=== PATIENT | female | born 1995 | race American Indian/Alaskan Native ===

== ENCOUNTER 2016-11-18 20:06 | Inpatient (IN) | payer MEDICAID ==
[2016-11-18] MEDS ORDERED: Insulin Regular, Human 100 Units/ML 10 ML Vial IVPUSH ONE (20:28)
[2016-11-18] MEDS ORDERED: Sodium Chloride 0.9% 1,000 ML IV ONE ×3 (20:28→21:51)
[2016-11-18] MEDS ORDERED: Ondansetron 4 MG/2 ML SDV IV ONE (20:28)
--- NOTE | 2016-11-18 20:48 | EDM.PDOC ---
ED HPI DIABETIC EMERGENCY - General Chief Complaint: Diabetic Complaint Stated Complaint: vomiting diabetic Time Seen by Provider: 11/18/16 20:45 Source of Information: Reports: Patient History Limitations: Reports: No limitations - History of Present Illness INITIAL COMMENTS - FREE TEXT/NARRATIVE: states been vomiting since this AM thought will go away but not so came here. mother called sarah' drug screen. denies diarrhoea, minimal c/o abd' pain. Most Recent Blood Sugar: 405 - Related Data Allergies/ADRs: Allergies Allergy/AdvReac Type Severity Reaction Status Date / Time hydromorphone HCl Allergy Itching Verified 10/20/16 22:05 [From Dilaudid] Home Meds: Home Meds Insulin Detemir [Levemir] 40 unit SUBCUT BEDTIME 03/11/16 [History] Insulin Aspart [NovoLOG] 17 units SUBCUT TIDAC 04/05/16 [History] Past Medical History HEENT History: Reports: Other (see below) Other HEENT History: ear problems with draining Cardiovascular History: Reports: None Respiratory History: Reports: None Gastrointestinal History: Reports: Hepatitis Other Gastrointestinal History: rectal bleeding per self report for past couple of months Genitourinary History: Reports: None 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 Musculoskeletal History: Reports: Fracture Neurological History: Reports: None Psychiatric History: Reports: ADHD, Addiction, Depression, Emotional problems Endocrine/Metabolic History: Reports: Diabetes, type I Hematologic History: Reports: None Immunologic History: Reports: None Oncologic (Cancer) History: Reports: None Dermatologic History: Reports: Other (see below) Other Dermatologic History: cut العراقي noted to forearms, acne vulgaris - Infectious Disease History Infectious Disease History: Reports: Hepatitis C, MRSA - Past Surgical History Head Surgeries/Procedures: Reports: None HEENT Surgical History: Reports: Adenoidectomy, Tonsillectomy, Other (see below) Other HEENT Surgeries/Procedures: repair of broken jaw(maxillary zygomatic reduction), wisdom teeth removed Social & Family History - Family History Family Medical History: Noncontributory Psychiatric: Reports: Depression Endocrine/Metabolic: Reports: Diabetes, type II - Tobacco Use Smoking Status *Q: Unknown Ever Smoked Years of Tobacco use: 4 Packs/Tins Daily: 0.2 Used Tobacco, but Quit: No Second Hand Smoke Exposure: Yes - Caffeine Use Caffeine Use: Reports: Coffee, Energy drinks - Alcohol Use Days Per Week of Alcohol Use: 1 Number of Drinks Per Day: 3 Total Drinks Per Week: 3 - Recreational Drug Use Recreational Drug Use: No Drug Use in Last 12 Months: Yes Recreational Drug Type: Reports: Marijuana/Hashish Recreational Drug Use Frequency: Rarely - Sexual History Sexual History: Reports: Sexually active - Living Situation & Occupation Living situation: Reports: with significant other Occupation: unemployed ED ROS GENERAL - Review of Systems Review Of Systems: ROS reveals no pertinent complaints other than HPI. ED EXAM GENERAL NO PERIP PULSE - Physical Exam Exam: See Below Exam Limited By: No limitations General Appearance: alert, WD/WN, mild distress, other (crying) Eye Exam: bilateral eye: PERRL (pupils ess ER @ 4mm) Ears: hearing grossly normal Throat/Mouth: Normal voice, No airway compromise Head: atraumatic Neck: non-tender, full range of motion Respiratory/Chest: no respiratory distress, lungs clear, normal breath sounds, no accessory muscle use Cardiovascular: regular rate, rhythm GI/Abdominal: soft, non tender Neurological: alert, oriented, normal cognition, normal gait, no motor/sensory deficits Psychiatric: tearful Skin Exam: Warm, Dry Lymphatic: no adenopathy Course - Vital Signs Last Recorded V/S: Last Vital Signs Temp 36.3 C 11/18/16 21:20 Pulse 118 H 11/18/16 21:20 Resp 23 H 11/18/16 21:20 BP 126/69 11/18/16 21:20 Pulse Ox 100 11/18/16 21:20 - Orders/Labs/Meds Orders: Active Orders 24 hr Category Date Time Status Blood Glucose Check, Bedside [RC] ONETIME Care 11/18/16 20:11 Active Sodium Chloride 0.9% [Normal Saline] 1,000 ml Med 11/18/16 21:17 Active IV .BOLUS Sodium Chloride 0.9% [Normal Saline] 1,000 ml Med 11/18/16 21:51 Active IV .BOLUS Medication Orders Sodium Chloride (Normal Saline) 1,000 mls @ 999 mls/hr IV .BOLUS ONE Stop: 11/18/16 22:17 Last Admin: 11/18/16 21:18 Dose: 999 mls/hr Sodium Chloride (Normal Saline) 1,000 mls @ 500 mls/hr IV .BOLUS ONE Stop: 11/18/16 23:50 Last Admin: 11/18/16 21:53 Dose: 500 mls/hr Labs: Laboratory Tests 11/18/16 11/18/16 11/18/16 Range/Units 20:11 20:15 20:15 WBC (5.0-10.0) 10^3/uL RBC (4.2-5.4) 10^6/uL Hgb (12.0-16.0) g/dL Hct (37.0-47.0) % MCV (80-100) fL MCH (27.0-34.0) pg MCHC (33.0-35.0) g/dL Plt Count (150-450) 10^3/uL Neut % (Auto) (42.2-75.2) % Lymph % (Auto) (20.5-50.1) % Mckenzie % (Auto) (2-8) % Eos % (Auto) (1.0-3.0) % Baso % (Auto) (0.0-1.0) % ABG pH (7.35-7.45) ABG pCO2 (35-45) mmHg ABG pO2 (70-100) mmHg ABG HCO3 (22-26) mmol/L ABG O2 Saturation (95-100) % ABG Base Excess ((-2)-(+3)) mmol/L Sean Test O2 Delivery Device Oxygen Flow Rate Sodium 131 L (135-145) mmol/L Potassium 5.5 H (3.6-5.0) mmol/L Chloride 97 L (101-111) mmol/L Carbon Dioxide 9.0 L (21.0-31.0) mmol/L Anion Gap 30.5 BUN 17 (7-18) mg/dL Creatinine 1.0 (0.6-1.3) mg/dL Est Cr Clr Drug Dosing TNP Estimated GFR (MDRD) > 60 BUN/Creatinine Ratio 17.00 Glucose 449 H* (74-105) mg/dL POC Glucose 405 H* (70-105) mg/dl Calcium 9.5 (8.4-10.2) mg/dl Total Bilirubin 1.5 H (0.2-1.0) mg/dL AST 53 H (10-42) IU/L ALT 80 H (10-60) IU/L Alkaline Phosphatase 98 (42-121) IU/L Total Protein 10.4 H (6.7-8.2) g/dl Albumin 5.3 (3.2-5.5) g/dl Globulin 5.1 Albumin/Globulin Ratio 1.04 Amylase 26 L (28-100) U/L Lipase 27 (22-51) U/L HCG, Qual Negative Urine Opiates Screen (NEGATIVE) Ur Oxycodone Screen (NEGATIVE) Urine Methadone Screen (NEGATIVE) Ur Barbiturates Screen (NEGATIVE) U Tricyclic Antidepress (NEGATIVE) Ur Phencyclidine Scrn (NEGATIVE) Ur Amphetamine Screen (NEGATIVE) U Methamphetamines Scrn (NEGATIVE) Urine MDMA Screen (NEGATIVE) U Benzodiazepines Scrn (NEGATIVE) Urine Cocaine Screen (NEGATIVE) U Marijuana (THC) Screen (NEGATIVE) Ethyl Alcohol < 5 mg/dL 11/18/16 11/18/16 11/18/16 Range/Units 20:15 21:05 21:27 WBC 17.6 H (5.0-10.0) 10^3/uL RBC 5.97 H (4.2-5.4) 10^6/uL Hgb 16.1 H (12.0-16.0) g/dL Hct 50.8 H (37.0-47.0) % MCV 85.1 (80-100) fL MCH 27.0 (27.0-34.0) pg MCHC 31.7 L (33.0-35.0) g/dL Plt Count 405 (150-450) 10^3/uL Neut % (Auto) 66.3 (42.2-75.2) % Lymph % (Auto) 28.7 (20.5-50.1) % Mckenzie % (Auto) 4.7 (2-8) % Eos % (Auto) 0.1 L (1.0-3.0) % Baso % (Auto) 0.2 (0.0-1.0) % ABG pH (7.35-7.45) ABG pCO2 (35-45) mmHg ABG pO2 (70-100) mmHg ABG HCO3 (22-26) mmol/L ABG O2 Saturation (95-100) % ABG Base Excess ((-2)-(+3)) mmol/L Sean Test O2 Delivery Device Oxygen Flow Rate Sodium (135-145) mmol/L Potassium (3.6-5.0) mmol/L Chloride (101-111) mmol/L Carbon Dioxide (21.0-31.0) mmol/L Anion Gap BUN (7-18) mg/dL Creatinine (0.6-1.3) mg/dL Est Cr Clr Drug Dosing Estimated GFR (MDRD) BUN/Creatinine Ratio Glucose (74-105) mg/dL POC Glucose 382 H (70-105) mg/dl Calcium (8.4-10.2) mg/dl Total Bilirubin (0.2-1.0) mg/dL AST (10-42) IU/L ALT (10-60) IU/L Alkaline Phosphatase (42-121) IU/L Total Protein (6.7-8.2) g/dl Albumin (3.2-5.5) g/dl Globulin Albumin/Globulin Ratio Amylase (28-100) U/L Lipase (22-51) U/L HCG, Qual Urine Opiates Screen Negative (NEGATIVE) Ur Oxycodone Screen Negative (NEGATIVE) Urine Methadone Screen Negative (NEGATIVE) Ur Barbiturates Screen Negative (NEGATIVE) U Tricyclic Antidepress Negative (NEGATIVE) Ur Phencyclidine Scrn Negative (NEGATIVE) Ur Amphetamine Screen Negative (NEGATIVE) U Methamphetamines Scrn Negative (NEGATIVE) Urine MDMA Screen Negative (NEGATIVE) U Benzodiazepines Scrn Negative (NEGATIVE) Urine Cocaine Screen Negative (NEGATIVE) U Marijuana (THC) Screen Positive H (NEGATIVE) Ethyl Alcohol mg/dL 11/18/ Range/Units 21:34 WBC (5.0-10.0) 10^3/uL RBC (4.2-5.4) 10^6/uL Hgb (12.0-16.0) g/dL Hct (37.0-47.0) % MCV (80-100) fL MCH (27.0-34.0) pg MCHC (33.0-35.0) g/dL Plt Count (150-450) 10^3/uL Neut % (Auto) (42.2-75.2) % Lymph % (Auto) (20.5-50.1) % Mckenzie % (Auto) (2-8) % Eos % (Auto) (1.0-3.0) % Baso % (Auto) (0.0-1.0) % ABG pH 7.03 L* (7.35-7.45) ABG pCO2 10 L* (35-45) mmHg ABG pO2 109 H (70-100) mmHg ABG HCO3 2.6 L (22-26) mmol/L ABG O2 Saturation 97 (95-100) % ABG Base Excess -29 L ((-2)-(+3)) mmol/L Sean Test Positive O2 Delivery Device Room air Oxygen Flow Rate 0 Sodium (135-145) mmol/L Potassium (3.6-5.0) mmol/L Chloride (101-111) mmol/L Carbon Dioxide (21.0-31.0) mmol/L Anion Gap BUN (7-18) mg/dL Creatinine (0.6-1.3) mg/dL Est Cr Clr Drug Dosing Estimated GFR (MDRD) BUN/Creatinine Ratio Glucose (74-105) mg/dL POC Glucose (70-105) mg/dl Calcium (8.4-10.2) mg/dl Total Bilirubin (0.2-1.0) mg/dL AST (10-42) IU/L ALT (10-60) IU/L Alkaline Phosphatase (42-121) IU/L Total Protein (6.7-8.2) g/dl Albumin (3.2-5.5) g/dl Globulin Albumin/Globulin Ratio Amylase (28-100) U/L Lipase (22-51) U/L HCG, Qual Urine Opiates Screen (NEGATIVE) Ur Oxycodone Screen (NEGATIVE) Urine Methadone Screen (NEGATIVE) Ur Barbiturates Screen (NEGATIVE) U Tricyclic Antidepress (NEGATIVE) Ur Phencyclidine Scrn (NEGATIVE) Ur Amphetamine Screen (NEGATIVE) U Methamphetamines Scrn (NEGATIVE) Urine MDMA Screen (NEGATIVE) U Benzodiazepines Scrn (NEGATIVE) Urine Cocaine Screen (NEGATIVE) U Marijuana (THC) Screen (NEGATIVE) Ethyl Alcohol mg/dL Meds: Medications Generic Name Dose Route Start Last Admin Trade Name Freq PRN Reason Stop Dose Admin Sodium Chloride 1,000 mls @ 999 mls/hr 11/18/16 21:17 11/18/16 21:18 Normal Saline IV 11/18/16 22:17 999 mls/hr .BOLUS ONE Administration Sodium Chloride 1,000 mls @ 500 mls/hr 11/18/16 21:51 11/18/16 21:53 Normal Saline IV 11/18/16 23:50 500 mls/hr .BOLUS ONE Administration Discontinued Medications Generic Name Dose Route Start Last Admin Trade Name Anail PRN Reason Stop Dose Admin Sodium Chloride 1,000 mls @ 999 mls/hr 11/18/16 20:28 11/18/16 20:37 Normal Saline IV 11/18/16 21:28 999 mls/hr .BOLUS ONE Administration Insulin Human Regular 5 unit 11/18/16 20:28 11/18/16 20:38 Novolin R IVPUSH 11/18/16 20:29 5 units ONETIME ONE Administration Protocol Ketorolac Tromethamine 15 mg 11/18/16 21:08 11/18/16 21:13 Toradol IVPUSH 11/18/16 21:09 15 mg ONETIME ONE Administration Ondansetron HCl 4 mg 11/18/16 20:28 11/18/16 20:37 Zofran IV 11/18/16 20:29 4 mg ONETIME ONE Administration - Re-Assessments/Exams Free Text/Narrative Re-Assessment/Exam: 11/18/16 22:[address] Berry who kindly admitted pt. Departure - Departure Time of Disposition: 22:07 Disposition: Admitted As Inpatient 67 Condition: good Clinical Impression: DKA (diabetic ketoacidoses) Qualifiers: Diabetes mellitus type: type 1 Diabetes mellitus complication detail: without coma Qualified Code(s): E10.10 - Type 1 diabetes mellitus with ketoacidosis without coma Forms: ED Department Discharge - My Orders Last 24 Hours: My Active Orders 11/18/16 20:11 Blood Glucose Check, Bedside [RC] ONETIME 11/18/16 21:17 Sodium Chloride 0.9% [Normal Saline] 1,000 ml IV .BOLUS 11/18/16 21:51 Sodium Chloride 0.9% [Normal Saline] 1,000 ml IV .BOLUS - Assessment/Plan Last 24 Hours: My Active Orders 11/18/16 20:11 Blood Glucose Check, Bedside [RC] ONETIME 11/18/16 21:17 Sodium Chloride 0.9% [Normal Saline] 1,000 ml IV .BOLUS 11/18/16 21:51 Sodium Chloride 0.9% [Normal Saline] 1,000 ml IV .BOLUS
[2016-11-18 20:58] LABS: CHLORIDE,CL 97 mmol/L (101-111); SODIUM,NA 131 mmol/L (135-145)
[2016-11-18] MEDS ORDERED: Ketorolac 30 MG/ML SDV IVPUSH ONE (21:08)
[2016-11-18 21:40] LABS: BASE EXCESS ARTERIAL -29 mmol/L ((-2)-(+3)); BICARBONATE,ARTERIAL 2.6 mmol/L (22-26); O2 DELIVERY DEVICE ROOM AIR; O2 FLOW RATE 0; O2 SATURATION ARTERIAL 97 % (95-100); PO2 ARTERIAL 109 mmHg (70-100)
[2016-11-18 21:45] LABS: ALLEN TEST POSITIVE; PCO2 ARTERIAL 10 mmHg (35-45)
[2016-11-18] MEDS ORDERED: Ondansetron 4 MG/2 ML SDV IVPUSH PRN (22:49)
[2016-11-18] MEDS: Acetaminophen 325 MG Tab PO PRN (23:13)
[2016-11-19] MEDS: Sodium Chloride 0.9% 1,000 ML IV SCH ×2 (00:02→05:03)
[2016-11-19] MEDS: Acetaminophen 325 MG Tab PO PRN ×2 (05:11→11:31)
[2016-11-19] MEDS: Heparin Sodium 5,000 Units/ML Vial SUBCUT SCH ×3 (06:03→22:02)
[2016-11-19 06:46] LABS: CHLORIDE,CL 107 mmol/L (101-111); SODIUM,NA 129 mmol/L (135-145)
[2016-11-19] MEDS ORDERED: Magnesium Sulfate/Water 2 GM in Premix Bag 1 BAG IV ONE (08:43)
[2016-11-19] MEDS ORDERED: D5 1/2 NS w/ 20 mEq/L KCl 1,000 ML IV SCH ×3 (08:45→10:30)
--- NOTE | 2016-11-19 10:27 | PN ---
DATE: 11/19/2016 SUBJECTIVE: Diabetic ketoacidosis. Today the patient offers no new complaints. Still has headache. Nausea and vomiting have improved. She indicates that she is hungry and is asking for food. REVIEW OF SYSTEMS: Constitutional, cardiac, respiratory, gastrointestinal, and genitourinary system were reviewed. No other pertinent findings except as noted above. OBJECTIVE: General: The patient is alert, oriented to place, time, and person. Head: Atraumatic and normocephalic. Ear, Nose, and Throat: Unremarkable. Neck: Supple. Chest: Diminished breath sounds bilaterally. CVS: Regular rate and rhythm. Abdomen: Soft, nontender. Extremities: No pedal edema. No finger clubbing. Vital Signs: Blood pressure is 127/79, pulse is 94 per minute, respiratory rate 20 per minute. LABORATORY DATA: White count is 15.9, hemoglobin is normal. Bicarbonate still low at 7.0. Anion gap is elevated at 18.5. ASSESSMENT: 1. Diabetic ketoacidosis. 2. Probable acute bronchitis. She has been coughing. PLAN: 1. Discontinue normal saline. 2. Start the patient on half-normal saline. 3. Continue continuous intravenous insulin. 4. Obtain repeat basic metabolic panel. 5. Start the patient on consistent carbohydrate diet. [facility] /[id number]
[2016-11-19] MEDS ORDERED: Sodium Chloride 0.9% 1,000 ML IV SCH (12:00)
[2016-11-19 15:04] LABS: CHLORIDE,CL 103 mmol/L (101-111); SODIUM,NA 126 mmol/L (135-145)
[2016-11-19] MEDS ORDERED: Insulin Detemir 100 Units/ML 3 ML Pen SUBCUT ONE (15:30)
[2016-11-19] MEDS ORDERED: Sodium Chloride 0.45% with KCl 1,000 ML IV SCH (15:30)
[2016-11-19] MEDS ORDERED: Potassium Chloride 10 MEQ Tab.ER PO ONE (15:30)
[2016-11-19] MEDS ORDERED: Insulin Aspart 100 Units/ML 3 ML Pen SUBCUT ONE (17:10)
[2016-11-19] MEDS ORDERED: Insulin Aspart 100 Units/ML 3 ML Pen SUBCUT SCH (18:00)
[2016-11-19 19:42] VITALS: BP 112/69
--- NOTE | 2016-11-20 09:56 | HP ---
CHIEF COMPLAINT: Nausea and vomiting. HISTORY OF PRESENTING ILLNESS: Ms. Merlene Roa is a 21-year-old female with history of type 1 diabetes mellitus, on insulin. Patient did not use insulin 2 days ago. She has done drugs, marijuana, and was drinking alcohol yesterday. She did not use insulin and by today started having nausea and vomiting. She has vomited more than 8 times. Also complains of a headache, which is frontal in location. Dull in nature. Denies fever, chills, rigors. Has been coughing that is mostly unproductive. The cough has been going on for about 3 days. No abdominal pain. No dysuria. No frequency on micturition. No diarrhea. She came to the emergency room and was found to be in diabetic ketoacidosis. REVIEW OF SYSTEMS: A 10-point review of system performed, no other pertinent findings except as noted above. PAST MEDICAL HISTORY: 1. Diabetes mellitus type 1. 2. Tobacco use disorder. 3. Recent drug use. SOCIAL HISTORY: Tobacco use disorder, intermittent. Occasional alcohol use. FAMILY HISTORY: Reviewed and considered unremarkable. MEDICATIONS: Insulin, poor compliance. OBJECTIVE: General: The patient is alert, oriented to place, time, and person. Head: Atraumatic and normocephalic. Ear, Nose, and Throat: Unremarkable. Neck: Supple. Chest: Clear to auscultation. CVS: Regular rate and rhythm. No S3 or S4. Abdomen: Soft, nontender. Extremities: No pedal edema. No finger clubbing. Skin: No rash. Neuro: Grossly nonfocal. Endocrine: No thyromegaly. Psychiatric: Judgment and insight are good. She is anxious. LABORATORY DATA: Blood sugar is 449, creatinine is 1.0. Potassium 5.5. Sodium of 131. Bilirubin is 1.5. AST 53, ALT is 80. Serum lipase is normal. ASSESSMENT AND PLAN: 1. Diabetic ketoacidosis. The patient's arterial blood gas showed pH of 7.03. Serum bicarbonate is only 9. This is due to poor compliance with medication. 2. Diabetes mellitus type 1, poorly compliant with insulin. Currently in diabetic ketoacidosis. 3. Elevated liver enzymes. Reason for this is not obvious. The patient used significant amount of alcohol yesterday. Denies abdominal pain. I do not think we are dealing with hepatobiliary disease. 4. Hyponatremia due to the hyperglycemia. 5. Hyperkalemia, serum potassium is elevated at 5.5. 6. Illicit drug use. Urine toxicology screen is positive for marijuana. 7. Headache, likely due to systemic illness. PLAN: 1. Admit patient to medical floor. 2. Aggressive intravenous fluid with normal saline. 3. The patient will continue on intravenous insulin. 4. Obtain repeat basic metabolic panel. 5. Close hemodynamic monitoring. 6. Antiemetic protocol. 7. Chart reviewed. Discussed with emergency room provider. 8. Correct electrolyte abnormalities. [facility] /[id number]
--- NOTE | 2016-11-21 04:50 | DISCH ---
The patient left against medical advice. FINAL DIAGNOSES: 1. Diabetic ketoacidosis. 2. Hypokalemia. 3. Hyponatremia. 4. Poorly controlled diabetes mellitus type 1. SUMMARY OF HOSPITAL COURSE: The patient was admitted with diabetic ketoacidosis. Anion gap was corrected and acidosis resolved, but she was still hyponatremic. Because of that, the patient was kept on intravenous fluids. She was started on diet and switched that to subcutaneous insulin. She decided to leave against medical advice. [facility] /[id number]
== END 2016-11-19 23:15 | disposition left against medical advice (07) | DRG 638 ==
LOC: DL.ED 20:06 → DL.MS 22:16
PROVIDERS: ADMIT Hospitalist; ATTEND Hospitalist
DX: E10.10 Type 1 diabetes mellitus with ketoacidosis without coma (principal); E87.1 Hypo-osmolality and hyponatremia; Z79.4 Long term (current) use of insulin; R51 Headache; R74.8 Abnormal levels of other serum enzymes; F12.90 Cannabis use, unspecified, uncomplicated; F17.200 Nicotine dependence, unspecified, uncomplicated; Z88.5 Allergy status to narcotic agent; E87.5 Hyperkalemia; F90.9 Attention-deficit hyperactivity disorder, unspecified type; F32.9 Major depressive disorder, single episode, unspecified
CPT/HCPCS: 36415; 36600; 71010; 80048; 80053; 80305; 82150; 82803; 82962; 83690; 84703; 85025; 96361; 96374; 96375; 99285; A9270-GY; G0480; J1644; J1815-GY; J1885; J2405; J3475; J3480; J7030; J7050

== ENCOUNTER 2017-01-28 17:58 | Emergency (ER) | payer MEDICAID ==
[2017-01-28 19:41] VITALS: BP 113/74
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
[2017-01-28] MEDS ORDERED: Sulfamethoxazole/Trimethoprim 800-160 MG Tab PO ONE (20:25)
== END 2017-01-28 20:34 | disposition home or self-care (01) ==
LOC: DL.ED 17:58
DX: S61.254A Open bite of right ring finger without damage to nail, initial encounter (principal); L03.011 Cellulitis of right finger; E10.9 Type 1 diabetes mellitus without complications; F41.9 Anxiety disorder, unspecified; F32.9 Major depressive disorder, single episode, unspecified; F17.210 Nicotine dependence, cigarettes, uncomplicated; W50.3XXA Accidental bite by another person, initial encounter; Y04.1XXA Assault by human bite, initial encounter; Z88.6 Allergy status to analgesic agent; Z79.4 Long term (current) use of insulin
CPT/HCPCS: 73140; 81025; 87070; 99283; A9270; 87077; 87186

== ENCOUNTER 2017-02-02 17:00 | Emergency (ER) | payer MEDICAID ==
[2017-02-02] MEDS ORDERED: Morphine 4 MG/ML Syringe IVPUSH ONE (17:33)
[2017-02-02] MEDS ORDERED: Ondansetron 4 MG/2 ML SDV IV ONE (17:33)
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
[2017-02-02] MEDS ORDERED: traMADol 50 MG Tab ONE (19:46)
[2017-02-02] MEDS ORDERED: traMADol 50 MG Tab PO ONE (19:46)
[2017-02-02 20:01] VITALS: BP 123/89
== END 2017-02-02 19:56 | disposition home or self-care (01) ==
LOC: DL.ED 17:00
DX: S39.011A Strain of muscle, fascia and tendon of abdomen, initial encounter (principal); S30.1XXA Contusion of abdominal wall, initial encounter; E10.9 Type 1 diabetes mellitus without complications; F32.9 Major depressive disorder, single episode, unspecified; F17.210 Nicotine dependence, cigarettes, uncomplicated; Z79.4 Long term (current) use of insulin; Z79.899 Other long term (current) drug therapy; Z88.5 Allergy status to narcotic agent; Z98.890 Other specified postprocedural states; W22.8XXA Striking against or struck by other objects, initial encounter
CPT/HCPCS: 36415; 74176; 80305; 81001; 81025; 82962; 85025; 96374; 96375; 99284; A9270; J2270; J2405

== ENCOUNTER 2017-04-09 10:07 | Emergency (ER) | payer MEDICAID ==
[2017-04-09] MEDS ORDERED: LORazepam 2 MG/ML Syringe IM ONE (10:45)
[2017-04-09] MEDS ORDERED: Ondansetron 4 MG Tab.DIS PO ONE (10:48)
[2017-04-09 11:03] LABS: CHLORIDE,CL 100 mmol/L (101-111); SODIUM,NA 132 mmol/L (135-145)
[2017-04-09 11:04] LABS: ACETAMINOPHEN < 10
--- NOTE | 2017-04-09 11:18 | EDM.PDOC ---
ED HPI GENERAL MEDICAL PROBLEM - General Chief Complaint: General Stated Complaint: BY AMBULANCE Time Seen by Provider: 04/09/17 10:10 Source of Information: Reports: EMS History Limitations: Reports: Uncooperative - History of Present Illness INITIAL COMMENTS - FREE TEXT/NARRATIVE: This 22 yo female patient was brought to the ED by [facility] due to shortness of breath and nausea/vomiting. EMS reports the patient admits to doing Meth yesterday and now has shortness of breath, abdominal pain with nausea and vomiting. Two separate attempt to speak with the patient resulted in the patient not cooperating in the examination and would not answer questions. Onset: Today Duration: Constant, Getting Worse Bilateral Shoulder Pain Score (Numeric/FACES): 9 - Related Data Allergies Allergy/AdvReac Type Severity Reaction Status Date / Time hydromorphone HCl Allergy Itching Verified 04/09/17 10:25 [From Dilaudid] Home Meds: Home Meds Insulin Detemir [Levemir] 45 unit SUBCUT BEDTIME 03/11/16 [History] Insulin Aspart [NovoLOG] 15 units SUBCUT TIDAC 04/05/16 [History] buPROPion [Wellbutrin XL] 150 mg PO DAILY 02/02/17 [History] traZODone 50 mg PO DAILY 02/02/17 [History] Past Medical History HEENT History: Reports: Other (See Below) Other HEENT History: ear problems with draining, cheek broken in three different place Cardiovascular History: Reports: None Respiratory History: Reports: None Gastrointestinal History: Reports: Hepatitis Other Gastrointestinal History: rectal bleeding per self report for past couple of months Genitourinary History: Reports: None ASSOCIATE CONSULTING ENGINEER History: Reports: Spontaneous Musculoskeletal History: Reports: Fracture Neurological History: Reports: None Psychiatric History: Reports: ADHD, Addiction, Depression, Emotional Problems Endocrine/Metabolic History: Reports: Diabetes, Type I Hematologic History: Reports: Other (See Below) Other Hematologic History: Hep + Immunologic History: Reports: None Oncologic (Cancer) History: Reports: None Dermatologic History: Reports: Other (See Below) Other Dermatologic History: cut العراقي noted to forearms, acne vulgaris - Infectious Disease History Infectious Disease History: Reports: Hepatitis C - Past Surgical History Head Surgeries/Procedures: Reports: None HEENT Surgical History: Reports: Adenoidectomy, Tonsillectomy Social & Family History - Family History Family Medical History: Noncontributory Psychiatric: Reports: Depression Endocrine/Metabolic: Reports: Diabetes, type II - Tobacco Use Smoking Status *Q: Current Some Day Smoker Years of Tobacco use: 5 Packs/Tins Daily: 0.5 Used Tobacco, but Quit: No Second Hand Smoke Exposure: Yes - Caffeine Use Caffeine Use: Reports: None - Alcohol Use Days Per Week of Alcohol Use: 1 Number of Drinks Per Day: 3 Total Drinks Per Week: 3 - Recreational Drug Use Recreational Drug Use: Yes Drug Use in Last 12 Months: Yes Recreational Drug Type: Reports: Marijuana/Hashish, Methamphetamine Recreational Drug Use Frequency: Not Used In Over 3 Months Recreational Drug Last Use: t-1 - Sexual History Sexual History: Reports: Sexually Active - Living Situation & Occupation Living situation: Reports: with Significant Other Occupation: Unemployed ED ROS GENERAL - Review of Systems Review Of Systems: ROS reveals no pertinent complaints other than HPI. ED EXAM, GENERAL - Physical Exam Exam: See Below Exam Limited By: Altered Mental Status General Appearance: Alert, Severe Distress Eye Exam: Bilateral Eye: Normal Inspection, PERRL Ears: Normal External Exam, Normal Canal, Hearing Grossly Normal, Normal TMs Nose: Normal Inspection, Normal Mucosa, No Blood Throat/Mouth: Normal Inspection, Normal Lips, Normal Teeth, Normal Gums, Normal Oropharynx, Normal Voice, No Airway Compromise Head: Atraumatic, Normocephalic Neck: Normal Inspection, Supple, Non-Tender, Full Range of Motion Respiratory/Chest: No Respiratory Distress, Lungs Clear, No Accessory Muscle Use , Chest Non-Tender, Respiratory Distress, Other (tachy) Cardiovascular: Normal Peripheral Pulses, Regular Rate, Rhythm, No Edema, No Gallop, No JVD, No Murmur, No Rub GI/Abdominal: Normal Bowel Sounds, Soft, Non-Tender, No Organomegaly, No Distention, No Abnormal Bruit, No Mass (Female) Exam: Deferred Rectal (Female) Exam: Deferred Back Exam: Normal Inspection, Full Range of Motion, NT Extremities: Normal Inspection, Normal Range of Motion, Non-Tender, Normal Capillary Refill, No Pedal Edema Neurological: Alert, CN II-XII Intact, Normal Cognition, Normal Gait, Normal Reflexes, No Motor/Sensory Deficits, Confused, Disoriented Skin Exam: Warm, Dry, Intact, Normal Color, No Rash Lymphatic: No Adenopathy Course - Vital Signs Last Recorded V/S: Last Vital Signs Temp 36.8 C 04/09/17 10:05 Pulse 119 H 04/09/17 13:39 Resp 28 H 04/09/17 13:39 BP 96/74 04/09/17 13:39 Pulse Ox 100 04/09/17 13:39 - Orders/Labs/Meds Orders: Active Orders 24 hr Category Date Time Status EKG Documentation Completion [RC] URGENT Care 04/09/17 10:05 Active Insulin Regular, Human [HumuLIN R] 100 unit Med 04/09/17 14:00 Ordered Sodium Chloride 0.9% [Normal Saline] 99 ml SUBCUT TITRATE Lactated Ringers [Ringers, Lactated] 1,000 ml Med 04/09/17 13:30 Active IV ASDIRECTED Sodium Chloride 0.9% [Normal Saline] 1,000 ml Med 04/09/17 13:55 Active IV .BOLUS Medication Orders Lactated Ringer's (Ringers, Lactated) 1,000 mls @ 150 mls/hr IV ASDIRECTED RUPINDER Last Admin: 04/09/17 13:25 Dose: 150 mls/hr Sodium Chloride (Normal Saline) 1,000 mls @ 999 mls/hr IV .BOLUS ONE Stop: 04/09/17 14:55 Insulin Human Regular 100 unit (/ Sodium Chloride) 100 mls @ 1 mls/hr SUBCUT TITRATE RUPINDER; 1 UNITS/HR PRN Reason: Protocol Labs: Laboratory Tests 04/09/17 04/09/17 04/09/17 Range/Units 10:31 10:31 10:31 WBC 14.1 H (5.0-10.0) 10^3/uL RBC 6.25 H (4.2-5.4) 10^6/uL Hgb 17.5 H (12.0-16.0) g/dL Hct 55.4 H (37.0-47.0) % MCV 88.6 (80-100) fL MCH 28.0 (27.0-34.0) pg MCHC 31.6 L (33.0-35.0) g/dL Plt Count 348 (150-450) 10^3/uL Neut % (Auto) 73.6 (42.2-75.2) % Lymph % (Auto) 22.3 (20.5-50.1) % [place] % (Auto) 3.9 (2-8) % Eos % (Auto) 0.1 L (1.0-3.0) % Baso % (Auto) 0.1 (0.0-1.0) % Add Manual Diff Yes Neutrophils % (Manual) 61 % Band Neutrophils % 8 % Lymphocytes % (Manual) 28 % Monocytes % (Manual) 2 % Eosinophils % (Manual) 1 % ABG pH (7.35-7.45) ABG pCO2 (35-45) mmHg ABG pO2 (70-100) mmHg ABG HCO3 (22-26) mmol/L ABG O2 Saturation (95-100) % ABG Base Excess ((-2)-(+3)) mmol/L Sean Test O2 Delivery Device Sodium 132 L (135-145) mmol/L Potassium 5.5 H (3.6-5.0) mmol/L Chloride 100 L (101-111) mmol/L Carbon Dioxide 6.0 L* (21.0-31.0) mmol/L Anion Gap 31.5 BUN 17 (7-18) mg/dL Creatinine 1.1 (0.6-1.3) mg/dL Est Cr Clr Drug Dosing TNP Estimated GFR (MDRD) > 60 BUN/Creatinine Ratio 15.45 Glucose 386 H (74-105) mg/dL POC Glucose (70-105) mg/dl Calcium 9.4 (8.4-10.2) mg/dl Magnesium 2.1 (1.8-2.5) mg/dL Total Bilirubin 1.7 H (0.2-1.0) mg/dL AST 18 (10-42) IU/L ALT 18 (10-60) IU/L Alkaline Phosphatase 99 (42-121) IU/L Troponin I < 0.02 (0.00-0.02) ng/ml Total Protein 10.2 H (6.7-8.2) g/dl Albumin 5.4 (3.2-5.5) g/dl Globulin 4.8 Albumin/Globulin Ratio 1.13 Amylase 15 L (28-100) U/L Lipase 22 (22-51) U/L Urine Color (YELLOW) Urine Appearance (CLEAR) Urine pH (5.0-9.0) Ur Specific [place] (1.005-1.030) Urine Protein (NEGATIVE) Urine Glucose (UA) (NEGATIVE) Urine Ketones (NEGATIVE) Urine Occult Blood (NEGATIVE) Urine Nitrite (NEGATIVE) Urine Bilirubin (NEGATIVE) Urine Urobilinogen (0.2-1.0) mg/dL Ur Leukocyte Esterase (NEGATIVE) Urine RBC /HPF Urine WBC (0-5/HPF) /HPF Ur Epithelial Cells /HPF Amorphous Sediment (0/HPF) /HPF Urine Bacteria (0-FEW/HPF) /HPF Granular Casts /LPF Urine Yeast (0/HPF) /HPF Urine HCG, Qual Urine Opiates Screen (NEGATIVE) Ur Oxycodone Screen (NEGATIVE) Urine Methadone Screen (NEGATIVE) Acetaminophen < 10 Ur Barbiturates Screen (NEGATIVE) U Tricyclic Antidepress (NEGATIVE) Ur Phencyclidine Scrn (NEGATIVE) Ur Amphetamine Screen (NEGATIVE) U Methamphetamines Scrn (NEGATIVE) Urine MDMA Screen (NEGATIVE) U Benzodiazepines Scrn (NEGATIVE) Urine Cocaine Screen (NEGATIVE) U Marijuana (THC) Screen (NEGATIVE) Ethyl Alcohol < 5 mg/dL Ketones 04/09/17 04/09/17 04/09/17 Range/Units 10:31 10:55 10:55 WBC (5.0-10.0) 10^3/uL RBC (4.2-5.4) 10^6/uL Hgb (12.0-16.0) g/dL Hct (37.0-47.0) % MCV (80-100) fL MCH (27.0-34.0) pg MCHC (33.0-35.0) g/dL Plt Count (150-450) 10^3/uL Neut % (Auto) (42.2-75.2) % Lymph % (Auto) (20.5-50.1) % [place] % (Auto) (2-8) % Eos % (Auto) (1.0-3.0) % Baso % (Auto) (0.0-1.0) % Add Manual Diff Neutrophils % (Manual) % Band Neutrophils % % Lymphocytes % (Manual) % Monocytes % (Manual) % Eosinophils % (Manual) % ABG pH (7.35-7.45) ABG pCO2 (35-45) mmHg ABG pO2 (70-100) mmHg ABG HCO3 (22-26) mmol/L ABG O2 Saturation (95-100) % ABG Base Excess ((-2)-(+3)) mmol/L Sean Test O2 Delivery Device Sodium (135-145) mmol/L Potassium (3.6-5.0) mmol/L Chloride (101-111) mmol/L Carbon Dioxide (21.0-31.0) mmol/L Anion Gap BUN (7-18) mg/dL Creatinine (0.6-1.3) mg/dL Est Cr Clr Drug Dosing Estimated GFR (MDRD) BUN/Creatinine Ratio Glucose (74-105) mg/dL POC Glucose (70-105) mg/dl Calcium (8.4-10.2) mg/dl Magnesium (1.8-2.5) mg/dL Total Bilirubin (0.2-1.0) mg/dL AST (10-42) IU/L ALT (10-60) IU/L Alkaline Phosphatase (42-121) IU/L Troponin I (0.00-0.02) ng/ml Total Protein (6.7-8.2) g/dl Albumin (3.2-5.5) g/dl Globulin Albumin/Globulin Ratio Amylase (28-100) U/L Lipase (22-51) U/L Urine Color (YELLOW) Urine Appearance (CLEAR) Urine pH (5.0-9.0) Ur Specific [place] (1.005-1.030) Urine Protein (NEGATIVE) Urine Glucose (UA) (NEGATIVE) Urine Ketones (NEGATIVE) Urine Occult Blood (NEGATIVE) Urine Nitrite (NEGATIVE) Urine Bilirubin (NEGATIVE) Urine Urobilinogen (0.2-1.0) mg/dL Ur Leukocyte Esterase (NEGATIVE) Urine RBC /HPF Urine WBC (0-5/HPF) /HPF Ur Epithelial Cells /HPF Amorphous Sediment (0/HPF) /HPF Urine Bacteria (0-FEW/HPF) /HPF Granular Casts /LPF Urine Yeast (0/HPF) /HPF Urine HCG, Qual Negative Urine Opiates Screen Negative (NEGATIVE) Ur Oxycodone Screen Negative (NEGATIVE) Urine Methadone Screen Negative (NEGATIVE) Acetaminophen Ur Barbiturates Screen Negative (NEGATIVE) U Tricyclic Antidepress Negative (NEGATIVE) Ur Phencyclidine Scrn Negative (NEGATIVE) Ur Amphetamine Screen Negative (NEGATIVE) U Methamphetamines Scrn Positive H (NEGATIVE) Urine MDMA Screen Negative (NEGATIVE) U Benzodiazepines Scrn Negative (NEGATIVE) Urine Cocaine Screen Negative (NEGATIVE) U Marijuana (THC) Screen Positive H (NEGATIVE) Ethyl Alcohol mg/dL Ketones Positive 04/09/17 04/09/17 04/09/17 Range/Units 10:55 13:20 13:35 WBC (5.0-10.0) 10^3/uL RBC (4.2-5.4) 10^6/uL Hgb (12.0-16.0) g/dL Hct (37.0-47.0) % MCV (80-100) fL MCH (27.0-34.0) pg MCHC (33.0-35.0) g/dL Plt Count (150-450) 10^3/uL Neut % (Auto) (42.2-75.2) % Lymph % (Auto) (20.5-50.1) % [place] % (Auto) (2-8) % Eos % (Auto) (1.0-3.0) % Baso % (Auto) (0.0-1.0) % Add Manual Diff Neutrophils % (Manual) % Band Neutrophils % % Lymphocytes % (Manual) % Monocytes % (Manual) % Eosinophils % (Manual) % ABG pH 6.92 L* (7.35-7.45) ABG pCO2 5 L* (35-45) mmHg ABG pO2 129 H (70-100) mmHg ABG HCO3 1.0 L (22-26) mmol/L ABG O2 Saturation 98 (95-100) % ABG Base Excess -35 L ((-2)-(+3)) mmol/L Sean Test Positive O2 Delivery Device Room air Sodium (135-145) mmol/L Potassium (3.6-5.0) mmol/L Chloride (101-111) mmol/L Carbon Dioxide (21.0-31.0) mmol/L Anion Gap BUN (7-18) mg/dL Creatinine (0.6-1.3) mg/dL Est Cr Clr Drug Dosing Estimated GFR (MDRD) BUN/Creatinine Ratio Glucose (74-105) mg/dL POC Glucose 367 H (70-105) mg/dl Calcium (8.4-10.2) mg/dl Magnesium (1.8-2.5) mg/dL Total Bilirubin (0.2-1.0) mg/dL AST (10-42) IU/L ALT (10-60) IU/L Alkaline Phosphatase (42-121) IU/L Troponin I (0.00-0.02) ng/ml Total Protein (6.7-8.2) g/dl Albumin (3.2-5.5) g/dl Globulin Albumin/Globulin Ratio Amylase (28-100) U/L Lipase (22-51) U/L Urine Color Yellow (YELLOW) Urine Appearance Clear (CLEAR) Urine pH 5.5 (5.0-9.0) Ur Specific [place] >= 1.030 (1.005-1.030) Urine Protein >=300 H (NEGATIVE) Urine Glucose (UA) 500 H (NEGATIVE) Urine Ketones 80 H (NEGATIVE) Urine Occult Blood Moderate H (NEGATIVE) Urine Nitrite Negative (NEGATIVE) Urine Bilirubin Small H (NEGATIVE) Urine Urobilinogen 0.2 (0.2-1.0) mg/dL Ur Leukocyte Esterase Negative (NEGATIVE) Urine RBC 10-20 H /HPF Urine WBC 5-10 H (0-5/HPF) /HPF Ur Epithelial Cells Moderate H /HPF Amorphous Sediment Moderate H (0/HPF) /HPF Urine Bacteria Moderate H (0-FEW/HPF) /HPF Granular Casts Few /LPF Urine Yeast Moderate H (0/HPF) /HPF Urine HCG, Qual Urine Opiates Screen (NEGATIVE) Ur Oxycodone Screen (NEGATIVE) Urine Methadone Screen (NEGATIVE) Acetaminophen Ur Barbiturates Screen (NEGATIVE) U Tricyclic Antidepress (NEGATIVE) Ur Phencyclidine Scrn (NEGATIVE) Ur Amphetamine Screen (NEGATIVE) U Methamphetamines Scrn (NEGATIVE) Urine MDMA Screen (NEGATIVE) U Benzodiazepines Scrn (NEGATIVE) Urine Cocaine Screen (NEGATIVE) U Marijuana (THC) Screen (NEGATIVE) Ethyl Alcohol mg/dL Ketones Meds: Medications Generic Name Dose Route Start Last Admin Trade Name Freq PRN Reason Stop Dose Admin Lactated Ringer's 1,000 mls @ 150 mls/hr 04/09/17 13:30 04/09/17 13:25 Ringers, Lactated IV 150 mls/hr ASDIRECTED RUPINDER Administration Sodium Chloride 1,000 mls @ 999 mls/hr 04/09/17 13:55 Normal Saline IV 04/09/17 14:55 .BOLUS ONE Insulin Human Regular 100 unit 100 mls @ 1 mls/hr 04/09/17 14:00 / Sodium Chloride SUBCUT TITRATE RUPINDER Protocol 1 UNITS/HR Discontinued Medications Generic Name Dose Route Start Last Admin Trade Name Anali PRN Reason Stop Dose Admin Sodium Chloride 1,000 mls @ 999 mls/hr 04/09/17 11:26 04/09/17 11:31 Normal Saline IV 04/09/17 12:26 999 mls/hr .BOLUS ONE Administration Insulin Human Regular 5 unit 04/09/17 13:27 04/09/17 13:38 Humulin R IV 04/09/17 13:28 5 units ONETIME ONE Administration Protocol Insulin Human Regular 10 unit 04/09/17 13:34 04/09/17 13:44 Humulin R SUBCUT 04/09/17 13:35 10 units ONETIME ONE Administration Protocol Lorazepam 1 mg 04/09/17 10:45 04/09/17 10:57 Ativan IM 04/09/17 10:46 1 mg ONETIME ONE Administration Lorazepam 1 mg 04/09/17 11:26 04/09/17 11:35 Ativan IVPUSH 04/09/17 11:27 1 mg ONETIME ONE Administration Lorazepam 1 mg 04/09/17 12:38 04/09/17 12:57 Ativan IVPUSH 04/09/17 12:39 1 mg ONETIME ONE Administration Ondansetron HCl 4 mg 04/09/17 10:48 04/09/17 10:57 Zofran Odt PO 04/09/17 10:49 4 mg ONETIME ONE Administration Ondansetron HCl 4 mg 04/09/17 11:26 04/09/17 11:35 Zofran IV 04/09/17 11:27 4 mg ONETIME ONE Administration Sodium Bicarbonate 50 meq 04/09/17 13:54 04/09/17 14:01 Sodium Bicarbonate 8.4% IVPUSH 04/09/17 13:55 50 meq ONETIME ONE Administration Departure - Departure Time of Disposition: 14:02 Disposition: DC/Tfer to Acute Hospital 02 Condition: Serious Clinical Impression: Methamphetamine abuse DKA (diabetic ketoacidoses) Qualifiers: Diabetes mellitus type: type 1 Diabetes mellitus complication detail: without coma Qualified Code(s): E10.10 - Type 1 diabetes mellitus with ketoacidosis without coma - Discharge Information Forms: Interfacility Transfer EMTALA Care Plan Goals: Discussed the examination, lab, CT, x-ray and history results with Dr. Mendez ( hospitalist with [facility] in [place]). Dr. Mendez accepted the patient for continued evaluation and management. The patient will be transported by [facility]. - My Orders Last 24 Hours: My Active Orders 04/09/17 10:05 EKG Documentation Completion [RC] URGENT 04/09/17 13:55 Sodium Chloride 0.9% [Normal Saline] 1,000 ml IV .BOLUS 04/09/17 14:00 Insulin Regular, Human [HumuLIN R] 100 unit Sodium Chloride 0.9% [Normal Saline] 99 ml SUBCUT TITRATE - Assessment/Plan Last 24 Hours: My Active Orders 04/09/17 10:05 EKG Documentation Completion [RC] URGENT 04/09/17 13:55 Sodium Chloride 0.9% [Normal Saline] 1,000 ml IV .BOLUS 04/09/17 14:00 Insulin Regular, Human [HumuLIN R] 100 unit Sodium Chloride 0.9% [Normal Saline] 99 ml SUBCUT TITRATE
[2017-04-09] MEDS ORDERED: Sodium Chloride 0.9% 1,000 ML IV ONE ×2 (11:26→13:55)
[2017-04-09] MEDS ORDERED: Ondansetron 4 MG/2 ML SDV IV ONE (11:26)
[2017-04-09] MEDS ORDERED: LORazepam 2 MG/ML Syringe IVPUSH ONE ×2 (11:26→12:38)
--- NOTE | 2017-04-09 12:57 | CR ---
CLINICAL HISTORY: 22-year-old female with shortness of breath and headache. INTERPRETATION: Negative exam. Normal cardiac silhouette and bony thorax. No cephalization of vascular flow, signs of alveolar edema or dependent pleural effusion. No lung mass or hilar lymphadenopathy. No focal lobar pneumonia, atelectasis or collapse. No pneumothorax.
--- NOTE | 2017-04-09 12:59 | CT ---
CLINICAL HISTORY: 22-year-old female with shortness of breath and headache. SCAN TECHNIQUE: Volume acquisition of data from an emergency unenhanced CT scan of the head and brai n obtained with the patient lying supine on the Siemens multislice scanner [place], [place]. All data archived in the PACS system for storage, reformatting and study fri ends bone/brain windows). INTERPRETATION: Negative. Uniformly thick bony calvarium without sign of skull fracture, underlying brain contusion or epidura l/subdural hematoma. Symmetric clear pneumatization of the mastoid and paranasal sinuses (motion artifact). Symmetric dias-white matter pattern and underlying mirror-image normal ventricular system. No suprat entorial or posterior fossa mass lesion. Physiologic midline pineal and symmetric choroid plexus calcifications. Midline falx calcifications. Motion artifact but brainstem and cerebellum grossly unremarkable. No focal area of ischemic infarct or signs of acute intracerebral/intraventricular/subarachnoid blee d. No pathologic intracranial calcifications.
[2017-04-09 13:27] LABS: BASE EXCESS ARTERIAL -35 mmol/L ((-2)-(+3)); O2 DELIVERY DEVICE ROOM AIR; O2 SATURATION ARTERIAL 98 % (95-100); PO2 ARTERIAL 129 mmHg (70-100)
[2017-04-09] MEDS ORDERED: Insulin Regular, Human 100 Units/ML 3 ML Vial IV ONE (13:27)
[2017-04-09 13:29] LABS: PCO2 ARTERIAL 5 mmHg (35-45)
[2017-04-09 13:30] LABS: ALLEN TEST POSITIVE
[2017-04-09] MEDS ORDERED: Lactated Ringers 1,000 ML IV SCH (13:30)
[2017-04-09] MEDS ORDERED: Insulin Regular, Human 100 Units/ML 3 ML Vial SUBCUT ONE (13:34)
[2017-04-09] MEDS ORDERED: Sodium Bicarbonate 8.4% 50 MEQ/50 ML Syringe IVPUSH ONE (13:54)
--- NOTE | 2017-04-09 14:37 | EKG ---
04/09/2017 - OLVIN BRIGGS - This 12-lead EKG, shows sinus tachycardia with a ventricular rate of approximately 107. Normal axis. No acute ST-segment or T-wave changes. [facility] /[id number]
[2017-04-09 14:55] VITALS: BP 148/89
== END 2017-04-09 14:45 ==
LOC: DL.ED 10:07
DX: E10.10 Type 1 diabetes mellitus with ketoacidosis without coma (principal); F15.10 Other stimulant abuse, uncomplicated; Z88.8 Allergy status to other drugs, medicaments and biological substances; F90.9 Attention-deficit hyperactivity disorder, unspecified type; F32.9 Major depressive disorder, single episode, unspecified; Z98.890 Other specified postprocedural states; F17.210 Nicotine dependence, cigarettes, uncomplicated; Z79.899 Other long term (current) drug therapy
CPT/HCPCS: 36415; 36600; 70450; 71020; 80053; 80305; 81001; 81025; 82009; 82150; 82803; 82962; 83690; 83735; 84484; 85025; 93005; 96361; 96365; 96372; 96375; 96376; 99285; A9270; G0480; J1815; J2060; J2405; J7030; J7050; J7120

== ENCOUNTER 2017-04-27 02:20 | Emergency (ER) | payer MEDICAID ==
[2017-04-27 02:28] VITALS: BP 149/98
[2017-04-27] MEDS ORDERED: Sodium Chloride 0.9% 1,000 ML IV ONE ×2 (02:43→04:29)
--- NOTE | 2017-04-27 02:51 | EDM.PDOC ---
ED HPI GENERAL MEDICAL PROBLEM - General Chief Complaint: General Stated Complaint: PUKING BURNING UP Time Seen by Provider: 04/27/17 02:47 Source of Information: Reports: Patient, Family History Limitations: Reports: No Limitations - History of Present Illness INITIAL COMMENTS - FREE TEXT/NARRATIVE: friend states they been riding in a car all day thought she had motion sickness with vomiting but tonight got worse with retching & c/o shaking shivering feeling cold can't get warm. ER records show h/o DKA. pt anxious & hyperventilation c/o thirst. Chest Pain Score (Numeric/FACES): 8 - Related Data Allergies Allergy/AdvReac Type Severity Reaction Status Date / Time hydromorphone HCl Allergy Itching Verified 04/27/17 02:28 [From Dilaudid] Home Meds: Home Meds Insulin Detemir [Levemir] 45 unit SUBCUT BEDTIME 03/11/16 [History] Insulin Aspart [NovoLOG] 15 units SUBCUT TIDAC 04/05/16 [History] buPROPion [Wellbutrin XL] 150 mg PO DAILY 02/02/17 [History] traZODone 50 mg PO DAILY 02/02/17 [History] Past Medical History HEENT History: Reports: Other (See Below) Other HEENT History: ear problems with draining, cheek broken in three different place Cardiovascular History: Reports: None Respiratory History: Reports: None Gastrointestinal History: Reports: Hepatitis Other Gastrointestinal History: rectal bleeding per self report for past couple of months Genitourinary History: Reports: None [employer]CRE[employer] History: Reports: Spontaneous Musculoskeletal History: Reports: Fracture Neurological History: Reports: None Psychiatric History: Reports: ADHD, Addiction, Depression, Emotional Problems Endocrine/Metabolic History: Reports: Diabetes, Type I Hematologic History: Reports: Other (See Below) Other Hematologic History: Hep + Immunologic History: Reports: None Oncologic (Cancer) History: Reports: None Dermatologic History: Reports: Other (See Below) Other Dermatologic History: cut [place] noted to forearms, acne vulgaris - Infectious Disease History Infectious Disease History: Reports: Hepatitis C - Past Surgical History Head Surgeries/Procedures: Reports: None HEENT Surgical History: Reports: Adenoidectomy, Tonsillectomy Social & Family History - Family History Family Medical History: Noncontributory Psychiatric: Reports: Depression Endocrine/Metabolic: Reports: Diabetes, type II - Tobacco Use Smoking Status *Q: Current Every Day Smoker Years of Tobacco use: 6 Packs/Tins Daily: 1 Used Tobacco, but Quit: No Second Hand Smoke Exposure: Yes - Caffeine Use Caffeine Use: Reports: None - Alcohol Use Days Per Week of Alcohol Use: 1 Number of Drinks Per Day: 3 Total Drinks Per Week: 3 - Recreational Drug Use Recreational Drug Use: Yes Drug Use in Last 12 Months: Yes Recreational Drug Type: Reports: Other (see below) Other Recreational Drug Type: "up" Recreational Drug Use Frequency: Socially Recreational Drug Last Use: t-1 - Sexual History Sexual History: Reports: Sexually Active - Living Situation & Occupation Living situation: Reports: with Significant Other Occupation: Unemployed ED ROS GENERAL - Review of Systems Review Of Systems: ROS reveals no pertinent complaints other than HPI. ED EXAM, GENERAL - Physical Exam Exam: See Below Exam Limited By: No Limitations General Appearance: Alert, WD/WN, Anxious, Mild Distress, Other (tearful, hypervent) Eye Exam: Bilateral Eye: PERRL (pupils ER @ 4mm) Ears: Hearing Grossly Normal Throat/Mouth: Normal Voice, No Airway Compromise Head: Atraumatic Neck: Non-Tender, Full Range of Motion Respiratory/Chest: No Respiratory Distress Cardiovascular: Regular Rate, Rhythm GI/Abdominal: Soft, Non-Tender Neurological: Alert, Oriented, Normal Cognition, Normal Gait, No Motor/Sensory Deficits Psychiatric: Anxious, Tearful Skin Exam: Warm, Dry, Normal Color Lymphatic: No Adenopathy Course - Vital Signs Last Recorded V/S: Last Vital Signs Temp 35.9 C 04/27/17 02:24 Pulse 106 H 04/27/17 02:24 Resp 24 H 04/27/17 02:24 BP 149/98 H 04/27/17 02:24 Pulse Ox 100 04/27/17 02:24 - Orders/Labs/Meds Orders: Active Orders 24 hr Category Date Time Status Blood Glucose Check, Bedside [RC] ONETIME Care 04/27/17 05:04 Active Labs: Laboratory Tests 04/27/17 04/27/17 04/27/17 Range/Units 02:50 02:50 02:50 WBC 13.9 H (5.0-10.0) 10^3/uL RBC 6.21 H (4.2-5.4) 10^6/uL Hgb 17.5 H (12.0-16.0) g/dL Hct 54.5 H (37.0-47.0) % MCV 87.8 (80-100) fL MCH 28.2 (27.0-34.0) pg MCHC 32.1 L (33.0-35.0) g/dL Plt Count 442 (150-450) 10^3/uL Neut % (Auto) 79.5 H (42.2-75.2) % Lymph % (Auto) 16.2 L (20.5-50.1) % [place] % (Auto) 4.0 (2-8) % Eos % (Auto) 0.1 L (1.0-3.0) % Baso % (Auto) 0.2 (0.0-1.0) % Add Manual Diff Yes Neutrophils % (Manual) 79 % Lymphocytes % (Manual) 18 % Monocytes % (Manual) 3 % ABG pH (7.35-7.45) ABG pCO2 (35-45) mmHg ABG pO2 (70-100) mmHg ABG HCO3 (22-26) mmol/L ABG O2 Saturation (95-100) % ABG Base Excess ((-2)-(+3)) mmol/L O2 Delivery Device Sodium 134 L (135-145) mmol/L Potassium 4.8 (3.6-5.0) mmol/L Chloride 100 L (101-111) mmol/L Carbon Dioxide 5.0 L* (21.0-31.0) mmol/L Anion Gap 33.8 BUN 17 (7-18) mg/dL Creatinine 1.0 (0.6-1.3) mg/dL Est Cr Clr Drug Dosing 83.31 mL/min Estimated GFR (MDRD) > 60 BUN/Creatinine Ratio 17.00 Glucose 435 H* (74-105) mg/dL POC Glucose (70-105) mg/dl Calcium 9.3 (8.4-10.2) mg/dl Total Bilirubin 1.6 H (0.2-1.0) mg/dL AST 41 (10-42) IU/L ALT 90 H (10-60) IU/L Alkaline Phosphatase 112 (42-121) IU/L Total Protein 10.5 H (6.7-8.2) g/dl Albumin 5.5 (3.2-5.5) g/dl Globulin 5.0 Albumin/Globulin Ratio 1.10 HCG, Qual Negative Urine Color (YELLOW) Urine Appearance (CLEAR) Urine pH (5.0-9.0) Ur Specific [place] (1.005-1.030) Urine Protein (NEGATIVE) Urine Glucose (UA) (NEGATIVE) Urine Ketones (NEGATIVE) Urine Occult Blood (NEGATIVE) Urine Nitrite (NEGATIVE) Urine Bilirubin (NEGATIVE) Urine Urobilinogen (0.2-1.0) mg/dL Ur Leukocyte Esterase (NEGATIVE) Urine RBC /HPF Urine WBC (0-5/HPF) /HPF Ur Epithelial Cells /HPF Urine Bacteria (0-FEW/HPF) /HPF Urine Mucus /LPF Urine Yeast (0/HPF) /HPF Urine Opiates Screen (NEGATIVE) Ur Oxycodone Screen (NEGATIVE) Urine Methadone Screen (NEGATIVE) Ur Barbiturates Screen (NEGATIVE) U Tricyclic Antidepress (NEGATIVE) Ur Phencyclidine Scrn (NEGATIVE) Ur Amphetamine Screen (NEGATIVE) U Methamphetamines Scrn (NEGATIVE) Urine MDMA Screen (NEGATIVE) U Benzodiazepines Scrn (NEGATIVE) Urine Cocaine Screen (NEGATIVE) U Marijuana (THC) Screen (NEGATIVE) Ketones Positive 04/27/17 04/27/17 04/27/17 Range/Units 03:00 03:00 03:37 WBC (5.0-10.0) 10^3/uL RBC (4.2-5.4) 10^6/uL Hgb (12.0-16.0) g/dL Hct (37.0-47.0) % MCV (80-100) fL MCH (27.0-34.0) pg MCHC (33.0-35.0) g/dL Plt Count (150-450) 10^3/uL Neut % (Auto) (42.2-75.2) % Lymph % (Auto) (20.5-50.1) % [place] % (Auto) (2-8) % Eos % (Auto) (1.0-3.0) % Baso % (Auto) (0.0-1.0) % Add Manual Diff Neutrophils % (Manual) % Lymphocytes % (Manual) % Monocytes % (Manual) % ABG pH 6.91 L* (7.35-7.45) ABG pCO2 5 L* (35-45) mmHg ABG pO2 118 H (70-100) mmHg ABG HCO3 1.0 L (22-26) mmol/L ABG O2 Saturation 97 (95-100) % ABG Base Excess -36 L ((-2)-(+3)) mmol/L O2 Delivery Device Room air Sodium (135-145) mmol/L Potassium (3.6-5.0) mmol/L Chloride (101-111) mmol/L Carbon Dioxide (21.0-31.0) mmol/L Anion Gap BUN (7-18) mg/dL Creatinine (0.6-1.3) mg/dL Est Cr Clr Drug Dosing mL/min Estimated GFR (MDRD) BUN/Creatinine Ratio Glucose (74-105) mg/dL POC Glucose (70-105) mg/dl Calcium (8.4-10.2) mg/dl Total Bilirubin (0.2-1.0) mg/dL AST (10-42) IU/L ALT (10-60) IU/L Alkaline Phosphatase (42-121) IU/L Total Protein (6.7-8.2) g/dl Albumin (3.2-5.5) g/dl Globulin Albumin/Globulin Ratio HCG, Qual Urine Color Yellow (YELLOW) Urine Appearance Slightly cloudy (CLEAR) Urine pH 5.0 (5.0-9.0) Ur Specific [place] >= 1.030 (1.005-1.030) Urine Protein >=300 H (NEGATIVE) Urine Glucose (UA) 500 H (NEGATIVE) Urine Ketones >=160 H (NEGATIVE) Urine Occult Blood Small H (NEGATIVE) Urine Nitrite Negative (NEGATIVE) Urine Bilirubin Small H (NEGATIVE) Urine Urobilinogen 0.2 (0.2-1.0) mg/dL Ur Leukocyte Esterase Negative (NEGATIVE) Urine RBC 0-5 /HPF Urine WBC 0-5 (0-5/HPF) /HPF Ur Epithelial Cells Moderate H /HPF Urine Bacteria Moderate H (0-FEW/HPF) /HPF Urine Mucus Few H /LPF Urine Yeast Few H (0/HPF) /HPF Urine Opiates Screen Negative (NEGATIVE) Ur Oxycodone Screen Negative (NEGATIVE) Urine Methadone Screen Negative (NEGATIVE) Ur Barbiturates Screen Negative (NEGATIVE) U Tricyclic Antidepress Negative (NEGATIVE) Ur Phencyclidine Scrn Negative (NEGATIVE) Ur Amphetamine Screen Negative (NEGATIVE) U Methamphetamines Scrn Positive H (NEGATIVE) Urine MDMA Screen Negative (NEGATIVE) U Benzodiazepines Scrn Negative (NEGATIVE) Urine Cocaine Screen Negative (NEGATIVE) U Marijuana (THC) Screen Positive H (NEGATIVE) Ketones 04/27/17 Range/Units 05:04 WBC (5.0-10.0) 10^3/uL RBC (4.2-5.4) 10^6/uL Hgb (12.0-16.0) g/dL Hct (37.0-47.0) % MCV (80-100) fL MCH (27.0-34.0) pg MCHC (33.0-35.0) g/dL Plt Count (150-450) 10^3/uL Neut % (Auto) (42.2-75.2) % Lymph % (Auto) (20.5-50.1) % [place] % (Auto) (2-8) % Eos % (Auto) (1.0-3.0) % Baso % (Auto) (0.0-1.0) % Add Manual Diff Neutrophils % (Manual) % Lymphocytes % (Manual) % Monocytes % (Manual) % ABG pH (7.35-7.45) ABG pCO2 (35-45) mmHg ABG pO2 (70-100) mmHg ABG HCO3 (22-26) mmol/L ABG O2 Saturation (95-100) % ABG Base Excess ((-2)-(+3)) mmol/L O2 Delivery Device Sodium (135-145) mmol/L Potassium (3.6-5.0) mmol/L Chloride (101-111) mmol/L Carbon Dioxide (21.0-31.0) mmol/L Anion Gap BUN (7-18) mg/dL Creatinine (0.6-1.3) mg/dL Est Cr Clr Drug Dosing mL/min Estimated GFR (MDRD) BUN/Creatinine Ratio Glucose (74-105) mg/dL POC Glucose 348 H (70-105) mg/dl Calcium (8.4-10.2) mg/dl Total Bilirubin (0.2-1.0) mg/dL AST (10-42) IU/L ALT (10-60) IU/L Alkaline Phosphatase (42-121) IU/L Total Protein (6.7-8.2) g/dl Albumin (3.2-5.5) g/dl Globulin Albumin/Globulin Ratio HCG, Qual Urine Color (YELLOW) Urine Appearance (CLEAR) Urine pH (5.0-9.0) Ur Specific [place] (1.005-1.030) Urine Protein (NEGATIVE) Urine Glucose (UA) (NEGATIVE) Urine Ketones (NEGATIVE) Urine Occult Blood (NEGATIVE) Urine Nitrite (NEGATIVE) Urine Bilirubin (NEGATIVE) Urine Urobilinogen (0.2-1.0) mg/dL Ur Leukocyte Esterase (NEGATIVE) Urine RBC /HPF Urine WBC (0-5/HPF) /HPF Ur Epithelial Cells /HPF Urine Bacteria (0-FEW/HPF) /HPF Urine Mucus /LPF Urine Yeast (0/HPF) /HPF Urine Opiates Screen (NEGATIVE) Ur Oxycodone Screen (NEGATIVE) Urine Methadone Screen (NEGATIVE) Ur Barbiturates Screen (NEGATIVE) U Tricyclic Antidepress (NEGATIVE) Ur Phencyclidine Scrn (NEGATIVE) Ur Amphetamine Screen (NEGATIVE) U Methamphetamines Scrn (NEGATIVE) Urine MDMA Screen (NEGATIVE) U Benzodiazepines Scrn (NEGATIVE) Urine Cocaine Screen (NEGATIVE) U Marijuana (THC) Screen (NEGATIVE) Ketones Meds: Medications Discontinued Medications Generic Name Dose Route Start Last Admin Trade Name Freq PRN Reason Stop Dose Admin Sodium Chloride 1,000 mls @ 500 mls/hr 04/27/17 02:43 04/27/17 02:51 Normal Saline IV 04/27/17 04:42 500 mls/hr .BOLUS ONE Administration Sodium Chloride 1,000 mls @ 999 mls/hr 04/27/17 04:29 04/27/17 04:31 Normal Saline IV 04/27/17 05:29 999 mls/hr .BOLUS ONE Administration Insulin Human Regular 5 unit 04/27/17 03:36 04/27/17 03:48 Humulin R IV 04/27/17 03:37 5 unit ONETIME ONE Administration Protocol Ondansetron HCl 4 mg 04/27/17 02:57 04/27/17 03:00 Zofran IV 04/27/17 02:58 4 mg ONETIME ONE Administration Sodium Bicarbonate 50 meq 04/27/17 04:38 04/27/17 04:52 Sodium Bicarbonate 8.4% IVPUSH 04/27/17 04:39 50 meq ONETIME ONE Administration - Re-Assessments/Exams Free Text/Narrative Re-Assessment/Exam: 04/27/17 04:48 case discussed with GF but is on C.C diversion. case discussed with Miriam Adamson kindly accepted pt. Departure - Departure Time of Disposition: 05:35 Disposition: DC/Tfer to Acute Hospital 02 Condition: Serious Clinical Impression: Hyperglycemia due to type 1 diabetes mellitus, Noncompliance with diabetes treatment, Methamphetamine abuse Diabetic ketoacidosis associated with type 1 diabetes mellitus Qualifiers: Diabetes mellitus complication detail: without coma Qualified Code(s): E10.10 - Type 1 diabetes mellitus with ketoacidosis without coma Vomiting Qualifiers: Vomiting type: unspecified Vomiting Intractability: unspecified Nausea presence : with nausea Qualified Code(s): R11.2 - Nausea with vomiting, unspecified - Discharge Information Referrals: PCP,Unobtain [Primary Care Provider] - Forms: Interfacility Transfer SYD - My Orders Last 24 Hours: My Active Orders 04/27/17 05:04 Blood Glucose Check, Bedside [RC] ONETIME - Assessment/Plan Last 24 Hours: My Active Orders 04/27/17 05:04 Blood Glucose Check, Bedside [RC] ONETIME
[2017-04-27] MEDS ORDERED: Ondansetron 4 MG/2 ML SDV IV ONE (02:57)
[2017-04-27 03:31] LABS: CHLORIDE,CL 100 mmol/L (101-111); SODIUM,NA 134 mmol/L (135-145)
[2017-04-27] MEDS ORDERED: Insulin Regular, Human 100 Units/ML 3 ML Vial IV ONE (03:36)
[2017-04-27 04:20] LABS: BASE EXCESS ARTERIAL -36 mmol/L ((-2)-(+3)); O2 DELIVERY DEVICE ROOM AIR; O2 SATURATION ARTERIAL 97 % (95-100); PO2 ARTERIAL 118 mmHg (70-100)
[2017-04-27 04:24] LABS: PCO2 ARTERIAL 5 mmHg (35-45)
[2017-04-27] MEDS ORDERED: Sodium Bicarbonate 8.4% 50 MEQ/50 ML Syringe IVPUSH ONE (04:38)
--- NOTE | 2017-04-29 10:37 | EKG ---
04/27/2017 - OLVIN BRIGGS - This 12-lead EKG shows a sinus tachycardia with poor baseline throughout the EKG. Ventricular rate is approximately 109. There is a prolonged QT interval. No acute ST-T wave changes. [facility] /[id number]
== END 2017-04-27 05:37 ==
LOC: DL.ED 02:20
DX: E10.10 Type 1 diabetes mellitus with ketoacidosis without coma (principal); R11.2 Nausea with vomiting, unspecified; F15.10 Other stimulant abuse, uncomplicated; F17.210 Nicotine dependence, cigarettes, uncomplicated; F90.9 Attention-deficit hyperactivity disorder, unspecified type; F32.9 Major depressive disorder, single episode, unspecified; Z88.8 Allergy status to other drugs, medicaments and biological substances; Z98.890 Other specified postprocedural states
CPT/HCPCS: 36415; 36600; 80053; 80305; 81001; 82009; 82803; 82962; 84703; 85025; 96365; 96366; 96375; 99285; J1815; J2405; J7030

== ENCOUNTER 2017-08-04 23:24 | Inpatient (IN) | payer MEDICAID ==
[2017-08-04] MEDS ORDERED: Sodium Chloride 0.9% 1,000 ML IV ONE (23:50)
[2017-08-04] MEDS ORDERED: Ondansetron 4 MG/2 ML SDV IV ONE (23:51)
[2017-08-05 00:32] LABS: CHLORIDE,CL 103 mmol/L (101-111); SODIUM,NA 137 mmol/L (135-145)
[2017-08-05] MEDS ORDERED: Sodium Chloride 0.9% 1,000 ML IV SCH (01:45)
[2017-08-05] MEDS ORDERED: cefTRIAXone 1 GM Vial IVPUSH ONE (01:53)
[2017-08-05 02:36] LABS: BASE EXCESS ARTERIAL -21 mmol/L ((-2)-(+3)); BICARBONATE,ARTERIAL 5.9 mmol/L (22-26); O2 DELIVERY DEVICE ROOM AIR; O2 SATURATION ARTERIAL 99 % (95-100); PO2 ARTERIAL 112 mmHg (70-100)
[2017-08-05 02:59] LABS: PCO2 ARTERIAL 14 mmHg (35-45)
--- NOTE | 2017-08-05 03:12 | EDM.PDOC ---
ED HPI GENERAL MEDICAL PROBLEM - General Chief Complaint: General Stated Complaint: DIABETIC, VOMITING, NOT VOIDING [id number] Time Seen by Provider: 08/04/17 23:41 Source of Information: Reports: Patient History Limitations: Reports: No Limitations - History of Present Illness INITIAL COMMENTS - FREE TEXT/NARRATIVE: ED with complaint of vomiting and not keeping anything down today, notes vomited 3 times, nauseated, frontal headache, Dibetic, not taking medications regularly, does not check blood sugars. Admits IVDU, meth 2 days ago. Headache Pain Score (Numeric/FACES): 6 - Related Data Allergies Allergy/AdvReac Type Severity Reaction Status Date / Time hydromorphone HCl Allergy Itching Verified 08/05/17 04:14 [From Dilaudid] Home Meds: Home Meds Insulin Detemir [Levemir] 35 unit SUBCUT BEDTIME 03/11/16 [History] Insulin Aspart [NovoLOG] 15 units SUBCUT TIDAC 04/05/16 [History] Past Medical History HEENT History: Reports: Other (See Below) Other HEENT History: ear problems with draining, cheek broken in three different place Cardiovascular History: Reports: None Respiratory History: Reports: None Gastrointestinal History: Reports: Hepatitis Other Gastrointestinal History: rectal bleeding per self report for past couple of months Genitourinary History: Reports: None [place] History: Reports: Spontaneous Musculoskeletal History: Reports: Fracture Neurological History: Reports: None Psychiatric History: Reports: ADHD, Addiction, Depression, Emotional Problems Endocrine/Metabolic History: Reports: Diabetes, Type I Hematologic History: Reports: Other (See Below) Other Hematologic History: Hep + Immunologic History: Reports: None Oncologic (Cancer) History: Reports: None Dermatologic History: Reports: Other (See Below) Other Dermatologic History: cut [place]عر[place] noted to forearms, acne vulgaris - Infectious Disease History Infectious Disease History: Reports: Hepatitis C - Past Surgical History Head Surgeries/Procedures: Reports: None HEENT Surgical History: Reports: Adenoidectomy, Tonsillectomy Social & Family History - Family History Family Medical History: Noncontributory Psychiatric: Reports: Depression Endocrine/Metabolic: Reports: Diabetes, type II - Tobacco Use Smoking Status *Q: Current Every Day Smoker Years of Tobacco use: 7 Packs/Tins Daily: 0.3 Used Tobacco, but Quit: No Second Hand Smoke Exposure: Yes - Caffeine Use Caffeine Use: Reports: None - Alcohol Use Days Per Week of Alcohol Use: 1 Number of Drinks Per Day: 3 Total Drinks Per Week: 3 - Recreational Drug Use Recreational Drug Use: Yes Drug Use in Last 12 Months: Yes Recreational Drug Type: Reports: Methamphetamine Other Recreational Drug Type: "up" Recreational Drug Use Frequency: Weekly Recreational Drug Last Use: t-2 - Sexual History Sexual History: Reports: Sexually Active - Living Situation & Occupation Living situation: Reports: with Significant Other Occupation: Unemployed ED ROS GENERAL - Review of Systems Review Of Systems: See Below Constitutional: Reports: Decreased Appetite HEENT: Reports: No Symptoms Respiratory: Reports: No Symptoms Cardiovascular: Reports: No Symptoms GI/Abdominal: Reports: Abdominal Pain, Vomiting : Reports: No Symptoms Musculoskeletal: Reports: No Symptoms Skin: Reports: No Symptoms Neurological: Reports: Headache ED EXAM, GENERAL - Physical Exam Exam: See Below Exam Limited By: No Limitations General Appearance: Alert, Moderate Distress Eye Exam: Bilateral Eye: EOMI (hoizontal nystagmus), PERRL Ears: Normal External Exam, Normal TMs Nose: Normal Inspection Throat/Mouth: Normal Inspection, Other (membrane parched) Head: Atraumatic, Normocephalic Neck: Normal Inspection, Full Range of Motion Respiratory/Chest: No Respiratory Distress, Lungs Clear, Normal Breath Sounds Cardiovascular: Normal Peripheral Pulses, Regular Rate, Rhythm, No Edema GI/Abdominal: Normal Bowel Sounds, Tender (mild greatest epigastric) Back Exam: Normal Inspection Extremities: Normal Inspection, Normal Range of Motion Psychiatric: Flat Affect Skin Exam: Warm, Dry, Intact, Normal Color Course - Vital Signs Last Recorded V/S: Last Vital Signs Temp 98.2 F 08/04/17 23:50 Pulse 120 H 08/04/17 23:50 Resp 16 08/04/17 23:50 BP 117/77 08/04/17 23:50 Pulse Ox 100 08/04/17 23:50 - Orders/Labs/Meds Orders: Active Orders 24 hr Category Date Time Status Glucose [Blood Glucose Check, Bedside] [RC] ONETIME Care 08/04/17 23:51 Active Glucose [Blood Glucose Check, Bedside] [RC] ONETIME Care 08/05/17 01:28 Active CXR [Chest 1V Frontal] [CR] Urgent Exams 08/05/17 02:52 Ordered BLOOD GAS ARTERIAL [BG] Stat Lab 08/05/17 02:20 Received CULTURE BLOOD [BC] Stat Lab 08/05/17 00:00 Received CULTURE URINE [RM] Stat Lab 08/05/17 01:13 Received Sodium Chloride 0.9% [Normal Saline] 1,000 ml Med 08/05/17 01:45 Active IV ASDIRECTED Medication Orders Sodium Chloride (Normal Saline) 1,000 mls @ 500 mls/hr IV ASDIRECTED RUPINDER Last Admin: 08/05/17 01:39 Dose: 500 mls/hr Labs: Laboratory Tests 08/04/17 08/04/17 08/04/17 Range/Units 23:47 23:55 23:55 WBC 20.9 H (5.0-10.0) 10^3/uL RBC 6.45 H (4.2-5.4) 10^6/uL Hgb 16.7 H (12.0-16.0) g/dL Hct 50.8 H (37.0-47.0) % MCV 78.8 L D (80-100) fL MCH 25.9 L (27.0-34.0) pg MCHC 32.9 L (33.0-35.0) g/dL Plt Count 391 (150-450) 10^3/uL Neut % (Auto) 80.0 H (42.2-75.2) % Lymph % (Auto) 14.3 L (20.5-50.1) % [place] % (Auto) 5.6 (2-8) % Eos % (Auto) 0.0 L (1.0-3.0) % Baso % (Auto) 0.1 (0.0-1.0) % ABG pH (7.35-7.45) ABG pCO2 (35-45) mmHg ABG pO2 (70-100) mmHg ABG HCO3 (22-26) mmol/L ABG O2 Saturation (95-100) % ABG Base Excess ((-2)-(+3)) mmol/L O2 Delivery Device Sodium 137 (135-145) mmol/L Potassium 3.6 (3.6-5.0) mmol/L Chloride 103 (101-111) mmol/L Carbon Dioxide 11.0 L (21.0-31.0) mmol/L Anion Gap 26.6 BUN 13 (7-18) mg/dL Creatinine 0.8 (0.6-1.3) mg/dL Est Cr Clr Drug Dosing 104.14 mL/min Estimated GFR (MDRD) > 60 BUN/Creatinine Ratio 16.25 Glucose 90 (74-105) mg/dL POC Glucose 75 (70-105) mg/dl Lactic Acid (0.5-2.2) mmol/L Calcium 10.5 H (8.4-10.2) mg/dl Total Bilirubin 0.7 (0.2-1.0) mg/dL AST 24 (10-42) IU/L ALT 45 (10-60) IU/L Alkaline Phosphatase 105 (42-121) IU/L Total Protein 9.8 H (6.7-8.2) g/dl Albumin 5.1 (3.2-5.5) g/dl Globulin 4.7 Albumin/Globulin Ratio 1.09 Amylase 18 L (28-100) U/L Lipase 19 L (22-51) U/L HCG, Qual Urine Color (YELLOW) Urine Appearance (CLEAR) Urine pH (5.0-9.0) Ur Specific [place] (1.005-1.030) Urine Protein (NEGATIVE) Urine Glucose (UA) (NEGATIVE) Urine Ketones (NEGATIVE) Urine Occult Blood (NEGATIVE) Urine Nitrite (NEGATIVE) Urine Bilirubin (NEGATIVE) Urine Urobilinogen (0.2-1.0) mg/dL Ur Leukocyte Esterase (NEGATIVE) Urine RBC /HPF Urine WBC (0-5/HPF) /HPF Ur Epithelial Cells /HPF Urine Bacteria (0-FEW/HPF) /HPF Granular Casts /LPF Urine Opiates Screen (NEGATIVE) Ur Oxycodone Screen (NEGATIVE) Urine Methadone Screen (NEGATIVE) Ur Barbiturates Screen (NEGATIVE) U Tricyclic Antidepress (NEGATIVE) Ur Phencyclidine Scrn (NEGATIVE) Ur Amphetamine Screen (NEGATIVE) U Methamphetamines Scrn (NEGATIVE) Urine MDMA Screen (NEGATIVE) U Benzodiazepines Scrn (NEGATIVE) Urine Cocaine Screen (NEGATIVE) U Marijuana (THC) Screen (NEGATIVE) Ketones Positive (small) 08/04/17 08/05/17 08/05/17 Range/Units 23:55 00:00 01:13 WBC (5.0-10.0) 10^3/uL RBC (4.2-5.4) 10^6/uL Hgb (12.0-16.0) g/dL Hct (37.0-47.0) % MCV (80-100) fL MCH (27.0-34.0) pg MCHC (33.0-35.0) g/dL Plt Count (150-450) 10^3/uL Neut % (Auto) (42.2-75.2) % Lymph % (Auto) (20.5-50.1) % [place] % (Auto) (2-8) % Eos % (Auto) (1.0-3.0) % Baso % (Auto) (0.0-1.0) % ABG pH (7.35-7.45) ABG pCO2 (35-45) mmHg ABG pO2 (70-100) mmHg ABG HCO3 (22-26) mmol/L ABG O2 Saturation (95-100) % ABG Base Excess ((-2)-(+3)) mmol/L O2 Delivery Device Sodium (135-145) mmol/L Potassium (3.6-5.0) mmol/L Chloride (101-111) mmol/L Carbon Dioxide (21.0-31.0) mmol/L Anion Gap BUN (7-18) mg/dL Creatinine (0.6-1.3) mg/dL Est Cr Clr Drug Dosing mL/min Estimated GFR (MDRD) BUN/Creatinine Ratio Glucose (74-105) mg/dL POC Glucose (70-105) mg/dl Lactic Acid 1.2 (0.5-2.2) mmol/L Calcium (8.4-10.2) mg/dl Total Bilirubin (0.2-1.0) mg/dL AST (10-42) IU/L ALT (10-60) IU/L Alkaline Phosphatase (42-121) IU/L Total Protein (6.7-8.2) g/dl Albumin (3.2-5.5) g/dl Globulin Albumin/Globulin Ratio Amylase (28-100) U/L Lipase (22-51) U/L HCG, Qual Negative Urine Color (YELLOW) Urine Appearance (CLEAR) Urine pH (5.0-9.0) Ur Specific [place] (1.005-1.030) Urine Protein (NEGATIVE) Urine Glucose (UA) (NEGATIVE) Urine Ketones (NEGATIVE) Urine Occult Blood (NEGATIVE) Urine Nitrite (NEGATIVE) Urine Bilirubin (NEGATIVE) Urine Urobilinogen (0.2-1.0) mg/dL Ur Leukocyte Esterase (NEGATIVE) Urine RBC /HPF Urine WBC (0-5/HPF) /HPF Ur Epithelial Cells /HPF Urine Bacteria (0-FEW/HPF) /HPF Granular Casts /LPF Urine Opiates Screen Negative (NEGATIVE) Ur Oxycodone Screen Negative (NEGATIVE) Urine Methadone Screen Negative (NEGATIVE) Ur Barbiturates Screen Negative (NEGATIVE) U Tricyclic Antidepress Negative (NEGATIVE) Ur Phencyclidine Scrn Negative (NEGATIVE) Ur Amphetamine Screen Positive H (NEGATIVE) U Methamphetamines Scrn Positive H (NEGATIVE) Urine MDMA Screen Negative (NEGATIVE) U Benzodiazepines Scrn Negative (NEGATIVE) Urine Cocaine Screen Negative (NEGATIVE) U Marijuana (THC) Screen Positive H (NEGATIVE) Ketones 08/05/17 08/05/17 08/05/17 Range/Units 01:13 01:37 02:20 WBC (5.0-10.0) 10^3/uL RBC (4.2-5.4) 10^6/uL Hgb (12.0-16.0) g/dL Hct (37.0-47.0) % MCV (80-100) fL MCH (27.0-34.0) pg MCHC (33.0-35.0) g/dL Plt Count (150-450) 10^3/uL Neut % (Auto) (42.2-75.2) % Lymph % (Auto) (20.5-50.1) % [place] % (Auto) (2-8) % Eos % (Auto) (1.0-3.0) % Baso % (Auto) (0.0-1.0) % ABG pH 7.23 L (7.35-7.45) ABG pCO2 14 L* (35-45) mmHg ABG pO2 112 H (70-100) mmHg ABG HCO3 5.9 L (22-26) mmol/L ABG O2 Saturation 99 (95-100) % ABG Base Excess -21 L ((-2)-(+3)) mmol/L O2 Delivery Device Room air Sodium (135-145) mmol/L Potassium (3.6-5.0) mmol/L Chloride (101-111) mmol/L Carbon Dioxide (21.0-31.0) mmol/L Anion Gap BUN (7-18) mg/dL Creatinine (0.6-1.3) mg/dL Est Cr Clr Drug Dosing mL/min Estimated GFR (MDRD) BUN/Creatinine Ratio Glucose (74-105) mg/dL POC Glucose 80 (70-105) mg/dl Lactic Acid (0.5-2.2) mmol/L Calcium (8.4-10.2) mg/dl Total Bilirubin (0.2-1.0) mg/dL AST (10-42) IU/L ALT (10-60) IU/L Alkaline Phosphatase (42-121) IU/L Total Protein (6.7-8.2) g/dl Albumin (3.2-5.5) g/dl Globulin Albumin/Globulin Ratio Amylase (28-100) U/L Lipase (22-51) U/L HCG, Qual Urine Color Yellow (YELLOW) Urine Appearance Cloudy (CLEAR) Urine pH 6.0 (5.0-9.0) Ur Specific [place] >= 1.030 (1.005-1.030) Urine Protein >=300 H (NEGATIVE) Urine Glucose (UA) Negative (NEGATIVE) Urine Ketones >=160 H (NEGATIVE) Urine Occult Blood Moderate H (NEGATIVE) Urine Nitrite Negative (NEGATIVE) Urine Bilirubin Small H (NEGATIVE) Urine Urobilinogen 0.2 (0.2-1.0) mg/dL Ur Leukocyte Esterase Trace H (NEGATIVE) Urine RBC 10-20 H /HPF Urine WBC 30-40 H (0-5/HPF) /HPF Ur Epithelial Cells Moderate H /HPF Urine Bacteria Many H (0-FEW/HPF) /HPF Granular Casts Moderate /LPF Urine Opiates Screen (NEGATIVE) Ur Oxycodone Screen (NEGATIVE) Urine Methadone Screen (NEGATIVE) Ur Barbiturates Screen (NEGATIVE) U Tricyclic Antidepress (NEGATIVE) Ur Phencyclidine Scrn (NEGATIVE) Ur Amphetamine Screen (NEGATIVE) U Methamphetamines Scrn (NEGATIVE) Urine MDMA Screen (NEGATIVE) U Benzodiazepines Scrn (NEGATIVE) Urine Cocaine Screen (NEGATIVE) U Marijuana (THC) Screen (NEGATIVE) Ketones Meds: Medications Generic Name Dose Route Start Last Admin Trade Name Freq PRN Reason Stop Dose Admin Sodium Chloride 1,000 mls @ 500 mls/hr 08/05/17 01:45 08/05/17 01:39 Normal Saline IV 500 mls/hr ASDIRECTED RUPINDER Administration Discontinued Medications Generic Name Dose Route Start Last Admin Trade Name Anali PRN Reason Stop Dose Admin Ceftriaxone Sodium 1 gm 08/05/17 01:53 08/05/17 02:11 Rocephin IVPUSH 08/05/17 01:54 1 gm ONETIME ONE Administration Sodium Chloride 1,000 mls @ 999 mls/min 08/04/17 23:50 08/05/17 00:07 Normal Saline IV 08/04/17 23:51 999 mls/min .BOLUS ONE Administration Ondansetron HCl 4 mg 08/04/17 23:51 08/05/17 00:05 Zofran IV 08/04/17 23:52 4 mg ONETIME ONE Administration - Re-Assessments/Exams Free Text/Narrative Re-Assessment/Exam: 08/05/17 06:29 Dr Linares agree to admit, DKA, vomiting, dehydration Departure - Departure Time of Disposition: 03:40 Disposition: Admitted As Inpatient 67 Condition: Fair Clinical Impression: UTI, Urinary tract infectious disease, Methamphetamine abuse, Skin infection Diabetic ketoacidosis associated with type 1 diabetes mellitus Qualifiers: Diabetes mellitus complication detail: without coma Qualified Code(s): E10.10 - Type 1 diabetes mellitus with ketoacidosis without coma Vomiting Qualifiers: Vomiting type: unspecified Vomiting Intractability: unspecified Nausea presence : with nausea Qualified Code(s): R11.2 - Nausea with vomiting, unspecified - Discharge Information - My Orders Last 24 Hours: My Active Orders 08/04/17 23:51 Glucose [Blood Glucose Check, Bedside] [RC] ONETIME 08/05/17 00:00 CULTURE BLOOD [BC] Stat 08/05/17 01:13 CULTURE URINE [RM] Stat 08/05/17 01:28 Glucose [Blood Glucose Check, Bedside] [RC] ONETIME 08/05/17 01:45 Sodium Chloride 0.9% [Normal Saline] 1,000 ml IV ASDIRECTED 08/05/17 02:20 BLOOD GAS ARTERIAL [BG] Stat 08/05/17 02:52 CXR [Chest 1V Frontal] [CR] Urgent - Assessment/Plan Last 24 Hours: My Active Orders 08/04/17 23:51 Glucose [Blood Glucose Check, Bedside] [RC] ONETIME 08/05/17 00:00 CULTURE BLOOD [BC] Stat 08/05/17 01:13 CULTURE URINE [RM] Stat 08/05/17 01:28 Glucose [Blood Glucose Check, Bedside] [RC] ONETIME 08/05/17 01:45 Sodium Chloride 0.9% [Normal Saline] 1,000 ml IV ASDIRECTED 08/05/17 02:20 BLOOD GAS ARTERIAL [BG] Stat 08/05/17 02:52 CXR [Chest 1V Frontal] [CR] Urgent
[2017-08-05] MEDS ORDERED: Ondansetron 4 MG Tab.DIS PO PRN (05:40)
[2017-08-05] MEDS ORDERED: Sodium Chloride 0.9% 1,000 ML IV STA (05:45)
[2017-08-05] MEDS: cefTRIAXone 1,000 MG in Sodium Chloride 0.9% 50 ML IV SCH (06:24)
[2017-08-05 06:33] LABS: ACETAMINOPHEN < 10.0; CHLORIDE,CL 109 mmol/L (101-111); SODIUM,NA 136 mmol/L (135-145)
--- NOTE | 2017-08-05 06:55 | HP ---
CHIEF COMPLAINT: Nausea and vomiting. HISTORY OF PRESENTING ILLNESS: Ms. Merlene Roa is a 22-year-old female with medical history significant for type 1 diabetes mellitus, history of attention deficit hyperactivity disorder, chronic history of hepatitis C without any hepatic coma, history of depression, illicit drug use including methamphetamine and marijuana, presented to the ER today with complaints of increasing weakness, tiredness, and also nausea and vomiting and was noted to be in severe diabetic ketoacidosis with underlying possible urinary tract infection and is being admitted to the hospital for further evaluation and treatment. At this time, the patient claims that she has been throwing up since last night. The patient is very drowsy and not a reliable historian at this time. The patient claims that she has been throwing up in the last 1 day and had thrown up at least 3 times a day. She usually takes Levemir and NovoLog at home, and she has been compliant with her medications as per the patient. She has been abusing drugs including methamphetamine in the last 2 days. She denies any alcohol use. She denies any drug overdose including salicylate or Tylenol. She denied any drinking alcohol at this time. She denies any diarrhea. No chest pain. No shortness of breath. No abdominal pain. The patient denied any history of chest pains on exertion. No history of dyspnea on exertion. No history of orthopnea or paroxysmal nocturnal dyspnea. The patient denied any history of hematemesis, hematochezia, or melanotic stools. Normal bowel and bladder habits otherwise. REVIEW OF SYSTEMS: Limited as the patient is not cooperating with the history taking. She is mostly drowsy. PHYSICAL EXAMINATION: Vital Signs: Temperature of 98.9, pulse of 97, blood pressure of 124/75, respiratory rate of 18, saturating 100%. General Appearance: The patient is drowsy at this time, but easily arousable. Able to follow commands and is oriented to time, place, and person. Cardiovascular System: S1, S2 heard with normal intensity. No gallops. Respiratory System: Clear to auscultation bilaterally. No wheeze. No crepitations. Abdomen: Soft. Bowel sounds positive. Nontender. No rigidity. No guarding. No rebound tenderness. Extremities: No edema to bilateral lower extremities. HOME MEDICATIONS: Include: 1. NovoLog 10 to 20 units 3 times a day before meals. 2. Levemir 35 units 2 times daily. 3. Trazodone 100 mg nightly. PAST MEDICAL HISTORY: Significant for type 1 diabetes mellitus, attention deficit hyperactivity disorder, chronic hepatitis C, depression, history of acute renal failure, history of diabetic ketoacidosis in the past. PAST SURGICAL HISTORY: Significant for: 1. Tooth extractions. 2. Tonsillectomy and adenoidectomy. 3. Zygomatic arch reduction in the past secondary to facial fracture. FAMILY HISTORY: Significant for depression in her mother, depression in her maternal grandmother. Kidney cancer and colon cancer with hypertension and diabetes in her maternal grandfather. Downs syndrome in one of her cousins. SOCIAL HISTORY: The patient has chronic history of smoking tobacco. History of occasional alcohol intake. History of IV drug abuse with methamphetamine and opiates. Marijuana abuse. ALLERGIES: The patient noted to have allergies to Dilaudid as per the chart. LABORATORY DATA: WBC 20.9, hemoglobin 16.7, hematocrit 50.8, platelet count 391. ABG analysis shows pH of 7.23, pCO2 of 14, pO2 of 112, bicarb of 5.9. Sodium 137, potassium 3.6, chloride 103, bicarb 11, BUN 13, creatinine 0.8, glucose 90. Lactic acid 1.2. AST 24, ALT 45, alkaline phosphatase 108. Albumin 5.1, globulin 4.7, lipase 19, amylase 18. Beta HCG negative. Urinalysis shows negative for nitrites, trace leukocyte esterase, moderate epithelial cells, many bacteria, 10 to 20 rbc's, and 30 to 40 wbc's. Urine toxicology screen positive for amphetamine, methamphetamine, marijuana, and small ketones. Negative for barbiturates and tricyclics and benzodiazepines. ASSESSMENT: 1. Severe metabolic acidosis and respiratory acidosis. 2. Possible diabetic ketoacidosis. 3. Possible urinary tract infection. 4. Systemic inflammatory response syndrome with possible sepsis from underlying urinary tract infection. 5. Type 1 diabetes mellitus. 6. Chronic history of illicit drug abuse. 7. Chronic hepatitis C. PLAN: 1. Respiratory acidosis. The patient is noted to have combined metabolic acidosis and respiratory acidosis with higher anion gap, unsure about the exact etiology for this respiratory acidosis. We will order for salicylate level and Tylenol level. We will also order for alcohol level. The patient denied using any alcohol at this time. We will keep her hydrated with IV fluids, and we will closely follow. 2. Possible diabetic ketoacidosis. The patient's blood sugars are in the range of 75 and 80 making it less likely a true picture of diabetic ketoacidosis, and she only has mild ketones in the urine. In any case, she will be started on insulin and IV fluids, and we will closely follow the patient. Try to avoid any hypoglycemic episodes. She will be kept on D5 normal saline and also insulin to avoid any hypoglycemic episodes and keep her hydrated. 3. Possible sepsis. The patient is noted have leukocytosis along with possible urinary tract infection. The patient has moderate epithelial cells on the urinalysis making it a possible contaminant along with 10 to 20 rbc's, but given her history of pyelonephritis in the past, we will start her on ceftriaxone. The patient did get a dose of ceftriaxone. We will follow the blood cultures and urine cultures and titrate the antibiotics. Keep her hydrated with IV fluids. 4. Type 1 diabetes mellitus. We will get a hemoglobin A1c at this time. The patient claims that she has been compliant with her insulin regimen. Restart her insulin at this time. 5. Nausea and vomiting. The patient will be kept on antiemetic protocol. 6. DVT prophylaxis. We will have her on Lovenox for DVT prophylaxis. 7. Code status. The patient will be admitted under full code. 8. Discussed with Andreina, ER physician, regarding the plan of care. Discussed with the patient regarding the plan of care. Reviewed the labs and medications. Reviewed the old charts. [facility] /[id number]
[2017-08-05] MEDS: D5 1/2 NS w/ 40 mEq/L KCl 1,000 ML IV SCH ×3 (07:57→20:48)
[2017-08-05] MEDS: Insulin Aspart 100 Units/ML 3 ML Pen SUBCUT SCH ×3 (08:13→17:28)
[2017-08-05] MEDS: Insulin Detemir 100 Units/ML 3 ML Pen SUBCUT SCH ×2 (09:34→20:45)
[2017-08-05] MEDS: Enoxaparin 40 MG/0.4 ML Syringe SUBCUT SCH (09:35)
[2017-08-05 14:20] LABS: CHLORIDE,CL 108 mmol/L (101-111); SODIUM,NA 135 mmol/L (135-145)
[2017-08-05 14:21] LABS: ACETAMINOPHEN < 10
[2017-08-05 22:28] LABS: CHLORIDE,CL 109 mmol/L (101-111); SODIUM,NA 138 mmol/L (135-145)
[2017-08-05] MEDS ORDERED: Insulin Aspart 100 Units/ML 3 ML Pen SUBCUT ONE (22:34)
[2017-08-05] MEDS: Phosphorus #1 250 MG Tab PO SCH (22:44)
[2017-08-05] MEDS: Sodium Chloride 0.45% with KCl 1,000 ML IV SCH (23:22)
[2017-08-06] MEDS: cefTRIAXone 1,000 MG in Sodium Chloride 0.9% 50 ML IV SCH (05:35)
[2017-08-06] MEDS: Insulin Aspart 100 Units/ML 3 ML Pen SUBCUT SCH (08:32)
[2017-08-06] MEDS: Enoxaparin 40 MG/0.4 ML Syringe SUBCUT SCH (09:17)
[2017-08-06] MEDS: Phosphorus #1 250 MG Tab PO SCH ×2 (09:17→12:25)
[2017-08-06] MEDS: Insulin Detemir 100 Units/ML 3 ML Pen SUBCUT SCH (09:18)
[2017-08-06] MEDS: Sodium Chloride 0.45% with KCl 1,000 ML IV SCH (10:05)
[2017-08-06] MEDS ORDERED: Insulin Aspart 100 Units/ML 3 ML Pen SUBCUT SCH (10:09)
[2017-08-06 10:13] VITALS: BP 111/63
[2017-08-06 10:32] LABS: CHLORIDE,CL 107 mmol/L (101-111); SODIUM,NA 139 mmol/L (135-145)
[2017-08-06] MEDS: Potassium Chloride 10 MEQ Tab.ER PO SCH ×2 (12:25→13:51)
[2017-08-06] MEDS ORDERED: Insulin Detemir 100 Units/ML 3 ML Pen SUBCUT SCH (20:00)
--- NOTE | 2017-08-07 01:14 | DISCH ---
Of note, the patient is leaving against medical advice. ADMITTING DIAGNOSES: 1. Diabetic ketoacidosis. 2. Metabolic acidosis along with respiratory acidosis. 3. Questionable urinary tract infection. 4. Systemic inflammatory response syndrome with possible sepsis with underlying diabetic ketoacidosis versus infection. 5. Type 1 diabetes mellitus. 6. Chronic history of illicit drug abuse. HISTORY OF PRESENT ILLNESS: Ms. Merlene Roa is a 22-year-old female with medical history significant for type 1 diabetes mellitus, attention deficit hyperactivity disorder, chronic abuse of illicit drugs including marijuana and methamphetamine, admitted to the hospital with severe nausea and vomiting and was noted to be in severe diabetic ketoacidosis. There was some leukocytosis noted at the time of admission, could be resulting from her DKA, but she was empirically started on IV antibiotic ceftriaxone, but she remained afebrile on this admission and she did not have any signs of infection identified. She was started on IV insulin drip and IV fluids and she responded well to that treatment. She was noted to have high anion gap at the time of admission but at the time of discharge, her anion gap is close to 7.2, but she continued to have hypokalemia, hypomagnesemia, and hypophosphatemia. So, patient was advised to stay 1 more day in the hospital for replacing these electrolytes, but the patient wants to be discharged and she signed out against medical advice. DISCHARGE MEDICATIONS: 1. NovoLog 15 units three times a day. 2. Levemir 35 units twice a day. 3. Magnesium oxide 250 mg twice a day for the next one week. 4. Neutra-Phos 1 tablet three times daily for the next one week. 5. Ciprofloxacin 400 mg oral twice a day for the next one week. The patient left against medical advice. She was advised to follow with her primary care physician in next one week of time, and she is advised to continue taking the insulin and take supplemental electrolytes as prescribed. [facility] /[id number]
[2017-08-07] MEDS ORDERED: cefTRIAXone 1 GM Vial IV SCH (06:00)
[2017-08-07 09:51] LABS: ALLEN TEST POSITIVE
== END 2017-08-06 13:45 | disposition left against medical advice (07) | DRG 637 ==
LOC: DL.ED 23:24 → UNDOADMIN 08-05 03:15 → DL.MS 08-05 03:15 → EEVIPCON 08-05 05:40 → DL.MS 08-05 05:40
PROVIDERS: ADMIT Internal Medicine; ATTEND Internal Medicine
DX: E10.10 Type 1 diabetes mellitus with ketoacidosis without coma (principal); A41.9 Sepsis, unspecified organism; N39.0 Urinary tract infection, site not specified; E87.4 Mixed disorder of acid-base balance; Z79.4 Long term (current) use of insulin; R11.2 Nausea with vomiting, unspecified; E86.0 Dehydration; F15.10 Other stimulant abuse, uncomplicated; F32.9 Major depressive disorder, single episode, unspecified; Z88.8 Allergy status to other drugs, medicaments and biological substances; K73.8 Other chronic hepatitis, not elsewhere classified; Z53.21 Procedure and treatment not carried out due to patient leaving prior to being seen by health care provider; F90.9 Attention-deficit hyperactivity disorder, unspecified type; F12.90 Cannabis use, unspecified, uncomplicated; E83.42 Hypomagnesemia; E87.6 Hypokalemia; E83.39 Other disorders of phosphorus metabolism
CPT/HCPCS: 36415; 36600; 71010; 80048; 80053; 80305; 81001; 82009; 82150; 82803; 82962; 83036; 83605; 83690; 83735; 84100; 84703; 85025; 85027; 87040; 87086; 87088; 87186; 96361; 96374; 96375; 99284; A9270-GY; G0480; J0696; J1650; J1815; J1815-GY; J2405; J3480; J7030; J7050

== ENCOUNTER 2017-09-08 08:38 | Inpatient (IN) | payer MEDICAID ==
--- NOTE | 2017-09-08 08:43 | EDM.PDOC ---
ED HPI GENERAL MEDICAL PROBLEM - General Chief Complaint: Diabetic Complaint Stated Complaint: KETOACIDOSIS, [id number] Time Seen by Provider: 09/08/17 08:43 Source of Information: Reports: Patient, Family, Old Records, RN, RN Notes Reviewed History Limitations: Reports: No Limitations - History of Present Illness INITIAL COMMENTS - FREE TEXT/NARRATIVE: Arrives from home by POV with c/o waking this morning with nausea and vomiting. Pt states her aunt told her that she "smells fruity" and might had DKA again. Pt has not checked her blood sugar this morning. Pt known to me, has Hx DM Type 1 w/poor compliance, multiple episodes of DKA, and chronic methamphetamine abuse. Pt denies fevers, cough, chest pain, or urinary symptoms. Admits to generalized abdominal cramping, and constipation. Admits to smoking meth in the past 1 to 3 days. Denies alcohol consumption recently. Denies any use of injectable illicit drugs. Onset: Today Duration: Constant Location: Reports: Abdomen, Generalized Quality: Reports: Ache, Other (cramping) Severity: Moderate Improves with: Reports: None Worsens with: Reports: None - Related Data Allergies Allergy/AdvReac Type Severity Reaction Status Date / Time hydromorphone HCl Allergy Itching Verified 08/05/17 04:14 [From Dilaudid] Home Meds: Home Meds Insulin Detemir [Levemir] 35 unit SUBCUT BID 03/11/16 [History] Insulin Aspart [NovoLOG] 15 units SUBCUT TIDAC 04/05/16 [History] Ciprofloxacin [Ciprofloxacin HCl] 500 mg PO BID #14 tablet 08/06/17 [Rx] Magnesium Oxide 250 mg PO BIDM #14 tablet 08/06/17 [Rx] NaPh,Mb-Db/K Ph,MB-DB [Phos-NaK Powder] 1 each PO TID #30 packet 08/06/17 [Rx] Potassium Chloride 20 meq PO BID #20 tab.er.prt 08/06/17 [Rx] Past Medical History HEENT History: Reports: Other (See Below) Other HEENT History: ear problems with draining, cheek broken in three different place Cardiovascular History: Reports: None Respiratory History: Reports: None Gastrointestinal History: Reports: Hepatitis Other Gastrointestinal History: rectal bleeding per self report for past couple of months Genitourinary History: Reports: None FLARE BREAKER History: Reports: Spontaneous Musculoskeletal History: Reports: Fracture Neurological History: Reports: None Psychiatric History: Reports: ADHD, Addiction, Depression, Emotional Problems, Suicide Attempt, Suicidal Ideation Endocrine/Metabolic History: Reports: Diabetes, Type I, Other (See Below) (DKA) Hematologic History: Reports: Other (See Below) Other Hematologic History: Hep + Immunologic History: Reports: None Oncologic (Cancer) History: Reports: None Dermatologic History: Reports: Other (See Below) Other Dermatologic History: cut العراقي noted to forearms, acne vulgaris - Infectious Disease History Infectious Disease History: Reports: Hepatitis C - Past Surgical History Head Surgeries/Procedures: Reports: None HEENT Surgical History: Reports: Adenoidectomy, Tonsillectomy Social & Family History - Family History Family Medical History: Noncontributory Psychiatric: Reports: Depression Endocrine/Metabolic: Reports: Diabetes, type II - Tobacco Use Smoking Status *Q: Current Every Day Smoker Years of Tobacco use: 7 Packs/Tins Daily: 0.3 Used Tobacco, but Quit: No Second Hand Smoke Exposure: Yes - Caffeine Use Caffeine Use: Reports: None - Alcohol Use Days Per Week of Alcohol Use: 1 Number of Drinks Per Day: 3 Total Drinks Per Week: 3 - Recreational Drug Use Recreational Drug Use: Yes Drug Use in Last 12 Months: Yes Recreational Drug Type: Reports: Methamphetamine Other Recreational Drug Type: "up" Recreational Drug Use Frequency: Weekly Recreational Drug Last Use: t-2 - Sexual History Sexual History: Reports: Sexually Active - Living Situation & Occupation Living situation: Reports: with Significant Other Occupation: Unemployed ED ROS GENERAL - Review of Systems Review Of Systems: ROS reveals no pertinent complaints other than HPI. ED EXAM GENERAL NO PERIP PULSE - Physical Exam Exam: See Below Exam Limited By: No Limitations General Appearance: Alert, No Apparent Distress, Anxious, Other (acutely ill appearing) Eye Exam: Bilateral Eye: Normal Inspection Ears: Normal External Exam, Hearing Grossly Normal Nose: Normal Inspection, Normal Mucosa, No Blood Throat/Mouth: Normal Lips, Normal Gums, Normal Oropharynx, Normal Voice, No Airway Compromise, Other (dry oral membranes) Head: Atraumatic, Normocephalic Neck: Normal Inspection, Supple, Non-Tender, Full Range of Motion. No: Lymphadenopathy (L), Lymphadenopathy (R) Respiratory/Chest: No Respiratory Distress, Lungs Clear, Normal Breath Sounds, No Accessory Muscle Use, Chest Non-Tender Cardiovascular: Normal Peripheral Pulses, Regular Rate, Rhythm, No Edema, Tachycardia GI/Abdominal: Normal Bowel Sounds, Soft, No Distention, Tender (mild, generalized). No: Guarding, Rigid, Rebound (Female) Exam: Deferred Rectal (Female) Exam: Deferred Back Exam: Normal Inspection, Full Range of Motion. No: CVA Tenderness (L), CVA Tenderness (R) Extremities: Normal Inspection, Normal Range of Motion, Non-Tender, Normal Capillary Refill, No Pedal Edema Neurological: Alert, Oriented, CN II-XII Intact, Normal Cognition, No Motor/ Sensory Deficits Psychiatric: Normal Affect, Normal Mood Skin Exam: Warm, Dry, Intact, Normal Color, No Rash EKG INTERPRETATION EKG Date: 09/08/17 Time: 09:35 Rhythm: Other (Sinus Tach) Rate (Beats/Min): 109 [place]: Normal P-Wave: Present QRS: Normal ST-T: Normal QT: Normal Comparison: No Change EKG Interpretation Comments: No acute ischemic changes. Course - Vital Signs Last Recorded V/S: Last Vital Signs Temp 36.3 C 09/08/17 08:47 Pulse 121 H 09/08/17 08:47 Resp 27 H 09/08/17 08:47 BP 126/80 09/08/17 08:47 Pulse Ox 100 09/08/17 08:47 - Orders/Labs/Meds Orders: Active Orders 24 hr Category Date Time Status Blood Glucose Check, Bedside [RC] ONETIME Care 09/08/17 08:47 Active EKG 12 Lead [EKG Documentation Completion] [RC] STAT Care 09/08/17 08:47 Active Peripheral IV Care [RC] . DIRECTED Care 09/08/17 08:47 Active Peripheral IV Care [RC] . DIRECTED Care 09/08/17 08:49 Active Chest 1V Frontal [CR] Stat Exams 09/08/17 08:43 Ordered AMYLASE [CHEM] Stat Lab 09/08/17 08:44 Ordered AMYLASE [CHEM] Stat Lab 09/08/17 09:04 Results CBC WITH AUTO DIFF [HEME] Stat Lab 09/08/17 08:43 Ordered COMPREHENSIVE METABOLIC PN,CMP [CHEM] Stat Lab 09/08/17 08:43 Ordered COMPREHENSIVE METABOLIC PN,CMP [CHEM] Stat Lab 09/08/17 09:04 Results CULTURE BLOOD [BC] Stat Lab 09/08/17 08:45 Ordered CULTURE BLOOD [BC] Stat Lab 09/08/17 08:45 Ordered CULTURE BLOOD [BC] Stat Lab 09/08/17 09:04 Received CULTURE BLOOD [BC] Stat Lab 09/08/17 09:24 Received DRUG SCREEN URINE BIORAD [URCHEM] Stat Lab 09/08/17 08:44 Uncollected ETHANOL BLOOD MEDICAL [CHEM] Stat Lab 09/08/17 09:04 Results HCG QUALITATIVE,URINE [URCHEM] Stat Lab 09/08/17 08:55 Ordered INFLUENZA A+B AG SCREEN [RM] Stat Lab 09/08/17 08:50 Ordered KETONES,BLOOD [CHEM] Stat Lab 09/08/17 09:04 Results LIPASE [CHEM] Stat Lab 09/08/17 09:04 Results MAGNESIUM [CHEM] Stat Lab 09/08/17 09:04 Results PHOSPHORUS [CHEM] Stat Lab 09/08/17 09:04 Results STREP SCRN A RAPID W CULT CONF [RM] Stat Lab 09/08/17 08:50 Ordered TROPONIN I [CHEM] Stat Lab 09/08/17 09:04 Results UA W/MICROSCOPIC [URIN] Stat Lab 09/08/17 08:55 Ordered Insulin Regular, Human [HumuLIN R] 100 unit Med 09/08/17 09:45 Active Sodium Chloride 0.9% [Normal Saline] 99 ml IV TITRATE Sodium Chloride 0.9% [Normal Saline] 1,000 ml Med 09/08/17 08:49 Active IV .BOLUS Sodium Chloride 0.9% [Saline Flush] Med 09/08/17 08:46 Active 10 ml FLUSH ASDIRECTED PRN Sodium Chloride 0.9% [Saline Flush] Med 09/08/17 08:48 Active 10 ml FLUSH ASDIRECTED PRN Blood Culture x2 Reflex Set [OM.PC] Stat Oth 09/08/17 08:44 Ordered Peripheral IV Insertion Adult [OM.PC] Stat Oth 09/08/17 08:47 Ordered Peripheral IV Insertion Adult [OM.PC] Stat Oth 09/08/17 08:48 Ordered Medication Orders Sodium Chloride (Normal Saline) 1,000 mls @ 999 mls/hr IV .BOLUS ONE Stop: 09/08/17 09:49 Last Admin: 09/08/17 09:06 Dose: 999 mls/hr Insulin Human Regular 100 unit (/ Sodium Chloride) 100 mls @ 6.57 mls/hr IV TITRATE RUPINDER; 0.1 UNITS/KG/HR PRN Reason: Protocol Sodium Chloride (Saline Flush) 10 ml FLUSH ASDIRECTED PRN PRN Reason: Keep Vein Open Sodium Chloride (Saline Flush) 10 ml FLUSH ASDIRECTED PRN PRN Reason: Keep Vein Open Labs: Laboratory Tests 09/08/17 09/08/17 09/08/17 Range/Units 08:50 08:59 09:04 WBC (5.0-10.0) 10^3/uL RBC (4.2-5.4) 10^6/uL Hgb (12.0-16.0) g/dL Hct (37.0-47.0) % MCV (80-100) fL MCH (27.0-34.0) pg MCHC (33.0-35.0) g/dL Plt Count (150-450) 10^3/uL Neut % (Auto) (42.2-75.2) % Lymph % (Auto) (20.5-50.1) % [place] % (Auto) (2-8) % Eos % (Auto) (1.0-3.0) % Baso % (Auto) (0.0-1.0) % ABG pH 7.17 L* (7.35-7.45) ABG pCO2 11 L* (35-45) mmHg ABG pO2 127 H (70-100) mmHg ABG HCO3 3.4 L (22-26) mmol/L ABG O2 Saturation 96 (95-100) % ABG Base Excess 26 H ((-2)-(+3)) mmol/L O2 Delivery Device Room air Sodium 133 L (135-145) mmol/L Potassium 4.8 D (3.6-5.0) mmol/L Chloride 103 (101-111) mmol/L Carbon Dioxide 7.0 L* D (21.0-31.0) mmol/L Anion Gap 27.8 BUN 18 (7-18) mg/dL Creatinine 0.8 (0.6-1.3) mg/dL Est Cr Clr Drug Dosing 104.14 mL/min Estimated GFR (MDRD) > 60 BUN/Creatinine Ratio 22.50 Glucose 361 H (74-105) mg/dL POC Glucose 357 H (70-105) mg/dl Lactic Acid (0.5-2.2) mmol/L Calcium 9.0 (8.4-10.2) mg/dl Phosphorus 4.1 (2.5-4.6) mg/dL Magnesium 2.1 (1.8-2.5) mg/dL Total Bilirubin 1.5 H (0.2-1.0) mg/dL AST 76 H (10-42) IU/L ALT 99 H (10-60) IU/L Alkaline Phosphatase 99 (42-121) IU/L Troponin I < 0.02 (0.00-0.02) ng/ml Total Protein 8.9 H (6.7-8.2) g/dl Albumin 4.5 (3.2-5.5) g/dl Globulin 4.4 Albumin/Globulin Ratio 1.02 Lipase 30 (22-51) U/L Ethyl Alcohol < 5 mg/dL 09/08/17 09/08/17 Range/Units 09:04 09:04 WBC 12.3 H (5.0-10.0) 10^3/uL RBC 5.19 (4.2-5.4) 10^6/uL Hgb 13.8 (12.0-16.0) g/dL Hct 43.6 (37.0-47.0) % MCV 84.0 D (80-100) fL MCH 26.6 L (27.0-34.0) pg MCHC 31.7 L (33.0-35.0) g/dL Plt Count 385 D (150-450) 10^3/uL Neut % (Auto) 77.3 H (42.2-75.2) % Lymph % (Auto) 18.8 L (20.5-50.1) % [place] % (Auto) 3.6 (2-8) % Eos % (Auto) 0.1 L (1.0-3.0) % Baso % (Auto) 0.2 (0.0-1.0) % ABG pH (7.35-7.45) ABG pCO2 (35-45) mmHg ABG pO2 (70-100) mmHg ABG HCO3 (22-26) mmol/L ABG O2 Saturation (95-100) % ABG Base Excess ((-2)-(+3)) mmol/L O2 Delivery Device Sodium (135-145) mmol/L Potassium (3.6-5.0) mmol/L Chloride (101-111) mmol/L Carbon Dioxide (21.0-31.0) mmol/L Anion Gap BUN (7-18) mg/dL Creatinine (0.6-1.3) mg/dL Est Cr Clr Drug Dosing mL/min Estimated GFR (MDRD) BUN/Creatinine Ratio Glucose (74-105) mg/dL POC Glucose (70-105) mg/dl Lactic Acid 1.3 (0.5-2.2) mmol/L Calcium (8.4-10.2) mg/dl Phosphorus (2.5-4.6) mg/dL Magnesium (1.8-2.5) mg/dL Total Bilirubin (0.2-1.0) mg/dL AST (10-42) IU/L ALT (10-60) IU/L Alkaline Phosphatase (42-121) IU/L Troponin I (0.00-0.02) ng/ml Total Protein (6.7-8.2) g/dl Albumin (3.2-5.5) g/dl Globulin Albumin/Globulin Ratio Lipase (22-51) U/L Ethyl Alcohol mg/dL Meds: Medications Generic Name Dose Route Start Last Admin Trade Name Freq PRN Reason Stop Dose Admin Sodium Chloride 1,000 mls @ 999 mls/hr 09/08/17 08:49 09/08/17 09:06 Normal Saline IV 09/08/17 09:49 999 mls/hr .BOLUS ONE Administration Insulin Human Regular 100 unit 100 mls @ 6.57 mls/hr 09/08/17 09:45 / Sodium Chloride IV TITRATE RUPINDER Protocol 0.1 UNITS/KG/HR Sodium Chloride 10 ml 09/08/17 08:46 Saline Flush FLUSH ASDIRECTED PRN Keep Vein Open Sodium Chloride 10 ml 09/08/17 08:48 Saline Flush FLUSH ASDIRECTED PRN Keep Vein Open Discontinued Medications Generic Name Dose Route Start Last Admin Trade Name Freq PRN Reason Stop Dose Admin Ondansetron HCl 4 mg 09/08/17 08:49 09/08/17 09:06 Zofran IV 09/08/17 08:50 4 mg ONETIME ONE Administration - Radiology Interpretation Free Text/Narrative:: CXR: pending Departure - Departure Time of Disposition: 09:47 (admitted to Dr. Knutson) Disposition: Admitted As Inpatient 67 Condition: Critical Clinical Impression: Drug abuse, Methamphetamine abuse Diabetic ketoacidosis associated with type 1 diabetes mellitus Qualifiers: Diabetes mellitus complication detail: without coma Qualified Code(s): E10.10 - Type 1 diabetes mellitus with ketoacidosis without coma Constipation Qualifiers: Constipation type: unspecified constipation type Qualified Code(s): K59.00 - Constipation, unspecified - Discharge Information Forms: ED Department Discharge - My Orders Last 24 Hours: My Active Orders 09/08/17 08:43 Chest 1V Frontal [CR] Stat CBC WITH AUTO DIFF [HEME] Stat COMPREHENSIVE METABOLIC PN,CMP [CHEM] Stat 09/08/17 08:44 AMYLASE [CHEM] Stat DRUG SCREEN URINE BIORAD [URCHEM] Stat Blood Culture x2 Reflex Set [OM.PC] Stat 09/08/17 08:45 CULTURE BLOOD [BC] Stat CULTURE BLOOD [BC] Stat 09/08/17 08:46 Sodium Chloride 0.9% [Saline Flush] 10 ml FLUSH ASDIRECTED PRN 09/08/17 08:47 Blood Glucose Check, Bedside [RC] ONETIME EKG 12 Lead [EKG Documentation Completion] [RC] STAT Peripheral IV Care [RC] . DIRECTED Peripheral IV Insertion Adult [OM.PC] Stat 09/08/17 08:48 Sodium Chloride 0.9% [Saline Flush] 10 ml FLUSH ASDIRECTED PRN Peripheral IV Insertion Adult [OM.PC] Stat 09/08/17 08:49 Peripheral IV Care [RC] . DIRECTED Sodium Chloride 0.9% [Normal Saline] 1,000 ml IV .BOLUS 09/08/17 08:50 INFLUENZA A+B AG SCREEN [RM] Stat STREP SCRN A RAPID W CULT CONF [RM] Stat 09/08/17 08:55 HCG QUALITATIVE,URINE [URCHEM] Stat UA W/MICROSCOPIC [URIN] Stat 09/08/17 09:04 AMYLASE [CHEM] Stat COMPREHENSIVE METABOLIC PN,CMP [CHEM] Stat CULTURE BLOOD [BC] Stat ETHANOL BLOOD MEDICAL [CHEM] Stat KETONES,BLOOD [CHEM] Stat LIPASE [CHEM] Stat MAGNESIUM [CHEM] Stat PHOSPHORUS [CHEM] Stat TROPONIN I [CHEM] Stat 09/08/17 09:24 CULTURE BLOOD [BC] Stat 09/08/17 09:45 Insulin Regular, Human [HumuLIN R] 100 unit Sodium Chloride 0.9% [Normal Saline] 99 ml IV TITRATE - Assessment/Plan Last 24 Hours: My Active Orders 09/08/17 08:43 Chest 1V Frontal [CR] Stat CBC WITH AUTO DIFF [HEME] Stat COMPREHENSIVE METABOLIC PN,CMP [CHEM] Stat 09/08/17 08:44 AMYLASE [CHEM] Stat DRUG SCREEN URINE BIORAD [URCHEM] Stat Blood Culture x2 Reflex Set [OM.PC] Stat 09/08/17 08:45 CULTURE BLOOD [BC] Stat CULTURE BLOOD [BC] Stat 09/08/17 08:46 Sodium Chloride 0.9% [Saline Flush] 10 ml FLUSH ASDIRECTED PRN 09/08/17 08:47 Blood Glucose Check, Bedside [RC] ONETIME EKG 12 Lead [EKG Documentation Completion] [RC] STAT Peripheral IV Care [RC] . DIRECTED Peripheral IV Insertion Adult [OM.PC] Stat 09/08/17 08:48 Sodium Chloride 0.9% [Saline Flush] 10 ml FLUSH ASDIRECTED PRN Peripheral IV Insertion Adult [OM.PC] Stat 09/08/17 08:49 Peripheral IV Care [RC] . DIRECTED Sodium Chloride 0.9% [Normal Saline] 1,000 ml IV .BOLUS 09/08/17 08:50 INFLUENZA A+B AG SCREEN [RM] Stat STREP SCRN A RAPID W CULT CONF [RM] Stat 09/08/17 08:55 HCG QUALITATIVE,URINE [URCHEM] Stat UA W/MICROSCOPIC [URIN] Stat 09/08/17 09:04 AMYLASE [CHEM] Stat COMPREHENSIVE METABOLIC PN,CMP [CHEM] Stat CULTURE BLOOD [BC] Stat ETHANOL BLOOD MEDICAL [CHEM] Stat KETONES,BLOOD [CHEM] Stat LIPASE [CHEM] Stat MAGNESIUM [CHEM] Stat PHOSPHORUS [CHEM] Stat TROPONIN I [CHEM] Stat 09/08/17 09:24 CULTURE BLOOD [BC] Stat 09/08/17 09:45 Insulin Regular, Human [HumuLIN R] 100 unit Sodium Chloride 0.9% [Normal Saline] 99 ml IV TITRATE
[2017-09-08] MEDS ORDERED: Sodium Chloride 0.9% 10 ML Syringe FLUSH PRN ×2 (08:46→08:48)
[2017-09-08] MEDS ORDERED: Sodium Chloride 0.9% 1,000 ML IV ONE (08:49)
[2017-09-08] MEDS ORDERED: Ondansetron 4 MG/2 ML SDV IV ONE (08:49)
[2017-09-08 09:27] LABS: O2 DELIVERY DEVICE ROOM AIR
[2017-09-08 09:28] LABS: BICARBONATE,ARTERIAL 3.4 mmol/L (22-26); O2 SATURATION ARTERIAL 96 % (95-100); PCO2 ARTERIAL 11 mmHg (35-45); PO2 ARTERIAL 127 mmHg (70-100)
[2017-09-08 09:29] LABS: BASE EXCESS ARTERIAL 26 mmol/L ((-2)-(+3))
[2017-09-08 09:34] LABS: ANION GAP 27.8; CHLORIDE,CL 103 mmol/L (101-111); SODIUM,NA 133 mmol/L (135-145)
[2017-09-08] MEDS ORDERED: Dextrose 5%-0.45% NaCl 1,000 ML IV SCH (11:00)
[2017-09-08] MEDS ORDERED: Sodium Chloride 0.9% with KCl 1,000 ML IV SCH (11:00)
[2017-09-08] MEDS ORDERED: Ondansetron 4 MG/2 ML SDV IV PRN (11:59)
[2017-09-08] MEDS ORDERED: Morphine 2 MG/ML Syringe IVPUSH PRN (11:59)
[2017-09-08] MEDS: Dextrose 5%-0.9% NaCl with KCl 1,000 ML IV SCH ×3 (12:17→20:27)
[2017-09-08] MEDS ORDERED: Zolpidem 5 MG Tab PO PRN (12:36)
[2017-09-08] MEDS ORDERED: Acetaminophen 325 MG Tab PO PRN (12:36)
--- NOTE | 2017-09-08 13:08 | PCM.HP ---
H&P History of Present Illness - General Date of Service: 09/08/17 Admit Problem/Dx: Admission Diagnosis/Problem Admission Diagnosis/Problem Diabetic ketoacidosis Source of Information: Patient - History of Present Illness Initial Comments - Free Text/Narative: The patient is a 22-year-old type I diabetic who has been using long-acting and short-acting insulins at home. She ran out of insulin she says or at least did not use it for 2 days prior to admission. On the day of admission she was complaining of nausea, vomiting. According to family her breath smelled fruity. She came to the emergency room pressure was noted to have a severe metabolic acidosis. She was given IV fluids insulin drip started. - Related Data Allergies/Adverse Reactions: Allergies Allergy/AdvReac Type Severity Reaction Status Date / Time hydromorphone HCl Allergy Itching Verified 09/08/17 12:23 [From Dilaudid] Home Medications: Home Meds Insulin Detemir [Levemir] 35 unit SUBCUT BID 03/11/16 [History] Insulin Aspart [NovoLOG] 15 units SUBCUT TIDAC 04/05/16 [History] Past Medical History HEENT History: Reports: Other (See Below) Other HEENT History: ear problems with draining, cheek broken in three different place Cardiovascular History: Reports: None Respiratory History: Reports: None Gastrointestinal History: Reports: Hepatitis Other Gastrointestinal History: rectal bleeding per self report for past couple of months Genitourinary History: Reports: None 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 CLERK History: Reports: Spontaneous Musculoskeletal History: Reports: Fracture Neurological History: Reports: None Psychiatric History: Reports: ADHD, Addiction, Depression, Emotional Problems, Suicide Attempt, Suicidal Ideation Endocrine/Metabolic History: Reports: Diabetes, Type I, Other (See Below) (DKA) Hematologic History: Reports: Other (See Below) Other Hematologic History: Hep + Immunologic History: Reports: None Oncologic (Cancer) History: Reports: None Dermatologic History: Reports: Other (See Below) Other Dermatologic History: cut العراقي noted to forearms, acne vulgaris - Infectious Disease History Infectious Disease History: Reports: Hepatitis C - Past Surgical History Head Surgeries/Procedures: Reports: None HEENT Surgical History: Reports: Adenoidectomy, Tonsillectomy Social & Family History - Family History Family Medical History: Noncontributory Psychiatric: Reports: Depression Endocrine/Metabolic: Reports: Diabetes, type II - Tobacco Use Smoking Status *Q: Current Every Day Smoker Years of Tobacco use: 7 Packs/Tins Daily: 0.3 Used Tobacco, but Quit: No Second Hand Smoke Exposure: Yes - Caffeine Use Caffeine Use: Reports: None - Alcohol Use Days Per Week of Alcohol Use: 1 Number of Drinks Per Day: 3 Total Drinks Per Week: 3 - Recreational Drug Use Recreational Drug Use: Yes Drug Use in Last 12 Months: Yes Recreational Drug Type: Reports: Methamphetamine Other Recreational Drug Type: "up" Recreational Drug Use Frequency: Weekly Recreational Drug Last Use: t-2 - Sexual History Sexual History: Reports: Sexually Active - Living Situation & Occupation Living situation: Reports: with Significant Other Occupation: Unemployed H&P Review of Systems - Review of Systems: Review Of Systems: See Below General: Reports: Malaise, Weakness. Denies: Fever Pulmonary: Denies: Shortness of Breath Cardiovascular: Denies: Chest Pain, Edema Gastrointestinal: Reports: Nausea, Vomiting Psychiatric: Denies: Confusion Neurological: Reports: Headache Exam - Exam Exam: See Below - Vital Signs Vital Signs: Last Vital Signs Temp 36.3 C 09/08/17 08:47 Pulse 121 H 09/08/17 08:47 Resp 27 H 09/08/17 08:47 BP 126/80 09/08/17 08:47 Pulse Ox 100 09/08/17 08:47 Weight: 65.771 kg - Exam General: Alert, Oriented HEENT: EOMI, Hearing Intact Neck: Supple Lungs: Clear to Auscultation, Normal Respiratory Effort Cardiovascular: Regular Rate, Regular Rhythm GI/Abdominal Exam: Normal Bowel Sounds, Soft, Non-Tender Extremities: No Pedal Edema - Patient Data Lab Results Last 24 hrs: Laboratory Results - last 24 hr 09/08/17 09/08/17 09/08/17 Range/Units 10:46 11:23 12:46 POC Glucose 175 H 139 H 211 H (70-105) mg/dl Result Diagrams: 09/08/17 09:04 09/08/17 09:04 Sarkis Results Last 24 hrs: Microbiology 09/08/17 10:02 Group A Streptococcus Rapid Screen - Final Throat NEGATIVE STREP A SCREEN *Q Meaningful Use (ADM) - VTE *Q VTE Criteria *Q: - Stroke *Q Stroke Criteria *Q: - AMI *Q AMI Criteria *Q: - Problem List (1) Diabetic ketoacidosis associated with type 1 diabetes mellitus SNOMED Code(s): 527260351 ICD Code: E10.10 - TYPE 1 DIABETES MELLITUS WITH KETOACIDOSIS WITHOUT COMA Status: Acute Priority: High Current Visit: Yes Qualifiers: Diabetes mellitus complication detail: without coma Qualified Code(s): E10.10 - Type 1 diabetes mellitus with ketoacidosis without coma Problem List Initiated/Reviewed/Updated: Yes Orders Last 24hrs: Active Orders 24 hr Category Date Time Status Patient Status [ADT] Routine ADT 09/08/17 12:36 Ordered Antiembolic Devices [RC] PER UNIT ROUTINE Care 09/08/17 12:38 Ordered Blood Glucose Check, Bedside [RC] Q1HR Care 09/08/17 12:36 Ordered Oxygen Therapy [RC] PRN Care 09/08/17 12:36 Ordered Up With Assistance [RC] ASDIRECTED Care 09/08/17 12:36 Ordered VTE/DVT Education [RC] PER UNIT ROUTINE Care 09/08/17 12:36 Ordered Vital Signs [RC] Q4H Care 09/08/17 12:36 Ordered Clear Liquid Diet [DIET] Diet 09/08/17 Dinner Ordered Chest 1V Frontal [CR] Routine Exams 09/08/17 Taken BASIC METABOLIC PANEL,BMP [CHEM] Timed Lab 09/08/17 13:00 Ordered MAGNESIUM [CHEM] Timed Lab 09/08/17 13:00 Ordered PHOSPHORUS [CHEM] Timed Lab 09/08/17 13:00 Ordered Acetaminophen [Tylenol] Med 09/08/17 12:36 Ordered 650 mg PO Q4H PRN Dextrose 5%-0.9% NaCl with KCl [D5 NS with 20 mEq KCl] Med 09/08/17 12:15 Active 1,000 ml IV ASDIRECTED Heparin Sodium Med 09/08/17 14:00 Ordered 5,000 units SUBCUT Q8HR Morphine Med 09/08/17 11:59 Active 1 mg IVPUSH Q4H PRN Ondansetron [Zofran] Med 09/08/17 11:59 Active 4 mg IV Q6H PRN Zolpidem [Ambien] Med 09/08/17 12:36 Ordered 5 mg PO BEDTIME PRN Antiembolic Hose [OM.PC] Per Unit Routine Oth 09/08/17 12:37 Ordered Resuscitation Status Routine Resus Stat 09/08/17 12:36 Ordered Medication Orders Acetaminophen (Tylenol) 650 mg PO Q4H PRN PRN Reason: Pain (Mild 1-3)/fever Heparin Sodium (Porcine) (Heparin Sodium) 5,000 units SUBCUT Q8HR RUPINDER Insulin Human Regular 100 unit (/ Sodium Chloride) 100 mls @ 6.57 mls/hr IV TITRATE RUPINDER; 0.1 UNITS/KG/HR PRN Reason: Protocol Last Infusion: 09/08/17 12:50 Dose: 0.03 units/kg/hr, 2 mls/hr Admin: 09/08/17 09:43 Dose: 0.1 units/kg/hr, 6.57 mls/hr Potassium Chloride/Dextrose/Sod Cl (D5 Ns With 20 Meq Kcl) 1,000 mls @ 250 mls/ hr IV ASDIRECTED RUPINDER Last Admin: 09/08/17 12:17 Dose: 250 mls/hr Morphine Sulfate (Morphine) 1 mg IVPUSH Q4H PRN PRN Reason: severe pain Last Admin: 09/08/17 12:16 Dose: 1 mg Ondansetron HCl (Zofran) 4 mg IV Q6H PRN PRN Reason: Nausea/Vomiting Sodium Chloride (Saline Flush) 10 ml FLUSH ASDIRECTED PRN PRN Reason: Keep Vein Open Sodium Chloride (Saline Flush) 10 ml FLUSH ASDIRECTED PRN PRN Reason: Keep Vein Open Zolpidem Tartrate (Ambien) 5 mg PO BEDTIME PRN PRN Reason: Sleep Assessment/Plan Comment:: Diabetic ketoacidosis We'll hydrate the patient well Start insulin drip Change IV fluid to D5 K blood sugar up Follow electrolytes and replace them every 4 hours Control nausea and vomiting Morphine IV for pain When stabilized try to minimize narcotics Obtain test
[2017-09-08 13:24] LABS: ANION GAP 22.3; CHLORIDE,CL 107 mmol/L (101-111); SODIUM,NA 134 mmol/L (135-145)
[2017-09-08] MEDS: Heparin Sodium 5,000 Units/ML Vial SUBCUT SCH ×2 (14:17→21:45)
[2017-09-08 17:23] LABS: ANION GAP 12.7; CHLORIDE,CL 108 mmol/L (101-111); SODIUM,NA 132 mmol/L (135-145)
[2017-09-08 20:51] LABS: ANION GAP 11.4; CHLORIDE,CL 109 mmol/L (101-111); SODIUM,NA 135 mmol/L (135-145)
[2017-09-08] MEDS ORDERED: Magnesium Sulfate/Water 2 GM in Premix Bag 1 BAG IV ONE (20:58)
[2017-09-08] MEDS ORDERED: Potassium Chloride 10 MEQ Tab.ER PO ONE (21:00)
[2017-09-08] MEDS: Sodium Chloride 0.45% with KCl 1,000 ML IV SCH (21:43)
[2017-09-08] MEDS: Insulin Detemir 100 Units/ML 3 ML Pen SUBCUT SCH (21:44)
[2017-09-08] MEDS: Phosphorus #1 250 MG Tab PO SCH (21:44)
[2017-09-09] MEDS: Sodium Chloride 0.45% with KCl 1,000 ML IV SCH (04:35)
[2017-09-09] MEDS: Heparin Sodium 5,000 Units/ML Vial SUBCUT SCH (05:39)
[2017-09-09 07:47] VITALS: BP 99/59
[2017-09-09] MEDS ORDERED: Insulin Aspart 100 Units/ML 3 ML Pen SUBCUT SCH (08:00)
[2017-09-09] MEDS: Phosphorus #1 250 MG Tab PO SCH (08:32)
[2017-09-09] MEDS: Insulin Detemir 100 Units/ML 3 ML Pen SUBCUT SCH (08:33)
--- NOTE | 2017-09-09 10:58 | PCM.DCSUM1 ---
Discharge Summary - Hospital Course Free Text/Narrative:: The patient is a 22-year-old lady with a history of type 1 diabetes. She did not use insulin for 2 days and then presented with nausea vomiting. She was noted to have DKA, moderate to severe. The patient was admitted and treated with IV fluids and insulin drip Anion gap closed metabolic acidosis resolved The patient's nausea and vomiting resolved she was able to eat and drink well She will be discharged in a stable condition - Discharge Data Discharge Date: 09/09/17 Discharge Disposition: Home, Self-Care 01 Condition: Good - Discharge Diagnosis/Problem(s) (1) Diabetic ketoacidosis associated with type 1 diabetes mellitus SNOMED Code(s): 075552005 ICD Code: E10.10 - TYPE 1 DIABETES MELLITUS WITH KETOACIDOSIS WITHOUT COMA Status: Acute Priority: High Current Visit: Yes Qualifiers: Diabetes mellitus complication detail: without coma Qualified Code(s): E10.10 - Type 1 diabetes mellitus with ketoacidosis without coma - Patient Instructions Diet: Diabetic Diet Activity: As Tolerated - Discharge Plan Home Medications: Home Meds Insulin Detemir [Levemir] 35 unit SUBCUT BID 03/11/16 [History] Insulin Aspart [NovoLOG] 15 units SUBCUT TIDAC 04/05/16 [History] Referrals: PCP,None [Primary Care Provider] - (dr. Orta in [place] in 1 week) - Discharge Summary/Plan Comment DC Time >30 min.: No - General Info Date of Service: 09/09/17 Subjective Update: Feeling well, nausea, vomiting resolved. - Review of Systems General: Denies: Fever, Weakness Pulmonary: Denies: Shortness of Breath Cardiovascular: Denies: Chest Pain Gastrointestinal: Denies: Abdominal Pain - Patient Data Vitals - Most Recent: Last Vital Signs Temp 36.6 C 09/09/17 07:00 Pulse 82 09/09/17 07:00 Resp 18 09/09/17 07:00 BP 99/59 L 09/09/17 07:00 Pulse Ox 100 09/09/17 07:00 Weight - Most Recent: 57.153 kg I&O - Last 24 hours: Intake & Output 09/08/17 09/09/17 09/09/17 22:59 06:59 14:59 Intake Total 5246 2300 Output Total 2700 1000 900 Balance 2546 1300 -900 Lab Results - Last 24 hrs: Laboratory Results - last 24 hr 09/08/17 09/08/17 09/08/17 Range/Units 12:46 13:00 13:20 Sodium 134 L (135-145) mmol/L Potassium 4.3 (3.6-5.0) mmol/L Chloride 107 (101-111) mmol/L Carbon Dioxide 9.0 L (21.0-31.0) mmol/L Anion Gap 22.3 BUN 13 (7-18) mg/dL Creatinine 0.5 L (0.6-1.3) mg/dL Est Cr Clr Drug Dosing 166.62 mL/min Estimated GFR (MDRD) > 60 Glucose 239 H (74-105) mg/dL POC Glucose 211 H (70-105) mg/dl Calcium 8.2 L (8.4-10.2) mg/dl Phosphorus 3.1 (2.5-4.6) mg/dL Magnesium 1.9 (1.8-2.5) mg/dL Urine Color (YELLOW) Urine Appearance (CLEAR) Urine pH (5.0-9.0) Ur Specific Mission (1.005-1.030) Urine Protein (NEGATIVE) Urine Glucose (UA) (NEGATIVE) Urine Ketones (NEGATIVE) Urine Occult Blood (NEGATIVE) Urine Nitrite (NEGATIVE) Urine Bilirubin (NEGATIVE) Urine Urobilinogen (0.2-1.0) mg/dL Ur Leukocyte Esterase (NEGATIVE) Urine RBC /HPF Urine WBC (0-5/HPF) /HPF Ur Epithelial Cells /HPF Amorphous Sediment (0/HPF) /HPF Urine Bacteria (0-FEW/HPF) /HPF Urine Mucus /LPF Urine Trichomonas (0/HPF) /HPF Urine HCG, Qual Negative Urine Opiates Screen (NEGATIVE) Ur Oxycodone Screen (NEGATIVE) Urine Methadone Screen (NEGATIVE) Ur Barbiturates Screen (NEGATIVE) U Tricyclic Antidepress (NEGATIVE) Ur Phencyclidine Scrn (NEGATIVE) Ur Amphetamine Screen (NEGATIVE) U Methamphetamines Scrn (NEGATIVE) Urine MDMA Screen (NEGATIVE) U Benzodiazepines Scrn (NEGATIVE) Urine Cocaine Screen (NEGATIVE) U Marijuana (THC) Screen (NEGATIVE) 09/08/17 09/08/17 09/08/17 Range/Units 13:20 13:20 14:11 Sodium (135-145) mmol/L Potassium (3.6-5.0) mmol/L Chloride (101-111) mmol/L Carbon Dioxide (21.0-31.0) mmol/L Anion Gap BUN (7-18) mg/dL Creatinine (0.6-1.3) mg/dL Est Cr Clr Drug Dosing mL/min Estimated GFR (MDRD) Glucose (74-105) mg/dL POC Glucose 201 H (70-105) mg/dl Calcium (8.4-10.2) mg/dl Phosphorus (2.5-4.6) mg/dL Magnesium (1.8-2.5) mg/dL Urine Color Yellow (YELLOW) Urine Appearance Slightly cloudy (CLEAR) Urine pH 5.0 (5.0-9.0) Ur Specific [place] >= 1.030 (1.005-1.030) Urine Protein 100 H (NEGATIVE) Urine Glucose (UA) 500 H (NEGATIVE) Urine Ketones >=160 H (NEGATIVE) Urine Occult Blood Large H (NEGATIVE) Urine Nitrite Negative (NEGATIVE) Urine Bilirubin Small H (NEGATIVE) Urine Urobilinogen 0.2 (0.2-1.0) mg/dL Ur Leukocyte Esterase Trace H (NEGATIVE) Urine RBC 50-75 H /HPF Urine WBC 5-10 H (0-5/HPF) /HPF Ur Epithelial Cells Few /HPF Amorphous Sediment Rare (0/HPF) /HPF Urine Bacteria Few (0-FEW/HPF) /HPF Urine Mucus Rare /LPF Urine Trichomonas Present H (0/HPF) /HPF Urine HCG, Qual Urine Opiates Screen Positive H (NEGATIVE) Ur Oxycodone Screen Negative (NEGATIVE) Urine Methadone Screen Negative (NEGATIVE) Ur Barbiturates Screen Negative (NEGATIVE) U Tricyclic Antidepress Negative (NEGATIVE) Ur Phencyclidine Scrn Negative (NEGATIVE) Ur Amphetamine Screen Negative (NEGATIVE) U Methamphetamines Scrn Positive H (NEGATIVE) Urine MDMA Screen Negative (NEGATIVE) U Benzodiazepines Scrn Negative (NEGATIVE) Urine Cocaine Screen Negative (NEGATIVE) U Marijuana (THC) Screen Negative (NEGATIVE) 09/08/17 09/08/17 09/08/17 Range/Units 15:21 16:01 16:56 Sodium 132 L (135-145) mmol/L Potassium 3.7 (3.6-5.0) mmol/L Chloride 108 (101-111) mmol/L Carbon Dioxide 15.0 L (21.0-31.0) mmol/L Anion Gap 12.7 BUN 9 (7-18) mg/dL Creatinine 0.4 L (0.6-1.3) mg/dL Est Cr Clr Drug Dosing 200.73 mL/min Estimated GFR (MDRD) > 60 Glucose 219 H (74-105) mg/dL POC Glucose 185 H 179 H (70-105) mg/dl Calcium 7.7 L (8.4-10.2) mg/dl Phosphorus (2.5-4.6) mg/dL Magnesium (1.8-2.5) mg/dL Urine Color (YELLOW) Urine Appearance (CLEAR) Urine pH (5.0-9.0) Ur Specific [place] (1.005-1.030) Urine Protein (NEGATIVE) Urine Glucose (UA) (NEGATIVE) Urine Ketones (NEGATIVE) Urine Occult Blood (NEGATIVE) Urine Nitrite (NEGATIVE) Urine Bilirubin (NEGATIVE) Urine Urobilinogen (0.2-1.0) mg/dL Ur Leukocyte Esterase (NEGATIVE) Urine RBC /HPF Urine WBC (0-5/HPF) /HPF Ur Epithelial Cells /HPF Amorphous Sediment (0/HPF) /HPF Urine Bacteria (0-FEW/HPF) /HPF Urine Mucus /LPF Urine Trichomonas (0/HPF) /HPF Urine HCG, Qual Urine Opiates Screen (NEGATIVE) Ur Oxycodone Screen (NEGATIVE) Urine Methadone Screen (NEGATIVE) Ur Barbiturates Screen (NEGATIVE) U Tricyclic Antidepress (NEGATIVE) Ur Phencyclidine Scrn (NEGATIVE) Ur Amphetamine Screen (NEGATIVE) U Methamphetamines Scrn (NEGATIVE) Urine MDMA Screen (NEGATIVE) U Benzodiazepines Scrn (NEGATIVE) Urine Cocaine Screen (NEGATIVE) U Marijuana (THC) Screen (NEGATIVE) 09/08/17 09/08/17 09/08/17 Range/Units 17:14 18:05 18:56 Sodium (135-145) mmol/L Potassium (3.6-5.0) mmol/L Chloride (101-111) mmol/L Carbon Dioxide (21.0-31.0) mmol/L Anion Gap BUN (7-18) mg/dL Creatinine (0.6-1.3) mg/dL Est Cr Clr Drug Dosing mL/min Estimated GFR (MDRD) Glucose (74-105) mg/dL POC Glucose 166 H 179 H 232 H (70-105) mg/dl Calcium (8.4-10.2) mg/dl Phosphorus (2.5-4.6) mg/dL Magnesium (1.8-2.5) mg/dL Urine Color (YELLOW) Urine Appearance (CLEAR) Urine pH (5.0-9.0) Ur Specific [place] (1.005-1.030) Urine Protein (NEGATIVE) Urine Glucose (UA) (NEGATIVE) Urine Ketones (NEGATIVE) Urine Occult Blood (NEGATIVE) Urine Nitrite (NEGATIVE) Urine Bilirubin (NEGATIVE) Urine Urobilinogen (0.2-1.0) mg/dL Ur Leukocyte Esterase (NEGATIVE) Urine RBC /HPF Urine WBC (0-5/HPF) /HPF Ur Epithelial Cells /HPF Amorphous Sediment (0/HPF) /HPF Urine Bacteria (0-FEW/HPF) /HPF Urine Mucus /LPF Urine Trichomonas (0/HPF) /HPF Urine HCG, Qual Urine Opiates Screen (NEGATIVE) Ur Oxycodone Screen (NEGATIVE) Urine Methadone Screen (NEGATIVE) Ur Barbiturates Screen (NEGATIVE) U Tricyclic Antidepress (NEGATIVE) Ur Phencyclidine Scrn (NEGATIVE) Ur Amphetamine Screen (NEGATIVE) U Methamphetamines Scrn (NEGATIVE) Urine MDMA Screen (NEGATIVE) U Benzodiazepines Scrn (NEGATIVE) Urine Cocaine Screen (NEGATIVE) U Marijuana (THC) Screen (NEGATIVE) 09/08/17 09/08/17 09/08/17 Range/Units 20:10 20:20 21:07 Sodium 135 (135-145) mmol/L Potassium 3.4 L (3.6-5.0) mmol/L Chloride 109 (101-111) mmol/L Carbon Dioxide 18.0 L (21.0-31.0) mmol/L Anion Gap 11.4 BUN 8 (7-18) mg/dL Creatinine 0.5 L (0.6-1.3) mg/dL Est Cr Clr Drug Dosing 160.58 mL/min Estimated GFR (MDRD) > 60 Glucose 100 (74-105) mg/dL POC Glucose 134 H 99 (70-105) mg/dl Calcium 8.0 L (8.4-10.2) mg/dl Phosphorus 2.0 L (2.5-4.6) mg/dL Magnesium 1.4 L (1.8-2.5) mg/dL Urine Color (YELLOW) Urine Appearance (CLEAR) Urine pH (5.0-9.0) Ur Specific [place] (1.005-1.030) Urine Protein (NEGATIVE) Urine Glucose (UA) (NEGATIVE) Urine Ketones (NEGATIVE) Urine Occult Blood (NEGATIVE) Urine Nitrite (NEGATIVE) Urine Bilirubin (NEGATIVE) Urine Urobilinogen (0.2-1.0) mg/dL Ur Leukocyte Esterase (NEGATIVE) Urine RBC /HPF Urine WBC (0-5/HPF) /HPF Ur Epithelial Cells /HPF Amorphous Sediment (0/HPF) /HPF Urine Bacteria (0-FEW/HPF) /HPF Urine Mucus /LPF Urine Trichomonas (0/HPF) /HPF Urine HCG, Qual Urine Opiates Screen (NEGATIVE) Ur Oxycodone Screen (NEGATIVE) Urine Methadone Screen (NEGATIVE) Ur Barbiturates Screen (NEGATIVE) U Tricyclic Antidepress (NEGATIVE) Ur Phencyclidine Scrn (NEGATIVE) Ur Amphetamine Screen (NEGATIVE) U Methamphetamines Scrn (NEGATIVE) Urine MDMA Screen (NEGATIVE) U Benzodiazepines Scrn (NEGATIVE) Urine Cocaine Screen (NEGATIVE) U Marijuana (THC) Screen (NEGATIVE) 09/09/17 09/09/17 Range/Units 07:42 10:49 Sodium (135-145) mmol/L Potassium (3.6-5.0) mmol/L Chloride (101-111) mmol/L Carbon Dioxide (21.0-31.0) mmol/L Anion Gap BUN (7-18) mg/dL Creatinine (0.6-1.3) mg/dL Est Cr Clr Drug Dosing mL/min Estimated GFR (MDRD) Glucose (74-105) mg/dL POC Glucose 238 H 264 H (70-105) mg/dl Calcium (8.4-10.2) mg/dl Phosphorus (2.5-4.6) mg/dL Magnesium (1.8-2.5) mg/dL Urine Color (YELLOW) Urine Appearance (CLEAR) Urine pH (5.0-9.0) Ur Specific [place] (1.005-1.030) Urine Protein (NEGATIVE) Urine Glucose (UA) (NEGATIVE) Urine Ketones (NEGATIVE) Urine Occult Blood (NEGATIVE) Urine Nitrite (NEGATIVE) Urine Bilirubin (NEGATIVE) Urine Urobilinogen (0.2-1.0) mg/dL Ur Leukocyte Esterase (NEGATIVE) Urine RBC /HPF Urine WBC (0-5/HPF) /HPF Ur Epithelial Cells /HPF Amorphous Sediment (0/HPF) /HPF Urine Bacteria (0-FEW/HPF) /HPF Urine Mucus /LPF Urine Trichomonas (0/HPF) /HPF Urine HCG, Qual Urine Opiates Screen (NEGATIVE) Ur Oxycodone Screen (NEGATIVE) Urine Methadone Screen (NEGATIVE) Ur Barbiturates Screen (NEGATIVE) U Tricyclic Antidepress (NEGATIVE) Ur Phencyclidine Scrn (NEGATIVE) Ur Amphetamine Screen (NEGATIVE) U Methamphetamines Scrn (NEGATIVE) Urine MDMA Screen (NEGATIVE) U Benzodiazepines Scrn (NEGATIVE) Urine Cocaine Screen (NEGATIVE) U Marijuana (THC) Screen (NEGATIVE) Med Orders - Current: Current Medications Acetaminophen (Tylenol) 650 mg PO Q4H PRN PRN Reason: Pain (Mild 1-3)/fever Heparin Sodium (Porcine) (Heparin Sodium) 5,000 units SUBCUT Q8HR [facility] Last Admin: 09/09/17 05:39 Dose: Not Given Potassium Chloride/Sodium Chloride (1/2 Ns With 20 Meq Kcl) 1,000 mls @ 150 mls /hr IV ASDIRECTED [facility] Last Admin: 09/09/17 04:35 Dose: 150 mls/hr Insulin Aspart (Novolog) 0 unit SUBCUT TIDAC [facility] PRN Reason: Protocol Last Admin: 09/09/17 08:34 Dose: 4 units Insulin Detemir (Levemir) 35 unit SUBCUT BID [facility] Last Admin: 09/09/17 08:33 Dose: 35 units Morphine Sulfate (Morphine) 1 mg IVPUSH Q4H PRN PRN Reason: severe pain Last Admin: 09/08/17 12:16 Dose: 1 mg Ondansetron HCl (Zofran) 4 mg IV Q6H PRN PRN Reason: Nausea/Vomiting Sodium Chloride (Saline Flush) 10 ml FLUSH ASDIRECTED PRN PRN Reason: Keep Vein Open Sodium Chloride (Saline Flush) 10 ml FLUSH ASDIRECTED PRN PRN Reason: Keep Vein Open Zolpidem Tartrate (Ambien) 5 mg PO BEDTIME PRN PRN Reason: Sleep Discontinued Medications Sodium Chloride (Normal Saline) 1,000 mls @ 999 mls/hr IV .BOLUS ONE Stop: 09/08/17 09:49 Last Admin: 09/08/17 09:06 Dose: 999 mls/hr Insulin Human Regular 100 unit (/ Sodium Chloride) 100 mls @ 6.57 mls/hr IV TITRATE RUPINDER; 0.1 UNITS/KG/HR PRN Reason: Protocol Last Infusion: 09/08/17 21:09 Dose: Infused Potassium Chloride/Sodium Chloride (Normal Saline With 40 Meq Kcl) 1,000 mls @ 250 mls/hr IV ASDIRECTED RUPINDER Dextrose/Sodium Chloride (Dextrose 5%-1/2 Ns) 1,000 mls @ 200 mls/hr IV ASDIRECTED RUPINDER Potassium Chloride/Dextrose/Sod Cl (D5 Ns With 20 Meq Kcl) 1,000 mls @ 250 mls/ hr IV ASDIRECTED RUPINDER Last Admin: 09/08/17 20:27 Dose: 250 mls/hr Magnesium Sulfate 2 gm/ Premix 50 mls @ 25 mls/hr IV ONETIME ONE Stop: 09/08/17 22:57 Last Admin: 09/08/17 21:43 Dose: 25 mls/hr Ondansetron HCl (Zofran) 4 mg IV ONETIME ONE Stop: 09/08/17 08:50 Last Admin: 09/08/17 09:06 Dose: 4 mg Potassium Chloride (Klor-Con 10) 40 meq PO ONETIME ONE Stop: 09/08/17 21:01 Last Admin: 09/08/17 21:44 Dose: 40 meq Sodium Phosphate (Neutra-Phos) 250 mg PO BID RUPINDER Stop: 09/09/17 09:01 Last Admin: 09/09/17 08:32 Dose: 250 mg - Exam General: Reports: Alert, Oriented Neck: Reports: Supple Lungs: Reports: Clear to Auscultation, Normal Respiratory Effort GI/Abdominal Exam: Normal Bowel Sounds, Soft, Non-Tender Extremities: No Pedal Edema *Q Meaningful Use (DIS) - VTE *Q VTE Criteria *Q: - Stroke *Q Stroke Criteria *Q: - AMI *Q AMI Criteria *Q:
--- NOTE | 2017-09-12 10:56 | EKG ---
09/08/2016- OLVIN BRIGGS - EKG per my reading shows sinus rhythm with sinus tachycardia at 110. MODL /[id number]
== END 2017-09-09 11:20 | disposition home or self-care (01) | DRG 639 ==
LOC: DL.ED 08:38 → DL.MS 10:01 → UNDOADMIN 10:01 → DL.MS 10:07
PROVIDERS: ADMIT Internal Medicine; ATTEND Internal Medicine
DX: E10.10 Type 1 diabetes mellitus with ketoacidosis without coma (principal); Z79.4 Long term (current) use of insulin; K59.00 Constipation, unspecified; F15.10 Other stimulant abuse, uncomplicated; F17.210 Nicotine dependence, cigarettes, uncomplicated; B19.20 Unspecified viral hepatitis C without hepatic coma; Z88.8 Allergy status to other drugs, medicaments and biological substances
CPT/HCPCS: 36415; 36600; 71045; 80048; 80053; 80305; 81001; 81025; 82009; 82150; 82803; 82962; 83605; 83690; 83735; 84100; 84484; 85025; 87040; 87081; 87430; 87804; 93005; 93010; 96361; 96374; 99285; A9270-GY; G0480; J1815-GY; J2270; J2405; J3475; J3480; J7030

== ENCOUNTER 2017-09-24 11:50 | Emergency (ER) | payer MEDICAID ==
[2017-09-24 12:47] VITALS: BP 111/60
[2017-09-24] MEDS ORDERED: Sodium Chloride 0.9% 10 ML Syringe FLUSH PRN (13:20)
[2017-09-24] MEDS ORDERED: Sodium Chloride 0.9% 1,000 ML IV ONE (13:21)
[2017-09-24 13:38] LABS: ANION GAP 31.7; CHLORIDE,CL 97 mmol/L (101-111); SODIUM,NA 132 mmol/L (135-145)
[2017-09-24] MEDS ORDERED: Insulin Regular, Human 100 Units/ML 3 ML Vial IV ONE (13:50)
[2017-09-24] MEDS ORDERED: Ondansetron 4 MG/2 ML SDV IV ONE (13:50)
--- NOTE | 2017-09-24 15:47 | EDM.PDOC ---
ED HPI GENERAL MEDICAL PROBLEM - General Chief Complaint: Diabetic Complaint Stated Complaint: THROWING UP TYPE 1 DIABETIC [id number] Time Seen by Provider: 09/24/17 13:15 Source of Information: Reports: Patient, RN, RN Notes Reviewed History Limitations: Reports: No Limitations - History of Present Illness INITIAL COMMENTS - FREE TEXT/NARRATIVE: Patient presented to the ER with complaint of nausea, vomiting, fever and chills. This began about 0900 to 1000. No diarrhea. Onset: Today Duration: Getting Worse Location: Reports: Abdomen Quality: Reports: Ache Severity: Mild Improves with: Reports: None Worsens with: Reports: None Associated Symptoms: Reports: No Other Symptoms - Related Data Allergies Allergy/AdvReac Type Severity Reaction Status Date / Time hydromorphone HCl Allergy Itching Verified 09/08/17 12:23 [From Dilaudid] Home Meds: Home Meds Insulin Detemir [Levemir] 35 unit SUBCUT BID 03/11/16 [History] Insulin Aspart [NovoLOG] 20 units SUBCUT TIDAC 04/05/16 [History] Past Medical History HEENT History: Reports: Other (See Below) Other HEENT History: ear problems with draining, cheek broken in three different place Cardiovascular History: Reports: None Respiratory History: Reports: None Gastrointestinal History: Reports: Hepatitis Other Gastrointestinal History: rectal bleeding per self report for past couple of months Genitourinary History: Reports: None 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 History: Reports: Spontaneous Musculoskeletal History: Reports: Fracture Neurological History: Reports: None Psychiatric History: Reports: ADHD, Addiction, Depression, Emotional Problems, Suicide Attempt, Suicidal Ideation Endocrine/Metabolic History: Reports: Diabetes, Type I Hematologic History: Reports: Other (See Below) Other Hematologic History: Hep + Immunologic History: Reports: None Oncologic (Cancer) History: Reports: None Dermatologic History: Reports: Other (See Below) Other Dermatologic History: cut [place] noted to forearms, acne vulgaris - Infectious Disease History Infectious Disease History: Reports: Hepatitis C - Past Surgical History Head Surgeries/Procedures: Reports: None HEENT Surgical History: Reports: Adenoidectomy, Tonsillectomy Social & Family History - Family History Family Medical History: Noncontributory Psychiatric: Reports: Depression Endocrine/Metabolic: Reports: Diabetes, type II - Tobacco Use Smoking Status *Q: Current Some Day Smoker Years of Tobacco use: 6 Packs/Tins Daily: 0.1 Used Tobacco, but Quit: No Second Hand Smoke Exposure: Yes - Caffeine Use Caffeine Use: Reports: None - Alcohol Use Days Per Week of Alcohol Use: 1 Number of Drinks Per Day: 3 Total Drinks Per Week: 3 - Recreational Drug Use Recreational Drug Use: No Drug Use in Last 12 Months: Yes Recreational Drug Type: Reports: Methamphetamine Other Recreational Drug Type: "up" Recreational Drug Use Frequency: Weekly Recreational Drug Last Use: t-2 - Sexual History Sexual History: Reports: Sexually Active - Living Situation & Occupation Living situation: Reports: with Significant Other Occupation: Unemployed ED ROS GENERAL - Review of Systems Review Of Systems: ROS reveals no pertinent complaints other than HPI. ED EXAM GENERAL NO PERIP PULSE - Physical Exam Exam: See Below Exam Limited By: No Limitations General Appearance: Alert, WD/WN, No Apparent Distress Eye Exam: Bilateral Eye: Normal Inspection Ears: Normal External Exam, Normal Canal, Hearing Grossly Normal, Normal TMs Nose: Normal Inspection, Normal Mucosa, No Blood Throat/Mouth: Normal Inspection, Normal Lips, Normal Teeth, Normal Gums, Normal Oropharynx, Normal Voice, No Airway Compromise Head: Atraumatic, Normocephalic Neck: Normal Inspection, Supple, Non-Tender, Full Range of Motion Respiratory/Chest: No Respiratory Distress, Lungs Clear, Normal Breath Sounds, No Accessory Muscle Use, Chest Non-Tender Cardiovascular: Normal Peripheral Pulses, Regular Rate, Rhythm, No Edema, No Gallop, No JVD, No Murmur, No Rub GI/Abdominal: Normal Bowel Sounds, Soft, Non-Tender, No Organomegaly, No Distention, No Abnormal Bruit, No Mass (Female) Exam: Deferred Rectal (Female) Exam: Deferred Back Exam: Normal Inspection, Full Range of Motion, NT Extremities: Normal Inspection, Normal Range of Motion, Non-Tender, Normal Capillary Refill, No Pedal Edema Neurological: Alert, Oriented, CN II-XII Intact, Normal Cognition, Normal Gait, Normal Reflexes, No Motor/Sensory Deficits Psychiatric: Normal Affect, Normal Mood Skin Exam: Warm, Dry, Intact, Normal Color, No Rash Lymphatic: No Adenopathy EKG INTERPRETATION EKG Date: 09/24/17 Time: 13:39 Rate (Beats/Min): 132 EKG Interpretation Comments: Sinus tachycardia. Borderline prolonged QT interval. Course - Vital Signs Last Recorded V/S: Last Vital Signs Temp 99.3 F 09/24/17 12:13 Pulse 128 H 09/24/17 12:13 Resp 24 H 09/24/17 12:13 BP 111/60 09/24/17 12:13 Pulse Ox 100 09/24/17 12:13 - Orders/Labs/Meds Labs: Laboratory Tests 09/24/17 09/24/17 09/24/17 Range/Units 12:34 12:34 12:34 WBC 15.5 H (5.0-10.0) 10^3/uL RBC 5.16 (4.2-5.4) 10^6/uL Hgb 13.8 (12.0-16.0) g/dL Hct 43.4 (37.0-47.0) % MCV 84.1 (80-100) fL MCH 26.7 L (27.0-34.0) pg MCHC 31.8 L (33.0-35.0) g/dL Plt Count 410 (150-450) 10^3/uL Neut % (Auto) 87.5 H (42.2-75.2) % Lymph % (Auto) 8.6 L (20.5-50.1) % Mccone % (Auto) 3.7 (2-8) % Eos % (Auto) 0.1 L (1.0-3.0) % Baso % (Auto) 0.1 (0.0-1.0) % Add Manual Diff Yes Neutrophils % (Manual) 87 H (42-75) % Lymphocytes % (Manual) 12 L (20-50) % Monocytes % (Manual) 1 L (2-8) % Sodium 132 L (135-145) mmol/L Potassium 4.7 (3.6-5.0) mmol/L Chloride 97 L D (101-111) mmol/L Carbon Dioxide 8.0 L* D (21.0-31.0) mmol/L Anion Gap 31.7 BUN 24 H (7-18) mg/dL Creatinine 1.3 (0.6-1.3) mg/dL Est Cr Clr Drug Dosing 64.08 mL/min Estimated GFR (MDRD) 52 BUN/Creatinine Ratio 18.46 Glucose 355 H (74-105) mg/dL POC Glucose (70-105) mg/dl Lactic Acid 5.7 H (0.5-2.2) mmol/L Calcium 9.4 (8.4-10.2) mg/dl Total Bilirubin 1.5 H (0.2-1.0) mg/dL AST 90 H (10-42) IU/L ALT 94 H (10-60) IU/L Alkaline Phosphatase 124 H (42-121) IU/L Total Protein 9.1 H (6.7-8.2) g/dl Albumin 4.6 (3.2-5.5) g/dl Globulin 4.5 Albumin/Globulin Ratio 1.02 Urine Color (YELLOW) Urine Appearance (CLEAR) Urine pH (5.0-9.0) Ur Specific [place] (1.005-1.030) Urine Protein (NEGATIVE) Urine Glucose (UA) (NEGATIVE) Urine Ketones (NEGATIVE) Urine Occult Blood (NEGATIVE) Urine Nitrite (NEGATIVE) Urine Bilirubin (NEGATIVE) Urine Urobilinogen (0.2-1.0) mg/dL Ur Leukocyte Esterase (NEGATIVE) Urine RBC /HPF Urine WBC (0-5/HPF) /HPF Ur Epithelial Cells /HPF Urine Bacteria (0-FEW/HPF) /HPF Urine Mucus /LPF Urine HCG, Qual Urine Opiates Screen (NEGATIVE) Ur Oxycodone Screen (NEGATIVE) Urine Methadone Screen (NEGATIVE) Ur Barbiturates Screen (NEGATIVE) U Tricyclic Antidepress (NEGATIVE) Ur Phencyclidine Scrn (NEGATIVE) Ur Amphetamine Screen (NEGATIVE) U Methamphetamines Scrn (NEGATIVE) Urine MDMA Screen (NEGATIVE) U Benzodiazepines Scrn (NEGATIVE) Urine Cocaine Screen (NEGATIVE) U Marijuana (THC) Screen (NEGATIVE) Ethyl Alcohol 6 mg/dL Ketones Positive 09/24/17 09/24/17 09/24/17 Range/Units 12:38 14:08 14:08 WBC (5.0-10.0) 10^3/uL RBC (4.2-5.4) 10^6/uL Hgb (12.0-16.0) g/dL Hct (37.0-47.0) % MCV (80-100) fL MCH (27.0-34.0) pg MCHC (33.0-35.0) g/dL Plt Count (150-450) 10^3/uL Neut % (Auto) (42.2-75.2) % Lymph % (Auto) (20.5-50.1) % Mccone % (Auto) (2-8) % Eos % (Auto) (1.0-3.0) % Baso % (Auto) (0.0-1.0) % Add Manual Diff Neutrophils % (Manual) (42-75) % Lymphocytes % (Manual) (20-50) % Monocytes % (Manual) (2-8) % Sodium (135-145) mmol/L Potassium (3.6-5.0) mmol/L Chloride (101-111) mmol/L Carbon Dioxide (21.0-31.0) mmol/L Anion Gap BUN (7-18) mg/dL Creatinine (0.6-1.3) mg/dL Est Cr Clr Drug Dosing mL/min Estimated GFR (MDRD) BUN/Creatinine Ratio Glucose (74-105) mg/dL POC Glucose 305 H (70-105) mg/dl Lactic Acid (0.5-2.2) mmol/L Calcium (8.4-10.2) mg/dl Total Bilirubin (0.2-1.0) mg/dL AST (10-42) IU/L ALT (10-60) IU/L Alkaline Phosphatase (42-121) IU/L Total Protein (6.7-8.2) g/dl Albumin (3.2-5.5) g/dl Globulin Albumin/Globulin Ratio Urine Color (YELLOW) Urine Appearance (CLEAR) Urine pH (5.0-9.0) Ur Specific [place] (1.005-1.030) Urine Protein (NEGATIVE) Urine Glucose (UA) (NEGATIVE) Urine Ketones (NEGATIVE) Urine Occult Blood (NEGATIVE) Urine Nitrite (NEGATIVE) Urine Bilirubin (NEGATIVE) Urine Urobilinogen (0.2-1.0) mg/dL Ur Leukocyte Esterase (NEGATIVE) Urine RBC /HPF Urine WBC (0-5/HPF) /HPF Ur Epithelial Cells /HPF Urine Bacteria (0-FEW/HPF) /HPF Urine Mucus /LPF Urine HCG, Qual Negative Urine Opiates Screen Negative (NEGATIVE) Ur Oxycodone Screen Negative (NEGATIVE) Urine Methadone Screen Negative (NEGATIVE) Ur Barbiturates Screen Negative (NEGATIVE) U Tricyclic Antidepress Negative (NEGATIVE) Ur Phencyclidine Scrn Negative (NEGATIVE) Ur Amphetamine Screen Negative (NEGATIVE) U Methamphetamines Scrn Negative (NEGATIVE) Urine MDMA Screen Negative (NEGATIVE) U Benzodiazepines Scrn Negative (NEGATIVE) Urine Cocaine Screen Negative (NEGATIVE) U Marijuana (THC) Screen Negative (NEGATIVE) Ethyl Alcohol mg/dL Ketones 09/24/17 Range/Units 14:08 WBC (5.0-10.0) 10^3/uL RBC (4.2-5.4) 10^6/uL Hgb (12.0-16.0) g/dL Hct (37.0-47.0) % MCV (80-100) fL MCH (27.0-34.0) pg MCHC (33.0-35.0) g/dL Plt Count (150-450) 10^3/uL Neut % (Auto) (42.2-75.2) % Lymph % (Auto) (20.5-50.1) % Mccone % (Auto) (2-8) % Eos % (Auto) (1.0-3.0) % Baso % (Auto) (0.0-1.0) % Add Manual Diff Neutrophils % (Manual) (42-75) % Lymphocytes % (Manual) (20-50) % Monocytes % (Manual) (2-8) % Sodium (135-145) mmol/L Potassium (3.6-5.0) mmol/L Chloride (101-111) mmol/L Carbon Dioxide (21.0-31.0) mmol/L Anion Gap BUN (7-18) mg/dL Creatinine (0.6-1.3) mg/dL Est Cr Clr Drug Dosing mL/min Estimated GFR (MDRD) BUN/Creatinine Ratio Glucose (74-105) mg/dL POC Glucose (70-105) mg/dl Lactic Acid (0.5-2.2) mmol/L Calcium (8.4-10.2) mg/dl Total Bilirubin (0.2-1.0) mg/dL AST (10-42) IU/L ALT (10-60) IU/L Alkaline Phosphatase (42-121) IU/L Total Protein (6.7-8.2) g/dl Albumin (3.2-5.5) g/dl Globulin Albumin/Globulin Ratio Urine Color Yellow (YELLOW) Urine Appearance Clear (CLEAR) Urine pH 5.0 (5.0-9.0) Ur Specific [place] 1.020 (1.005-1.030) Urine Protein 100 H (NEGATIVE) Urine Glucose (UA) 500 H (NEGATIVE) Urine Ketones >=160 H (NEGATIVE) Urine Occult Blood Trace-lysed H (NEGATIVE) Urine Nitrite Negative (NEGATIVE) Urine Bilirubin Moderate H (NEGATIVE) Urine Urobilinogen 0.2 (0.2-1.0) mg/dL Ur Leukocyte Esterase Negative (NEGATIVE) Urine RBC 0-5 /HPF Urine WBC 0-5 (0-5/HPF) /HPF Ur Epithelial Cells Moderate H /HPF Urine Bacteria Rare (0-FEW/HPF) /HPF Urine Mucus Not seen /LPF Urine HCG, Qual Urine Opiates Screen (NEGATIVE) Ur Oxycodone Screen (NEGATIVE) Urine Methadone Screen (NEGATIVE) Ur Barbiturates Screen (NEGATIVE) U Tricyclic Antidepress (NEGATIVE) Ur Phencyclidine Scrn (NEGATIVE) Ur Amphetamine Screen (NEGATIVE) U Methamphetamines Scrn (NEGATIVE) Urine MDMA Screen (NEGATIVE) U Benzodiazepines Scrn (NEGATIVE) Urine Cocaine Screen (NEGATIVE) U Marijuana (THC) Screen (NEGATIVE) Ethyl Alcohol mg/dL Ketones Meds: Medications Discontinued Medications Generic Name Dose Route Start Last Admin Trade Name Freq PRN Reason Stop Dose Admin Sodium Chloride 1,000 mls @ 999 mls/hr 09/24/17 13:21 09/24/17 13:40 Normal Saline IV 09/24/17 14:21 999 mls/hr .BOLUS ONE Administration Insulin Human Regular 10 unit 09/24/17 13:50 09/24/17 14:01 Humulin R IV 09/24/17 13:51 10 unit ONETIME ONE Administration Protocol Ondansetron HCl 4 mg 09/24/17 13:50 09/24/17 13:58 Zofran IV 09/24/17 13:51 4 mg ONETIME ONE Administration Sodium Chloride 10 ml 09/24/17 13:20 09/24/17 13:40 Saline Flush FLUSH 10 ml ASDIRECTED PRN Administration Keep Vein Open Departure - Departure Time of Disposition: 15:07 Disposition: Against Medical Advice 07 Condition: Fair Clinical Impression: Noncompliance with medication regimen, Noncompliance with diabetes treatment, Medically noncompliant, Left against medical advice Leukocytosis Qualifiers: Leukocytosis type: unspecified Qualified Code(s): D72.829 - Elevated white blood cell count, unspecified Type 1 diabetes mellitus Qualifiers: Diabetes mellitus complication status: without complication Qualified Code(s): E10.9 - Type 1 diabetes mellitus without complications - Discharge Information Referrals: PCP,None [Primary Care Provider] - Forms: ED Department Discharge
--- NOTE | 2017-09-26 12:53 | EKG ---
09/24/2017- OLVIN BRIGGS - FINDINGS: EKG done on a 22-year-old female showing sinus tachycardia with normal axis, heart rate of 102 beats per minute, prolonged QT intervals. No acute ST-T wave changes. [facility] /[id number] MTDD
== END 2017-09-24 15:09 | disposition left against medical advice (07) ==
LOC: DL.ED 11:50
DX: D72.829 Elevated white blood cell count, unspecified (principal); E10.9 Type 1 diabetes mellitus without complications; Z91.14 Patient's other noncompliance with medication regimen; F17.210 Nicotine dependence, cigarettes, uncomplicated; Z79.4 Long term (current) use of insulin; Z88.5 Allergy status to narcotic agent
CPT/HCPCS: 36415; 80053; 80305; 81001; 81025; 82009; 82962; 83605; 85025; 87040; 93005; 93010; 96361; 96374; 96375; 99284; G0480; J1815; J2405; J7030; J7050

== ENCOUNTER 2017-10-12 00:45 | Emergency (ER) | payer MEDICAID ==
[2017-10-12] MEDS ORDERED: LORazepam 2 MG/ML Syringe IVPUSH ONE ×2 (00:48→01:28)
[2017-10-12] MEDS ORDERED: Ondansetron 4 MG/2 ML SDV IV ONE (00:48)
[2017-10-12] MEDS ORDERED: Sodium Chloride 0.9% 1,000 ML IV ONE (00:54)
[2017-10-12] MEDS: Sodium Chloride 0.9% 1,000 ML IV SCH ×2 (01:39→03:02)
[2017-10-12 01:46] LABS: CHLORIDE,CL 101 mmol/L (101-111); SODIUM,NA 134 mmol/L (135-145)
[2017-10-12] MEDS ORDERED: Insulin Regular, Human 100 Units/ML 3 ML Vial IV ONE (01:49)
[2017-10-12 01:50] LABS: ACETAMINOPHEN < 10.0
[2017-10-12 02:46] LABS: BASE EXCESS ARTERIAL -30 mmol/L ((-2)-(+3)); BICARBONATE,ARTERIAL 1.8 mmol/L (22-26); O2 DELIVERY DEVICE ROOM AIR; O2 SATURATION ARTERIAL 98 % (95-100); PO2 ARTERIAL 130 mmHg (70-100)
[2017-10-12 02:50] LABS: PCO2 ARTERIAL 8 mmHg (35-45)
[2017-10-12 02:51] LABS: ALLEN TEST pos
[2017-10-12] MEDS ORDERED: Sodium Bicarbonate 8.4% 50 MEQ/50 ML Syringe IVPUSH ONE (02:54)
[2017-10-12] MEDS ORDERED: Sodium Chloride 0.9% 1,000 ML IV SCH (03:00)
--- NOTE | 2017-10-17 04:46 | EDM.PDOC ---
ED HPI GENERAL MEDICAL PROBLEM - General Chief Complaint: Drug or Alcohol Abuse Stated Complaint: TYPE 1 DIABETES [id number] Time Seen by Provider: 10/12/17 01:00 Source of Information: Reports: Family (Grandmother) History Limitations: Reports: Altered Mental Status - History of Present Illness INITIAL COMMENTS - FREE TEXT/NARRATIVE: ED via wheelchair with family. Grandmother reports patient was dropped off at her house. Patient anxious and not acting right. Patient has hx Type 1 DM and meth use, unsure what else she may be using. Unable to obtain hx from patient. Anxious yelling retching throwing herself about in bed. Treatments MANAGER DIALYSIS: Reports: IV/IO - Related Data Allergies Allergy/AdvReac Type Severity Reaction Status Date / Time hydromorphone HCl Allergy Itching Verified 10/12/17 01:11 [From Dilaudid] Home Meds: Home Meds Insulin Detemir [Levemir] 35 unit SUBCUT BID 03/11/16 [History] Insulin Aspart [NovoLOG] 20 units SUBCUT TIDAC 04/05/16 [History] Past Medical History HEENT History: Reports: Other (See Below) Other HEENT History: ear problems with draining, cheek broken in three different place Cardiovascular History: Reports: None Respiratory History: Reports: None Gastrointestinal History: Reports: Hepatitis Other Gastrointestinal History: rectal bleeding per self report for past couple of months Genitourinary History: Reports: None [employer]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 Musculoskeletal History: Reports: Fracture Neurological History: Reports: None Psychiatric History: Reports: ADHD, Addiction, Depression, Emotional Problems, Suicide Attempt, Suicidal Ideation Endocrine/Metabolic History: Reports: Diabetes, Type I Hematologic History: Reports: Other (See Below) Other Hematologic History: Hep + Immunologic History: Reports: None Oncologic (Cancer) History: Reports: None Dermatologic History: Reports: Other (See Below) Other Dermatologic History: cut [place] noted to forearms, acne vulgaris - Infectious Disease History Infectious Disease History: Reports: Hepatitis C - Past Surgical History Head Surgeries/Procedures: Reports: None HEENT Surgical History: Reports: Adenoidectomy, Tonsillectomy Social & Family History - Family History Family Medical History: Noncontributory Psychiatric: Reports: Depression Endocrine/Metabolic: Reports: Diabetes, type II - Tobacco Use Smoking Status *Q: Current Some Day Smoker Years of Tobacco use: 5 Packs/Tins Daily: 0.5 Used Tobacco, but Quit: No Second Hand Smoke Exposure: Yes - Caffeine Use Caffeine Use: Reports: Soda - Alcohol Use Days Per Week of Alcohol Use: 1 Number of Drinks Per Day: 3 Total Drinks Per Week: 3 - Recreational Drug Use Recreational Drug Use: Yes Drug Use in Last 12 Months: Yes Recreational Drug Type: Reports: Methamphetamine Other Recreational Drug Type: "up" Recreational Drug Use Frequency: Weekly Recreational Drug Last Use: t-2 - Sexual History Sexual History: Reports: Sexually Active - Living Situation & Occupation Living situation: Reports: with Significant Other Occupation: Unemployed ED ROS GENERAL - Review of Systems Review Of Systems: Unable To Obtain - Physical Exam Exam: See Below Exam Limited By: Altered Mental Status General Appearance: Alert, Anxious, Moderate Distress, Thin Eye Exam: Bilateral Eye: PERRL (6) Ears: Normal External Exam Nose: Normal Inspection, Nasal Drainage (clear) Throat/Mouth: Normal Inspection, Normal Lips Head Exam: Atraumatic, Normocephalic Neck: Normal Inspection Respiratory/Chest: No Respiratory Distress, Lungs Clear Cardiovascular: Normal Peripheral Pulses, Regular Rate, Rhythm, Tachycardia GI/Abdominal: Normal Bowel Sounds, Soft Neuro Exam (Abbreviated): Alert, Inattentive, Disoriented. No: Normal Gait Back Exam: Normal Inspection Psychiatric: Anxious Skin Exam: Warm, Dry, Wound/Incision (fresh superficial cuts to forearms.) Course - Vital Signs Last Recorded V/S: Last Vital Signs Temp 97.2 F 10/12/17 01:06 Pulse Resp BP Pulse Ox - Orders/Labs/Meds Labs: Laboratory Tests 10/12/17 10/12/17 10/12/17 Range/Units 00:52 01:10 01:10 WBC 17.0 H (5.0-10.0) 10^3/uL RBC 5.39 (4.2-5.4) 10^6/uL Hgb 14.8 (12.0-16.0) g/dL Hct 46.4 (37.0-47.0) % MCV 86.1 (80-100) fL MCH 27.5 (27.0-34.0) pg MCHC 31.9 L (33.0-35.0) g/dL Plt Count 417 (150-450) 10^3/uL Neut % (Auto) 77.4 H (42.2-75.2) % Lymph % (Auto) 16.8 L (20.5-50.1) % Rusk % (Auto) 5.5 (2-8) % Eos % (Auto) 0.1 L (1.0-3.0) % Baso % (Auto) 0.2 (0.0-1.0) % ABG pH (7.35-7.45) ABG pCO2 (35-45) mmHg ABG pO2 (70-100) mmHg ABG HCO3 (22-26) mmol/L ABG O2 Saturation (95-100) % ABG Base Excess ((-2)-(+3)) mmol/L Sean Test O2 Delivery Device Sodium 134 L (135-145) mmol/L Potassium 4.4 (3.6-5.0) mmol/L Chloride 101 (101-111) mmol/L Carbon Dioxide 7.0 L* (21.0-31.0) mmol/L Anion Gap 30.4 BUN 13 (7-18) mg/dL Creatinine 1.0 (0.6-1.3) mg/dL Est Cr Clr Drug Dosing 70.10 mL/min Estimated GFR (MDRD) > 60 BUN/Creatinine Ratio 13.00 Glucose 440 H* (74-105) mg/dL POC Glucose 388 H (70-105) mg/dl Calcium 9.2 (8.4-10.2) mg/dl Total Bilirubin 1.9 H (0.2-1.0) mg/dL AST 61 H (10-42) IU/L ALT 88 H (10-60) IU/L Alkaline Phosphatase 144 H (42-121) IU/L Total Protein 9.7 H (6.7-8.2) g/dl Albumin 4.6 (3.2-5.5) g/dl Globulin 5.1 Albumin/Globulin Ratio 0.90 HCG, Qual Negative Urine Color (YELLOW) Urine Appearance (CLEAR) Urine pH (5.0-9.0) Ur Specific Plummer (1.005-1.030) Urine Protein (NEGATIVE) Urine Glucose (UA) (NEGATIVE) Urine Ketones (NEGATIVE) Urine Occult Blood (NEGATIVE) Urine Nitrite (NEGATIVE) Urine Bilirubin (NEGATIVE) Urine Urobilinogen (0.2-1.0) mg/dL Ur Leukocyte Esterase (NEGATIVE) Urine RBC /HPF Urine WBC (0-5/HPF) /HPF Ur Epithelial Cells /HPF Amorphous Sediment (0/HPF) /HPF Urine Bacteria (0-FEW/HPF) /HPF Urine Opiates Screen (NEGATIVE) Ur Oxycodone Screen (NEGATIVE) Urine Methadone Screen (NEGATIVE) Acetaminophen < 10.0 Ur Barbiturates Screen (NEGATIVE) U Tricyclic Antidepress (NEGATIVE) Ur Phencyclidine Scrn (NEGATIVE) Ur Amphetamine Screen (NEGATIVE) U Methamphetamines Scrn (NEGATIVE) Urine MDMA Screen (NEGATIVE) U Benzodiazepines Scrn (NEGATIVE) Urine Cocaine Screen (NEGATIVE) U Marijuana (THC) Screen (NEGATIVE) Ethyl Alcohol < 5 mg/dL Ketones Positive (moderate) 10/12/17 10/12/17 10/12/17 Range/Units 02:32 02:40 03:26 WBC (5.0-10.0) 10^3/uL RBC (4.2-5.4) 10^6/uL Hgb (12.0-16.0) g/dL Hct (37.0-47.0) % MCV (80-100) fL MCH (27.0-34.0) pg MCHC (33.0-35.0) g/dL Plt Count (150-450) 10^3/uL Neut % (Auto) (42.2-75.2) % Lymph % (Auto) (20.5-50.1) % Rusk % (Auto) (2-8) % Eos % (Auto) (1.0-3.0) % Baso % (Auto) (0.0-1.0) % ABG pH 7.00 L* (7.35-7.45) ABG pCO2 8 L* (35-45) mmHg ABG pO2 130 H (70-100) mmHg ABG HCO3 1.8 L (22-26) mmol/L ABG O2 Saturation 98 (95-100) % ABG Base Excess -30 L ((-2)-(+3)) mmol/L Sean Test pos O2 Delivery Device Room air Sodium (135-145) mmol/L Potassium (3.6-5.0) mmol/L Chloride (101-111) mmol/L Carbon Dioxide (21.0-31.0) mmol/L Anion Gap BUN (7-18) mg/dL Creatinine (0.6-1.3) mg/dL Est Cr Clr Drug Dosing mL/min Estimated GFR (MDRD) BUN/Creatinine Ratio Glucose (74-105) mg/dL POC Glucose 281 H (70-105) mg/dl Calcium (8.4-10.2) mg/dl Total Bilirubin (0.2-1.0) mg/dL AST (10-42) IU/L ALT (10-60) IU/L Alkaline Phosphatase (42-121) IU/L Total Protein (6.7-8.2) g/dl Albumin (3.2-5.5) g/dl Globulin Albumin/Globulin Ratio HCG, Qual Urine Color Light yellow (YELLOW) Urine Appearance Slightly cloudy (CLEAR) Urine pH 5.0 (5.0-9.0) Ur Specific Plummer 1.025 (1.005-1.030) Urine Protein 100 H (NEGATIVE) Urine Glucose (UA) 500 H (NEGATIVE) Urine Ketones >=160 H (NEGATIVE) Urine Occult Blood Small H (NEGATIVE) Urine Nitrite Negative (NEGATIVE) Urine Bilirubin Negative (NEGATIVE) Urine Urobilinogen 0.2 (0.2-1.0) mg/dL Ur Leukocyte Esterase Negative (NEGATIVE) Urine RBC 0-5 /HPF Urine WBC 0-5 (0-5/HPF) /HPF Ur Epithelial Cells Few /HPF Amorphous Sediment Moderate H (0/HPF) /HPF Urine Bacteria Moderate H (0-FEW/HPF) /HPF Urine Opiates Screen (NEGATIVE) Ur Oxycodone Screen (NEGATIVE) Urine Methadone Screen (NEGATIVE) Acetaminophen Ur Barbiturates Screen (NEGATIVE) U Tricyclic Antidepress (NEGATIVE) Ur Phencyclidine Scrn (NEGATIVE) Ur Amphetamine Screen (NEGATIVE) U Methamphetamines Scrn (NEGATIVE) Urine MDMA Screen (NEGATIVE) U Benzodiazepines Scrn (NEGATIVE) Urine Cocaine Screen (NEGATIVE) U Marijuana (THC) Screen (NEGATIVE) Ethyl Alcohol mg/dL Ketones 10/12/17 Range/Units 03:26 WBC (5.0-10.0) 10^3/uL RBC (4.2-5.4) 10^6/uL Hgb (12.0-16.0) g/dL Hct (37.0-47.0) % MCV (80-100) fL MCH (27.0-34.0) pg MCHC (33.0-35.0) g/dL Plt Count (150-450) 10^3/uL Neut % (Auto) (42.2-75.2) % Lymph % (Auto) (20.5-50.1) % Rusk % (Auto) (2-8) % Eos % (Auto) (1.0-3.0) % Baso % (Auto) (0.0-1.0) % ABG pH (7.35-7.45) ABG pCO2 (35-45) mmHg ABG pO2 (70-100) mmHg ABG HCO3 (22-26) mmol/L ABG O2 Saturation (95-100) % ABG Base Excess ((-2)-(+3)) mmol/L Sean Test O2 Delivery Device Sodium (135-145) mmol/L Potassium (3.6-5.0) mmol/L Chloride (101-111) mmol/L Carbon Dioxide (21.0-31.0) mmol/L Anion Gap BUN (7-18) mg/dL Creatinine (0.6-1.3) mg/dL Est Cr Clr Drug Dosing mL/min Estimated GFR (MDRD) BUN/Creatinine Ratio Glucose (74-105) mg/dL POC Glucose (70-105) mg/dl Calcium (8.4-10.2) mg/dl Total Bilirubin (0.2-1.0) mg/dL AST (10-42) IU/L ALT (10-60) IU/L Alkaline Phosphatase (42-121) IU/L Total Protein (6.7-8.2) g/dl Albumin (3.2-5.5) g/dl Globulin Albumin/Globulin Ratio HCG, Qual Urine Color (YELLOW) Urine Appearance (CLEAR) Urine pH (5.0-9.0) Ur Specific Plummer (1.005-1.030) Urine Protein (NEGATIVE) Urine Glucose (UA) (NEGATIVE) Urine Ketones (NEGATIVE) Urine Occult Blood (NEGATIVE) Urine Nitrite (NEGATIVE) Urine Bilirubin (NEGATIVE) Urine Urobilinogen (0.2-1.0) mg/dL Ur Leukocyte Esterase (NEGATIVE) Urine RBC /HPF Urine WBC (0-5/HPF) /HPF Ur Epithelial Cells /HPF Amorphous Sediment (0/HPF) /HPF Urine Bacteria (0-FEW/HPF) /HPF Urine Opiates Screen Negative (NEGATIVE) Ur Oxycodone Screen Positive H (NEGATIVE) Urine Methadone Screen Negative (NEGATIVE) Acetaminophen Ur Barbiturates Screen Negative (NEGATIVE) U Tricyclic Antidepress Negative (NEGATIVE) Ur Phencyclidine Scrn Negative (NEGATIVE) Ur Amphetamine Screen Positive H (NEGATIVE) U Methamphetamines Scrn Positive H (NEGATIVE) Urine MDMA Screen Negative (NEGATIVE) U Benzodiazepines Scrn Negative (NEGATIVE) Urine Cocaine Screen Negative (NEGATIVE) U Marijuana (THC) Screen Negative (NEGATIVE) Ethyl Alcohol mg/dL Ketones Meds: Medications Discontinued Medications Generic Name Dose Route Start Last Admin Trade Name Freq PRN Reason Stop Dose Admin Sodium Chloride 1,000 mls @ 999 mls/hr 10/12/17 00:54 10/12/17 01:07 Normal Saline IV 10/12/17 01:54 999 mls/hr .BOLUS ONE Administration Sodium Chloride 1,000 mls @ 999 mls/hr 10/12/17 01:45 10/12/17 03:02 Normal Saline IV 250 mls/hr ASDIRECTED RUPINDER Administration Insulin Human Regular 100 unit 100 mls @ 4.98 mls/hr 10/12/17 02:15 10/12/17 02:40 / Sodium Chloride IV 0.1 units/kg/hr TITRATE RUPINDER 4.98 mls/hr Protocol Administration 0.1 UNITS/KG/HR Sodium Chloride 1,000 mls @ 999 mls/hr 10/12/17 03:00 10/12/17 01:39 Normal Saline IV 999 mls/hr ASDIRECTED RUPINDER Administration Insulin Human Regular 5 unit 10/12/17 01:49 10/12/17 01:57 Humulin R IV 10/12/17 01:50 5 units ONETIME ONE Administration Lorazepam 1 mg 10/12/17 00:48 10/12/17 01:17 Ativan IVPUSH 10/12/17 00:49 1 mg ONETIME ONE Administration Lorazepam 2 mg 10/12/17 01:28 10/12/17 01:31 Ativan IVPUSH 10/12/17 01:29 2 mg ONETIME ONE Administration Ondansetron HCl 4 mg 10/12/17 00:48 10/12/17 01:17 Zofran IV 10/12/17 00:49 4 mg ONETIME ONE Administration Sodium Bicarbonate 50 meq 10/12/17 02:54 10/12/17 03:06 Sodium Bicarbonate 8.4% IVPUSH 10/12/17 02:55 50 meq ONETIME ONE Administration - Re-Assessments/Exams Free Text/Narrative Re-Assessment/Exam: 10/17/17 04:47 IVF replacement, patient thrashing yelling. . Frequent retching, small amount clear liquid, mostly saliva. IV ativian, Patient alternating wake restless agitated state with lethargic. Continued retching when awake. ABG's obtained, IV insulin gtt. [facility] hospitalist accepting of patient in tx. Tx via [facility]. [facility] intubation prior to transport Post intubation OG placement with large amount coffee ground colored fluid. Tx stable critical state. DKA Departure - Departure Time of Disposition: 04:00 Disposition: DC/Tfer to Acute Hospital 02 Condition: Critical Clinical Impression: Methamphetamine abuse Type 1 diabetes mellitus Qualifiers: Diabetes mellitus complication status: without complication Qualified Code(s): E10.9 - Type 1 diabetes mellitus without complications Diabetic ketoacidosis associated with type 1 diabetes mellitus Qualifiers: Diabetes mellitus complication detail: without coma Qualified Code(s): E10.10 - Type 1 diabetes mellitus with ketoacidosis without coma - Discharge Information Referrals: PCP,None [Primary Care Provider] - Forms: ED Department Discharge
== END 2017-10-12 04:05 ==
LOC: DL.ED 00:45
DX: E10.10 Type 1 diabetes mellitus with ketoacidosis without coma (principal); F15.10 Other stimulant abuse, uncomplicated; F17.210 Nicotine dependence, cigarettes, uncomplicated; Z88.5 Allergy status to narcotic agent
CPT/HCPCS: 36415; 36600; 71045; 80053; 80305; 81001; 82009; 82271; 82803; 82962; 84703; 85025; 96361; 96365; 96375; 96376; 99285; G0480; J1815; J2060; J2405; J7030; J7050

== ENCOUNTER 2017-10-30 21:47 | Inpatient (IN) | payer MEDICAID ==
[2017-10-30] MEDS ORDERED: Sodium Chloride 0.9% 1,000 ML IV ONE (21:57)
[2017-10-30] MEDS ORDERED: Insulin Regular, Human 100 Units/ML 3 ML Vial IV ONE (21:58)
[2017-10-30 22:39] LABS: BASE EXCESS ARTERIAL -20 mmol/L ((-2)-(+3)); BICARBONATE,ARTERIAL 6.7 mmol/L (22-26); O2 DELIVERY DEVICE ROOM AIR; O2 SATURATION ARTERIAL 98 % (95-100); PO2 ARTERIAL 103 mmHg (70-100)
[2017-10-30 22:41] LABS: CHLORIDE,CL 102 mmol/L (101-111); SODIUM,NA 131 mmol/L (135-145)
[2017-10-30 22:42] LABS: PCO2 ARTERIAL 17 mmHg (35-45)
[2017-10-30] MEDS ORDERED: Ondansetron 4 MG/2 ML SDV IV ONE (23:00)
--- NOTE | 2017-10-30 23:13 | EDM.PDOC ---
ED HPI GENERAL MEDICAL PROBLEM - General Chief Complaint: Diabetic Complaint Stated Complaint: [id number] DKA Time Seen by Provider: 10/30/17 22:00 Source of Information: Reports: Patient History Limitations: Reports: No Limitations - History of Present Illness INITIAL COMMENTS - FREE TEXT/NARRATIVE: ED ambulatory with c/o "DKA". States ran out of insulin earlier today did not feel right tonight and checked blood sugar and greater than 500. Reports medication in possession of person that went to residential. Was using up remaining medication she had in possession. Patient well known to facility for similar presentation Headache Pain Score (Numeric/FACES): 5 - Related Data Allergies Allergy/AdvReac Type Severity Reaction Status Date / Time hydromorphone HCl Allergy Itching Verified 10/30/17 22:03 [From Dilaudid] Home Meds: Home Meds Insulin Detemir [Levemir] 35 unit SUBCUT BID 03/11/16 [History] Insulin Aspart [NovoLOG] 20 units SUBCUT TIDAC 04/05/16 [History] Past Medical History HEENT History: Reports: Other (See Below) Other HEENT History: ear problems with draining, cheek broken in three different place Cardiovascular History: Reports: None Respiratory History: Reports: None Gastrointestinal History: Reports: Hepatitis Other Gastrointestinal History: rectal bleeding per self report for past couple of months Genitourinary History: Reports: None 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 Musculoskeletal History: Reports: Fracture Neurological History: Reports: None Psychiatric History: Reports: ADHD, Addiction, Depression, Emotional Problems, Suicide Attempt, Suicidal Ideation Endocrine/Metabolic History: Reports: Diabetes, Type I Hematologic History: Reports: Other (See Below) Other Hematologic History: Hep + Immunologic History: Reports: None Oncologic (Cancer) History: Reports: None Dermatologic History: Reports: Other (See Below) Other Dermatologic History: cut العراقي noted to forearms, acne vulgaris - Infectious Disease History Infectious Disease History: Reports: Hepatitis C - Past Surgical History Head Surgeries/Procedures: Reports: None HEENT Surgical History: Reports: Adenoidectomy, Tonsillectomy Social & Family History - Family History Family Medical History: Noncontributory Psychiatric: Reports: Depression Endocrine/Metabolic: Reports: Diabetes, type II - Tobacco Use Smoking Status *Q: Current Some Day Smoker Years of Tobacco use: 6 Packs/Tins Daily: 0.2 Used Tobacco, but Quit: No Second Hand Smoke Exposure: Yes - Caffeine Use Caffeine Use: Reports: None - Alcohol Use Days Per Week of Alcohol Use: 1 Number of Drinks Per Day: 3 Total Drinks Per Week: 3 - Recreational Drug Use Recreational Drug Use: Yes Drug Use in Last 12 Months: Yes Recreational Drug Type: Reports: Marijuana/Hashish Other Recreational Drug Type: "up" Recreational Drug Use Frequency: Weekly Recreational Drug Last Use: t-2 - Sexual History Sexual History: Reports: Sexually Active - Living Situation & Occupation Living situation: Reports: with Significant Other Occupation: Unemployed ED ROS GENERAL - Review of Systems Review Of Systems: See Below Constitutional: Reports: Decreased Appetite HEENT: Reports: No Symptoms Respiratory: Reports: No Symptoms Cardiovascular: Reports: No Symptoms Endocrine: Reports: High Glucose GI/Abdominal: Reports: Decreased Appetite, Nausea, Vomiting (x1) : Reports: No Symptoms Musculoskeletal: Reports: No Symptoms Skin: Reports: No Symptoms ED EXAM GENERAL NO PERIP PULSE - Physical Exam Exam: See Below Exam Limited By: No Limitations General Appearance: Alert, No Apparent Distress Eye Exam: Bilateral Eye: EOMI Ears: Normal External Exam Nose: Normal Inspection Throat/Mouth: Normal Inspection Head: Atraumatic, Normocephalic Neck: Normal Inspection Respiratory/Chest: No Respiratory Distress, Lungs Clear, Normal Breath Sounds Cardiovascular: Normal Peripheral Pulses, Regular Rate, Rhythm GI/Abdominal: Normal Bowel Sounds, Soft Extremities: Normal Inspection Neurological: Alert, Oriented, Normal Cognition Skin Exam: Warm, Dry, Intact, Pallor, Tattoo(s) (large new tattoo to left forearm, no redness at present) Course - Vital Signs Last Recorded V/S: Last Vital Signs Temp 97.8 F 10/30/17 23:31 Pulse 96 10/30/17 23:31 Resp 14 10/30/17 23:31 BP 125/86 10/30/17 23:31 Pulse Ox 100 10/30/17 23:31 - Orders/Labs/Meds Orders: Medication Orders Acetaminophen (Tylenol) 650 mg PO Q4H PRN PRN Reason: Pain Enoxaparin Sodium (Lovenox) 40 mg SUBCUT DAILY [facility] Last Admin: 10/31/17 01:54 Dose: Not Given Ceftriaxone Sodium 1,000 mg/ (Sodium Chloride) 50 mls @ 100 mls/hr IV Q24H [facility] Stop: 11/03/17 02:01 Last Admin: 10/31/17 02:19 Dose: 100 mls/hr Dextrose/Sodium Chloride (Dextrose 5%-Normal Saline) 1,000 mls @ 125 mls/hr IV ASDIRECTED [facility] Ondansetron HCl (Zofran) 4 mg IVPUSH Q4H PRN PRN Reason: Nausea/Vomiting Labs: Laboratory Tests 10/30/17 10/30/17 10/30/17 Range/Units 21:56 22:15 22:15 WBC 10.8 H (5.0-10.0) 10^3/uL RBC 4.31 (4.2-5.4) 10^6/uL Hgb 12.0 D (12.0-16.0) g/dL Hct 36.0 L (37.0-47.0) % MCV 83.5 (80-100) fL MCH 27.8 (27.0-34.0) pg MCHC 33.3 (33.0-35.0) g/dL Plt Count 412 (150-450) 10^3/uL Neut % (Auto) 58.3 (42.2-75.2) % Lymph % (Auto) 34.2 (20.5-50.1) % Villalba % (Auto) 6.9 (2-8) % Eos % (Auto) 0.3 L (1.0-3.0) % Baso % (Auto) 0.3 (0.0-1.0) % ABG pH (7.35-7.45) ABG pCO2 (35-45) mmHg ABG pO2 (70-100) mmHg ABG HCO3 (22-26) mmol/L ABG O2 Saturation (95-100) % ABG Base Excess ((-2)-(+3)) mmol/L O2 Delivery Device Sodium 131 L (135-145) mmol/L Potassium 3.3 L (3.6-5.0) mmol/L Chloride 102 (101-111) mmol/L Carbon Dioxide 12.0 L (21.0-31.0) mmol/L Anion Gap 20.3 BUN 13 (7-18) mg/dL Creatinine 0.7 (0.6-1.3) mg/dL Est Cr Clr Drug Dosing TNP Estimated GFR (MDRD) > 60 BUN/Creatinine Ratio 18.57 Glucose 471 H* (74-105) mg/dL POC Glucose > 500 H* (70-105) mg/dl Lactic Acid (0.5-2.2) mmol/L Calcium 8.0 L (8.4-10.2) mg/dl Total Bilirubin 0.8 (0.2-1.0) mg/dL AST 12 (10-42) IU/L ALT 16 (10-60) IU/L Alkaline Phosphatase 99 (42-121) IU/L Total Protein 6.4 L (6.7-8.2) g/dl Albumin 2.9 L (3.2-5.5) g/dl Globulin 3.5 Albumin/Globulin Ratio 0.83 HCG, Qual Negative Urine Color (YELLOW) Urine Appearance (CLEAR) Urine pH (5.0-9.0) Ur Specific [place] (1.005-1.030) Urine Protein (NEGATIVE) Urine Glucose (UA) (NEGATIVE) Urine Ketones (NEGATIVE) Urine Occult Blood (NEGATIVE) Urine Nitrite (NEGATIVE) Urine Bilirubin (NEGATIVE) Urine Urobilinogen (0.2-1.0) mg/dL Ur Leukocyte Esterase (NEGATIVE) Urine RBC /HPF Urine WBC (0-5/HPF) /HPF Ur Epithelial Cells /HPF Urine Bacteria (0-FEW/HPF) /HPF Urine Opiates Screen (NEGATIVE) Ur Oxycodone Screen (NEGATIVE) Urine Methadone Screen (NEGATIVE) Ur Barbiturates Screen (NEGATIVE) U Tricyclic Antidepress (NEGATIVE) Ur Phencyclidine Scrn (NEGATIVE) Ur Amphetamine Screen (NEGATIVE) U Methamphetamines Scrn (NEGATIVE) Urine MDMA Screen (NEGATIVE) U Benzodiazepines Scrn (NEGATIVE) Urine Cocaine Screen (NEGATIVE) U Marijuana (THC) Screen (NEGATIVE) Ketones Positive (small) 10/30/17 10/30/17 10/30/17 Range/Units 22:15 22:20 22:20 WBC (5.0-10.0) 10^3/uL RBC (4.2-5.4) 10^6/uL Hgb (12.0-16.0) g/dL Hct (37.0-47.0) % MCV (80-100) fL MCH (27.0-34.0) pg MCHC (33.0-35.0) g/dL Plt Count (150-450) 10^3/uL Neut % (Auto) (42.2-75.2) % Lymph % (Auto) (20.5-50.1) % Villalba % (Auto) (2-8) % Eos % (Auto) (1.0-3.0) % Baso % (Auto) (0.0-1.0) % ABG pH (7.35-7.45) ABG pCO2 (35-45) mmHg ABG pO2 (70-100) mmHg ABG HCO3 (22-26) mmol/L ABG O2 Saturation (95-100) % ABG Base Excess ((-2)-(+3)) mmol/L O2 Delivery Device Sodium (135-145) mmol/L Potassium (3.6-5.0) mmol/L Chloride (101-111) mmol/L Carbon Dioxide (21.0-31.0) mmol/L Anion Gap BUN (7-18) mg/dL Creatinine (0.6-1.3) mg/dL Est Cr Clr Drug Dosing Estimated GFR (MDRD) BUN/Creatinine Ratio Glucose (74-105) mg/dL POC Glucose (70-105) mg/dl Lactic Acid 0.9 (0.5-2.2) mmol/L Calcium (8.4-10.2) mg/dl Total Bilirubin (0.2-1.0) mg/dL AST (10-42) IU/L ALT (10-60) IU/L Alkaline Phosphatase (42-121) IU/L Total Protein (6.7-8.2) g/dl Albumin (3.2-5.5) g/dl Globulin Albumin/Globulin Ratio HCG, Qual Urine Color Yellow (YELLOW) Urine Appearance Slightly cloudy (CLEAR) Urine pH 6.0 (5.0-9.0) Ur Specific [place] 1.010 (1.005-1.030) Urine Protein Negative (NEGATIVE) Urine Glucose (UA) 500 H (NEGATIVE) Urine Ketones >=160 H (NEGATIVE) Urine Occult Blood Negative (NEGATIVE) Urine Nitrite Negative (NEGATIVE) Urine Bilirubin Negative (NEGATIVE) Urine Urobilinogen 0.2 (0.2-1.0) mg/dL Ur Leukocyte Esterase Small H (NEGATIVE) Urine RBC 5-10 H /HPF Urine WBC 10-20 H (0-5/HPF) /HPF Ur Epithelial Cells Moderate H /HPF Urine Bacteria Moderate H (0-FEW/HPF) /HPF Urine Opiates Screen Negative (NEGATIVE) Ur Oxycodone Screen Negative (NEGATIVE) Urine Methadone Screen Negative (NEGATIVE) Ur Barbiturates Screen Negative (NEGATIVE) U Tricyclic Antidepress Negative (NEGATIVE) Ur Phencyclidine Scrn Negative (NEGATIVE) Ur Amphetamine Screen Negative (NEGATIVE) U Methamphetamines Scrn Negative (NEGATIVE) Urine MDMA Screen Negative (NEGATIVE) U Benzodiazepines Scrn Negative (NEGATIVE) Urine Cocaine Screen Negative (NEGATIVE) U Marijuana (THC) Screen Negative (NEGATIVE) Ketones 10/30/17 10/30/17 Range/Units 22:35 22:58 WBC (5.0-10.0) 10^3/uL RBC (4.2-5.4) 10^6/uL Hgb (12.0-16.0) g/dL Hct (37.0-47.0) % MCV (80-100) fL MCH (27.0-34.0) pg MCHC (33.0-35.0) g/dL Plt Count (150-450) 10^3/uL Neut % (Auto) (42.2-75.2) % Lymph % (Auto) (20.5-50.1) % Villalba % (Auto) (2-8) % Eos % (Auto) (1.0-3.0) % Baso % (Auto) (0.0-1.0) % ABG pH 7.22 L (7.35-7.45) ABG pCO2 17 L* (35-45) mmHg ABG pO2 103 H (70-100) mmHg ABG HCO3 6.7 L (22-26) mmol/L ABG O2 Saturation 98 (95-100) % ABG Base Excess -20 L ((-2)-(+3)) mmol/L O2 Delivery Device Room air Sodium (135-145) mmol/L Potassium (3.6-5.0) mmol/L Chloride (101-111) mmol/L Carbon Dioxide (21.0-31.0) mmol/L Anion Gap BUN (7-18) mg/dL Creatinine (0.6-1.3) mg/dL Est Cr Clr Drug Dosing Estimated GFR (MDRD) BUN/Creatinine Ratio Glucose (74-105) mg/dL POC Glucose 392 H (70-105) mg/dl Lactic Acid (0.5-2.2) mmol/L Calcium (8.4-10.2) mg/dl Total Bilirubin (0.2-1.0) mg/dL AST (10-42) IU/L ALT (10-60) IU/L Alkaline Phosphatase (42-121) IU/L Total Protein (6.7-8.2) g/dl Albumin (3.2-5.5) g/dl Globulin Albumin/Globulin Ratio HCG, Qual Urine Color (YELLOW) Urine Appearance (CLEAR) Urine pH (5.0-9.0) Ur Specific [place] (1.005-1.030) Urine Protein (NEGATIVE) Urine Glucose (UA) (NEGATIVE) Urine Ketones (NEGATIVE) Urine Occult Blood (NEGATIVE) Urine Nitrite (NEGATIVE) Urine Bilirubin (NEGATIVE) Urine Urobilinogen (0.2-1.0) mg/dL Ur Leukocyte Esterase (NEGATIVE) Urine RBC /HPF Urine WBC (0-5/HPF) /HPF Ur Epithelial Cells /HPF Urine Bacteria (0-FEW/HPF) /HPF Urine Opiates Screen (NEGATIVE) Ur Oxycodone Screen (NEGATIVE) Urine Methadone Screen (NEGATIVE) Ur Barbiturates Screen (NEGATIVE) U Tricyclic Antidepress (NEGATIVE) Ur Phencyclidine Scrn (NEGATIVE) Ur Amphetamine Screen (NEGATIVE) U Methamphetamines Scrn (NEGATIVE) Urine MDMA Screen (NEGATIVE) U Benzodiazepines Scrn (NEGATIVE) Urine Cocaine Screen (NEGATIVE) U Marijuana (THC) Screen (NEGATIVE) Ketones Meds: Medications Generic Name Dose Route Start Last Admin Trade Name Freq PRN Reason Stop Dose Admin Acetaminophen 650 mg 10/31/17 04:18 Tylenol PO Q4H PRN Pain Enoxaparin Sodium 40 mg 10/31/17 02:00 10/31/17 01:54 Lovenox SUBCUT Not Given DAILY [facility] Ceftriaxone Sodium 1,000 mg/ 50 mls @ 100 mls/hr 10/31/17 02:00 10/31/17 02: 19 Sodium Chloride IV 11/03/17 02:01 100 mls/hr Q24H [facility] Administration Dextrose/Sodium Chloride 1,000 mls @ 125 mls/hr 10/31/17 04:15 Dextrose 5%-Normal Saline IV ASDIRECTED [facility] Ondansetron HCl 4 mg 10/31/17 01:35 Zofran IVPUSH Q4H PRN Nausea/Vomiting Discontinued Medications Generic Name Dose Route Start Last Admin Trade Name Anali PRN Reason Stop Dose Admin Sodium Chloride 1,000 mls @ 999 mls/hr 10/30/17 21:57 10/30/17 22:15 Normal Saline IV 10/30/17 22:57 999 mls/hr .BOLUS ONE Administration Potassium Chloride 20 meq/ 100 mls @ 50 mls/hr 10/31/17 01:30 10/31/17 01:50 Premix IV 10/31/17 05:29 Not Given Q2H [facility] Potassium Chloride/Sodium Chloride 1,000 mls @ 500 mls/hr 10/31/17 01:30 03/13 01:45 Normal Saline With 20 Meq Kcl IV 11/05/17 03:29 500 mls/hr ASDIRECTED [facility] Administration Insulin Human Regular 100 unit 100 mls @ 5.6 mls/hr 10/31/17 01:45 10/31/17 03:15 / Sodium Chloride IV 0.1 units/kg/hr TITRATE [facility] 5.6 mls/hr Protocol Administration 0.1 UNITS/KG/HR Insulin Human Regular 10 unit 10/30/17 21:58 10/30/17 22:15 Humulin R IV 10/30/17 21:59 10 units ONETIME ONE Administration Ondansetron HCl 4 mg 10/30/17 23:00 10/30/17 23:04 Zofran IV 10/30/17 23:01 4 mg ONETIME ONE Administration - Re-Assessments/Exams Free Text/Narrative Re-Assessment/Exam: 10/30/17 23:16 Dr Casas accepting of patient for admission for further evaluation and management of DKA Departure - Departure Time of Disposition: 23:18 Disposition: Admitted As Inpatient 67 Condition: Fair Clinical Impression: Diabetic ketoacidosis associated with type 1 diabetes mellitus Qualifiers: Diabetes mellitus complication detail: without coma Qualified Code(s): E10.10 - Type 1 diabetes mellitus with ketoacidosis without coma - Discharge Information
[2017-10-31] MEDS ORDERED: NS + KCl 20mEq/L 1,000 ML IV SCH ×2 (01:30→09:15)
[2017-10-31] MEDS ORDERED: Potassium Chloride 20 MEQ in Premix Bag 1 BAG IV SCH (01:30)
[2017-10-31] MEDS ORDERED: Ondansetron 4 MG/2 ML SDV IVPUSH PRN (01:35)
[2017-10-31] MEDS: Enoxaparin 40 MG/0.4 ML Syringe SUBCUT SCH (01:54)
[2017-10-31] MEDS ORDERED: cefTRIAXone 1,000 MG in Sodium Chloride 0.9% 50 ML IV SCH (02:00)
--- NOTE | 2017-10-31 02:25 | PCM.HP ---
H&P History of Present Illness - General Date of Service: 10/31/17 Admit Problem/Dx: Admission Diagnosis/Problem Admission Diagnosis/Problem Diabetic ketoacidosis Source of Information: Patient History Limitations: Reports: No Limitations - History of Present Illness Initial Comments - Free Text/Narative: 22 yo F with hx of DM type 1 presents with nausea, vomiting, dysuria of one day duration. Patient says nausea started this afternoon. Had one episode of vomiting Has associated generalized weakness Also noted some dysuria No fever, no abdominal pain, no diarrhea, no cough or chest pain. Not compliant with insulin use SH: smokes intermittently. Onset of Symptoms: Reports: Today Associated Symptoms: Reports: Nausea/Vomiting Headache Pain Score (Numeric/FACES): 5 - Related Data Allergies/Adverse Reactions: Allergies Allergy/AdvReac Type Severity Reaction Status Date / Time hydromorphone HCl Allergy Itching Verified 10/30/17 22:03 [From Dilaudid] Home Medications: Home Meds Insulin Detemir [Levemir] 35 unit SUBCUT BID 03/11/16 [History] Insulin Aspart [NovoLOG] 20 units SUBCUT TIDAC 04/05/16 [History] Past Medical History HEENT History: Reports: Other (See Below) Other HEENT History: ear problems with draining, cheek broken in three different place Cardiovascular History: Reports: None Respiratory History: Reports: None Gastrointestinal History: Reports: Hepatitis Other Gastrointestinal History: rectal bleeding per self report for past couple of months Genitourinary History: Reports: None, UTI, 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 Musculoskeletal History: Reports: Fracture Neurological History: Reports: None Psychiatric History: Reports: ADHD, Addiction, Depression, Emotional Problems, Suicide Attempt, Suicidal Ideation Endocrine/Metabolic History: Reports: Diabetes, Type I Hematologic History: Reports: Other (See Below) Other Hematologic History: Hep + Immunologic History: Reports: None Oncologic (Cancer) History: Reports: None Dermatologic History: Reports: Other (See Below) Other Dermatologic History: cut العراقي noted to forearms, acne vulgaris - Infectious Disease History Infectious Disease History: Reports: Hepatitis C - Past Surgical History Head Surgeries/Procedures: Reports: None HEENT Surgical History: Reports: Adenoidectomy, Tonsillectomy Social & Family History - Family History Family Medical History: Noncontributory Psychiatric: Reports: Depression Endocrine/Metabolic: Reports: Diabetes, type II - Tobacco Use Smoking Status *Q: Current Some Day Smoker Years of Tobacco use: 6 Packs/Tins Daily: 0.2 Used Tobacco, but Quit: No Second Hand Smoke Exposure: Yes - Caffeine Use Caffeine Use: Reports: None - Alcohol Use Days Per Week of Alcohol Use: 1 Number of Drinks Per Day: 3 Total Drinks Per Week: 3 - Recreational Drug Use Recreational Drug Use: Yes Drug Use in Last 12 Months: Yes Recreational Drug Type: Reports: Marijuana/Hashish Other Recreational Drug Type: "up" Recreational Drug Use Frequency: Weekly Recreational Drug Last Use: t-2 - Sexual History Sexual History: Reports: Sexually Active - Living Situation & Occupation Living situation: Reports: with Significant Other Occupation: Unemployed H&P Review of Systems - Review of Systems: Review Of Systems: See Below Exam - Exam Exam: See Below - Vital Signs Vital Signs: Last Vital Signs Temp 36.6 C 10/30/17 23:31 Pulse 96 10/30/17 23:31 Resp 14 10/30/17 23:31 BP 125/86 10/30/17 23:31 Pulse Ox 100 10/30/17 23:31 Weight: 56.064 kg - Exam General: Alert, Oriented, 4 HEENT: PERRLA, Hearing Intact, Mucosa Moist & [place], Nares Patent, Normal Nasal Septum, Posterior Pharynx Clear, Conjunctiva Clear, EOMI, EACs Clear, TMs Clear Neck: Supple, Trachea Midline, 2 Lungs: Clear to Auscultation, Normal Respiratory Effort Cardiovascular: Regular Rate, Regular Rhythm GI/Abdominal Exam: Normal Bowel Sounds, Soft, Non-Tender, No Organomegaly, No Distention, No Abnormal Bruit, No Mass, Pelvis Stable - Patient Data Lab Results Last 24 hrs: Laboratory Results - last 24 hr 10/31/17 Range/Units 00:48 POC Glucose 321 H (70-105) mg/dl Result Diagrams: 10/30/17 22:15 10/30/17 22:15 *Q Meaningful Use (ADM) - VTE *Q VTE Criteria *Q: - Stroke *Q Stroke Criteria *Q: - AMI *Q AMI Criteria *Q: - Problem List (1) Diabetic ketoacidosis associated with type 1 diabetes mellitus SNOMED Code(s): 185928312 ICD Code: E10.10 - TYPE 1 DIABETES MELLITUS WITH KETOACIDOSIS WITHOUT COMA Status: Acute Priority: High Current Visit: Yes Qualifiers: Diabetes mellitus complication detail: without coma Qualified Code(s): E10.10 - Type 1 diabetes mellitus with ketoacidosis without coma (2) Hyperglycemia SNOMED Code(s): 12394991 ICD Code: R73.9 - HYPERGLYCEMIA, UNSPECIFIED Status: Acute Current Visit : No (3) Type 1 diabetes mellitus SNOMED Code(s): 31665598 ICD Code: E10.9 - TYPE 1 DIABETES MELLITUS WITHOUT COMPLICATIONS Status: Acute Current Visit: No Qualifiers: Diabetes mellitus complication status: without complication Qualified Code( s): E10.9 - Type 1 diabetes mellitus without complications Problem List Initiated/Reviewed/Updated: Yes Orders Last 24hrs: Active Orders 24 hr Category Date Time Status Patient Status [ADT] Routine ADT 10/31/17 01:35 Active Accu Check [Blood Glucose Check, Bedside] [RC] Q1H Care 10/31/17 01:46 Active Ambulate [RC] ASDIRECTED Care 10/31/17 01:35 Active Intake and Output [RC] QSHIFT Care 10/31/17 01:36 Active Oxygen Therapy [RC] PRN Care 10/31/17 01:35 Active Up ad Shellie [RC] ASDIRECTED Care 10/31/17 01:35 Active VTE/DVT Education [RC] PER UNIT ROUTINE Care 10/31/17 01:35 Active Vital Signs [RC] Q4H Care 10/31/17 01:35 Active Nothing per Oral Now Diet [DIET] Diet 10/31/17 Breakfast Active BASIC METABOLIC PANEL,BMP [CHEM] Stat Lab 10/31/17 02:00 Received BASIC METABOLIC PANEL,BMP [CHEM] Timed Lab 10/31/17 06:00 Ordered CULTURE BLOOD [BC] Routine Lab 10/31/17 02:00 Received CULTURE BLOOD [BC] Routine Lab 10/31/17 02:05 Received CULTURE URINE [RM] Routine Lab 10/31/17 00:00 Received MAGNESIUM [CHEM] Stat Lab 10/31/17 02:00 Received MAGNESIUM [CHEM] Timed Lab 10/31/17 06:00 Ordered PHOSPHORUS [CHEM] Stat Lab 10/31/17 02:00 Received PHOSPHORUS [CHEM] Timed Lab 10/31/17 06:00 Ordered Enoxaparin [Lovenox] Med 10/31/17 02:00 Active 40 mg SUBCUT DAILY Insulin Regular, Human [HumuLIN R] 100 unit Med 10/31/17 01:45 Active Sodium Chloride 0.9% [Normal Saline] 99 ml IV TITRATE NS + KCl 20mEq/L [Normal Saline with 20 mEq KCl] 1,000 Med 10/31/17 01:30 Active ml IV ASDIRECTED Ondansetron [Zofran] Med 10/31/17 01:35 Active 4 mg IVPUSH Q4H PRN cefTRIAXone [Rocephin] 1,000 mg Med 10/31/17 02:00 Active Sodium Chloride 0.9% [Normal Saline] 50 ml IV Q24H Resuscitation Status Routine Resus Stat 10/31/17 01:35 Ordered Medication Orders Enoxaparin Sodium (Lovenox) 40 mg SUBCUT DAILY [facility] Last Admin: 10/31/17 01:54 Dose: Not Given Potassium Chloride/Sodium Chloride (Normal Saline With 20 Meq Kcl) 1,000 mls @ 500 mls/hr IV ASDIRECTED [facility] Stop: 11/05/17 03:29 Last Admin: 10/31/17 01:45 Dose: 500 mls/hr Ceftriaxone Sodium 1,000 mg/ (Sodium Chloride) 50 mls @ 100 mls/hr IV Q24H [facility] Stop: 11/03/17 02:01 Insulin Human Regular 100 unit (/ Sodium Chloride) 100 mls @ 5.6 mls/hr IV TITRATE [facility]INDER; 0.1 UNITS/KG/HR PRN Reason: Protocol Ondansetron HCl (Zofran) 4 mg IVPUSH Q4H PRN PRN Reason: Nausea/Vomiting Assessment/Plan Comment:: 22 yo F with Type 1 DM presenting with nausea/vomiting and dysuria. 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
[2017-10-31 03:28] LABS: CHLORIDE,CL 109 mmol/L (101-111); SODIUM,NA 134 mmol/L (135-145)
[2017-10-31] MEDS ORDERED: Dextrose 5%-0.9% NaCl 1,000 ML IV SCH (04:15)
[2017-10-31] MEDS: Acetaminophen 325 MG Tab PO PRN ×2 (04:38→12:55)
[2017-10-31 07:02] LABS: CHLORIDE,CL 111 mmol/L (101-111); SODIUM,NA 133 mmol/L (135-145)
[2017-10-31] MEDS ORDERED: Phosphorus #1 250 MG Tab PO ONE (09:09)
[2017-10-31] MEDS ORDERED: D5 1/2 NS w/ 20 mEq/L KCl 1,000 ML IV SCH (09:15)
[2017-10-31 11:04] LABS: CHLORIDE,CL 113 mmol/L (101-111); SODIUM,NA 134 mmol/L (135-145)
[2017-10-31] MEDS ORDERED: Potassium Chloride 20 MEQ in Premix Bag 1 BAG IV ONE (11:07)
[2017-10-31] MEDS ORDERED: Insulin NPH/Insulin Regular,Human 70-30 100 Units/ML 10 ML Vial SUBCUT ONE (11:50)
[2017-10-31] MEDS: Insulin Aspart 100 Units/ML 3 ML Pen SUBCUT SCH ×3 (12:23→17:29)
[2017-10-31] MEDS ORDERED: Sodium Chloride 0.9% 10 ML Syringe FLUSH PRN (13:59)
[2017-10-31 14:49] LABS: CHLORIDE,CL 108 mmol/L (101-111); SODIUM,NA 133 mmol/L (135-145)
[2017-10-31] MEDS: Potassium Chloride 10 MEQ Tab.ER PO SCH (17:28)
[2017-10-31 20:32] LABS: CHLORIDE,CL 104 mmol/L (101-111); SODIUM,NA 132 mmol/L (135-145)
[2017-10-31] MEDS ORDERED: Potassium Chloride 10 MEQ Tab.ER PO ONE (20:44)
[2017-10-31] MEDS: Insulin Detemir 100 Units/ML 3 ML Pen SUBCUT SCH (21:03)
[2017-11-01] MEDS ORDERED: cefTRIAXone 1 GM Vial IVPUSH SCH (02:00)
[2017-11-01 06:59] LABS: CHLORIDE,CL 107 mmol/L (101-111); SODIUM,NA 136 mmol/L (135-145)
[2017-11-01] MEDS: Enoxaparin 40 MG/0.4 ML Syringe SUBCUT SCH ×2 (09:12→09:44)
[2017-11-01] MEDS: Potassium Chloride 10 MEQ Tab.ER PO SCH (09:12)
[2017-11-01] MEDS: Insulin Detemir 100 Units/ML 3 ML Pen SUBCUT SCH (09:35)
[2017-11-01] MEDS: Insulin Aspart 100 Units/ML 3 ML Pen SUBCUT SCH ×4 (09:37→12:17)
--- NOTE | 2017-11-01 10:52 | PCM.DCSUM1 ---
Discharge Summary - Hospital Course Free Text/Narrative:: 22 yo F with Type 1 DM presenting with nausea/vomiting and dysuria. # DKA - was treated with IV fluid hydration, insulin gtt - resolved Hypokalemia treated - counseled patient on need to be compliant with meds # UTI - blood culture x 2, urine culture pending - treated with IV ceftriaxone - finish PO keflex - Discharge Data Discharge Date: 11/01/17 Discharge Disposition: Home, Self-Care 01 Condition: Good - Discharge Diagnosis/Problem(s) (1) UTI (urinary tract infection), uncomplicated SNOMED Code(s): 76912440 ICD Code: N39.0 - URINARY TRACT INFECTION, SITE NOT SPECIFIED Status: Acute Current Visit: Yes (2) Diabetic ketoacidosis associated with type 1 diabetes mellitus SNOMED Code(s): 393835367 ICD Code: E10.10 - TYPE 1 DIABETES MELLITUS WITH KETOACIDOSIS WITHOUT COMA Status: Acute Priority: High Current Visit: Yes Qualifiers: Diabetes mellitus complication detail: without coma Qualified Code(s): E10.10 - Type 1 diabetes mellitus with ketoacidosis without coma - Patient Instructions Diet: Diabetic Diet Activity: As Tolerated - Discharge Plan Prescriptions/Med Rec: Cephalexin [Keflex] 500 mg PO Q8H #9 cap Insulin Aspart [NovoLOG] 10 unit SUBCUT TIDMEALS #1 pen Home Medications: Home Meds Insulin Detemir [Levemir] 35 unit SUBCUT BID 03/11/16 [History] Cephalexin [Keflex] 500 mg PO Q8H #9 cap 11/01/17 [Rx] Insulin Aspart [NovoLOG] 10 unit SUBCUT TIDMEALS #1 pen 11/01/17 [Rx] Referrals: Provider,Unknown [Ordering Only Provider] - (at [facility] in 3-4 days ) - General Info Date of Service: 11/01/17 Admission Dx/Problem (Free Text: Admission Diagnosis/Problem Admission Diagnosis/Problem Diabetic ketoacidosis - Review of Systems General: Denies: Fever, Weakness Pulmonary: Denies: Shortness of Breath Cardiovascular: Denies: Chest Pain Gastrointestinal: Denies: Abdominal Pain Neurological: Denies: Confusion - Patient Data Vitals - Most Recent: Last Vital Signs Temp 36.4 C 11/01/17 07:00 Pulse 82 11/01/17 07:00 Resp 20 11/01/17 07:00 BP 104/66 03/08/18 07:00 Pulse Ox 100 11/01/17 07:00 Weight - Most Recent: 56.064 kg I&O - Last 24 hours: Intake & Output 10/31/17 11/01/17 11/01/17 22:59 06:59 14:59 Intake Total 1859 2009 999 Balance 1859 2009 999 Lab Results - Last 24 hrs: Laboratory Results - last 24 hr 10/31/17 10/31/17 10/31/17 Range/Units 10:36 11:03 12:10 Sodium 134 L (135-145) mmol/L Potassium 2.7 L (3.6-5.0) mmol/L Chloride 113 H (101-111) mmol/L Carbon Dioxide 12.0 L (21.0-31.0) mmol/L Anion Gap 11.7 BUN < 5 L (7-18) mg/dL Creatinine 0.4 L (0.6-1.3) mg/dL Est Cr Clr Drug Dosing 196.91 mL/min Estimated GFR (MDRD) > 60 Glucose 135 H (74-105) mg/dL POC Glucose 111 H 67 L (70-105) mg/dl Calcium 8.1 L (8.4-10.2) mg/dl 10/31/17 10/31/17 10/31/17 Range/Units 13:28 14:21 14:23 Sodium 133 L (135-145) mmol/L Potassium 3.7 (3.6-5.0) mmol/L Chloride 108 (101-111) mmol/L Carbon Dioxide 12.0 L (21.0-31.0) mmol/L Anion Gap 16.7 BUN 6 L (7-18) mg/dL Creatinine 0.5 L (0.6-1.3) mg/dL Est Cr Clr Drug Dosing 157.52 mL/min Estimated GFR (MDRD) > 60 Glucose 254 H (74-105) mg/dL POC Glucose 236 H 241 H (70-105) mg/dl Calcium 8.2 L (8.4-10.2) mg/dl 10/31/17 10/31/17 10/31/17 Range/Units 15:19 17:04 20:00 Sodium 132 L (135-145) mmol/L Potassium 3.1 L (3.6-5.0) mmol/L Chloride 104 (101-111) mmol/L Carbon Dioxide 20.0 L (21.0-31.0) mmol/L Anion Gap 11.1 BUN 7 (7-18) mg/dL Creatinine 0.4 L (0.6-1.3) mg/dL Est Cr Clr Drug Dosing 196.91 mL/min Estimated GFR (MDRD) > 60 Glucose 224 H (74-105) mg/dL POC Glucose 230 H 208 H (70-105) mg/dl Calcium 8.6 (8.4-10.2) mg/dl 10/31/17 11/01/17 11/01/17 Range/Units 20:56 06:29 07:44 Sodium 136 (135-145) mmol/L Potassium 3.1 L (3.6-5.0) mmol/L Chloride 107 (101-111) mmol/L Carbon Dioxide 23.0 (21.0-31.0) mmol/L Anion Gap 9.1 BUN 6 L (7-18) mg/dL Creatinine 0.3 L (0.6-1.3) mg/dL Est Cr Clr Drug Dosing 262.54 mL/min Estimated GFR (MDRD) > 60 Glucose 88 (74-105) mg/dL POC Glucose 218 H 60 L (70-105) mg/dl Calcium 8.6 (8.4-10.2) mg/dl 11/01/17 Range/Units 09:20 Sodium (135-145) mmol/L Potassium (3.6-5.0) mmol/L Chloride (101-111) mmol/L Carbon Dioxide (21.0-31.0) mmol/L Anion Gap BUN (7-18) mg/dL Creatinine (0.6-1.3) mg/dL Est Cr Clr Drug Dosing mL/min Estimated GFR (MDRD) Glucose (74-105) mg/dL POC Glucose 221 H (70-105) mg/dl Calcium (8.4-10.2) mg/dl GREGORY Results - Last 24 hrs: Microbiology 10/31/17 02:05 Aerobic Blood Culture - Preliminary Blood NO GROWTH AFTER 1 DAY Anaerobic Blood Culture - Preliminary NO GROWTH AFTER 1 DAY 10/31/17 02:00 Aerobic Blood Culture - Preliminary Blood NO GROWTH AFTER 1 DAY Anaerobic Blood Culture - Preliminary NO GROWTH AFTER 1 DAY Med Orders - Current: Current Medications Acetaminophen (Tylenol) 650 mg PO Q4H PRN PRN Reason: Pain Last Admin: 10/31/17 12:55 Dose: 650 mg Ceftriaxone Sodium (Rocephin) 1 gm IVPUSH Q24H [facility] Last Admin: 11/01/17 01:29 Dose: 1 gm Enoxaparin Sodium (Lovenox) 40 mg SUBCUT DAILY [facility] Last Admin: 11/01/17 09:44 Dose: Not Given Insulin Aspart (Novolog) 0 unit SUBCUT TIDMEALS [facility] PRN Reason: Protocol Last Admin: 11/01/17 09:37 Dose: Not Given Insulin Aspart (Novolog) 20 unit SUBCUT TIDAC [facility] Last Admin: 11/01/17 09:39 Dose: Not Given Insulin Detemir (Levemir) 35 unit SUBCUT BID [facility] Last Admin: 11/01/17 09:35 Dose: 35 units Magnesium Oxide (Magnesium Oxide) 250 mg PO BIDM [facility] Last Admin: 11/01/17 09:12 Dose: 250 mg Ondansetron HCl (Zofran) 4 mg IVPUSH Q4H PRN PRN Reason: Nausea/Vomiting Potassium Chloride (Klor-Con 10) 40 meq PO ONETIME ONE Stop: 11/01/17 13:01 Sodium Chloride (Saline Flush) 10 ml FLUSH ASDIRECTED PRN PRN Reason: Keep Vein Open Discontinued Medications Sodium Chloride (Normal Saline) 1,000 mls @ 999 mls/hr IV .BOLUS ONE Stop: 10/30/17 22:57 Last Admin: 10/30/17 22:15 Dose: 999 mls/hr Potassium Chloride 20 meq/ (Premix) 100 mls @ 50 mls/hr IV Q2H [facility] Stop: 10/31/17 05:29 Last Admin: 10/31/17 01:50 Dose: Not Given Potassium Chloride/Sodium Chloride (Normal Saline With 20 Meq Kcl) 1,000 mls @ 500 mls/hr IV ASDIRECTED [facility] Stop: 11/05/17 03:29 Last Admin: 10/31/17 01:45 Dose: 500 mls/hr Ceftriaxone Sodium 1,000 mg/ (Sodium Chloride) 50 mls @ 100 mls/hr IV Q24H [facility] Stop: 11/03/17 02:01 Last Admin: 10/31/17 02:19 Dose: 100 mls/hr Insulin Human Regular 100 unit (/ Sodium Chloride) 100 mls @ 5.6 mls/hr IV TITRATE RUPINDER; 0.1 UNITS/KG/HR PRN Reason: Protocol Last Admin: 10/31/17 03:15 Dose: 0.1 units/kg/hr, 5.6 mls/hr Dextrose/Sodium Chloride (Dextrose 5%-Normal Saline) 1,000 mls @ 125 mls/hr IV ASDIRECTED RUPINDER Last Admin: 10/31/17 04:36 Dose: 125 mls/hr Insulin Human Regular 100 unit (/ Sodium Chloride) 100 mls @ 5.6 mls/hr IV TITRATE RUPINDER; 0.1 UNITS/KG/HR PRN Reason: Protocol Last Infusion: 10/31/17 10:08 Dose: 0.33 units/kg/hr, 18.9 mls/hr Potassium Chloride/Sodium Chloride (Normal Saline With 20 Meq Kcl) 1,000 mls @ 150 mls/hr IV ASDIRECTED RUPINDER Potassium Chloride/Dextrose/Sod Cl (D5 1/2 Ns W/ 20 Meq/L Kcl) 1,000 mls @ 150 mls/hr IV ASDIRECTED RUPINDER Last Admin: 10/31/17 09:38 Dose: 150 mls/hr Potassium Chloride 20 meq/ (Premix) 100 mls @ 50 mls/hr IV ONETIME ONE Stop: 10/31/17 13:06 Last Admin: 10/31/17 12:34 Dose: 50 mls/hr Insulin Human Regular 100 unit (/ Sodium Chloride) 100 mls @ 10 mls/hr IV TITRATE RUPINDER; 10 UNIT/HR PRN Reason: Protocol Last Admin: 10/31/17 11:35 Dose: 10 unit/hr, 10 mls/hr Insulin Human Isoph/Insulin Regular (Novolin 70-30) 20 unit SUBCUT ONETIME ONE Stop: 10/31/17 11:51 Last Admin: 10/31/17 13:05 Dose: 20 units Insulin Human Regular (Humulin R) 10 unit IV ONETIME ONE Stop: 10/30/17 21:59 Last Admin: 10/30/17 22:15 Dose: 10 units Ondansetron HCl (Zofran) 4 mg IV ONETIME ONE Stop: 10/30/17 23:01 Last Admin: 10/30/17 23:04 Dose: 4 mg Potassium Chloride (Klor-Con 10) 40 meq PO BIDMEALS RUPINDER Last Admin: 11/01/17 09:12 Dose: 40 meq Potassium Chloride (Klor-Con 10) 40 meq PO ONETIME ONE Stop: 10/31/17 20:45 Last Admin: 10/31/17 20:59 Dose: 40 meq Sodium Phosphate (Neutra-Phos) 250 mg PO ONETIME ONE Stop: 10/31/17 09:10 Last Admin: 10/31/17 09:39 Dose: 250 mg - Exam General: Reports: Alert, Oriented Lungs: Reports: Clear to Auscultation, Normal Respiratory Effort Cardiovascular: Reports: Regular Rate, Regular Rhythm Neurological: Reports: No New Focal Deficit *Q Meaningful Use (DIS) - VTE *Q VTE Criteria *Q: - Stroke *Q Stroke Criteria *Q: - AMI *Q AMI Criteria *Q:
[2017-11-01 11:01] VITALS: BP 94/63
[2017-11-01] MEDS ORDERED: Potassium Chloride 10 MEQ Tab.ER PO ONE (13:00)
== END 2017-11-01 13:00 | disposition home or self-care (01) | DRG 638 ==
LOC: DL.ED 21:47 → UNDOADMIN 23:17 → DL.MS 23:17
PROVIDERS: ADMIT Hospitalist; ATTEND Hospitalist
DX: E10.10 Type 1 diabetes mellitus with ketoacidosis without coma (principal); N39.0 Urinary tract infection, site not specified; Z79.4 Long term (current) use of insulin; E87.6 Hypokalemia; F17.200 Nicotine dependence, unspecified, uncomplicated; Z88.8 Allergy status to other drugs, medicaments and biological substances
CPT/HCPCS: 36415; 36600; 80048; 80053; 80305; 81001; 82009; 82803; 82962; 83605; 83735; 84100; 84703; 85025; 87040; 87086; 87088; 87186; 96361; 96374; 99285; A9270-GY; J0696; J1650; J1815; J1815-GY; J2405; J3480; J7030; J7042; J7050

== ENCOUNTER 2018-01-17 06:56 | Inpatient (IN) | payer MEDICAID ==
[2018-01-17] MEDS ORDERED: Ondansetron 4 MG/2 ML SDV IV ONE (07:26)
[2018-01-17] MEDS ORDERED: Sodium Chloride 0.9% 1,000 ML IV ONE ×3 (07:26→10:15)
[2018-01-17 08:01] LABS: CHLORIDE,CL 98 mmol/L (101-111); SODIUM,NA 132 mmol/L (135-145)
[2018-01-17] MEDS ORDERED: Insulin Regular, Human 100 Units/ML 3 ML Vial IV ONE (08:14)
[2018-01-17] MEDS ORDERED: Azithromycin 250 MG Tab PO SCH (09:00)
[2018-01-17] MEDS ORDERED: Sodium Chloride 0.9% 10 ML Syringe FLUSH PRN ×2 (10:09→15:25)
[2018-01-17] MEDS ORDERED: Ondansetron 4 MG/2 ML SDV IVPUSH PRN (10:09)
[2018-01-17] MEDS ORDERED: Acetaminophen 325 MG Tab PO PRN (10:09)
[2018-01-17] MEDS ORDERED: Sodium Chloride 0.9% 1,000 ML IV SCH (10:15)
[2018-01-17] MEDS ORDERED: cefTRIAXone 1 GM in Sodium Chloride 0.9% 100 ML IV SCH (10:30)
[2018-01-17] MEDS ORDERED: DAPTOmycin 500 MG Vial IV SCH (11:00)
[2018-01-17] MEDS ORDERED: cefTRIAXone 1 GM Vial IV SCH (11:00)
--- NOTE | 2018-01-17 11:09 | PCM.HP ---
H&P History of Present Illness - General Date of Service: 01/17/18 Admit Problem/Dx: Admission Diagnosis/Problem Admission Diagnosis/Problem Diabetic ketoacidosis Source of Information: Patient History Limitations: Reports: No Limitations - History of Present Illness Initial Comments - Free Text/Narative: 22 yo F with PMH of depression, Type 1 diabetes mellitus, non-compliant, presents with nausea, cough and found to have elevated blood sugars, large anion gap and ketones in the urine. Admission requested by ED for DKA. Cough is productive of yellow sputum, she has no chest pain. Severe nausea associated with dry heaves. Onset of Symptoms: Reports: Gradual Duration of Symptoms: Reports: Day(s): (2) Associated Symptoms: Reports: Other Headache Pain Score (Numeric/FACES): 8 - Related Data Allergies/Adverse Reactions: Allergies Allergy/AdvReac Type Severity Reaction Status Date / Time hydromorphone HCl Allergy Itching Verified 01/17/18 09:46 [From Dilaudid] Home Medications: Home Meds Insulin Detemir [Levemir] 35 unit SUBCUT BID 03/11/16 [History] Insulin Aspart [NovoLOG] 10 unit SUBCUT TIDMEALS #1 pen 11/01/17 [Rx] Escitalopram [Lexapro] 10 mg PO DAILY 01/17/18 [History] Multivitamin [Multiple Vitamins] 1 tab PO DAILY 01/17/18 [History] busPIRone [Buspar] 10 mg PO TID 01/17/18 [History] Past Medical History HEENT History: Reports: Other (See Below) Other HEENT History: ear problems with draining, cheek broken in three different place Cardiovascular History: Reports: None Respiratory History: Reports: None Gastrointestinal History: Reports: Hepatitis Other Gastrointestinal History: rectal bleeding per self report for past couple of months Genitourinary History: Reports: None SOLE STAINER History: Reports: Spontaneous Musculoskeletal History: Reports: Fracture Neurological History: Reports: None Psychiatric History: Reports: ADHD, Addiction, Depression, Emotional Problems, Suicide Attempt, Suicidal Ideation Endocrine/Metabolic History: Reports: Diabetes, Type I Hematologic History: Reports: Other (See Below) Other Hematologic History: Hep + Immunologic History: Reports: None Oncologic (Cancer) History: Reports: None Dermatologic History: Reports: Other (See Below) Other Dermatologic History: cut [place] noted to forearms, acne vulgaris - Infectious Disease History Infectious Disease History: Reports: Hepatitis C, MRSA - Past Surgical History Head Surgeries/Procedures: Reports: None HEENT Surgical History: Reports: Adenoidectomy, Tonsillectomy GI Surgical History: Reports: None Endocrine Surgical History: Reports: None Social & Family History - Family History Family Medical History: Noncontributory Psychiatric: Reports: Depression Endocrine/Metabolic: Reports: Diabetes, type II - Tobacco Use Smoking Status *Q: Light Tobacco Smoker Years of Tobacco use: 4 Packs/Tins Daily: 1 Used Tobacco, but Quit: No Second Hand Smoke Exposure: Yes - Caffeine Use Caffeine Use: Reports: None - Alcohol Use Days Per Week of Alcohol Use: 1 Number of Drinks Per Day: 1 Total Drinks Per Week: 1 - Recreational Drug Use Recreational Drug Use: Yes Drug Use in Last 12 Months: Yes Recreational Drug Type: Reports: Marijuana/Hashish Recreational Drug Use Frequency: Socially - Sexual History Sexual History: Reports: Sexually Active - Living Situation & Occupation Living situation: Reports: with Significant Other Occupation: Unemployed H&P Review of Systems - Review of Systems: Review Of Systems: See Below General: Reports: Fever Pulmonary: Reports: Shortness of Breath, Cough Cardiovascular: Denies: Chest Pain, Palpitations Gastrointestinal: Reports: Nausea Genitourinary: Denies: Dysuria, Frequency, Burning Exam - Exam Exam: See Below - Vital Signs Vital Signs: Last Vital Signs Temp 36.2 C 01/17/18 09:10 Pulse 90 01/17/18 09:10 Resp 18 01/17/18 09:10 BP 123/76 01/17/18 09:10 Pulse Ox 97 01/17/18 09:10 Weight: 69.49 kg - Exam General: Alert HEENT: Conjunctiva Clear Neck: Supple Lungs: Clear to Auscultation Cardiovascular: Regular Rate, Regular Rhythm GI/Abdominal Exam: Normal Bowel Sounds Extremities: Normal Inspection, Normal Range of Motion, Non-Tender, No Pedal Edema Skin: Warm - Patient Data Lab Results Last 24 hrs: Laboratory Results - last 24 hr 01/17/18 01/17/18 01/17/18 Range/Units 07:10 07:22 07:22 WBC 13.8 H (5.0-10.0) 10^3/uL RBC 5.89 H (4.2-5.4) 10^6/uL Hgb 14.9 D (12.0-16.0) g/dL Hct 46.2 (37.0-47.0) % MCV 78.4 L D (80-100) fL MCH 25.3 L (27.0-34.0) pg MCHC 32.3 L (33.0-35.0) g/dL Plt Count 367 (150-450) 10^3/uL Neut % (Auto) 75.9 H (42.2-75.2) % Lymph % (Auto) 20.7 (20.5-50.1) % [place] % (Auto) 3.1 (2-8) % Eos % (Auto) 0.1 L (1.0-3.0) % Baso % (Auto) 0.2 (0.0-1.0) % Sodium 132 L (135-145) mmol/L Potassium 4.0 (3.6-5.0) mmol/L Chloride 98 L (101-111) mmol/L Carbon Dioxide 10.0 L D (21.0-31.0) mmol/L Anion Gap 28.0 BUN 19 H (7-18) mg/dL Creatinine 1.0 (0.6-1.3) mg/dL Est Cr Clr Drug Dosing 83.31 mL/min Estimated GFR (MDRD) > 60 BUN/Creatinine Ratio 19.00 Glucose 472 H* (74-105) mg/dL POC Glucose 459 H* (70-105) mg/dl Calcium 9.9 (8.4-10.2) mg/dl Phosphorus (2.5-4.6) mg/dL Magnesium (1.8-2.5) mg/dL Total Bilirubin 1.5 H (0.2-1.0) mg/dL AST 69 H (10-42) IU/L ALT 158 H (10-60) IU/L Alkaline Phosphatase 106 (42-121) IU/L Total Protein 9.4 H (6.7-8.2) g/dl Albumin 4.9 (3.2-5.5) g/dl Globulin 4.5 Albumin/Globulin Ratio 1.09 Amylase 27 L (28-100) U/L Lipase 17 L (22-51) U/L Urine Color (YELLOW) Urine Appearance (CLEAR) Urine pH (5.0-9.0) Ur Specific [place] (1.005-1.030) Urine Protein (NEGATIVE) Urine Glucose (UA) (NEGATIVE) Urine Ketones (NEGATIVE) Urine Occult Blood (NEGATIVE) Urine Nitrite (NEGATIVE) Urine Bilirubin (NEGATIVE) Urine Urobilinogen (0.2-1.0) mg/dL Ur Leukocyte Esterase (NEGATIVE) Urine RBC /HPF Urine WBC (0-5/HPF) /HPF Ur Epithelial Cells /HPF Amorphous Sediment (0/HPF) /HPF Urine Bacteria (0-FEW/HPF) /HPF Urine Mucus /LPF Urine Yeast (0/HPF) /HPF Urine HCG, Qual Urine Opiates Screen (NEGATIVE) Ur Oxycodone Screen (NEGATIVE) Urine Methadone Screen (NEGATIVE) Ur Barbiturates Screen (NEGATIVE) U Tricyclic Antidepress (NEGATIVE) Ur Phencyclidine Scrn (NEGATIVE) Ur Amphetamine Screen (NEGATIVE) U Methamphetamines Scrn (NEGATIVE) Urine MDMA Screen (NEGATIVE) U Benzodiazepines Scrn (NEGATIVE) Urine Cocaine Screen (NEGATIVE) U Marijuana (THC) Screen (NEGATIVE) Ketones Positive 01/17/18 01/17/18 01/17/18 Range/Units 07:22 07:29 07:29 WBC (5.0-10.0) 10^3/uL RBC (4.2-5.4) 10^6/uL Hgb (12.0-16.0) g/dL Hct (37.0-47.0) % MCV (80-100) fL MCH (27.0-34.0) pg MCHC (33.0-35.0) g/dL Plt Count (150-450) 10^3/uL Neut % (Auto) (42.2-75.2) % Lymph % (Auto) (20.5-50.1) % [place] % (Auto) (2-8) % Eos % (Auto) (1.0-3.0) % Baso % (Auto) (0.0-1.0) % Sodium (135-145) mmol/L Potassium (3.6-5.0) mmol/L Chloride (101-111) mmol/L Carbon Dioxide (21.0-31.0) mmol/L Anion Gap BUN (7-18) mg/dL Creatinine (0.6-1.3) mg/dL Est Cr Clr Drug Dosing mL/min Estimated GFR (MDRD) BUN/Creatinine Ratio Glucose (74-105) mg/dL POC Glucose (70-105) mg/dl Calcium (8.4-10.2) mg/dl Phosphorus 4.4 (2.5-4.6) mg/dL Magnesium 1.9 (1.8-2.5) mg/dL Total Bilirubin (0.2-1.0) mg/dL AST (10-42) IU/L ALT (10-60) IU/L Alkaline Phosphatase (42-121) IU/L Total Protein (6.7-8.2) g/dl Albumin (3.2-5.5) g/dl Globulin Albumin/Globulin Ratio Amylase (28-100) U/L Lipase (22-51) U/L Urine Color Light yellow (YELLOW) Urine Appearance Slightly cloudy (CLEAR) Urine pH 5.0 (5.0-9.0) Ur Specific [place] 1.020 (1.005-1.030) Urine Protein 100 H (NEGATIVE) Urine Glucose (UA) 500 H (NEGATIVE) Urine Ketones 80 H (NEGATIVE) Urine Occult Blood Trace-lysed H (NEGATIVE) Urine Nitrite Negative (NEGATIVE) Urine Bilirubin Negative (NEGATIVE) Urine Urobilinogen 0.2 (0.2-1.0) mg/dL Ur Leukocyte Esterase Negative (NEGATIVE) Urine RBC 0-5 /HPF Urine WBC 0-5 (0-5/HPF) /HPF Ur Epithelial Cells Moderate H /HPF Amorphous Sediment Rare (0/HPF) /HPF Urine Bacteria Few (0-FEW/HPF) /HPF Urine Mucus Rare /LPF Urine Yeast Rare H (0/HPF) /HPF Urine HCG, Qual Urine Opiates Screen Negative (NEGATIVE) Ur Oxycodone Screen Negative (NEGATIVE) Urine Methadone Screen Negative (NEGATIVE) Ur Barbiturates Screen Negative (NEGATIVE) U Tricyclic Antidepress Negative (NEGATIVE) Ur Phencyclidine Scrn Negative (NEGATIVE) Ur Amphetamine Screen Negative (NEGATIVE) U Methamphetamines Scrn Negative (NEGATIVE) Urine MDMA Screen Negative (NEGATIVE) U Benzodiazepines Scrn Negative (NEGATIVE) Urine Cocaine Screen Negative (NEGATIVE) U Marijuana (THC) Screen Negative (NEGATIVE) Ketones 01/17/18 01/17/18 Range/Units 07:29 08:45 WBC (5.0-10.0) 10^3/uL RBC (4.2-5.4) 10^6/uL Hgb (12.0-16.0) g/dL Hct (37.0-47.0) % MCV (80-100) fL MCH (27.0-34.0) pg MCHC (33.0-35.0) g/dL Plt Count (150-450) 10^3/uL Neut % (Auto) (42.2-75.2) % Lymph % (Auto) (20.5-50.1) % [place] % (Auto) (2-8) % Eos % (Auto) (1.0-3.0) % Baso % (Auto) (0.0-1.0) % Sodium (135-145) mmol/L Potassium (3.6-5.0) mmol/L Chloride (101-111) mmol/L Carbon Dioxide (21.0-31.0) mmol/L Anion Gap BUN (7-18) mg/dL Creatinine (0.6-1.3) mg/dL Est Cr Clr Drug Dosing mL/min Estimated GFR (MDRD) BUN/Creatinine Ratio Glucose (74-105) mg/dL POC Glucose 286 H (70-105) mg/dl Calcium (8.4-10.2) mg/dl Phosphorus (2.5-4.6) mg/dL Magnesium (1.8-2.5) mg/dL Total Bilirubin (0.2-1.0) mg/dL AST (10-42) IU/L ALT (10-60) IU/L Alkaline Phosphatase (42-121) IU/L Total Protein (6.7-8.2) g/dl Albumin (3.2-5.5) g/dl Globulin Albumin/Globulin Ratio Amylase (28-100) U/L Lipase (22-51) U/L Urine Color (YELLOW) Urine Appearance (CLEAR) Urine pH (5.0-9.0) Ur Specific [place] (1.005-1.030) Urine Protein (NEGATIVE) Urine Glucose (UA) (NEGATIVE) Urine Ketones (NEGATIVE) Urine Occult Blood (NEGATIVE) Urine Nitrite (NEGATIVE) Urine Bilirubin (NEGATIVE) Urine Urobilinogen (0.2-1.0) mg/dL Ur Leukocyte Esterase (NEGATIVE) Urine RBC /HPF Urine WBC (0-5/HPF) /HPF Ur Epithelial Cells /HPF Amorphous Sediment (0/HPF) /HPF Urine Bacteria (0-FEW/HPF) /HPF Urine Mucus /LPF Urine Yeast (0/HPF) /HPF Urine HCG, Qual Negative Urine Opiates Screen (NEGATIVE) Ur Oxycodone Screen (NEGATIVE) Urine Methadone Screen (NEGATIVE) Ur Barbiturates Screen (NEGATIVE) U Tricyclic Antidepress (NEGATIVE) Ur Phencyclidine Scrn (NEGATIVE) Ur Amphetamine Screen (NEGATIVE) U Methamphetamines Scrn (NEGATIVE) Urine MDMA Screen (NEGATIVE) U Benzodiazepines Scrn (NEGATIVE) Urine Cocaine Screen (NEGATIVE) U Marijuana (THC) Screen (NEGATIVE) Ketones Result Diagrams: 01/17/18 07:22 01/17/18 07:22 Problem List Initiated/Reviewed/Updated: Yes Orders Last 24hrs: Active Orders 24 hr Category Date Time Status Patient Status [ADT] Routine ADT 01/17/18 10:09 Active Ambulate [RC] ASDIRECTED Care 01/17/18 10:09 Active Bedrest Bathroom Privileges [RC] ASDIRECTED Care 01/17/18 10:09 Active Blood Glucose Check, Bedside [RC] Q1HR Care 01/17/18 10:09 Active Diabetes Education [RC] Click to Edit Care 01/17/18 10:12 Active Height and Weight [RC] DAILY Care 01/17/18 10:09 Active Intake and Output [RC] QSHIFT Care 01/17/18 10:10 Active Oxygen Therapy [RC] PRN Care 01/17/18 10:09 Active Peripheral IV Care [RC] . DIRECTED Care 01/17/18 10:12 Active VTE/DVT Education [RC] PER UNIT ROUTINE Care 01/17/18 10:09 Active Vital Signs [RC] Q4H Care 01/17/18 10:09 Active Nothing per Oral Now Diet [DIET] Diet 01/17/18 Lunch Active CXR [Chest 2V] [CR] Routine Exams 01/17/18 10:24 Ordered BASIC METABOLIC PANEL,BMP [CHEM] Timed Lab 01/17/18 12:00 Ordered BASIC METABOLIC PANEL,BMP [CHEM] Timed Lab 01/17/18 16:00 Ordered Acetaminophen [Tylenol] Med 01/17/18 10:09 Active 650 mg PO Q4H PRN Azithromycin [Zithromax] Med 01/17/18 09:00 Active 500 mg PO DAILY DAPTOmycin [Cubicin] Med 01/17/18 11:00 Active 500 mg IV Q24H Dextrose 5% in Water @ 150 MLS/HR(1,000ml) Med 01/17/18 11:15 Ordered Dextrose 5% in Water 1,000 ml IV ASDIRECTED Escitalopram [Lexapro] Med 01/18/18 09:00 Active 10 mg PO DAILY Heparin Sodium Med 01/17/18 14:00 Active 5,000 units SUBCUT Q8HR Insulin Regular, Human [HumuLIN R] 100 unit Med 01/17/18 10:30 Active Sodium Chloride 0.9% [Normal Saline] 99 ml IV TITRATE Ketorolac [Toradol] Med 01/17/18 10:09 Active 30 mg IM Q6H PRN Multivitamins,Therapeutic [Thera] Med 01/18/18 09:00 Active 1 each PO DAILY Ondansetron [Zofran] Med 01/17/18 10:09 Active 4 mg IVPUSH Q4H PRN Sodium Chloride 0.9% [Normal Saline] 1,000 ml Med 01/17/18 10:15 Active IV .BOLUS Sodium Chloride 0.9% [Saline Flush] Med 01/17/18 10:09 Active 10 ml FLUSH ASDIRECTED PRN busPIRone [Buspar] Med 01/17/18 14:00 Active 10 mg PO TID cefTRIAXone [Rocephin] Med 01/17/18 11:00 Active 1 gm IV Q24H Glucose Management Sub Q Reflex [OM.PC] Click To Edit Oth 01/17/18 10:09 Ordered Peripheral IV Insertion Adult [OM.PC] Routine Oth 01/17/18 10:09 Ordered Saline Lock Insert [OM.PC] Routine Oth 01/17/18 10:09 Ordered Resuscitation Status Routine Resus Stat 01/17/18 10:09 Ordered Medication Orders Acetaminophen (Tylenol) 650 mg PO Q4H PRN PRN Reason: Pain (Mild 1-3)/fever Azithromycin (Zithromax) 500 mg PO DAILY RUPINDER Stop: 01/21/18 09:01 Buspirone HCl (Buspar) 10 mg PO TID RUPINDER Ceftriaxone Sodium (Rocephin) 1 gm IV Q24H RUPINDER Daptomycin (Cubicin) 500 mg IV Q24H RUPINDER Escitalopram Oxalate (Lexapro) 10 mg PO DAILY RUPINDER Heparin Sodium (Porcine) (Heparin Sodium) 5,000 units SUBCUT Q8HR RUPINDER Sodium Chloride (Normal Saline) 1,000 mls @ 999 mls/hr IV .BOLUS ONE Stop: 01/17/18 11:15 Insulin Human Regular 100 unit (/ Sodium Chloride) 100 mls @ 6.94 mls/hr IV TITRATE RUPINDER; Protocol Dextrose/Water (Dextrose 5% In Water) 1,000 mls @ 150 mls/hr IV ASDIRECTED RUPINDER Ketorolac Tromethamine (Toradol) 30 mg IM Q6H PRN PRN Reason: Pain (moderate 4-6) Multivitamins (Thera) 1 each PO DAILY RUPINDER Ondansetron HCl (Zofran) 4 mg IVPUSH Q4H PRN PRN Reason: Nausea/Vomiting Sodium Chloride (Saline Flush) 10 ml FLUSH ASDIRECTED PRN PRN Reason: Keep Vein Open Assessment/Plan Comment:: 22 yo F with PMH of Type 1 DM, non compliant p/w nausea, cough and found to be in DKA. DKA -positive ketones in urine, AG 28, hyperglycemic -start DKA protocol: IV fluids, insulin drip -check PO4 and Mag -Check BMP Q4 hrs until AG has closed -counselled patient on need for compliance to medication Cough -possible community acquired pneumonia -check CXR -start empiric ceftriaxone/azithromycin Depression -stable, continue home medication DVT ppx -SC heparin
[2018-01-17] MEDS ORDERED: Dextrose 5% in Water 1,000 ML IV SCH (11:15)
--- NOTE | 2018-01-17 11:50 | CR ---
Clinical history: 22-year-old female with cough. Interpretation: Slight shaggy accentuation central lung markings with subtle peribronchial "cuffing" typical of bronchitis. No focal lobar pneumonia, atelectasis or collapse. Normal cardiac silhouette and bony thorax. No new signs of alveolar edema or dependent pleural effusion compared to 08 September 2017 exam. No new lung mass, hilar lymphadenopathy or focal lobar pneumonia. No pneumothorax or free subdiaphragmatic air. CONCLUSION: Mild bronchitis. Otherwise negative plain film exam chest unchanged since August 2017 ex am.
[2018-01-17 12:29] LABS: CHLORIDE,CL 111 mmol/L (101-111); SODIUM,NA 139 mmol/L (135-145)
[2018-01-17] MEDS: Heparin Sodium 5,000 Units/ML Vial SUBCUT SCH ×2 (15:14→21:37)
[2018-01-17] MEDS: busPIRone 15 MG Tab PO SCH ×2 (15:15→21:36)
[2018-01-17 16:26] LABS: CHLORIDE,CL 109 mmol/L (101-111); SODIUM,NA 137 mmol/L (135-145)
[2018-01-17] MEDS: Insulin Aspart 100 Units/ML 3 ML Pen SUBCUT SCH ×2 (17:18→18:21)
[2018-01-17] MEDS: Insulin Detemir 100 Units/ML 3 ML Pen SUBCUT SCH (21:31)
[2018-01-17] MEDS: Ketorolac 30 MG/ML SDV IM PRN (23:14)
[2018-01-18 07:11] LABS: CHLORIDE,CL 109 mmol/L (101-111); SODIUM,NA 137 mmol/L (135-145)
[2018-01-18] MEDS: Heparin Sodium 5,000 Units/ML Vial SUBCUT SCH (07:16)
[2018-01-18] MEDS ORDERED: Multivitamins,Therapeutic Tab PO SCH (09:00)
[2018-01-18] MEDS ORDERED: Escitalopram 10 MG Tab PO SCH (09:00)
[2018-01-18] MEDS: Insulin Aspart 100 Units/ML 3 ML Pen SUBCUT SCH ×4 (09:33→12:23)
[2018-01-18] MEDS: Insulin Detemir 100 Units/ML 3 ML Pen SUBCUT SCH (09:40)
[2018-01-18] MEDS: Cephalexin 500 MG Cap PO SCH ×2 (09:43→13:16)
[2018-01-18] MEDS: busPIRone 15 MG Tab PO SCH ×2 (09:43→13:15)
[2018-01-18] MEDS ORDERED: Potassium Chloride 10 MEQ Tab.ER PO ONE ×2 (09:45→13:36)
--- NOTE | 2018-01-18 09:56 | PCM.DCSUM1 ---
Discharge Summary - Hospital Course Free Text/Narrative:: 22 yo admitted and managed for DKA precipitated by non-compliance to insulin therapy. Transitioned to oral meals and basal-bolus insulin and OK for discharged. Prescribed one week of Keflex for perineal furuncle. - Discharge Data Discharge Date: 01/18/18 Discharge Disposition: Home, Self-Care 01 Condition: Good - Patient Instructions Diet: Diabetic Diet - Discharge Plan Prescriptions/Med Rec: Cephalexin [Keflex] 500 mg PO Q6HR 7 Days #28 cap Home Medications: Home Meds Insulin Detemir [Levemir] 35 unit SUBCUT BID 03/11/16 [History] Insulin Aspart [NovoLOG] 10 unit SUBCUT TIDMEALS #1 pen 11/01/17 [Rx] Escitalopram [Lexapro] 10 mg PO DAILY 01/17/18 [History] Multivitamin [Multiple Vitamins] 1 tab PO DAILY 01/17/18 [History] busPIRone [Buspar] 10 mg PO TID 01/17/18 [History] Cephalexin [Keflex] 500 mg PO Q6HR 7 Days #28 cap 01/18/18 [Rx] Patient Handouts: Type 1 Diabetes Mellitus, Diagnosis, Adult, [id number] Forms: ED Department Discharge - Discharge Summary/Plan Comment DC Time >30 min.: Yes - General Info Admission Dx/Problem (Free Text: Admission Diagnosis/Problem Admission Diagnosis/Problem Diabetic ketoacidosis Subjective Update: Doing well this morning. No new symptoms. Has a perineal furuncle. Keflex started. - Review of Systems General: Reports: No Symptoms HEENT: Reports: No Symptoms Pulmonary: Reports: No Symptoms Cardiovascular: Reports: No Symptoms Gastrointestinal: Reports: No Symptoms Genitourinary: Reports: No Symptoms Musculoskeletal: Reports: No Symptoms - Patient Data Vitals - Most Recent: Last Vital Signs Temp 37.2 C 01/18/18 07:34 Pulse 74 01/18/18 07:34 Resp 18 01/18/18 07:34 BP 102/66 01/18/18 07:34 Pulse Ox 99 01/18/18 07:34 Weight - Most Recent: 69.49 kg I&O - Last 24 hours: Intake & Output 01/17/18 01/18/18 01/18/18 22:59 06:59 14:59 Intake Total 850 600 Output Total 400 Balance 850 200 Lab Results - Last 24 hrs: Laboratory Results - last 24 hr 01/17/18 01/17/18 01/17/18 Range/Units 07:22 10:55 12:02 WBC (5.0-10.0) 10^3/uL RBC (4.2-5.4) 10^6/uL Hgb (12.0-16.0) g/dL Hct (37.0-47.0) % MCV (80-100) fL MCH (27.0-34.0) pg MCHC (33.0-35.0) g/dL Plt Count (150-450) 10^3/uL Neut % (Auto) (42.2-75.2) % Lymph % (Auto) (20.5-50.1) % [place] % (Auto) (2-8) % Eos % (Auto) (1.0-3.0) % Baso % (Auto) (0.0-1.0) % Sodium 139 (135-145) mmol/L Potassium 3.7 (3.6-5.0) mmol/L Chloride 111 D (101-111) mmol/L Carbon Dioxide 14.0 L (21.0-31.0) mmol/L Anion Gap 17.7 BUN 13 (7-18) mg/dL Creatinine 0.5 L (0.6-1.3) mg/dL Est Cr Clr Drug Dosing 166.62 mL/min Estimated GFR (MDRD) > 60 Glucose 63 L (74-105) mg/dL POC Glucose 100 (70-105) mg/dl Calcium 8.0 L D (8.4-10.2) mg/dl Phosphorus 4.4 (2.5-4.6) mg/dL Magnesium 1.9 (1.8-2.5) mg/dL 01/17/18 01/17/18 01/17/18 Range/Units 13:09 13:41 15:20 WBC (5.0-10.0) 10^3/uL RBC (4.2-5.4) 10^6/uL Hgb (12.0-16.0) g/dL Hct (37.0-47.0) % MCV (80-100) fL MCH (27.0-34.0) pg MCHC (33.0-35.0) g/dL Plt Count (150-450) 10^3/uL Neut % (Auto) (42.2-75.2) % Lymph % (Auto) (20.5-50.1) % [place] % (Auto) (2-8) % Eos % (Auto) (1.0-3.0) % Baso % (Auto) (0.0-1.0) % Sodium (135-145) mmol/L Potassium (3.6-5.0) mmol/L Chloride (101-111) mmol/L Carbon Dioxide (21.0-31.0) mmol/L Anion Gap BUN (7-18) mg/dL Creatinine (0.6-1.3) mg/dL Est Cr Clr Drug Dosing mL/min Estimated GFR (MDRD) Glucose (74-105) mg/dL POC Glucose 35 L* 72 122 H (70-105) mg/dl Calcium (8.4-10.2) mg/dl Phosphorus (2.5-4.6) mg/dL Magnesium (1.8-2.5) mg/dL 01/17/18 01/17/18 01/17/18 Range/Units 16:00 17:04 18:09 WBC (5.0-10.0) 10^3/uL RBC (4.2-5.4) 10^6/uL Hgb (12.0-16.0) g/dL Hct (37.0-47.0) % MCV (80-100) fL MCH (27.0-34.0) pg MCHC (33.0-35.0) g/dL Plt Count (150-450) 10^3/uL Neut % (Auto) (42.2-75.2) % Lymph % (Auto) (20.5-50.1) % [place] % (Auto) (2-8) % Eos % (Auto) (1.0-3.0) % Baso % (Auto) (0.0-1.0) % Sodium 137 (135-145) mmol/L Potassium 3.4 L (3.6-5.0) mmol/L Chloride 109 (101-111) mmol/L Carbon Dioxide 15.0 L (21.0-31.0) mmol/L Anion Gap 16.4 BUN 10 (7-18) mg/dL Creatinine 0.5 L (0.6-1.3) mg/dL Est Cr Clr Drug Dosing 166.62 mL/min Estimated GFR (MDRD) > 60 Glucose 132 H (74-105) mg/dL POC Glucose 88 223 H (70-105) mg/dl Calcium 7.9 L (8.4-10.2) mg/dl Phosphorus (2.5-4.6) mg/dL Magnesium (1.8-2.5) mg/dL 01/17/18 01/18/18 01/18/18 Range/Units 20:55 06:20 06:20 WBC 9.4 (5.0-10.0) 10^3/uL RBC 4.75 (4.2-5.4) 10^6/uL Hgb 11.8 L D (12.0-16.0) g/dL Hct 36.3 L (37.0-47.0) % MCV 76.4 L (80-100) fL MCH 24.8 L (27.0-34.0) pg MCHC 32.5 L (33.0-35.0) g/dL Plt Count 307 (150-450) 10^3/uL Neut % (Auto) 51.4 (42.2-75.2) % Lymph % (Auto) 39.7 (20.5-50.1) % [place] % (Auto) 7.6 (2-8) % Eos % (Auto) 1.1 (1.0-3.0) % Baso % (Auto) 0.2 (0.0-1.0) % Sodium 137 (135-145) mmol/L Potassium 2.8 L (3.6-5.0) mmol/L Chloride 109 (101-111) mmol/L Carbon Dioxide 24.0 (21.0-31.0) mmol/L Anion Gap 6.8 BUN 8 (7-18) mg/dL Creatinine 0.4 L (0.6-1.3) mg/dL Est Cr Clr Drug Dosing 208.27 mL/min Estimated GFR (MDRD) > 60 Glucose 180 H (74-105) mg/dL POC Glucose 322 H (70-105) mg/dl Calcium 8.0 L (8.4-10.2) mg/dl Phosphorus (2.5-4.6) mg/dL Magnesium (1.8-2.5) mg/dL 01/18/18 Range/Units 07:47 WBC (5.0-10.0) 10^3/uL RBC (4.2-5.4) 10^6/uL Hgb (12.0-16.0) g/dL Hct (37.0-47.0) % MCV (80-100) fL MCH (27.0-34.0) pg MCHC (33.0-35.0) g/dL Plt Count (150-450) 10^3/uL Neut % (Auto) (42.2-75.2) % Lymph % (Auto) (20.5-50.1) % [place] % (Auto) (2-8) % Eos % (Auto) (1.0-3.0) % Baso % (Auto) (0.0-1.0) % Sodium (135-145) mmol/L Potassium (3.6-5.0) mmol/L Chloride (101-111) mmol/L Carbon Dioxide (21.0-31.0) mmol/L Anion Gap BUN (7-18) mg/dL Creatinine (0.6-1.3) mg/dL Est Cr Clr Drug Dosing mL/min Estimated GFR (MDRD) Glucose (74-105) mg/dL POC Glucose 135 H (70-105) mg/dl Calcium (8.4-10.2) mg/dl Phosphorus (2.5-4.6) mg/dL Magnesium (1.8-2.5) mg/dL Med Orders - Current: Current Medications Acetaminophen (Tylenol) 650 mg PO Q4H PRN PRN Reason: Pain (Mild 1-3)/fever Buspirone HCl (Buspar) 10 mg PO TID [facility] Last Admin: 01/18/18 09:43 Dose: 10 mg Cephalexin (Keflex) 500 mg PO Q6HR [facility] Last Admin: 01/18/18 09:43 Dose: 500 mg Escitalopram Oxalate (Lexapro) 10 mg PO DAILY [facility] Last Admin: 01/18/18 09:44 Dose: 10 mg Heparin Sodium (Porcine) (Heparin Sodium) 5,000 units SUBCUT Q8HR [facility] Last Admin: 01/18/18 07:16 Dose: Not Given Potassium Chloride 20 meq/ (Premix) 100 mls @ 50 mls/hr IV Q2H [facility] Stop: 01/18/18 13:59 Insulin Aspart (Novolog) 10 unit SUBCUT TIDMEALS [facility] Last Admin: 01/18/18 09:33 Dose: 10 units Insulin Aspart (Novolog) 0 unit SUBCUT TIDAC [facility]; Protocol Last Admin: 01/17/18 17:18 Dose: Not Given Insulin Detemir (Levemir) 35 unit SUBCUT BID [facility] Last Admin: 01/18/18 09:40 Dose: 35 unit Ketorolac Tromethamine (Toradol) 30 mg IM Q6H PRN PRN Reason: Pain (moderate 4-6) Last Admin: 01/17/18 23:14 Dose: 30 mg Multivitamins (Thera) 1 each PO DAILY [facility] Last Admin: 01/18/18 09:44 Dose: 1 each Ondansetron HCl (Zofran) 4 mg IVPUSH Q4H PRN PRN Reason: Nausea/Vomiting Last Admin: 01/17/18 11:20 Dose: 4 mg Sodium Chloride (Saline Flush) 10 ml FLUSH ASDIRECTED PRN PRN Reason: Keep Vein Open Discontinued Medications Azithromycin (Zithromax) 500 mg PO DAILY [facility] Stop: 01/21/18 09:01 Last Admin: 01/17/18 11:33 Dose: 500 mg Ceftriaxone Sodium (Rocephin) 1 gm IV Q24H [facility] Last Admin: 01/17/18 11:18 Dose: 1 gm Sodium Chloride (Normal Saline) 1,000 mls @ 999 mls/hr IV .BOLUS ONE Stop: 01/17/18 08:26 Last Admin: 01/17/18 07:28 Dose: 999 mls/hr Sodium Chloride (Normal Saline) 1,000 mls @ 999 mls/hr IV .BOLUS ONE Stop: 01/17/18 09:31 Last Admin: 01/17/18 08:35 Dose: 999 mls/hr Sodium Chloride (Normal Saline) 1,000 mls @ 999 mls/hr IV .BOLUS ONE Stop: 01/17/18 11:15 Last Infusion: 01/17/18 13:10 Dose: Infused Sodium Chloride (Normal Saline) 1,000 mls @ 200 mls/hr IV ASDIRECTED [facility] Insulin Human Regular 100 unit (/ Sodium Chloride) 100 mls @ 6.94 mls/hr IV TITRATE RUPINDER; Protocol Ceftriaxone Sodium 1 gm/ (Sodium Chloride) 100 mls @ 200 mls/hr IV Q24H [facility] Last Admin: 01/17/18 11:27 Dose: Not Given Dextrose/Water (Dextrose 5% In Water) 1,000 mls @ 150 mls/hr IV ASDIRECTED RUPINDER Last Infusion: 01/17/18 17:22 Dose: Infused Insulin Human Regular (Humulin R) 4 unit IV ONETIME ONE Stop: 01/17/18 08:15 Last Admin: 01/17/18 08:19 Dose: 4 units Ondansetron HCl (Zofran) 4 mg IV ONETIME ONE Stop: 01/17/18 07:27 Last Admin: 01/17/18 07:33 Dose: 4 mg Potassium Chloride (Klor-Con 10) 40 meq PO ONETIME ONE Stop: 01/18/18 09:46 Sodium Chloride (Saline Flush) 10 ml FLUSH ASDIRECTED PRN PRN Reason: Keep Vein Open - Exam General: Reports: Alert, Oriented HEENT: Reports: Pupils Equal, Pupils Reactive Neck: Reports: Supple Lungs: Reports: Clear to Auscultation Cardiovascular: Reports: Regular Rate, Regular Rhythm GI/Abdominal Exam: Normal Bowel Sounds
[2018-01-18] MEDS: Potassium Chloride 20 MEQ in Premix Bag 1 BAG IV SCH ×2 (10:17→13:21)
[2018-01-18] MEDS: Ketorolac 30 MG/ML SDV IM PRN (10:36)
[2018-01-18 10:58] VITALS: BP 112/68
== END 2018-01-18 14:00 | disposition home or self-care (01) | DRG 639 ==
LOC: DL.ED 06:56 → UNDOADMIN 08:59 → DL.MS 08:59
PROVIDERS: ADMIT Hospitalist; ATTEND Hospitalist
DX: E10.10 Type 1 diabetes mellitus with ketoacidosis without coma (principal); Z79.4 Long term (current) use of insulin; Z91.14 Patient's other noncompliance with medication regimen; F32.9 Major depressive disorder, single episode, unspecified; F17.200 Nicotine dependence, unspecified, uncomplicated; Z88.6 Allergy status to analgesic agent; Z86.14 Personal history of Methicillin resistant Staphylococcus aureus infection; Z86.19 Personal history of other infectious and parasitic diseases
CPT/HCPCS: 36415; 71046; 80048; 80053; 80305; 81001; 81025; 82009; 82150; 82962; 83690; 83735; 84100; 85025; 96361; 96374; 96375; 99285; A9270-GY; J0696; J1815; J1815-GY; J1885; J2405; J3480; J7030; J7040; J7050; J7060

== ENCOUNTER 2018-04-17 07:27 | Emergency (ER) | payer MEDICAID ==
[2018-04-17] MEDS ORDERED: Sodium Chloride 0.9% 1,000 ML IV ONE ×2 (07:34→09:15)
--- NOTE | 2018-04-17 08:06 | EDM.PDOC ---
ED HPI GENERAL MEDICAL PROBLEM - General Chief Complaint: Gastrointestinal Problem Stated Complaint: DIABETIC, THROWING UP Time Seen by Provider: 04/17/18 07:45 Source of Information: Reports: Patient History Limitations: Reports: No Limitations - History of Present Illness INITIAL COMMENTS - FREE TEXT/NARRATIVE: This 23 yo female patient reports to the ED with a 3 day history of nausea and vomiting. The patient reports she is a diabetic and has been taking her insulin. The patient reports she has attempted to drink water and have a Popsicle. The patient has not been seen by her primary care facility. The patient reports she did do some meth and smoke marijuana about 3 days ago. The patient reports that her blood sugar was in the 300's at 0530 this morning. The patient does not know if she is possibly . Onset Date: 04/14/18 Duration: Constant Location: Reports: Abdomen Quality: Reports: Other Severity: Moderate Improves with: Reports: None Worsens with: Reports: None Context: Reports: Other Associated Symptoms: Reports: Nausea/Vomiting Epigastric Pain Score (Numeric/FACES): 8 - Related Data Allergies Allergy/AdvReac Type Severity Reaction Status Date / Time hydromorphone HCl Allergy Itching Verified 04/17/18 07:39 [From Dilaudid] Home Meds: Home Meds Insulin Detemir [Levemir] 35 unit SUBCUT BID 03/11/16 [History] Insulin Aspart [NovoLOG] 10 unit SUBCUT TIDMEALS #1 pen 11/01/17 [Rx] Past Medical History HEENT History: Reports: Other (See Below) Other HEENT History: ear problems with draining, cheek broken in three different place Cardiovascular History: Reports: None Respiratory History: Reports: None Gastrointestinal History: Reports: Hepatitis Other Gastrointestinal History: rectal bleeding per self report for past couple of months Genitourinary History: Reports: None 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 Musculoskeletal History: Reports: Fracture Neurological History: Reports: None Psychiatric History: Reports: ADHD, Addiction, Depression, Emotional Problems, Suicide Attempt, Suicidal Ideation Endocrine/Metabolic History: Reports: Diabetes, Type I Hematologic History: Reports: Other (See Below) Other Hematologic History: Hep + Immunologic History: Reports: None Oncologic (Cancer) History: Reports: None Dermatologic History: Reports: Other (See Below) Other Dermatologic History: cut [place]عراق[place] noted to forearms, acne vulgaris - Infectious Disease History Infectious Disease History: Reports: Hepatitis C, MRSA - Past Surgical History Head Surgeries/Procedures: Reports: None HEENT Surgical History: Reports: Adenoidectomy, Tonsillectomy GI Surgical History: Reports: None Endocrine Surgical History: Reports: None Social & Family History - Family History Family Medical History: Noncontributory Psychiatric: Reports: Depression Endocrine/Metabolic: Reports: Diabetes, type II - Tobacco Use Smoking Status *Q: Current Every Day Smoker Years of Tobacco use: 6 Packs/Tins Daily: 0.5 - Caffeine Use Caffeine Use: Reports: None - Recreational Drug Use Recreational Drug Type: Reports: Marijuana/Hashish, Methamphetamine - Sexual History Sexual History: Reports: Sexually Active - Living Situation & Occupation Living situation: Reports: with Significant Other Occupation: Unemployed ED ROS GENERAL - Review of Systems Review Of Systems: ROS reveals no pertinent complaints other than HPI. ED EXAM, GI/ABD - Physical Exam Exam: See Below Exam Limited By: No Limitations General Appearance: Alert, WD/WN, Moderate Distress, Thin Eyes: Bilateral: Normal Appearance, EOMI Ears: Normal External Exam, Normal Canal, Hearing Grossly Normal, Normal TMs Nose: Normal Inspection, Normal Mucosa, No Blood Throat/Mouth: Normal Inspection, Normal Lips, Normal Teeth, Normal Gums, Normal Oropharynx, Normal Voice, No Airway Compromise Head: Atraumatic, Normocephalic Neck: Normal Inspection, Supple, Non-Tender, Full Range of Motion Respiratory/Chest: No Respiratory Distress, Lungs Clear, Normal Breath Sounds, No Accessory Muscle Use, Chest Non-Tender Cardiovascular: Normal Peripheral Pulses, Regular Rate, Rhythm, No Edema, No Gallop, No JVD, No Murmur, No Rub GI/Abdominal Exam: Normal Bowel Sounds, Soft, No Organomegaly, No Distention, No Abnormal Bruit, No Mass, Pelvis Stable, Tender (diffuse) (Female) Exam: Deferred Rectal (Female) Exam: Deferred Back Exam: Normal Inspection, Full Range of Motion, NT Extremities: Normal Inspection, Normal Range of Motion, Non-Tender, Normal Capillary Refill, No Pedal Edema Neurological: Alert, Oriented, CN II-XII Intact, Normal Cognition, Normal Gait, Normal Reflexes, No Motor/Sensory Deficits Psychiatric: Normal Affect, Normal Mood Skin Exam: Warm, Dry, Intact, Normal Color, No Rash Lymphatic: No Adenopathy Course - Vital Signs Last Recorded V/S: Last Vital Signs Temp 36.8 C 04/17/18 07:34 Pulse 107 H 04/17/18 09:19 Resp 16 04/17/18 09:19 BP 118/75 04/17/18 09:19 Pulse Ox 100 04/17/18 09:19 - Orders/Labs/Meds Orders: Active Orders 24 hr Category Date Time Status DRUG SCREEN URINE BIORAD [URCHEM] Stat Lab 04/17/18 08:20 Ordered HCG QUALITATIVE,URINE [URCHEM] Stat Lab 04/17/18 08:20 Ordered UA W/MICROSCOPIC [URIN] Stat Lab 04/17/18 08:20 Ordered Sodium Chloride 0.9% [Normal Saline] 1,000 ml Med 04/17/18 09:15 Ordered IV .BOLUS Medication Orders Sodium Chloride (Normal Saline) 1,000 mls @ 999 mls/hr IV .BOLUS ONE Stop: 04/17/18 10:15 Last Admin: 04/17/18 09:16 Dose: 999 mls/hr Labs: Laboratory Tests 04/17/18 04/17/18 04/17/18 Range/Units 07:48 07:48 07:48 WBC 13.2 H (5.0-10.0) 10^3/uL RBC 6.67 H (4.2-5.4) 10^6/uL Hgb 17.8 H D (12.0-16.0) g/dL Hct 52.9 H (37.0-47.0) % MCV 79.3 L (80-100) fL MCH 26.7 L (27.0-34.0) pg MCHC 33.6 (33.0-35.0) g/dL Plt Count 398 D (150-450) 10^3/uL Neut % (Auto) 59.9 (42.2-75.2) % Lymph % (Auto) 33.3 (20.5-50.1) % [place] % (Auto) 6.6 (2-8) % Eos % (Auto) 0.0 L (1.0-3.0) % Baso % (Auto) 0.2 (0.0-1.0) % Sodium 137 (135-145) mmol/L Potassium 3.4 L (3.6-5.0) mmol/L Chloride 99 L (101-111) mmol/L Carbon Dioxide 12.0 L D (21.0-31.0) mmol/L Anion Gap 29.4 BUN 27 H (7-18) mg/dL Creatinine 1.1 (0.6-1.3) mg/dL Est Cr Clr Drug Dosing 71.80 mL/min Estimated GFR (MDRD) > 60 BUN/Creatinine Ratio 24.54 Glucose 79 (74-105) mg/dL Calcium 11.0 H D (8.4-10.2) mg/dl Total Bilirubin 2.4 H (0.2-1.0) mg/dL AST 35 (10-42) IU/L ALT 76 H (10-60) IU/L Alkaline Phosphatase 83 (42-121) IU/L Total Protein 10.7 H (6.7-8.2) g/dl Albumin 5.6 H (3.2-5.5) g/dl Globulin 5.1 Albumin/Globulin Ratio 1.10 Amylase 20 L (28-100) U/L Lipase 27 (22-51) U/L Urine Color (YELLOW) Urine Appearance (CLEAR) Urine pH (5.0-9.0) Ur Specific [place] (1.005-1.030) Urine Protein (NEGATIVE) Urine Glucose (UA) (NEGATIVE) Urine Ketones (NEGATIVE) Urine Occult Blood (NEGATIVE) Urine Nitrite (NEGATIVE) Urine Bilirubin (NEGATIVE) Urine Urobilinogen (0.2-1.0) mg/dL Ur Leukocyte Esterase (NEGATIVE) Urine RBC /HPF Urine WBC (0-5/HPF) /HPF Ur Epithelial Cells /HPF Urine Bacteria (0-FEW/HPF) /HPF Hyaline Casts /LPF Fine Granular Casts (0/LPF) /LPF Urine Mucus /LPF Urinalysis Comment Urine HCG, Qual Urine Opiates Screen (NEGATIVE) Ur Oxycodone Screen (NEGATIVE) Urine Methadone Screen (NEGATIVE) Ur Barbiturates Screen (NEGATIVE) U Tricyclic Antidepress (NEGATIVE) Ur Phencyclidine Scrn (NEGATIVE) Ur Amphetamine Screen (NEGATIVE) U Methamphetamines Scrn (NEGATIVE) Urine MDMA Screen (NEGATIVE) U Benzodiazepines Scrn (NEGATIVE) Urine Cocaine Screen (NEGATIVE) U Marijuana (THC) Screen (NEGATIVE) Ketones Positive(small) 04/17/18 04/17/18 04/17/18 Range/Units 08:20 08:20 08:20 WBC (5.0-10.0) 10^3/uL RBC (4.2-5.4) 10^6/uL Hgb (12.0-16.0) g/dL Hct (37.0-47.0) % MCV (80-100) fL MCH (27.0-34.0) pg MCHC (33.0-35.0) g/dL Plt Count (150-450) 10^3/uL Neut % (Auto) (42.2-75.2) % Lymph % (Auto) (20.5-50.1) % [place] % (Auto) (2-8) % Eos % (Auto) (1.0-3.0) % Baso % (Auto) (0.0-1.0) % Sodium (135-145) mmol/L Potassium (3.6-5.0) mmol/L Chloride (101-111) mmol/L Carbon Dioxide (21.0-31.0) mmol/L Anion Gap BUN (7-18) mg/dL Creatinine (0.6-1.3) mg/dL Est Cr Clr Drug Dosing mL/min Estimated GFR (MDRD) BUN/Creatinine Ratio Glucose (74-105) mg/dL Calcium (8.4-10.2) mg/dl Total Bilirubin (0.2-1.0) mg/dL AST (10-42) IU/L ALT (10-60) IU/L Alkaline Phosphatase (42-121) IU/L Total Protein (6.7-8.2) g/dl Albumin (3.2-5.5) g/dl Globulin Albumin/Globulin Ratio Amylase (28-100) U/L Lipase (22-51) U/L Urine Color Yellow (YELLOW) Urine Appearance Slightly cloudy (CLEAR) Urine pH 5.5 (5.0-9.0) Ur Specific [place] >= 1.030 (1.005-1.030) Urine Protein >=300 H (NEGATIVE) Urine Glucose (UA) 500 H (NEGATIVE) Urine Ketones >=160 H (NEGATIVE) Urine Occult Blood Moderate H (NEGATIVE) Urine Nitrite Negative (NEGATIVE) Urine Bilirubin Moderate H (NEGATIVE) Urine Urobilinogen 0.2 (0.2-1.0) mg/dL Ur Leukocyte Esterase Negative (NEGATIVE) Urine RBC 20-30 H /HPF Urine WBC 0-5 (0-5/HPF) /HPF Ur Epithelial Cells Many H /HPF Urine Bacteria Many H (0-FEW/HPF) /HPF Hyaline Casts Few H /LPF Fine Granular Casts Few H (0/LPF) /LPF Urine Mucus Few H /LPF Urinalysis Comment Urine HCG, Qual Negative Urine Opiates Screen Negative (NEGATIVE) Ur Oxycodone Screen Negative (NEGATIVE) Urine Methadone Screen Negative (NEGATIVE) Ur Barbiturates Screen Negative (NEGATIVE) U Tricyclic Antidepress Negative (NEGATIVE) Ur Phencyclidine Scrn Negative (NEGATIVE) Ur Amphetamine Screen Positive H (NEGATIVE) U Methamphetamines Scrn Positive H (NEGATIVE) Urine MDMA Screen Positive H (NEGATIVE) U Benzodiazepines Scrn Negative (NEGATIVE) Urine Cocaine Screen Negative (NEGATIVE) U Marijuana (THC) Screen Positive H (NEGATIVE) Ketones Meds: Medications Generic Name Dose Route Start Last Admin Trade Name Freq PRN Reason Stop Dose Admin Sodium Chloride 1,000 mls @ 999 mls/hr 04/17/18 09:15 04/17/18 09:16 Normal Saline IV 04/17/18 10:15 999 mls/hr .BOLUS ONE Administration Discontinued Medications Generic Name Dose Route Start Last Admin Trade Name Freq PRN Reason Stop Dose Admin Sodium Chloride 1,000 mls @ 999 mls/hr 04/17/18 07:34 04/17/18 08:10 Normal Saline IV 04/17/18 08:34 999 mls/hr .BOLUS ONE Administration Ondansetron HCl 4 mg 04/17/18 08:33 04/17/18 08:40 Zofran IV 04/17/18 08:34 4 mg ONETIME ONE Administration Departure - Departure Time of Disposition: 09:38 Disposition: Home, Self-Care 01 Condition: Fair Clinical Impression: Methamphetamine abuse, Marijuana abuse, Gastroenteritis - Discharge Information *PRESCRIPTION DRUG MONITORING PROGRAM REVIEWED*: Not Applicable *COPY OF PRESCRIPTION DRUG MONITORING REPORT IN PATIENT AMANDA: Not Applicable Instructions: Viral Gastroenteritis, Adult, [id number], Cannabis Use Disorder , Stimulant Use Disorder-Methamphetamines Forms: ED Department Discharge Care Plan Goals: The patient was advised of the examination and lab results. The patient was given IV fluids and IV Zofran while in the ED. The patient was encouraged to avoid methamphetamine and marijuana use. The patient should continue to take her medications as prescribed. If the patient has any additional symptoms or concerns, the patient should follow-up with her primary care facility or return to the emergency department. - My Orders Last 24 Hours: My Active Orders 04/17/18 08:20 DRUG SCREEN URINE BIORAD [URCHEM] Stat HCG QUALITATIVE,URINE [URCHEM] Stat UA W/MICROSCOPIC [URIN] Stat 04/17/18 09:15 Sodium Chloride 0.9% [Normal Saline] 1,000 ml IV .BOLUS - Assessment/Plan Last 24 Hours: My Active Orders 04/17/18 08:20 DRUG SCREEN URINE BIORAD [URCHEM] Stat HCG QUALITATIVE,URINE [URCHEM] Stat UA W/MICROSCOPIC [URIN] Stat 04/17/18 09:15 Sodium Chloride 0.9% [Normal Saline] 1,000 ml IV .BOLUS
[2018-04-17 08:15] LABS: ANION GAP 29.4; CHLORIDE,CL 99 mmol/L (101-111); SODIUM,NA 137 mmol/L (135-145)
[2018-04-17] MEDS ORDERED: Ondansetron 4 MG/2 ML SDV IV ONE (08:33)
[2018-04-17 09:20] VITALS: BP 118/75
== END 2018-04-17 10:45 | disposition home or self-care (01) ==
LOC: DL.ED 07:27
DX: K52.9 Noninfective gastroenteritis and colitis, unspecified (principal); F15.10 Other stimulant abuse, uncomplicated; F12.10 Cannabis abuse, uncomplicated; F17.210 Nicotine dependence, cigarettes, uncomplicated; E11.9 Type 2 diabetes mellitus without complications; Z88.8 Allergy status to other drugs, medicaments and biological substances
CPT/HCPCS: 36415; 80053; 80305; 81001; 81025; 82009; 82150; 83690; 85025; 96361; 96374; 99284; J2405; J7030

== ENCOUNTER 2018-11-25 10:22 | Inpatient (IN) | payer MEDICAID ==
--- NOTE | 2018-11-25 10:25 | EDM.PDOC ---
ED HPI GENERAL MEDICAL PROBLEM - General Chief Complaint: Diabetic Complaint Stated Complaint: AMBULANCE / DKA Time Seen by Provider: 11/25/18 10:25 Source of Information: Reports: Patient, EMS, Old Records, RN, RN Notes Reviewed History Limitations: Reports: No Limitations - History of Present Illness INITIAL COMMENTS - FREE TEXT/NARRATIVE: Pt arrives to ER from home by [facility] with c/o not feeling well, nausea, vomiting, generalized upper abdominal pain, chest pain, dry mouth, and states, "I think I' m in DKA again". Pt admits that she smoked marijuana and used methamphetamine yesterday. Hx of DM Type 1 with multiple hospitalizations for DKA in the past. Pt states she last used insulin approx. 40 mins. 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 Onset: Today Duration: Constant Location: Reports: Generalized Quality: Reports: Same as Previous Episode Severity: Severe Improves with: Reports: None Worsens with: Reports: None Associated Symptoms: Reports: No Other Symptoms Headache Pain Score (Numeric/FACES): 7 Epigastric Pain Score (Numeric/FACES): 7 - Related Data Allergies Allergy/AdvReac Type Severity Reaction Status Date / Time hydromorphone HCl Allergy Itching Verified 11/25/18 11:28 [From Dilaudid] Home Meds: Home Meds Insulin Detemir [Levemir] 40 unit SUBCUT BID 03/11/16 [History] Insulin Aspart [NovoLOG] 10 unit SUBCUT TIDMEALS #1 pen 11/01/17 [Rx] Past Medical History HEENT History: Reports: Other (See Below) Other HEENT History: ear problems with draining, cheek broken in three different place Cardiovascular History: Reports: None Respiratory History: Reports: None Gastrointestinal History: Reports: GI Bleed, Hepatitis Other Gastrointestinal History: rectal bleeding per self report for past couple of months Genitourinary History: Reports: None TALENT DEVELOPMENT ANALYST History: Reports: Spontaneous Musculoskeletal History: Reports: Fracture Neurological History: Reports: None Psychiatric History: Reports: ADHD, Addiction, Depression, Emotional Problems, Suicide Attempt, Suicidal Ideation Endocrine/Metabolic History: Reports: Diabetes, Type I, IDDM Hematologic History: Reports: Other (See Below) Other Hematologic History: Hep + Immunologic History: Reports: None Oncologic (Cancer) History: Reports: None Dermatologic History: Reports: Other (See Below) Other Dermatologic History: cut [place] noted to forearms, acne vulgaris - Infectious Disease History Infectious Disease History: Reports: Hepatitis C, MRSA - Past Surgical History Head Surgeries/Procedures: Reports: None HEENT Surgical History: Reports: Adenoidectomy, Tonsillectomy GI Surgical History: Reports: None Endocrine Surgical History: Reports: None Social & Family History - Family History Family Medical History: Noncontributory Psychiatric: Reports: Depression Endocrine/Metabolic: Reports: Diabetes, type II - Caffeine Use Caffeine Use: Reports: None - Recreational Drug Use Recreational Drug Use: Yes Drug Use in Last 12 Months: Yes Recreational Drug Type: Reports: Marijuana/Hashish, Methamphetamine Recreational Drug Use Frequency: Binges - Sexual History Sexual History: Reports: Sexually Active - Living Situation & Occupation Living situation: Reports: with Significant Other Occupation: Unemployed ED ROS GENERAL - Review of Systems Review Of Systems: ROS reveals no pertinent complaints other than HPI. ED EXAM GENERAL NO PERIP PULSE - Physical Exam Exam: See Below Exam Limited By: No Limitations General Appearance: Alert, No Apparent Distress, Other (acutely ill but non- toxic appearing) Eye Exam: Bilateral Eye: EOMI, Normal Inspection, PERRL Ears: Normal External Exam, Hearing Grossly Normal Nose: Normal Inspection, Normal Mucosa, No Blood Throat/Mouth: Normal Lips, Normal Oropharynx, Normal Voice, No Airway Compromise , Other (Dry oral membranes) Head: Atraumatic, Normocephalic Neck: Normal Inspection, Supple, Non-Tender, Full Range of Motion. No: Lymphadenopathy (L), Lymphadenopathy (R) Respiratory/Chest: No Respiratory Distress, Lungs Clear, Normal Breath Sounds, No Accessory Muscle Use, Chest Non-Tender Cardiovascular: Normal Peripheral Pulses, Regular Rate, Rhythm, No Edema, No Gallop, No JVD, No Murmur, No Rub, Tachycardia GI/Abdominal: Normal Bowel Sounds, Soft, Tender (moderate generalized upper abdominal tenderness, no RLQ tenderness, no peritoneal signs) (Female) Exam: Deferred Rectal (Female) Exam: Deferred Back Exam: Normal Inspection, Full Range of Motion. No: CVA Tenderness (L), CVA Tenderness (R) Extremities: Normal Inspection, Normal Range of Motion, Non-Tender, Normal Capillary Refill, No Pedal Edema Neurological: Alert, Oriented, CN II-XII Intact, Normal Cognition, No Motor/ Sensory Deficits Psychiatric: Normal Mood, Flat Affect Skin Exam: Warm, Dry, Intact, Normal Color, No Rash. No: Jaundice EKG INTERPRETATION EKG Date: 11/25/18 Time: 10:44 Rhythm: Other (Sinus Tach) Rate (Beats/Min): 122 [place]: Normal P-Wave: Present (possible left atrial abnl.) QRS: Normal ST-T: Normal QT: Prolonged (borderline) Comparison: No Change EKG Interpretation Comments: No acute ischemic changes. Course - Vital Signs Last Recorded V/S: Last Vital Signs Temp 36.8 C 11/25/18 10:24 Pulse 122 H 11/25/18 10:24 Resp 28 H 11/25/18 10:24 BP 138/104 H 11/25/18 10:24 Pulse Ox 100 11/25/18 10:24 - Orders/Labs/Meds Orders: Active Orders 24 hr Category Date Time Status Blood Glucose Check, Bedside [] ONETIME Care 11/25/18 10:26 Active EKG 12 Lead [EKG Documentation Completion] [] STAT Care 11/25/18 10:25 Active Peripheral IV Care [] . DIRECTED Care 11/25/18 10:27 Active CULTURE BLOOD [BC] Stat Lab 11/25/18 10:35 Results CULTURE BLOOD [BC] Stat Lab 11/25/18 11:15 Results NS + KCl 20mEq/L [Normal Saline with 20 mEq KCl] 1,000 Med 11/25/18 11:45 Active ml IV ASDIRECTED Sodium Chloride 0.9% [Saline Flush] Med 11/25/18 10:26 Active 10 ml FLUSH ASDIRECTED PRN Blood Culture x2 Reflex Set [OM.PC] Stat Oth 11/25/18 10:25 Ordered Peripheral IV Insertion Adult [OM.PC] Stat Oth 11/25/18 10:25 Ordered Peripheral IV Insertion Adult [OM.PC] Stat Oth 11/25/18 10:27 Ordered Medication Orders Heparin Sodium (Porcine) (Heparin Sodium) 5,000 units SUBCUT Q8HR RUPINDER Potassium Chloride/Sodium Chloride (Normal Saline With 20 Meq Kcl) 1,000 mls @ 500 mls/hr IV ASDIRECTED RUPINDER Last Admin: 11/25/18 11:54 Dose: 500 mls/hr Insulin Human Regular 100 unit (/ Sodium Chloride) 100 mls @ 5.81 mls/hr IV TITRATE RUPINDER; Protocol Sodium Bicarbonate 100 meq/ (Dextrose/Water) 1,100 mls @ 100 mls/hr IV ONETIME ONE Stop: 11/26/18 00:13 Potassium Chloride/Sodium Chloride (Normal Saline With 20 Meq Kcl) 1,000 mls @ 150 mls/hr IV ASDIRECTED RUPINDER Ondansetron HCl (Zofran) 4 mg IVPUSH Q6H PRN PRN Reason: Nausea/Vomiting Ondansetron HCl (Zofran Odt) 4 mg PO Q6H PRN PRN Reason: nausea, able to take PO Promethazine HCl (Phenergan) 6.25 mg IM Q6H PRN PRN Reason: Nausea/Vomiting Promethazine HCl (Phenergan) 25 mg PO Q6H PRN PRN Reason: nausea, able to take PO Sodium Chloride (Saline Flush) 10 ml FLUSH ASDIRECTED PRN PRN Reason: Keep Vein Open Last Admin: 11/25/18 10:46 Dose: 10 ml Labs: Laboratory Tests 11/25/18 11/25/18 11/25/18 Range/Units 10:35 10:35 10:35 WBC 14.0 H (5.0-10.0) 10^3/uL RBC 6.06 H (4.2-5.4) 10^6/uL Hgb 16.5 H D (12.0-16.0) g/dL Hct 52.2 H (37.0-47.0) % MCV 86.1 D (80-100) fL MCH 27.2 (27.0-34.0) pg MCHC 31.6 L (33.0-35.0) g/dL Plt Count 402 (150-450) 10^3/uL Neut % (Auto) 77.9 H (42.2-75.2) % Lymph % (Auto) 18.8 L (20.5-50.1) % Hood % (Auto) 3.0 (2-8) % Eos % (Auto) 0.1 L (1.0-3.0) % Baso % (Auto) 0.2 (0.0-1.0) % ABG pH (7.35-7.45) ABG pCO2 (35-45) mmHg ABG pO2 (70-100) mmHg ABG HCO3 (22-26) mmol/L ABG O2 Saturation (95-100) % ABG Base Excess ((-2)-(+3)) mmol/L Sean Test O2 Delivery Device Sodium 138 D (135-145) mmol/L Potassium 4.2 (3.6-5.0) mmol/L Chloride 101 (101-111) mmol/L Carbon Dioxide 7.0 L* (21.0-31.0) mmol/L Anion Gap 34.2 BUN 16 (7-18) mg/dL Creatinine 1.0 (0.6-1.3) mg/dL Est Cr Clr Drug Dosing TNP Estimated GFR (MDRD) > 60 BUN/Creatinine Ratio 16.00 Glucose 311 H (74-105) mg/dL POC Glucose (70-105) mg/dl Lactic Acid 2.2 (0.5-2.2) mmol/L Calcium 10.3 H (8.4-10.2) mg/dl Phosphorus (2.5-4.6) mg/dL Magnesium (1.8-2.5) mg/dL Total Bilirubin 2.3 H (0.2-1.0) mg/dL AST 272 H (10-42) IU/L ALT 269 H (10-60) IU/L Alkaline Phosphatase 132 H (42-121) IU/L Troponin I < 0.02 (0.00-0.02) ng/ml Total Protein 12.0 H (6.7-8.2) g/dl Albumin 5.7 H (3.2-5.5) g/dl Globulin 6.3 Albumin/Globulin Ratio 0.90 Amylase 49 (28-100) U/L Lipase 33 (22-51) U/L Ethyl Alcohol < 5 mg/dL Ketones Positive 11/25/18 11/25/18 11/25/18 Range/Units 10:35 11:25 12:03 WBC (5.0-10.0) 10^3/uL RBC (4.2-5.4) 10^6/uL Hgb (12.0-16.0) g/dL Hct (37.0-47.0) % MCV (80-100) fL MCH (27.0-34.0) pg MCHC (33.0-35.0) g/dL Plt Count (150-450) 10^3/uL Neut % (Auto) (42.2-75.2) % Lymph % (Auto) (20.5-50.1) % Hood % (Auto) (2-8) % Eos % (Auto) (1.0-3.0) % Baso % (Auto) (0.0-1.0) % ABG pH 7.22 L (7.35-7.45) ABG pCO2 17 L* (35-45) mmHg ABG pO2 122 H (70-100) mmHg ABG HCO3 6.6 L (22-26) mmol/L ABG O2 Saturation 98 (95-100) % ABG Base Excess -20 L ((-2)-(+3)) mmol/L Sean Test Performed O2 Delivery Device Room air Sodium (135-145) mmol/L Potassium (3.6-5.0) mmol/L Chloride (101-111) mmol/L Carbon Dioxide (21.0-31.0) mmol/L Anion Gap BUN (7-18) mg/dL Creatinine (0.6-1.3) mg/dL Est Cr Clr Drug Dosing Estimated GFR (MDRD) BUN/Creatinine Ratio Glucose (74-105) mg/dL POC Glucose 120 H (70-105) mg/dl Lactic Acid (0.5-2.2) mmol/L Calcium (8.4-10.2) mg/dl Phosphorus 4.2 (2.5-4.6) mg/dL Magnesium 2.5 (1.8-2.5) mg/dL Total Bilirubin (0.2-1.0) mg/dL AST (10-42) IU/L ALT (10-60) IU/L Alkaline Phosphatase (42-121) IU/L Troponin I (0.00-0.02) ng/ml Total Protein (6.7-8.2) g/dl Albumin (3.2-5.5) g/dl Globulin Albumin/Globulin Ratio Amylase (28-100) U/L Lipase (22-51) U/L Ethyl Alcohol mg/dL Ketones Meds: Medications Generic Name Dose Route Start Last Admin Trade Name Freq PRN Reason Stop Dose Admin Heparin Sodium (Porcine) 5,000 units 11/25/18 14:00 Heparin Sodium SUBCUT Q8HR RUPINDER Potassium Chloride/Sodium Chloride 1,000 mls @ 500 mls/hr 11/25/18 11:45 09/14 11:54 Normal Saline With 20 Meq Kcl IV 500 mls/hr ASDIRECTED RUPINDER Administration Insulin Human Regular 100 unit 100 mls @ 5.81 mls/hr 11/25/18 13:14 / Sodium Chloride IV TITRATE RUPINDER Protocol 0.1 UNITS/KG/HR Sodium Bicarbonate 100 meq/ 1,100 mls @ 100 mls/hr 11/25/18 13:14 Dextrose/Water IV 11/26/18 00:13 ONETIME ONE Potassium Chloride/Sodium Chloride 1,000 mls @ 150 mls/hr 11/25/18 13:15 Normal Saline With 20 Meq Kcl IV ASDIRECTED RUPINDER Ondansetron HCl 4 mg 11/25/18 12:15 Zofran IVPUSH Q6H PRN Nausea/Vomiting Ondansetron HCl 4 mg 11/25/18 12:15 Zofran Odt PO Q6H PRN nausea, able to take PO Promethazine HCl 6.25 mg 11/25/18 12:15 Phenergan IM Q6H PRN Nausea/Vomiting Promethazine HCl 25 mg 11/25/18 12:15 Phenergan PO Q6H PRN nausea, able to take PO Sodium Chloride 10 ml 11/25/18 10:26 11/25/18 10:46 Saline Flush FLUSH 10 ml ASDIRECTED PRN Administration Keep Vein Open Discontinued Medications Generic Name Dose Route Start Last Admin Trade Name Freq PRN Reason Stop Dose Admin Dextrose/Water Confirm 11/25/18 12:52 11/25/18 13:11 Dextrose 50% In Water Administered 11/25/18 12:53 Not Given Dose 50 ml .ROUTE .STK-MED ONE Dextrose/Water 25 ml 11/25/18 12:58 11/25/18 13:13 Dextrose 50% In Water IVPUSH 11/25/18 12:59 25 ml ONETIME ONE Administration Sodium Chloride 1,000 mls @ 999 mls/hr 11/25/18 10:28 11/25/18 11:38 Normal Saline IV 11/25/18 11:28 Infused .BOLUS ONE Infusion Insulin Human Regular 100 unit 100 mls @ 5.81 mls/hr 11/25/18 11:00 / Sodium Chloride IV TITRATE RUPINDER Protocol 0.1 UNITS/KG/HR Sodium Chloride 1,000 mls @ 999 mls/hr 11/25/18 10:51 11/25/18 11:39 Normal Saline IV 11/25/18 11:51 999 mls/hr .BOLUS ONE Administration Insulin Human Regular 7 unit 11/25/18 10:29 11/25/18 10:46 Humulin R IV 11/25/18 10:30 7 units ONETIME ONE Administration Ondansetron HCl 4 mg 11/25/18 10:28 11/25/18 10:39 Zofran IV 11/25/18 10:29 4 mg ONETIME ONE Administration Sodium Bicarbonate 50 meq 11/25/18 11:37 11/25/18 11:42 Sodium Bicarbonate 8.4% IVPUSH 11/25/18 11:38 50 meq ONETIME ONE Administration - Radiology Interpretation Free Text/Narrative:: XR Chest, 1V AP: no acute process, see Rad. report. - Re-Assessments/Exams Free Text/Narrative Re-Assessment/Exam: 11/25/18 11:31 Hospitalist (Dr. Borja) paged at 11:31 for admission. 11/25/18 12:20 Admission delayed due to pt refusing central line. She is willing to have an US guided PICC line. PICC line placed in ER by Wan Keller CRNA. Departure - Departure Time of Disposition: 11:41 (admit to Dr. Borja) Disposition: Admitted As Inpatient 67 Condition: Serious, Critical Clinical Impression: Methamphetamine abuse, Marijuana abuse DKA, type 1 Qualifiers: Diabetes mellitus complication detail: without coma Qualified Code(s): E10.10 - Type 1 diabetes mellitus with ketoacidosis without coma - Discharge Information *PRESCRIPTION DRUG MONITORING PROGRAM REVIEWED*: No *COPY OF PRESCRIPTION DRUG MONITORING REPORT IN PATIENT AMANDA: No - My Orders Last 24 Hours: My Active Orders 11/25/18 10:25 EKG 12 Lead [EKG Documentation Completion] [RC] STAT Blood Culture x2 Reflex Set [OM.PC] Stat Peripheral IV Insertion Adult [OM.PC] Stat 11/25/18 10:26 Blood Glucose Check, Bedside [RC] ONETIME Sodium Chloride 0.9% [Saline Flush] 10 ml FLUSH ASDIRECTED PRN 11/25/18 10:27 Peripheral IV Care [RC] . DIRECTED Peripheral IV Insertion Adult [OM.PC] Stat 11/25/18 10:35 CULTURE BLOOD [BC] Stat 11/25/18 11:15 CULTURE BLOOD [BC] Stat 11/25/18 11:45 NS + KCl 20mEq/L [Normal Saline with 20 mEq KCl] 1,000 ml IV ASDIRECTED - Assessment/Plan Last 24 Hours: My Active Orders 11/25/18 10:25 EKG 12 Lead [EKG Documentation Completion] [RC] STAT Blood Culture x2 Reflex Set [OM.PC] Stat Peripheral IV Insertion Adult [OM.PC] Stat 11/25/18 10:26 Blood Glucose Check, Bedside [RC] ONETIME Sodium Chloride 0.9% [Saline Flush] 10 ml FLUSH ASDIRECTED PRN 11/25/18 10:27 Peripheral IV Care [RC] . DIRECTED Peripheral IV Insertion Adult [OM.PC] Stat 11/25/18 10:35 CULTURE BLOOD [BC] Stat 11/25/18 11:15 CULTURE BLOOD [BC] Stat 11/25/18 11:45 NS + KCl 20mEq/L [Normal Saline with 20 mEq KCl] 1,000 ml IV ASDIRECTED
[2018-11-25] MEDS ORDERED: Sodium Chloride 0.9% 10 ML Syringe FLUSH PRN (10:26)
[2018-11-25] MEDS ORDERED: Sodium Chloride 0.9% 1,000 ML IV ONE ×2 (10:28→10:51)
[2018-11-25] MEDS ORDERED: Ondansetron 4 MG/2 ML SDV IV ONE (10:28)
[2018-11-25] MEDS ORDERED: Insulin Regular, Human 100 Units/ML 3 ML Vial IV ONE (10:29)
--- NOTE | 2018-11-25 10:48 | CR ---
Clinical history: 23-year-old diabetic complaining of shortness of breath. Interpretation: No acute new cardiopulmonary abnormality identified in the interval since 17 September 2018 exam. Normal cardiac silhouette and bony thorax. Midline tracheal airway unremarkable. No alveolar edema or dependent effusion. No new lung mass, hilar lymphadenopathy or focal lobar pneumonia. No atelectasis/collapse. No pneumothorax.
[2018-11-25 11:07] LABS: ANION GAP 34.2; CHLORIDE,CL 101 mmol/L (101-111); SODIUM,NA 138 mmol/L (135-145)
[2018-11-25 11:27] LABS: BASE EXCESS ARTERIAL -20 mmol/L ((-2)-(+3)); BICARBONATE,ARTERIAL 6.6 mmol/L (22-26); O2 DELIVERY DEVICE ROOM AIR; O2 SATURATION ARTERIAL 98 % (95-100); PO2 ARTERIAL 122 mmHg (70-100)
[2018-11-25 11:29] LABS: PCO2 ARTERIAL 17 mmHg (35-45)
[2018-11-25 11:30] LABS: ALLEN TEST PERFORMED
[2018-11-25] MEDS ORDERED: Sodium Bicarbonate 8.4% 50 MEQ/50 ML Syringe IVPUSH ONE (11:37)
[2018-11-25] MEDS ORDERED: NS + KCl 20mEq/L 1,000 ML IV SCH ×2 (11:45→13:15)
[2018-11-25] MEDS ORDERED: Promethazine 25 MG Tab PO PRN (12:15)
[2018-11-25] MEDS ORDERED: Ondansetron 4 MG Tab.DIS PO PRN (12:15)
[2018-11-25] MEDS ORDERED: Ondansetron 4 MG/2 ML SDV IVPUSH PRN (12:15)
[2018-11-25] MEDS ORDERED: Promethazine 25 MG/ML SDV IM PRN (12:15)
--- NOTE | 2018-11-25 12:19 | PCM.HP ---
H&P History of Present Illness - General Date of Service: 11/25/18 Admit Problem/Dx: Admission Diagnosis/Problem Admission Diagnosis/Problem Diabetic ketoacidosis Source of Information: Patient, Old Records, Provider - History of Present Illness Initial Comments - Free Text/Narative: Ms. Roa is a 23 y.o female with medical history significant for DM 1.5 complicated with multiple admissions for DKA, IVDU/substance use disorder, non- adherence to medical therapy, learning disability, and abscess 2/2 IVDU who presented to the ED with complaints of nausea/vomiting and was found to be in DKA. She reports that she started having nausea with NBNB emesis last night. Had about 5 episodes of vomiting. Reports 5/10 constant epigastric pain that is worsened with vomiting. Reports that she took her 40 units of levemir and 32 units of novolog this morning, about 45 minutes prior to presentation but has not checked her BG for a long time, does not recall last time she checked. She also reports that she was abstinent from drugs for about 5 months but started using methamphetamines and marijuana again around 10pm last night. She denies diarrhea, constipation, melena, hematochezia, dysuria, fevers, chills, shortness of breath or any other symptoms. Headache Pain Score (Numeric/FACES): 7 Epigastric Pain Score (Numeric/FACES): 7 - Related Data Allergies/Adverse Reactions: Allergies Allergy/AdvReac Type Severity Reaction Status Date / Time hydromorphone HCl Allergy Itching Verified 11/25/18 11:28 [From Dilaudid] Home Medications: Home Meds Insulin Detemir [Levemir] 40 unit SUBCUT BID 03/11/16 [History] Insulin Aspart [NovoLOG] 10 unit SUBCUT TIDMEALS #1 pen 11/01/17 [Rx] Past Medical History HEENT History: Reports: Other (See Below) Other HEENT History: ear problems with draining, cheek broken in three different place Cardiovascular History: Reports: None Respiratory History: Reports: None Gastrointestinal History: Reports: GI Bleed, Hepatitis Other Gastrointestinal History: rectal bleeding per self report for past couple of months Genitourinary History: Reports: None 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: Reports: Spontaneous Musculoskeletal History: Reports: Fracture Neurological History: Reports: None Psychiatric History: Reports: ADHD, Addiction, Depression, Emotional Problems, Suicide Attempt, Suicidal Ideation Endocrine/Metabolic History: Reports: Diabetes, Type I, IDDM Hematologic History: Reports: Other (See Below) Other Hematologic History: Hep + Immunologic History: Reports: None Oncologic (Cancer) History: Reports: None Dermatologic History: Reports: Other (See Below) Other Dermatologic History: cut [place]عر[place] noted to forearms, acne vulgaris - Infectious Disease History Infectious Disease History: Reports: Hepatitis C, MRSA - Past Surgical History Head Surgeries/Procedures: Reports: None HEENT Surgical History: Reports: Adenoidectomy, Tonsillectomy GI Surgical History: Reports: None Endocrine Surgical History: Reports: None Social & Family History - Family History Family Medical History: Noncontributory Psychiatric: Reports: Depression Endocrine/Metabolic: Reports: Diabetes, type II - Tobacco Use Smoking Status *Q: Current Every Day Smoker Years of Tobacco use: 8 Packs/Tins Daily: 0.3 - Caffeine Use Caffeine Use: Reports: None - Recreational Drug Use Recreational Drug Use: Yes Drug Use in Last 12 Months: Yes Recreational Drug Type: Reports: Marijuana/Hashish, Methamphetamine Recreational Drug Use Frequency: Binges - Sexual History Sexual History: Reports: Sexually Active - Living Situation & Occupation Living situation: Reports: with Significant Other Occupation: Unemployed H&P Review of Systems - Review of Systems: Review Of Systems: ROS reveals no pertinent complaints other than HPI. Exam - Exam Exam: See Below - Vital Signs Vital Signs: Last Vital Signs Temp 98.2 F 11/25/18 10:24 Pulse 122 H 11/25/18 10:24 Resp 28 H 11/25/18 10:24 BP 138/104 H 11/25/18 10:24 Pulse Ox 100 11/25/18 10:24 Weight: 128 lb 3.2 oz - Exam General: Alert, Oriented, Cooperative, Moderate Distress HEENT: Conjunctiva Clear, EOMI, Hearing Intact, Other (Dry oral mucosa) Neck: Supple, Trachea Midline Lungs: Clear to Auscultation, Normal Respiratory Effort Cardiovascular: Regular Rhythm, Tachycardia GI/Abdominal Exam: Normal Bowel Sounds, Soft, No Distention, Tender Extremities: Normal Inspection, Non-Tender, No Pedal Edema, Other (healed abscess in right cubital fossa. ) Peripheral Pulses: 2+: Radial (L), Radial (R), Dorsalis Pedis (L), Dorsalis Pedis (R) Skin: Warm, Dry, Intact Neurological: Cranial Nerves Intact, Reflexes Equal Bilateral Neuro Extensive - Mental Status: Alert, Oriented x3, Normal Mood/Affect, Normal Cognition Neuro Extensive - Motor, Sensory, Reflexes: CN II-XII Intact Psychiatric: Alert, Normal Affect, Anxious - Patient Data Lab Results Last 24 hrs: Laboratory Results - last 24 hr 11/25/18 11/25/18 11/25/18 Range/Units 10:35 10:35 10:35 WBC 14.0 H (5.0-10.0) 10^3/uL RBC 6.06 H (4.2-5.4) 10^6/uL Hgb 16.5 H D (12.0-16.0) g/dL Hct 52.2 H (37.0-47.0) % MCV 86.1 D (80-100) fL MCH 27.2 (27.0-34.0) pg MCHC 31.6 L (33.0-35.0) g/dL Plt Count 402 (150-450) 10^3/uL Neut % (Auto) 77.9 H (42.2-75.2) % Lymph % (Auto) 18.8 L (20.5-50.1) % Pitt % (Auto) 3.0 (2-8) % Eos % (Auto) 0.1 L (1.0-3.0) % Baso % (Auto) 0.2 (0.0-1.0) % ABG pH (7.35-7.45) ABG pCO2 (35-45) mmHg ABG pO2 (70-100) mmHg ABG HCO3 (22-26) mmol/L ABG O2 Saturation (95-100) % ABG Base Excess ((-2)-(+3)) mmol/L Sean Test O2 Delivery Device Sodium 138 D (135-145) mmol/L Potassium 4.2 (3.6-5.0) mmol/L Chloride 101 (101-111) mmol/L Carbon Dioxide 7.0 L* (21.0-31.0) mmol/L Anion Gap 34.2 BUN 16 (7-18) mg/dL Creatinine 1.0 (0.6-1.3) mg/dL Est Cr Clr Drug Dosing TNP Estimated GFR (MDRD) > 60 BUN/Creatinine Ratio 16.00 Glucose 311 H (74-105) mg/dL POC Glucose (70-105) mg/dl Lactic Acid 2.2 (0.5-2.2) mmol/L Calcium 10.3 H (8.4-10.2) mg/dl Phosphorus (2.5-4.6) mg/dL Magnesium (1.8-2.5) mg/dL Total Bilirubin 2.3 H (0.2-1.0) mg/dL AST 272 H (10-42) IU/L ALT 269 H (10-60) IU/L Alkaline Phosphatase 132 H (42-121) IU/L Troponin I < 0.02 (0.00-0.02) ng/ml Total Protein 12.0 H (6.7-8.2) g/dl Albumin 5.7 H (3.2-5.5) g/dl Globulin 6.3 Albumin/Globulin Ratio 0.90 Amylase 49 (28-100) U/L Lipase 33 (22-51) U/L Ethyl Alcohol < 5 mg/dL Ketones Positive 11/25/18 11/25/18 11/25/18 Range/Units 10:35 11:25 12:03 WBC (5.0-10.0) 10^3/uL RBC (4.2-5.4) 10^6/uL Hgb (12.0-16.0) g/dL Hct (37.0-47.0) % MCV (80-100) fL MCH (27.0-34.0) pg MCHC (33.0-35.0) g/dL Plt Count (150-450) 10^3/uL Neut % (Auto) (42.2-75.2) % Lymph % (Auto) (20.5-50.1) % Pitt % (Auto) (2-8) % Eos % (Auto) (1.0-3.0) % Baso % (Auto) (0.0-1.0) % ABG pH 7.22 L (7.35-7.45) ABG pCO2 17 L* (35-45) mmHg ABG pO2 122 H (70-100) mmHg ABG HCO3 6.6 L (22-26) mmol/L ABG O2 Saturation 98 (95-100) % ABG Base Excess -20 L ((-2)-(+3)) mmol/L Sean Test Performed O2 Delivery Device Room air Sodium (135-145) mmol/L Potassium (3.6-5.0) mmol/L Chloride (101-111) mmol/L Carbon Dioxide (21.0-31.0) mmol/L Anion Gap BUN (7-18) mg/dL Creatinine (0.6-1.3) mg/dL Est Cr Clr Drug Dosing Estimated GFR (MDRD) BUN/Creatinine Ratio Glucose (74-105) mg/dL POC Glucose 120 H (70-105) mg/dl Lactic Acid (0.5-2.2) mmol/L Calcium (8.4-10.2) mg/dl Phosphorus 4.2 (2.5-4.6) mg/dL Magnesium 2.5 (1.8-2.5) mg/dL Total Bilirubin (0.2-1.0) mg/dL AST (10-42) IU/L ALT (10-60) IU/L Alkaline Phosphatase (42-121) IU/L Troponin I (0.00-0.02) ng/ml Total Protein (6.7-8.2) g/dl Albumin (3.2-5.5) g/dl Globulin Albumin/Globulin Ratio Amylase (28-100) U/L Lipase (22-51) U/L Ethyl Alcohol mg/dL Ketones Result Diagrams: 11/25/18 10:35 11/25/18 13:33 Sarkis Results Last 24 hrs: Microbiology 11/25/18 11:15 Anaerobic Blood Culture - Final Blood - Venous - Lab Draw 11/25/18 10:35 Anaerobic Blood Culture - Final Blood - Venous - Problem List (1) Diabetic ketoacidosis associated with type 1 diabetes mellitus SNOMED Code(s): 601827774, 841296306 ICD Code: E10.10 - TYPE 1 DIABETES MELLITUS WITH KETOACIDOSIS WITHOUT COMA Status: Acute Priority: High Current Visit: Yes Qualifiers: Diabetes mellitus complication detail: without coma Qualified Code(s): E10.10 - Type 1 diabetes mellitus with ketoacidosis without coma (2) Drug abuse SNOMED Code(s): 99319227 ICD Code: F19.10 - OTHER PSYCHOACTIVE SUBSTANCE ABUSE, UNCOMPLICATED Status : Acute Current Visit: Yes (3) Hypokalemia SNOMED Code(s): 36529596 ICD Code: E87.6 - HYPOKALEMIA Status: Acute Priority: High Current Visit: Yes (4) Hyponatremia SNOMED Code(s): 77936223 ICD Code: E87.1 - HYPO-OSMOLALITY AND HYPONATREMIA Status: Acute Priority : Medium Current Visit: Yes (5) Medically noncompliant SNOMED Code(s): 408344057 ICD Code: Z91.19 - PATIENT'S NONCOMPLIANCE W OTH MEDICAL TREATMENT AND REGIMEN Status: Acute Current Visit: Yes (6) Methamphetamine abuse SNOMED Code(s): 823952640 ICD Code: F15.10 - OTHER STIMULANT ABUSE, UNCOMPLICATED Status: Acute Priority: Medium Current Visit: Yes Problem List Initiated/Reviewed/Updated: Yes Orders Last 24hrs: Active Orders 24 hr Category Date Time Status Patient Status [ADT] Routine ADT 11/25/18 12:15 Ordered Blood Glucose Check, Bedside [RC] ONETIME Care 11/25/18 10:26 Active Cardiac Monitoring [RC] CONTINUOUS Care 11/25/18 12:17 Ordered EKG 12 Lead [EKG Documentation Completion] [RC] STAT Care 11/25/18 10:25 Active Intake and Output [RC] QSHIFT Care 11/25/18 12:17 Ordered Oxygen Therapy [RC] PRN Care 11/25/18 12:15 Ordered Peripheral IV Care [RC] . DIRECTED Care 11/25/18 10:27 Active Up ad Shellie [RC] ASDIRECTED Care 11/25/18 12:15 Ordered VTE/DVT Education [RC] PER UNIT ROUTINE Care 11/25/18 12:15 Ordered Vital Signs [RC] Q4H Care 11/25/18 12:15 Ordered Nothing per Oral Now Diet [DIET] Diet 11/25/18 Lunch Ordered Needle Placement Ltd Rt [US] Routine Exams 11/25/18 12:17 Ordered CULTURE BLOOD [BC] Stat Lab 11/25/18 10:35 Results CULTURE BLOOD [BC] Stat Lab 11/25/18 11:15 Results DRUG SCREEN URINE BIORAD [URCHEM] Stat Lab 11/25/18 10:26 Ordered HCG QUALITATIVE,URINE [URCHEM] Stat Lab 11/25/18 10:25 Ordered UA RFX SARKIS AND CULT IF INDIC [URIN] Stat Lab 11/25/18 10:26 Ordered Heparin Sodium Med 11/25/18 14:00 Ordered 5,000 units SUBCUT Q8HR Insulin Regular, Human [HumuLIN R] 100 unit Med 11/25/18 11:00 Active Sodium Chloride 0.9% [Normal Saline] 99 ml IV TITRATE NS + KCl 20mEq/L [Normal Saline with 20 mEq KCl] 1,000 Med 11/25/18 11:45 Active ml IV ASDIRECTED Ondansetron [Zofran ODT] Med 11/25/18 12:15 Ordered 4 mg PO Q6H PRN Ondansetron [Zofran] Med 11/25/18 12:15 Ordered 4 mg IVPUSH Q6H PRN Promethazine [Phenergan] Med 11/25/18 12:15 Ordered 25 mg PO Q6H PRN Promethazine [Phenergan] Med 11/25/18 12:15 Ordered 6.25 mg IM Q6H PRN Sodium Chloride 0.9% [Saline Flush] Med 11/25/18 10:26 Active 10 ml FLUSH ASDIRECTED PRN Blood Culture x2 Reflex Set [OM.PC] Stat Ot 11/25/18 10:25 Ordered Peripheral IV Insertion Adult [OM.PC] Stat Oth 11/25/18 10:25 Ordered Peripheral IV Insertion Adult [OM.PC] Stat Oth 11/25/18 10:27 Ordered Resuscitation Status Routine Resus Stat 11/25/18 12:15 Ordered Medication Orders Insulin Human Regular 100 unit (/ Sodium Chloride) 100 mls @ 5.81 mls/hr IV TITRATE RUPINDER; Protocol Potassium Chloride/Sodium Chloride (Normal Saline With 20 Meq Kcl) 1,000 mls @ 500 mls/hr IV ASDIRECTED RUPINDER Last Admin: 11/25/18 11:54 Dose: 500 mls/hr Sodium Chloride (Saline Flush) 10 ml FLUSH ASDIRECTED PRN PRN Reason: Keep Vein Open Last Admin: 11/25/18 10:46 Dose: 10 ml Assessment/Plan Comment:: #DKA, type I: due to intoxication and non-adherence to medical therapy. Presented with pH of 7.22 with bicarb of 6.6 and pCO2 of 17. AG of 34.2. Took 32 units of Novolog and 40 units of Levemire prior to presentation. Reports that she started using methamphetamines and marijuana last night after 5 months of abstinence. - Tele monitoring - IV bicarb infusion - DKA protocol - Monitor and replete electrolytes - NPO - Keep Hydrated. 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 #Non-adherence to medication regimen: - Educated on the importance of adhering to medication regimen #Metabolic acidosis: severe. Bicarb of 7 on presentation. Due to DKA. - Sodium bicarb infusion - Monitor and replete electrolytes. #Hypophosphatemia: - K phos neutra - Monitor and replete #MUSTAPHA: due to DKA. - Cr of 1.0. Improved to 0.5 with IVF. - Monitor renal function. DVT PPx: Heparin GI PPx: NPO for now, expect to resume feeding after DKA resolves. Code status: Full Code.
[2018-11-25] MEDS ORDERED: 50% Dextrose in Water 50 ML Syringe ONE (12:52)
[2018-11-25] MEDS ORDERED: 50% Dextrose in Water 50 ML Syringe IVPUSH ONE ×4 (12:58→18:26)
--- NOTE | 2018-11-25 13:45 | PCM.SN ---
- Free Text/Narrative Note: PICC Line placement. Pt in ER with MD LETTY requesting PICC line placement. Pt informed of risks and benefits and consents to procedure. Sterile prep and drape of medial Right upper arm,R Basilic vein visualized by US. 1 % lidocaine for skin wheal. 20 Ga IV inserted, needle removed, guide wire placed, cannula removed, Dilator advanced with small sadia to skin with scalpel at insertion site. Guide wire removed, Groshong NXT 5 Fr double lumen catheter inserted to 45 cm, site covered with sterile dressing, PCXR obtained with catheter heading upwards at clavicular junction. Catheter pulled back and reinserted to 40 cm , PCXR shows catheter heading up at clavicular junction again. Discussed with MD, catheter pulled back to 31 cm and PCXR obtained showing tip in subclavian vein. Guide wire removed, Both lumens with blood on aspiration and flush easily. Site dressed and catheter secured with clip. Pt tolerated well. Procedure time 1245 to 1330
[2018-11-25 13:58] LABS: CHLORIDE,CL 111 mmol/L (101-111); SODIUM,NA 141 mmol/L (135-145)
[2018-11-25] MEDS ORDERED: Sodium Bicarbonate 100 MEQ in Dextrose 5% in Water 1,000 ML IV ONE ×2 (14:00)
[2018-11-25] MEDS: Dextrose 5%-0.45% NaCl 1,000 ML IV SCH ×2 (14:57→19:56)
[2018-11-25] MEDS: Heparin Sodium 5,000 Units/ML Vial SUBCUT SCH ×2 (17:17→21:02)
[2018-11-25] MEDS: Phosphorus #1 250 MG Tab PO SCH ×3 (17:17→20:54)
[2018-11-25 17:43] LABS: ANION GAP 13.3; CHLORIDE,CL 107 mmol/L (101-111); SODIUM,NA 137 mmol/L (135-145)
[2018-11-25] MEDS ORDERED: Insulin Glarg,Human.Rec.Analog 100 UNIT/ML ML SUBCUT ONE (19:00)
[2018-11-25] MEDS ORDERED: Magnesium Sulfate/Water 2 GM in Premix Bag 1 BAG IV ONE (20:11)
[2018-11-25] MEDS ORDERED: Dextrose 5%-0.45% NaCl 1,000 ML IV SCH (20:15)
[2018-11-25] MEDS ORDERED: Potassium Chloride 10 MEQ Tab.ER PO ONE (20:15)
[2018-11-25] MEDS: Potassium Chloride 10 MEQ in Premix Bag 1 BAG IV SCH ×3 (20:36→23:02)
[2018-11-25 20:57] LABS: ANION GAP 16.9; CHLORIDE,CL 104 mmol/L (101-111); SODIUM,NA 140 mmol/L (135-145)
[2018-11-26] MEDS: Potassium Chloride 10 MEQ in Premix Bag 1 BAG IV SCH (00:10)
[2018-11-26] MEDS: Heparin Sodium 5,000 Units/ML Vial SUBCUT SCH ×3 (05:40→21:42)
[2018-11-26 07:13] LABS: ANION GAP 15.3; CHLORIDE,CL 109 mmol/L (101-111); SODIUM,NA 137 mmol/L (135-145)
[2018-11-26] MEDS: Phosphorus #1 250 MG Tab PO SCH ×4 (08:38→21:21)
[2018-11-26] MEDS: Insulin Lispro 100 Units/ML 3 ML Vial SUBCUT SCH ×6 (08:39→21:22)
[2018-11-26] MEDS: Sodium Bicarbonate 650 MG Tab PO SCH ×2 (10:14→17:39)
--- NOTE | 2018-11-26 11:14 | CR ---
Clinical history: 23-year-old female for PICC line placement (sequence of films dated 25 November 2018). Interpretation: 3 chest radiographs. 1. Upright AP portable chest film 1300 hours reveals long-arm PIC catheter that passes, out of sight, up into the right neck. No cardiopulmonary abnormality. Nini thorax unremarkable. External phototypesetting equipment monitor leads. 2. Upright AP portable chest film 1309 hours: Back with the tip is visualized in the right neck just above the first rib. No new cardiopulmonary abnormality. 3. Upright AP portable chest film 1317 hours reveals the right long-arm PIC catheter pulled back into the subclavian vein just outside the posterolateral right second rib. No new signs of cardiopulmonary abnormality. No pneumothorax.
[2018-11-26 16:00] LABS: ANION GAP 17.7; CHLORIDE,CL 98 mmol/L (101-111); SODIUM,NA 134 mmol/L (135-145)
[2018-11-26] MEDS ORDERED: Potassium Chloride 10 MEQ Tab.ER PO ONE (18:13)
[2018-11-26] MEDS ORDERED: Insulin Glarg,Human.Rec.Analog 100 UNIT/ML ML SUBCUT ONE (18:22)
[2018-11-26] MEDS: Sodium Chloride 0.9% 1,000 ML IV SCH (18:23)
--- NOTE | 2018-11-26 19:46 | PCM.PN ---
- General Info Date of Service: 11/26/18 Admission Dx/Problem (Free Text): Admission Diagnosis/Problem Admission Diagnosis/Problem Diabetic ketoacidosis Subjective Update: No acute events. Reports that she is tolerating diet. Denies chest pain, shortness of breath, fevers, chills, abdominal pain, n/v/d/c. No other complaints. - Review of Systems General: Reports: No Symptoms HEENT: Reports: No Symptoms Pulmonary: Reports: No Symptoms Cardiovascular: Reports: No Symptoms Gastrointestinal: Reports: No Symptoms Genitourinary: Reports: No Symptoms Musculoskeletal: Reports: No Symptoms Skin: Reports: No Symptoms Neurological: Reports: No Symptoms Psychiatric: Reports: No Symptoms - Patient Data Vitals - Most Recent: Last Vital Signs Temp 98.5 F 11/26/18 19:31 Pulse 96 11/26/18 19:31 Resp 16 11/26/18 19:31 BP 132/88 11/26/18 19:31 Pulse Ox 100 11/26/18 19:31 Weight - Most Recent: 128 lb 3.2 oz I&O - Last 24 Hours: Intake & Output 11/26/18 11/26/18 11/26/18 06:59 14:59 22:59 Intake Total 2364 1110 240 Output Total 200 1000 Balance 2164 110 240 Lab Results Last 24 Hours: Laboratory Results - last 24 hr 11/25/18 11/25/18 11/25/18 Range/Units 12:50 13:20 20:09 Sodium (135-145) mmol/L Potassium (3.6-5.0) mmol/L Chloride (101-111) mmol/L Carbon Dioxide (21.0-31.0) mmol/L Anion Gap BUN (7-18) mg/dL Creatinine (0.6-1.3) mg/dL Est Cr Clr Drug Dosing mL/min Estimated GFR (MDRD) Glucose (74-105) mg/dL POC Glucose 51 L 83 65 L (70-105) mg/dl Calcium (8.4-10.2) mg/dl Phosphorus (2.5-4.6) mg/dL Magnesium (1.8-2.5) mg/dL 11/25/18 11/25/18 11/25/18 Range/Units 20:30 21:05 22:10 Sodium 140 (135-145) mmol/L Potassium 2.9 L (3.6-5.0) mmol/L Chloride 104 (101-111) mmol/L Carbon Dioxide 22.0 (21.0-31.0) mmol/L Anion Gap 16.9 BUN 8 (7-18) mg/dL Creatinine 0.4 L (0.6-1.3) mg/dL Est Cr Clr Drug Dosing 202.52 mL/min Estimated GFR (MDRD) > 60 Glucose 53 L (74-105) mg/dL POC Glucose 138 H 158 H (70-105) mg/dl Calcium 8.5 (8.4-10.2) mg/dl Phosphorus 3.7 (2.5-4.6) mg/dL Magnesium 1.8 (1.8-2.5) mg/dL 11/25/18 11/25/18 11/26/18 Range/Units 23:04 23:59 01:02 Sodium (135-145) mmol/L Potassium (3.6-5.0) mmol/L Chloride (101-111) mmol/L Carbon Dioxide (21.0-31.0) mmol/L Anion Gap BUN (7-18) mg/dL Creatinine (0.6-1.3) mg/dL Est Cr Clr Drug Dosing mL/min Estimated GFR (MDRD) Glucose (74-105) mg/dL POC Glucose 181 H 149 H 145 H (70-105) mg/dl Calcium (8.4-10.2) mg/dl Phosphorus (2.5-4.6) mg/dL Magnesium (1.8-2.5) mg/dL 11/26/18 11/26/18 11/26/18 Range/Units 02:08 03:03 04:02 Sodium (135-145) mmol/L Potassium (3.6-5.0) mmol/L Chloride (101-111) mmol/L Carbon Dioxide (21.0-31.0) mmol/L Anion Gap BUN (7-18) mg/dL Creatinine (0.6-1.3) mg/dL Est Cr Clr Drug Dosing mL/min Estimated GFR (MDRD) Glucose (74-105) mg/dL POC Glucose 137 H 126 H 144 H (70-105) mg/dl Calcium (8.4-10.2) mg/dl Phosphorus (2.5-4.6) mg/dL Magnesium (1.8-2.5) mg/dL 11/26/18 11/26/18 11/26/18 Range/Units 05:02 06:18 06:22 Sodium 137 (135-145) mmol/L Potassium 4.3 (3.6-5.0) mmol/L Chloride 109 (101-111) mmol/L Carbon Dioxide 17.0 L (21.0-31.0) mmol/L Anion Gap 15.3 BUN 7 (7-18) mg/dL Creatinine 0.4 L (0.6-1.3) mg/dL Est Cr Clr Drug Dosing 202.52 mL/min Estimated GFR (MDRD) > 60 Glucose 189 H (74-105) mg/dL POC Glucose 176 H 194 H (70-105) mg/dl Calcium 8.1 L (8.4-10.2) mg/dl Phosphorus 3.4 (2.5-4.6) mg/dL Magnesium 2.1 (1.8-2.5) mg/dL 11/26/18 11/26/18 11/26/18 Range/Units 07:37 08:43 11:12 Sodium (135-145) mmol/L Potassium (3.6-5.0) mmol/L Chloride (101-111) mmol/L Carbon Dioxide (21.0-31.0) mmol/L Anion Gap BUN (7-18) mg/dL Creatinine (0.6-1.3) mg/dL Est Cr Clr Drug Dosing mL/min Estimated GFR (MDRD) Glucose (74-105) mg/dL POC Glucose 219 H 353 H 256 H (70-105) mg/dl Calcium (8.4-10.2) mg/dl Phosphorus (2.5-4.6) mg/dL Magnesium (1.8-2.5) mg/dL 11/26/18 11/26/18 Range/Units 15:35 16:34 Sodium 134 L (135-145) mmol/L Potassium 3.7 (3.6-5.0) mmol/L Chloride 98 L (101-111) mmol/L Carbon Dioxide 22.0 (21.0-31.0) mmol/L Anion Gap 17.7 BUN 10 (7-18) mg/dL Creatinine 0.4 L (0.6-1.3) mg/dL Est Cr Clr Drug Dosing 202.52 mL/min Estimated GFR (MDRD) > 60 Glucose 132 H (74-105) mg/dL POC Glucose 194 H (70-105) mg/dl Calcium 8.8 (8.4-10.2) mg/dl Phosphorus (2.5-4.6) mg/dL Magnesium (1.8-2.5) mg/dL Sarkis Results Last 24 Hours: Microbiology 11/25/18 11:15 Aerobic Blood Culture - Preliminary Blood - Venous - Lab Draw NO GROWTH AFTER 1 DAY Anaerobic Blood Culture - Final 11/25/18 10:35 Aerobic Blood Culture - Preliminary Blood - Venous NO GROWTH AFTER 1 DAY Anaerobic Blood Culture - Final Med Orders - Current: Current Medications Heparin Sodium (Porcine) (Heparin Sodium) 5,000 units SUBCUT Q8HR [facility] Last Admin: 11/26/18 14:26 Dose: Not Given Sodium Chloride (Normal Saline) 1,000 mls @ 150 mls/hr IV ASDIRECTED [facility] Last Admin: 11/26/18 18:23 Dose: 150 mls/hr Insulin Glargine (Lantus) 40 unit SUBCUT BID [facility] Insulin Human Lispro (Humalog) 0 unit SUBCUT QIDACANDBED [facility]; Protocol Last Admin: 11/26/18 17:39 Dose: 2 units Insulin Human Lispro (Humalog) 10 unit SUBCUT TIDMEALS [facility] Last Admin: 11/26/18 17:38 Dose: 10 units Ondansetron HCl (Zofran) 4 mg IVPUSH Q6H PRN PRN Reason: Nausea/Vomiting Ondansetron HCl (Zofran Odt) 4 mg PO Q6H PRN PRN Reason: nausea, able to take PO Promethazine HCl (Phenergan) 6.25 mg IM Q6H PRN PRN Reason: Nausea/Vomiting Promethazine HCl (Phenergan) 25 mg PO Q6H PRN PRN Reason: nausea, able to take PO Sodium Bicarbonate (Sodium Bicarbonate) 1,300 mg PO BIDAC [facility] Stop: 11/27/18 17:01 Last Admin: 11/26/18 17:39 Dose: 1,300 mg Sodium Chloride (Saline Flush) 10 ml FLUSH BID [facility] Sodium Phosphate (Neutra-Phos) 500 mg PO QID [facility] Last Admin: 11/26/18 17:40 Dose: 500 mg Discontinued Medications Dextrose/Water (Dextrose 50% In Water) Confirm Administered Dose 50 ml .ROUTE .STK-MED ONE Stop: 11/25/18 12:53 Last Admin: 11/25/18 13:11 Dose: Not Given Dextrose/Water (Dextrose 50% In Water) 25 ml IVPUSH ONETIME ONE Stop: 11/25/18 12:59 Last Admin: 11/25/18 13:13 Dose: 25 ml Dextrose/Water (Dextrose 50% In Water) 50 ml IVPUSH ONETIME ONE Stop: 11/25/18 14:22 Last Admin: 11/25/18 14:30 Dose: 50 ml Dextrose/Water (Dextrose 50% In Water) 50 ml IVPUSH ONETIME ONE Stop: 11/25/18 16:51 Last Admin: 11/25/18 17:04 Dose: 50 ml Dextrose/Water (Dextrose 50% In Water) 50 ml IVPUSH ONETIME ONE Stop: 11/25/18 18:27 Last Admin: 11/25/18 18:48 Dose: 50 ml Sodium Chloride (Normal Saline) 1,000 mls @ 999 mls/hr IV .BOLUS ONE Stop: 11/25/18 11:28 Last Infusion: 11/25/18 11:38 Dose: Infused Insulin Human Regular 100 unit (/ Sodium Chloride) 100 mls @ 5.81 mls/hr IV TITRATE [facility]; Protocol Last Admin: 11/25/18 15:38 Dose: 0.1 units/kg/hr, 5.81 mls/hr Sodium Chloride (Normal Saline) 1,000 mls @ 999 mls/hr IV .BOLUS ONE Stop: 11/25/18 11:51 Last Admin: 11/25/18 11:39 Dose: 999 mls/hr Potassium Chloride/Sodium Chloride (Normal Saline With 20 Meq Kcl) 1,000 mls @ 500 mls/hr IV ASDIRECTED [facility] Last Admin: 11/25/18 11:54 Dose: 500 mls/hr Insulin Human Regular 100 unit (/ Sodium Chloride) 100 mls @ 2.9 mls/hr IV TITRATE RUPINDER; Protocol Last Admin: 11/25/18 17:13 Dose: 0.05 units/kg/hr, 2.9 mls/hr Sodium Bicarbonate 100 meq/ (Dextrose/Water) 1,100 mls @ 100 mls/hr IV ONETIME ONE Stop: 11/26/18 00:59 Last Admin: 11/25/18 19:27 Dose: Not Given Potassium Chloride/Sodium Chloride (Normal Saline With 20 Meq Kcl) 1,000 mls @ 150 mls/hr IV ASDIRECTED [facility] Dextrose/Sodium Chloride (Dextrose 5%-1/2 Ns) 1,000 mls @ 200 mls/hr IV ASDIRECTED [facility] Last Infusion: 11/25/18 20:05 Dose: 75 mls/hr Magnesium Sulfate 2 gm/ Premix 50 mls @ 25 mls/hr IV ONETIME ONE Stop: 11/25/18 22:10 Last Infusion: 11/25/18 23:05 Dose: Infused Dextrose/Sodium Chloride (Dextrose 5%-1/2 Ns) 1,000 mls @ 75 mls/hr IV ASDIRECTED [facility] Potassium Chloride 10 meq/ (Premix) 100 mls @ 100 mls/hr IV Q1H [facility] Stop: 11/26/18 00:14 Last Infusion: 11/26/18 01:32 Dose: Infused Insulin Glargine (Lantus) 10 unit SUBCUT ONETIME ONE Stop: 11/26/18 18:23 Insulin Glargine (Lantus) 10 unit SUBCUT ONETIME ONE Stop: 11/25/18 19:01 Last Admin: 11/25/18 19:47 Dose: 10 units Insulin Human Regular (Humulin R) 7 unit IV ONETIME ONE Stop: 11/25/18 10:30 Last Admin: 11/25/18 10:46 Dose: 7 units Ondansetron HCl (Zofran) 4 mg IV ONETIME ONE Stop: 11/25/18 10:29 Last Admin: 11/25/18 10:39 Dose: 4 mg Potassium Chloride (Klor-Con 10) 40 meq PO ONETIME ONE Stop: 11/25/18 20:16 Last Admin: 11/25/18 20:55 Dose: 40 meq Potassium Chloride (Klor-Con 10) 40 meq PO ONETIME ONE Stop: 11/26/18 18:14 Last Admin: 11/26/18 18:22 Dose: 40 meq Sodium Bicarbonate (Sodium Bicarbonate 8.4%) 50 meq IVPUSH ONETIME ONE Stop: 11/25/18 11:38 Last Admin: 11/25/18 11:42 Dose: 50 meq Sodium Chloride (Saline Flush) 10 ml FLUSH ASDIRECTED PRN PRN Reason: Keep Vein Open Last Admin: 11/25/18 10:46 Dose: 10 ml - Exam General: Alert, Oriented, Cooperative, No Acute Distress HEENT: Pupils Equal, Pupils Reactive Neck: Supple, Trachea Midline Lungs: Clear to Auscultation, Normal Respiratory Effort Cardiovascular: Regular Rate, Regular Rhythm GI/Abdominal Exam: Normal Bowel Sounds, Soft, Non-Tender, No Distention Extremities: Normal Inspection, Non-Tender, No Pedal Edema Peripheral Pulses: 2+: Radial (L), Radial (R), Dorsalis Pedis (L), Dorsalis Pedis (R) Skin: Warm, Dry, Intact Neurological: No New Focal Deficit Psy/Mental Status: Alert, Normal Affect, Normal Mood - Problem List & Annotations (1) Diabetic ketoacidosis associated with type 1 diabetes mellitus SNOMED Code(s): 645871651, 219137213 Code(s): E10.10 - TYPE 1 DIABETES MELLITUS WITH KETOACIDOSIS WITHOUT COMA Status: Acute Priority: High Current Visit: Yes Qualifiers: Diabetes mellitus complication detail: without coma Qualified Code(s): E10.10 - Type 1 diabetes mellitus with ketoacidosis without coma (2) Drug abuse SNOMED Code(s): 82918113 Code(s): F19.10 - OTHER PSYCHOACTIVE SUBSTANCE ABUSE, UNCOMPLICATED Status : Acute Current Visit: Yes (3) Hypokalemia SNOMED Code(s): 52909395 Code(s): E87.6 - HYPOKALEMIA Status: Acute Priority: High Current Visit : Yes (4) Hyponatremia SNOMED Code(s): 80367057 Code(s): E87.1 - HYPO-OSMOLALITY AND HYPONATREMIA Status: Acute Priority : Medium Current Visit: Yes (5) Medically noncompliant SNOMED Code(s): 936229253 Code(s): Z91.19 - PATIENT'S NONCOMPLIANCE W OTH MEDICAL TREATMENT AND REGIMEN Status: Acute Current Visit: Yes (6) Methamphetamine abuse SNOMED Code(s): 226590113 Code(s): F15.10 - OTHER STIMULANT ABUSE, UNCOMPLICATED Status: Acute Priority: Medium Current Visit: Yes - Problem List Review Problem List Initiated/Reviewed/Updated: Yes - My Orders Last 24 Hours: My Active Orders 11/26/18 08:30 Insulin Lispro [HumaLOG] See Protocol SUBCUT QIDACANDBED 11/26/18 08:59 Blood Glucose Check, Bedside [RC] QIDACANDBED 11/26/18 10:00 Sodium Bicarbonate 1,300 mg PO BIDAC 11/26/18 12:00 Insulin Lispro [HumaLOG] 10 unit SUBCUT TIDMEALS 11/26/18 13:04 Central Line Assessment [RC] 11/26/18 13:05 Communication Order [RC] 11/26/18 18:15 Sodium Chloride 0.9% [Normal Saline] 1,000 ml IV ASDIRECTED 11/26/18 21:00 Insulin Glarg,Human.Rec.Analog [LantUS] 40 unit SUBCUT BID Sodium Chloride 0.9% [Saline Flush] 10 ml FLUSH BID 11/26/18 Breakfast Consistent Carbohydrate Diet [DIET] 11/27/18 06:00 BASIC METABOLIC PANEL,BMP [CHEM] Routine MAGNESIUM [CHEM] Routine PHOSPHORUS [CHEM] Routine - Plan Plan:: #DKA, type I: Improved. DKA protocol ended last night. Patient's bicarb low today at 17 and AG of 15.DKA was due to intoxication and non-adherence to medical therapy. Presented with pH of 7.22 with bicarb of 6.6 and pCO2 of 17. AG of 34.2. Took 32 units of Novolog and 40 units of [place] prior to presentation. Reports that she started using methamphetamines and marijuana last night after 5 months of abstinence. - D/c tele monitoring - Monitor and replete electrolytes - Carb consistent diet - Keep Hydrated. - IVF. 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 #Non-adherence to medication regimen: - Educated on the importance of adhering to medication regimen #Metabolic acidosis: Improved. Bicarb of 17 this morning. Was 7 on presentation. Due to DKA. - Sodium bicarb supplementation - Monitor and replete electrolytes. - IVF #Hypophosphatemia: - K phos neutra - Monitor and replete #MUSTAPHA: Resolved. due to DKA. - Cr of 1.0. Improved to 0.5 with IVF. - Monitor renal function. DVT PPx: Heparin GI PPx: NPO for now, expect to resume feeding after DKA resolves. Code status: Full Code.
[2018-11-26] MEDS: Insulin Glarg,Human.Rec.Analog 100 UNIT/ML ML SUBCUT SCH (21:22)
[2018-11-26] MEDS: Sodium Chloride 0.9% 10 ML Syringe FLUSH SCH (21:23)
[2018-11-27] MEDS: Sodium Chloride 0.9% 1,000 ML IV SCH ×2 (01:34→09:44)
[2018-11-27] MEDS: Heparin Sodium 5,000 Units/ML Vial SUBCUT SCH ×2 (05:22→14:12)
[2018-11-27] MEDS: Sodium Bicarbonate 650 MG Tab PO SCH ×3 (05:39→14:12)
[2018-11-27 06:58] LABS: ANION GAP 17.3; CHLORIDE,CL 101 mmol/L (101-111); SODIUM,NA 135 mmol/L (135-145)
[2018-11-27] MEDS: Insulin Lispro 100 Units/ML 3 ML Vial SUBCUT SCH ×6 (08:21→17:30)
[2018-11-27] MEDS: Insulin Glarg,Human.Rec.Analog 100 UNIT/ML ML SUBCUT SCH (08:21)
[2018-11-27] MEDS: Phosphorus #1 250 MG Tab PO SCH ×3 (08:22→17:16)
[2018-11-27] MEDS: Sodium Chloride 0.9% 10 ML Syringe FLUSH SCH (09:46)
[2018-11-27 15:40] VITALS: BP 127/87
[2018-11-27 16:23] LABS: ANION GAP 14.8; CHLORIDE,CL 98 mmol/L (101-111); SODIUM,NA 134 mmol/L (135-145)
--- NOTE | 2018-11-27 17:07 | PCM.DCSUM1 ---
Discharge Summary - Hospital Course Free Text/Narrative:: Ms. Roa is a 23 y.o female with medical history significant for DM 1.5 complicated with multiple admissions for DKA, IVDU/substance use disorder, non- adherence to medical therapy, learning disability, and abscess 2/2 IVDU who was admitted for DKA. Patient reported that prior to presentation, she had given herself 40 units of Levemir and 32 units of Novolog, although she is on only 10 units of Novolog. Bicarb on presentation was 7. AG was 32. pH was 7.22 on blood gas. She was placed on DKA protocol. She had several episodes of hypoglycemia and received a total of 4 ampules of D50. BG remained stable on D5% + 0.45 NS. Bicarb improved and AG closed. She was started on a diet because she refused to wait for subcutaneous insulin to be administered for the recommended 2 hours. Her Bicarb went down the following morning and her AG opened. She was maintained on IVF and sodium bicarb. Bicarb came to normal. Anion gap improved to 14.8. She was discharged to have labs obtained on 11/29/2018 at [facility] and to follow up with her PCP. She was counseled extensively on the importance of adherence to her medication regimen and also the need to stop using illict drugs and alcohol. She verbalized understanding and commitment to adhere to medications and substance use cessation. HPI Initial Comments: Ms. Roa is a 23 y.o female with medical history significant for DM 1.5 complicated with multiple admissions for DKA, IVDU/substance use disorder, non- adherence to medical therapy, learning disability, and abscess 2/2 IVDU who presented to the ED with complaints of nausea/vomiting and was found to be in DKA. She reports that she started having nausea with NBNB emesis last night. Had about 5 episodes of vomiting. Reports 5/10 constant epigastric pain that is worsened with vomiting. Reports that she took her 40 units of levemir and 32 units of novolog this morning, about 45 minutes prior to presentation but has not checked her BG for a long time, does not recall last time she checked. She also reports that she was abstinent from drugs for about 5 months but started using methamphetamines and marijuana again around 10pm last night. She denies diarrhea, constipation, melena, hematochezia, dysuria, fevers, chills, shortness of breath or any other symptoms. Diagnosis: Stroke: No - Discharge Data Discharge Date: 11/27/18 Discharge Disposition: Home, Self-Care 01 Condition: Stable - Discharge Diagnosis/Problem(s) (1) Diabetic ketoacidosis associated with type 1 diabetes mellitus SNOMED Code(s): 718853511, 483770519 ICD Code: E10.10 - TYPE 1 DIABETES MELLITUS WITH KETOACIDOSIS WITHOUT COMA Status: Acute Priority: High Current Visit: Yes Qualifiers: Diabetes mellitus complication detail: without coma Qualified Code(s): E10.10 - Type 1 diabetes mellitus with ketoacidosis without coma (2) Drug abuse SNOMED Code(s): 16228146 ICD Code: F19.10 - OTHER PSYCHOACTIVE SUBSTANCE ABUSE, UNCOMPLICATED Status : Acute Current Visit: Yes (3) Hypokalemia SNOMED Code(s): 54361193 ICD Code: E87.6 - HYPOKALEMIA Status: Acute Priority: High Current Visit: Yes (4) Hyponatremia SNOMED Code(s): 36531949 ICD Code: E87.1 - HYPO-OSMOLALITY AND HYPONATREMIA Status: Acute Priority : Medium Current Visit: Yes (5) Medically noncompliant SNOMED Code(s): 698458130 ICD Code: Z91.19 - PATIENT'S NONCOMPLIANCE W OTH MEDICAL TREATMENT AND REGIMEN Status: Acute Current Visit: Yes (6) Methamphetamine abuse SNOMED Code(s): 287674653 ICD Code: F15.10 - OTHER STIMULANT ABUSE, UNCOMPLICATED Status: Acute Priority: Medium Current Visit: Yes - Patient Instructions Diet: Diabetic Diet - Discharge Plan *PRESCRIPTION DRUG MONITORING PROGRAM REVIEWED*: No *COPY OF PRESCRIPTION DRUG MONITORING REPORT IN PATIENT AMANDA: No Home Medications: Home Meds Insulin Detemir [Levemir] 40 unit SUBCUT BID 03/11/16 [History] Insulin Aspart [NovoLOG] 10 unit SUBCUT TIDMEALS #1 pen 11/01/17 [Rx] Oxygen Therapy Mode: Room Air Forms: ED Department Discharge Referrals: PCP,Unobtain [Ordering Only Provider] - - Discharge Summary/Plan Comment DC Time >30 min.: Yes - General Info Date of Service: 11/27/18 Admission Dx/Problem (Free Text: Admission Diagnosis/Problem Admission Diagnosis/Problem Diabetic ketoacidosis Subjective Update: No acute events. Reports that she is tolerating diet. Denies chest pain, shortness of breath, fevers, chills, abdominal pain, n/v/d/c. No other complaints. - Review of Systems General: Reports: No Symptoms HEENT: Reports: No Symptoms Pulmonary: Reports: No Symptoms Cardiovascular: Reports: No Symptoms Gastrointestinal: Reports: No Symptoms Genitourinary: Reports: No Symptoms Musculoskeletal: Reports: No Symptoms Skin: Reports: No Symptoms Neurological: Reports: No Symptoms Psychiatric: Reports: No Symptoms - Patient Data Vitals - Most Recent: Last Vital Signs Temp 98.1 F 11/27/18 15:38 Pulse 81 11/27/18 15:38 Resp 18 11/27/18 15:38 BP 127/87 11/27/18 15:38 Pulse Ox 100 11/27/18 15:38 Weight - Most Recent: 128 lb 3.2 oz I&O - Last 24 hours: Intake & Output 11/27/18 11/27/18 11/27/18 06:59 14:59 22:59 Intake Total 1000 480 Balance 1000 480 Lab Results - Last 24 hrs: Laboratory Results - last 24 hr 11/26/18 11/27/18 11/27/18 Range/Units 20:37 06:11 07:53 Sodium 135 (135-145) mmol/L Potassium 4.3 (3.6-5.0) mmol/L Chloride 101 (101-111) mmol/L Carbon Dioxide 21.0 (21.0-31.0) mmol/L Anion Gap 17.3 BUN 7 (7-18) mg/dL Creatinine 0.4 L (0.6-1.3) mg/dL Est Cr Clr Drug Dosing 202.52 mL/min Estimated GFR (MDRD) > 60 Glucose 295 H (74-105) mg/dL POC Glucose 300 H 283 H (70-105) mg/dl Calcium 8.1 L (8.4-10.2) mg/dl Phosphorus 3.9 (2.5-4.6) mg/dL Magnesium 1.7 L (1.8-2.5) mg/dL 11/27/18 11/27/18 11/27/18 Range/Units 11:03 15:57 16:42 Sodium 134 L (135-145) mmol/L Potassium 3.8 (3.6-5.0) mmol/L Chloride 98 L (101-111) mmol/L Carbon Dioxide 25.0 (21.0-31.0) mmol/L Anion Gap 14.8 BUN 9 (7-18) mg/dL Creatinine 0.3 L (0.6-1.3) mg/dL Est Cr Clr Drug Dosing 270.02 mL/min Estimated GFR (MDRD) > 60 Glucose 78 (74-105) mg/dL POC Glucose 139 H 72 (70-105) mg/dl Calcium 8.9 (8.4-10.2) mg/dl Phosphorus (2.5-4.6) mg/dL Magnesium (1.8-2.5) mg/dL GREGORY Results - Last 24 hrs: Microbiology 11/25/18 11:15 Aerobic Blood Culture - Preliminary Blood - Venous - Lab Draw NO GROWTH AFTER 2 DAYS Anaerobic Blood Culture - Final 11/25/18 10:35 Aerobic Blood Culture - Preliminary Blood - Venous NO GROWTH AFTER 2 DAYS Anaerobic Blood Culture - Final Med Orders - Current: Current Medications Heparin Sodium (Porcine) (Heparin Sodium) 5,000 units SUBCUT Q8HR [facility] Last Admin: 11/27/18 14:12 Dose: Not Given Sodium Chloride (Normal Saline) 1,000 mls @ 150 mls/hr IV ASDIRECTED [facility] Last Admin: 11/27/18 09:44 Dose: 150 mls/hr Insulin Glargine (Lantus) 40 unit SUBCUT BID [facility] Last Admin: 11/27/18 08:21 Dose: 40 units Insulin Human Lispro (Humalog) 0 unit SUBCUT QIDACANDBED [facility]; Protocol Last Admin: 11/27/18 12:06 Dose: Not Given Insulin Human Lispro (Humalog) 10 unit SUBCUT TIDMEALS [facility] Last Admin: 11/27/18 12:06 Dose: 10 units Magnesium Oxide (Magnesium Oxide) 500 mg PO WITHBREAKFAST [facility] Ondansetron HCl (Zofran) 4 mg IVPUSH Q6H PRN PRN Reason: Nausea/Vomiting Ondansetron HCl (Zofran Odt) 4 mg PO Q6H PRN PRN Reason: nausea, able to take PO Promethazine HCl (Phenergan) 6.25 mg IM Q6H PRN PRN Reason: Nausea/Vomiting Promethazine HCl (Phenergan) 25 mg PO Q6H PRN PRN Reason: nausea, able to take PO Sodium Chloride (Saline Flush) 10 ml FLUSH BID [facility] Last Admin: 11/27/18 09:46 Dose: 10 ml Sodium Phosphate (Neutra-Phos) 500 mg PO QID [facility] Last Admin: 11/27/18 12:07 Dose: 500 mg Discontinued Medications Dextrose/Water (Dextrose 50% In Water) Confirm Administered Dose 50 ml .ROUTE .STK-MED ONE Stop: 11/25/18 12:53 Last Admin: 11/25/18 13:11 Dose: Not Given Dextrose/Water (Dextrose 50% In Water) 25 ml IVPUSH ONETIME ONE Stop: 11/25/18 12:59 Last Admin: 11/25/18 13:13 Dose: 25 ml Dextrose/Water (Dextrose 50% In Water) 50 ml IVPUSH ONETIME ONE Stop: 11/25/18 14:22 Last Admin: 11/25/18 14:30 Dose: 50 ml Dextrose/Water (Dextrose 50% In Water) 50 ml IVPUSH ONETIME ONE Stop: 11/25/18 16:51 Last Admin: 11/25/18 17:04 Dose: 50 ml Dextrose/Water (Dextrose 50% In Water) 50 ml IVPUSH ONETIME ONE Stop: 11/25/18 18:27 Last Admin: 11/25/18 18:48 Dose: 50 ml Sodium Chloride (Normal Saline) 1,000 mls @ 999 mls/hr IV .BOLUS ONE Stop: 11/25/18 11:28 Last Infusion: 11/25/18 11:38 Dose: Infused Insulin Human Regular 100 unit (/ Sodium Chloride) 100 mls @ 5.81 mls/hr IV TITRATE RUPINDER; Protocol Last Admin: 11/25/18 15:38 Dose: 0.1 units/kg/hr, 5.81 mls/hr Sodium Chloride (Normal Saline) 1,000 mls @ 999 mls/hr IV .BOLUS ONE Stop: 11/25/18 11:51 Last Admin: 11/25/18 11:39 Dose: 999 mls/hr Potassium Chloride/Sodium Chloride (Normal Saline With 20 Meq Kcl) 1,000 mls @ 500 mls/hr IV ASDIRECTED [facility] Last Admin: 11/25/18 11:54 Dose: 500 mls/hr Insulin Human Regular 100 unit (/ Sodium Chloride) 100 mls @ 2.9 mls/hr IV TITRATE RUPINDER; Protocol Last Admin: 11/25/18 17:13 Dose: 0.05 units/kg/hr, 2.9 mls/hr Sodium Bicarbonate 100 meq/ (Dextrose/Water) 1,100 mls @ 100 mls/hr IV ONETIME ONE Stop: 11/26/18 00:59 Last Admin: 11/25/18 19:27 Dose: Not Given Potassium Chloride/Sodium Chloride (Normal Saline With 20 Meq Kcl) 1,000 mls @ 150 mls/hr IV ASDIRECTED RUPINDER Dextrose/Sodium Chloride (Dextrose 5%-1/2 Ns) 1,000 mls @ 200 mls/hr IV ASDIRECTED RUPINDER Last Infusion: 11/25/18 20:05 Dose: 75 mls/hr Magnesium Sulfate 2 gm/ Premix 50 mls @ 25 mls/hr IV ONETIME ONE Stop: 11/25/18 22:10 Last Infusion: 11/25/18 23:05 Dose: Infused Dextrose/Sodium Chloride (Dextrose 5%-1/2 Ns) 1,000 mls @ 75 mls/hr IV ASDIRECTED RUPINDER Potassium Chloride 10 meq/ (Premix) 100 mls @ 100 mls/hr IV Q1H RUPINDER Stop: 11/26/18 00:14 Last Infusion: 11/26/18 01:32 Dose: Infused Insulin Glargine (Lantus) 10 unit SUBCUT ONETIME ONE Stop: 11/26/18 18:23 Insulin Glargine (Lantus) 10 unit SUBCUT ONETIME ONE Stop: 11/25/18 19:01 Last Admin: 11/25/18 19:47 Dose: 10 units Insulin Human Regular (Humulin R) 7 unit IV ONETIME ONE Stop: 11/25/18 10:30 Last Admin: 11/25/18 10:46 Dose: 7 units Ondansetron HCl (Zofran) 4 mg IV ONETIME ONE Stop: 11/25/18 10:29 Last Admin: 11/25/18 10:39 Dose: 4 mg Potassium Chloride (Klor-Con 10) 40 meq PO ONETIME ONE Stop: 11/25/18 20:16 Last Admin: 11/25/18 20:55 Dose: 40 meq Potassium Chloride (Klor-Con 10) 40 meq PO ONETIME ONE Stop: 11/26/18 18:14 Last Admin: 11/26/18 18:22 Dose: 40 meq Sodium Bicarbonate (Sodium Bicarbonate 8.4%) 50 meq IVPUSH ONETIME ONE Stop: 11/25/18 11:38 Last Admin: 11/25/18 11:42 Dose: 50 meq Sodium Bicarbonate (Sodium Bicarbonate) 1,300 mg PO BIDAC RUPINDER Stop: 11/27/18 17:01 Last Admin: 11/27/18 05:39 Dose: 1,300 mg Sodium Bicarbonate (Sodium Bicarbonate) 1,300 mg PO TID RUPINDER Last Admin: 11/27/18 14:12 Dose: 1,300 mg Sodium Chloride (Saline Flush) 10 ml FLUSH ASDIRECTED PRN PRN Reason: Keep Vein Open Last Admin: 11/25/18 10:46 Dose: 10 ml - Exam General: Reports: Alert, Oriented, Cooperative, No Acute Distress HEENT: Reports: Pupils Equal, Pupils Reactive, Mucous Membr. Moist/[place] Neck: Reports: Supple, Trachea Midline Lungs: Reports: Clear to Auscultation, Normal Respiratory Effort Cardiovascular: Reports: Regular Rate, Regular Rhythm, No Murmurs GI/Abdominal Exam: Normal Bowel Sounds, Soft, Non-Tender, No Distention Extremities: Normal Inspection, Non-Tender, No Pedal Edema, Other (PICC Line inplace) Skin: Reports: Warm, Dry, Intact Wound/Incisions: Reports: Healing Well Neurological: Reports: No New Focal Deficit Psy/Mental Status: Reports: Alert, Normal Affect, Normal Mood
== END 2018-11-27 18:05 | disposition home or self-care (01) | DRG 638 ==
LOC: DL.ED 10:22 → DL.MS 12:15
PROVIDERS: ADMIT Internal Medicine; ATTEND Internal Medicine
PROC: 05H533Z Insertion of Infusion Device into Right Subclavian Vein, Percutaneous Approach (ICD-10-PCS; principal; 2018-11-25)
DX: E10.10 Type 1 diabetes mellitus with ketoacidosis without coma (principal); E87.1 Hypo-osmolality and hyponatremia; N17.9 Acute kidney failure, unspecified; F81.9 Developmental disorder of scholastic skills, unspecified; F32.9 Major depressive disorder, single episode, unspecified; F90.9 Attention-deficit hyperactivity disorder, unspecified type; F17.210 Nicotine dependence, cigarettes, uncomplicated; F12.10 Cannabis abuse, uncomplicated; F15.10 Other stimulant abuse, uncomplicated; E87.6 Hypokalemia; T50.905A Adverse effect of unspecified drugs, medicaments and biological substances, initial encounter; E83.39 Other disorders of phosphorus metabolism; Z91.19 Patient's noncompliance with other medical treatment and regimen; Z88.6 Allergy status to analgesic agent; Z79.4 Long term (current) use of insulin; Z86.19 Personal history of other infectious and parasitic diseases
CPT/HCPCS: 36415; 36569; 36600; 71045; 76942-RT; 80048; 80053; 80305-QW; 81001; 81025; 82009; 82150; 82803; 82962; 83605; 83690; 83735; 84100; 84484; 85025; 87040; 93005; 96365; 96366; 96367; 96375; 96376; 99285-25; A9270-GY; G0480; J1815; J1815-GY; J2405; J3475; J3480; J7030; J7042; J7060

== ENCOUNTER 2018-12-03 23:56 | Observation (INO) | payer MEDICAID ==
[2018-12-04] MEDS ORDERED: Sodium Chloride 0.9% 10 ML Syringe FLUSH PRN (00:01)
[2018-12-04] MEDS ORDERED: Lactated Ringers 1,000 ML IV ONE (00:02)
[2018-12-04] MEDS ORDERED: Ondansetron 4 MG/2 ML SDV IV ONE (00:02)
--- NOTE | 2018-12-04 00:03 | EDM.PDOC ---
ED HPI GENERAL MEDICAL PROBLEM - General Stated Complaint: AMBULANCE-UNKNOWN Time Seen by Provider: 12/04/18 00:03 Source of Information: Reports: Patient, EMS, EMS Notes Reviewed, RN, RN Notes Reviewed History Limitations: Reports: No Limitations - History of Present Illness INITIAL COMMENTS - FREE TEXT/NARRATIVE: Patient to ER per [facility] with c/o nausea and high blood sugar. Patient states she began not feeling well earlier in the day. She states she ran out of insulin tonight. She states she took the last of it at 1999, but is unsure of how much she had. Patient admits to fever and chills, N/V/D. She c/o tightness in her chest at times, and states she feels very anxious. Onset: Today, Sudden - Related Data Allergies Allergy/AdvReac Type Severity Reaction Status Date / Time hydromorphone HCl Allergy Itching Verified 12/04/18 01:52 [From Dilaudid] Home Meds: Home Meds Insulin Detemir [Levemir] 40 unit SUBCUT BID 03/11/16 [History] Insulin Aspart [NovoLOG] 10 unit SUBCUT TIDMEALS #1 pen 11/01/17 [Rx] Past Medical History HEENT History: Reports: Other (See Below) Other HEENT History: ear problems with draining, cheek broken in three different place Cardiovascular History: Reports: None Respiratory History: Reports: None Gastrointestinal History: Reports: GI Bleed, Hepatitis Other Gastrointestinal History: rectal bleeding per self report for past couple of months Genitourinary History: Reports: None BLOWING WEASAND History: Reports: Spontaneous Musculoskeletal History: Reports: Fracture Neurological History: Reports: None Psychiatric History: Reports: ADHD, Addiction, Depression, Emotional Problems, Suicide Attempt, Suicidal Ideation Endocrine/Metabolic History: Reports: Diabetes, Type I, IDDM Hematologic History: Reports: Other (See Below) Other Hematologic History: Hep + Immunologic History: Reports: None Oncologic (Cancer) History: Reports: None Dermatologic History: Reports: Other (See Below) Other Dermatologic History: cut [place] noted to forearms, acne vulgaris - Infectious Disease History Infectious Disease History: Reports: Hepatitis C, MRSA - Past Surgical History Head Surgeries/Procedures: Reports: None HEENT Surgical History: Reports: Adenoidectomy, Tonsillectomy GI Surgical History: Reports: None Endocrine Surgical History: Reports: None Social & Family History - Family History Family Medical History: Noncontributory Psychiatric: Reports: Depression Endocrine/Metabolic: Reports: Diabetes, type II - Caffeine Use Caffeine Use: Reports: None - Sexual History Sexual History: Reports: Sexually Active - Living Situation & Occupation Living situation: Reports: with Significant Other Occupation: Unemployed ED ROS GENERAL - Review of Systems Review Of Systems: ROS reveals no pertinent complaints other than HPI. ED EXAM GENERAL NO PERIP PULSE - Physical Exam Exam: See Below Exam Limited By: No Limitations General Appearance: Alert, WD/WN, Anxious, Mild Distress Eye Exam: Bilateral Eye: EOMI, Normal Inspection Ears: Normal External Exam, Hearing Grossly Normal Nose: Normal Inspection Throat/Mouth: Normal Inspection, Normal Voice, No Airway Compromise Head: Atraumatic, Normocephalic Neck: Normal Inspection, Supple, Non-Tender, Full Range of Motion Respiratory/Chest: No Respiratory Distress, Lungs Clear, Normal Breath Sounds, No Accessory Muscle Use, Chest Non-Tender Cardiovascular: Normal Peripheral Pulses, Regular Rate, Rhythm, No Edema, No Gallop, No JVD, No Murmur, No Rub GI/Abdominal: Normal Bowel Sounds, Soft, Non-Tender, No Organomegaly, No Distention, No Abnormal Bruit, No Mass (Female) Exam: Deferred Rectal (Female) Exam: Deferred Back Exam: Normal Inspection, Full Range of Motion, NT Extremities: Normal Inspection, Normal Range of Motion, Non-Tender, Normal Capillary Refill, No Pedal Edema Neurological: Alert, Oriented, CN II-XII Intact, Normal Cognition, Normal Gait, Normal Reflexes, No Motor/Sensory Deficits Psychiatric: Anxious Skin Exam: Warm, Dry, Intact, Normal Color, No Rash Lymphatic: No Adenopathy Course - Vital Signs Last Recorded V/S: Last Vital Signs Temp 99.3 F 12/03/18 23:57 Pulse 114 H 12/03/18 23:57 Resp 24 H 12/03/18 23:57 BP 134/93 H 12/03/18 23:57 Pulse Ox 100 12/03/18 23:57 - Orders/Labs/Meds Orders: Active Orders 24 hr Category Date Time Status Blood Glucose Check, Bedside [RC] ONETIME Care 12/04/18 00:01 Active CULTURE BLOOD [BC] Stat Lab 12/04/18 00:10 Received CULTURE BLOOD [BC] Stat Lab 12/04/18 00:17 Received Insulin Regular, Human [HumuLIN R] 100 unit Med 12/04/18 01:30 Active Sodium Chloride 0.9% [Normal Saline] 99 ml IV TITRATE Sodium Chloride 0.9% [Normal Saline] 1,000 ml Med 12/04/18 01:28 Active IV .BOLUS Sodium Chloride 0.9% [Saline Flush] Med 12/04/18 00:01 Active 10 ml FLUSH ASDIRECTED PRN Blood Culture x2 Reflex Set [OM.PC] Stat Ot 12/04/18 00:05 Ordered Peripheral IV Insertion Adult [OM.PC] Stat Ot 12/04/18 00:01 Ordered Medication Orders Insulin Human Regular 100 unit (/ Sodium Chloride) 100 mls @ 5.94 mls/hr IV TITRATE RUPINDER; Protocol Last Admin: 12/04/18 02:00 Dose: 0.1 units/kg/hr, 5.94 mls/hr Sodium Chloride (Normal Saline) 1,000 mls @ 999 mls/hr IV .BOLUS ONE Stop: 12/04/18 02:28 Last Admin: 12/04/18 01:49 Dose: 999 mls/hr Sodium Chloride (Saline Flush) 10 ml FLUSH ASDIRECTED PRN PRN Reason: Keep Vein Open Last Admin: 12/04/18 00:20 Dose: 10 ml Labs: Laboratory Tests 12/04/18 12/04/18 12/04/18 Range/Units 00:10 00:10 00:10 WBC 10.7 H (5.0-10.0) 10^3/uL RBC 5.38 (4.2-5.4) 10^6/uL Hgb 14.6 D (12.0-16.0) g/dL Hct 45.4 (37.0-47.0) % MCV 84.4 (80-100) fL MCH 27.1 (27.0-34.0) pg MCHC 32.2 L (33.0-35.0) g/dL Plt Count 476 H (150-450) 10^3/uL Neut % (Auto) 33.4 L (42.2-75.2) % Lymph % (Auto) 59.8 H (20.5-50.1) % Schley % (Auto) 6.2 (2-8) % Eos % (Auto) 0.4 L (1.0-3.0) % Baso % (Auto) 0.2 (0.0-1.0) % Sodium 126 L (135-145) mmol/L Potassium 3.8 (3.6-5.0) mmol/L Chloride 98 L (101-111) mmol/L Carbon Dioxide 6.0 L* D (21.0-31.0) mmol/L Anion Gap 25.8 BUN 26 H (7-18) mg/dL Creatinine 0.9 (0.6-1.3) mg/dL Est Cr Clr Drug Dosing 91.79 mL/min Estimated GFR (MDRD) > 60 BUN/Creatinine Ratio 28.88 Glucose 413 H* (74-105) mg/dL Lactic Acid 0.7 (0.5-2.2) mmol/L Calcium 8.9 (8.4-10.2) mg/dl Total Bilirubin 1.7 H (0.2-1.0) mg/dL AST 83 H (10-42) IU/L ALT 159 H (10-60) IU/L Alkaline Phosphatase 110 (42-121) IU/L Total Protein 8.9 H (6.7-8.2) g/dl Albumin 4.2 (3.2-5.5) g/dl Globulin 4.7 Albumin/Globulin Ratio 0.89 Urine Color (YELLOW) Urine Appearance (CLEAR) Urine pH (5.0-9.0) Ur Specific [place] (1.005-1.030) Urine Protein (NEGATIVE) Urine Glucose (UA) (NEGATIVE) Urine Ketones (NEGATIVE) Urine Occult Blood (NEGATIVE) Urine Nitrite (NEGATIVE) Urine Bilirubin (NEGATIVE) Urine Urobilinogen (0.2-1.0) mg/dL Ur Leukocyte Esterase (NEGATIVE) Urine RBC /HPF Urine WBC (0-5/HPF) /HPF Ur Epithelial Cells /HPF Urine Bacteria (0-FEW/HPF) /HPF Urinalysis Comment Urine HCG, Qual Urine Opiates Screen (NEGATIVE) Ur Oxycodone Screen (NEGATIVE) Urine Methadone Screen (NEGATIVE) Ur Barbiturates Screen (NEGATIVE) U Tricyclic Antidepress (NEGATIVE) Ur Phencyclidine Scrn (NEGATIVE) Ur Amphetamine Screen (NEGATIVE) U Methamphetamines Scrn (NEGATIVE) Urine MDMA Screen (NEGATIVE) U Benzodiazepines Scrn (NEGATIVE) Urine Cocaine Screen (NEGATIVE) U Marijuana (THC) Screen (NEGATIVE) Ethyl Alcohol < 5 mg/dL Ketones Positive (small) 12/04/18 12/04/18 12/04/18 Range/Units 01:19 01:19 01:19 WBC (5.0-10.0) 10^3/uL RBC (4.2-5.4) 10^6/uL Hgb (12.0-16.0) g/dL Hct (37.0-47.0) % MCV (80-100) fL MCH (27.0-34.0) pg MCHC (33.0-35.0) g/dL Plt Count (150-450) 10^3/uL Neut % (Auto) (42.2-75.2) % Lymph % (Auto) (20.5-50.1) % [place] % (Auto) (2-8) % Eos % (Auto) (1.0-3.0) % Baso % (Auto) (0.0-1.0) % Sodium (135-145) mmol/L Potassium (3.6-5.0) mmol/L Chloride (101-111) mmol/L Carbon Dioxide (21.0-31.0) mmol/L Anion Gap BUN (7-18) mg/dL Creatinine (0.6-1.3) mg/dL Est Cr Clr Drug Dosing mL/min Estimated GFR (MDRD) BUN/Creatinine Ratio Glucose (74-105) mg/dL Lactic Acid (0.5-2.2) mmol/L Calcium (8.4-10.2) mg/dl Total Bilirubin (0.2-1.0) mg/dL AST (10-42) IU/L ALT (10-60) IU/L Alkaline Phosphatase (42-121) IU/L Total Protein (6.7-8.2) g/dl Albumin (3.2-5.5) g/dl Globulin Albumin/Globulin Ratio Urine Color Yellow (YELLOW) Urine Appearance Cloudy (CLEAR) Urine pH 5.0 (5.0-9.0) Ur Specific [place] 1.025 (1.005-1.030) Urine Protein 100 H (NEGATIVE) Urine Glucose (UA) 500 H (NEGATIVE) Urine Ketones >=160 H (NEGATIVE) Urine Occult Blood Large H (NEGATIVE) Urine Nitrite Negative (NEGATIVE) Urine Bilirubin Negative (NEGATIVE) Urine Urobilinogen 0.2 (0.2-1.0) mg/dL Ur Leukocyte Esterase Negative (NEGATIVE) Urine RBC Semi-packed H /HPF Urine WBC 0-5 (0-5/HPF) /HPF Ur Epithelial Cells Moderate H /HPF Urine Bacteria Few (0-FEW/HPF) /HPF Urinalysis Comment Urine HCG, Qual Negative Urine Opiates Screen Negative (NEGATIVE) Ur Oxycodone Screen Negative (NEGATIVE) Urine Methadone Screen Negative (NEGATIVE) Ur Barbiturates Screen Negative (NEGATIVE) U Tricyclic Antidepress Negative (NEGATIVE) Ur Phencyclidine Scrn Negative (NEGATIVE) Ur Amphetamine Screen Negative (NEGATIVE) U Methamphetamines Scrn Negative (NEGATIVE) Urine MDMA Screen Negative (NEGATIVE) U Benzodiazepines Scrn Negative (NEGATIVE) Urine Cocaine Screen Negative (NEGATIVE) U Marijuana (THC) Screen Negative (NEGATIVE) Ethyl Alcohol mg/dL Ketones Meds: Medications Generic Name Dose Route Start Last Admin Trade Name Freq PRN Reason Stop Dose Admin Insulin Human Regular 100 unit 100 mls @ 5.94 mls/hr 12/04/18 01:30 12/04/18 02:00 / Sodium Chloride IV 0.1 units/kg/hr TITRATE RUPINDER 5.94 mls/hr Administration Protocol 0.1 UNITS/KG/HR Sodium Chloride 1,000 mls @ 999 mls/hr 12/04/18 01:28 12/04/18 01:49 Normal Saline IV 12/04/18 02:28 999 mls/hr .BOLUS ONE Administration Sodium Chloride 10 ml 12/04/18 00:01 12/04/18 00:20 Saline Flush FLUSH 10 ml ASDIRECTED PRN Administration Keep Vein Open Discontinued Medications Generic Name Dose Route Start Last Admin Trade Name Freq PRN Reason Stop Dose Admin Lactated Ringer's 1,000 mls @ 999 mls/hr 12/04/18 00:02 12/04/18 00:25 Ringers, Lactated IV 12/04/18 01:02 999 mls/hr .BOLUS ONE Administration Insulin Human Regular 10 unit 12/04/18 01:03 12/04/18 01:25 Humulin R IV 12/04/18 01:04 10 units ONETIME ONE Administration Ondansetron HCl 4 mg 12/04/18 00:02 12/04/18 00:26 Zofran IV 12/04/18 00:03 4 mg ONETIME ONE Administration Departure - Departure Time of Disposition: 02:11 Disposition: Refer to Observation Condition: Fair Clinical Impression: DKA, type 1 Qualifiers: Diabetes mellitus complication detail: without coma Qualified Code(s): E10.10 - Type 1 diabetes mellitus with ketoacidosis without coma - Discharge Information *PRESCRIPTION DRUG MONITORING PROGRAM REVIEWED*: No *COPY OF PRESCRIPTION DRUG MONITORING REPORT IN PATIENT AMANDA: No - My Orders Last 24 Hours: My Active Orders 12/04/18 00:01 Blood Glucose Check, Bedside [RC] ONETIME Sodium Chloride 0.9% [Saline Flush] 10 ml FLUSH ASDIRECTED PRN Peripheral IV Insertion Adult [OM.PC] Stat 12/04/18 00:05 Blood Culture x2 Reflex Set [OM.PC] Stat 12/04/18 00:10 CULTURE BLOOD [BC] Stat 12/04/18 00:17 CULTURE BLOOD [BC] Stat 12/04/18 01:28 Sodium Chloride 0.9% [Normal Saline] 1,000 ml IV .BOLUS 12/04/18 01:30 Insulin Regular, Human [HumuLIN R] 100 unit Sodium Chloride 0.9% [Normal Saline] 99 ml IV TITRATE - Assessment/Plan Last 24 Hours: My Active Orders 12/04/18 00:01 Blood Glucose Check, Bedside [RC] ONETIME Sodium Chloride 0.9% [Saline Flush] 10 ml FLUSH ASDIRECTED PRN Peripheral IV Insertion Adult [OM.PC] Stat 12/04/18 00:05 Blood Culture x2 Reflex Set [OM.PC] Stat 12/04/18 00:10 CULTURE BLOOD [BC] Stat 12/04/18 00:17 CULTURE BLOOD [BC] Stat 12/04/18 01:28 Sodium Chloride 0.9% [Normal Saline] 1,000 ml IV .BOLUS 12/04/18 01:30 Insulin Regular, Human [HumuLIN R] 100 unit Sodium Chloride 0.9% [Normal Saline] 99 ml IV TITRATE
[2018-12-04 01:00] LABS: ANION GAP 25.8; CHLORIDE,CL 98 mmol/L (101-111); SODIUM,NA 126 mmol/L (135-145)
[2018-12-04] MEDS ORDERED: Insulin Regular, Human 100 Units/ML 3 ML Vial IV ONE (01:03)
[2018-12-04] MEDS ORDERED: Sodium Chloride 0.9% 1,000 ML IV ONE (01:28)
[2018-12-04] MEDS ORDERED: Zolpidem 5 MG Tab PO PRN (02:55)
[2018-12-04] MEDS ORDERED: Ondansetron 4 MG Tab.DIS PO PRN (02:55)
[2018-12-04] MEDS ORDERED: Ibuprofen 400 MG Tab PO PRN (02:55)
[2018-12-04] MEDS: Acetaminophen 325 MG Tab PO PRN (03:15)
[2018-12-04] MEDS: Dextrose 5%-0.9% NaCl with KCl 1,000 ML IV SCH ×4 (03:15→23:40)
[2018-12-04] MEDS ORDERED: 50% Dextrose in Water 50 ML Syringe IVPUSH PRN (04:24)
[2018-12-04] MEDS: Heparin Sodium 5,000 Units/ML Vial SUBCUT SCH ×4 (06:14→22:40)
[2018-12-04 06:20] LABS: ANION GAP 13.1; CHLORIDE,CL 107 mmol/L (101-111); SODIUM,NA 129 mmol/L (135-145)
[2018-12-04] MEDS: 50% Dextrose in Water 50 ML Syringe IVPUSH PRN ×2 (07:21→21:39)
[2018-12-04] MEDS ORDERED: 50% Dextrose in Water 50 ML Syringe IVPUSH ONE (08:30)
--- NOTE | 2018-12-04 10:01 | PCM.HP ---
H&P History of Present Illness - General Date of Service: 12/04/18 Admit Problem/Dx: Admission Diagnosis/Problem Admission Diagnosis/Problem Diabetic ketoacidosis Source of Information: Patient History Limitations: Reports: No Limitations - History of Present Illness Initial Comments - Free Text/Narative: 23-year-old lady with a history of diabetes type 1. She has had multiple admissions for DKA. She ran out of insulin and was cutting back on Lantus use. When she completely ran out she presented to the emergency room. She had associated nausea. no fever, no cp, abd pain - Related Data Allergies/Adverse Reactions: Allergies Allergy/AdvReac Type Severity Reaction Status Date / Time hydromorphone HCl Allergy Itching Verified 12/04/18 01:52 [From Dilaudid] Home Medications: Home Meds Insulin Detemir [Levemir] 40 unit SUBCUT BID 03/11/16 [History] Insulin Aspart [NovoLOG] 10 unit SUBCUT TIDMEALS #1 pen 11/01/17 [Rx] Past Medical History HEENT History: Reports: Other (See Below) Other HEENT History: ear problems with draining, cheek broken in three different place Cardiovascular History: Reports: None Respiratory History: Reports: None Gastrointestinal History: Reports: GI Bleed, Hepatitis Other Gastrointestinal History: rectal bleeding per self report for past couple of months Genitourinary History: Reports: None HE[employer]ACHINE History: Reports: Spontaneous Musculoskeletal History: Reports: Fracture Neurological History: Reports: None Psychiatric History: Reports: ADHD, Addiction, Depression, Emotional Problems, Suicide Attempt, Suicidal Ideation Endocrine/Metabolic History: Reports: Diabetes, Type I, IDDM Hematologic History: Reports: Other (See Below) Other Hematologic History: Hep + Immunologic History: Reports: None Oncologic (Cancer) History: Reports: None Dermatologic History: Reports: Other (See Below) Other Dermatologic History: cut العراقي noted to forearms, acne vulgaris - Infectious Disease History Infectious Disease History: Reports: Hepatitis C, MRSA - Past Surgical History Head Surgeries/Procedures: Reports: None HEENT Surgical History: Reports: Adenoidectomy, Tonsillectomy GI Surgical History: Reports: None Endocrine Surgical History: Reports: None Social & Family History - Family History Family Medical History: Noncontributory Psychiatric: Reports: Depression Endocrine/Metabolic: Reports: Diabetes, type II - Tobacco Use Smoking Status *Q: Current Status Unknown Years of Tobacco use: 8 Packs/Tins Daily: 2 Second Hand Smoke Exposure: No - Caffeine Use Caffeine Use: Reports: None - Recreational Drug Use Recreational Drug Use: No Drug Use in Last 12 Months: Yes - Sexual History Sexual History: Reports: Sexually Active - Living Situation & Occupation Living situation: Reports: with Significant Other Occupation: Unemployed H&P Review of Systems - Review of Systems: Review Of Systems: See Below General: Denies: Fever Pulmonary: Denies: Shortness of Breath Cardiovascular: Denies: Chest Pain, Edema Gastrointestinal: Reports: Nausea. Denies: Abdominal Pain Genitourinary: Reports: Other (She has her period now). Denies: Hematuria Neurological: Denies: Confusion, Dizziness Exam - Exam Exam: See Below - Vital Signs Vital Signs: Last Vital Signs Temp 36.9 C 12/04/18 07:40 Pulse 89 12/04/18 04:00 Resp 16 12/04/18 04:00 BP 127/90 12/04/18 07:40 Pulse Ox 100 12/04/18 04:00 Weight: 58.241 kg - Exam General: Alert, Oriented Neck: Supple Lungs: Clear to Auscultation, Normal Respiratory Effort Cardiovascular: Regular Rate, Regular Rhythm GI/Abdominal Exam: Normal Bowel Sounds, Soft, Non-Tender Extremities: No Pedal Edema - Patient Data Lab Results Last 24 hrs: Laboratory Results - last 24 hr 12/04/18 12/04/18 12/04/18 Range/Units 00:10 00:10 00:10 WBC 10.7 H (5.0-10.0) 10^3/uL RBC 5.38 (4.2-5.4) 10^6/uL Hgb 14.6 D (12.0-16.0) g/dL Hct 45.4 (37.0-47.0) % MCV 84.4 (80-100) fL MCH 27.1 (27.0-34.0) pg MCHC 32.2 L (33.0-35.0) g/dL Plt Count 476 H (150-450) 10^3/uL Neut % (Auto) 33.4 L (42.2-75.2) % Lymph % (Auto) 59.8 H (20.5-50.1) % [place] % (Auto) 6.2 (2-8) % Eos % (Auto) 0.4 L (1.0-3.0) % Baso % (Auto) 0.2 (0.0-1.0) % Sodium 126 L (135-145) mmol/L Potassium 3.8 (3.6-5.0) mmol/L Chloride 98 L (101-111) mmol/L Carbon Dioxide 6.0 L* D (21.0-31.0) mmol/L Anion Gap 25.8 BUN 26 H (7-18) mg/dL Creatinine 0.9 (0.6-1.3) mg/dL Est Cr Clr Drug Dosing 91.79 mL/min Estimated GFR (MDRD) > 60 BUN/Creatinine Ratio 28.88 Glucose 413 H* (74-105) mg/dL POC Glucose (70-105) mg/dl Lactic Acid 0.7 (0.5-2.2) mmol/L Calcium 8.9 (8.4-10.2) mg/dl Phosphorus (2.5-4.6) mg/dL Magnesium (1.8-2.5) mg/dL Total Bilirubin 1.7 H (0.2-1.0) mg/dL AST 83 H (10-42) IU/L ALT 159 H (10-60) IU/L Alkaline Phosphatase 110 (42-121) IU/L Total Protein 8.9 H (6.7-8.2) g/dl Albumin 4.2 (3.2-5.5) g/dl Globulin 4.7 Albumin/Globulin Ratio 0.89 Urine Color (YELLOW) Urine Appearance (CLEAR) Urine pH (5.0-9.0) Ur Specific [place] (1.005-1.030) Urine Protein (NEGATIVE) Urine Glucose (UA) (NEGATIVE) Urine Ketones (NEGATIVE) Urine Occult Blood (NEGATIVE) Urine Nitrite (NEGATIVE) Urine Bilirubin (NEGATIVE) Urine Urobilinogen (0.2-1.0) mg/dL Ur Leukocyte Esterase (NEGATIVE) Urine RBC /HPF Urine WBC (0-5/HPF) /HPF Ur Epithelial Cells /HPF Urine Bacteria (0-FEW/HPF) /HPF Urinalysis Comment Urine HCG, Qual Urine Opiates Screen (NEGATIVE) Ur Oxycodone Screen (NEGATIVE) Urine Methadone Screen (NEGATIVE) Ur Barbiturates Screen (NEGATIVE) U Tricyclic Antidepress (NEGATIVE) Ur Phencyclidine Scrn (NEGATIVE) Ur Amphetamine Screen (NEGATIVE) U Methamphetamines Scrn (NEGATIVE) Urine MDMA Screen (NEGATIVE) U Benzodiazepines Scrn (NEGATIVE) Urine Cocaine Screen (NEGATIVE) U Marijuana (THC) Screen (NEGATIVE) Ethyl Alcohol < 5 mg/dL Ketones Positive (small) 12/04/18 12/04/18 12/04/18 Range/Units 01:19 01:19 01:19 WBC (5.0-10.0) 10^3/uL RBC (4.2-5.4) 10^6/uL Hgb (12.0-16.0) g/dL Hct (37.0-47.0) % MCV (80-100) fL MCH (27.0-34.0) pg MCHC (33.0-35.0) g/dL Plt Count (150-450) 10^3/uL Neut % (Auto) (42.2-75.2) % Lymph % (Auto) (20.5-50.1) % [place] % (Auto) (2-8) % Eos % (Auto) (1.0-3.0) % Baso % (Auto) (0.0-1.0) % Sodium (135-145) mmol/L Potassium (3.6-5.0) mmol/L Chloride (101-111) mmol/L Carbon Dioxide (21.0-31.0) mmol/L Anion Gap BUN (7-18) mg/dL Creatinine (0.6-1.3) mg/dL Est Cr Clr Drug Dosing mL/min Estimated GFR (MDRD) BUN/Creatinine Ratio Glucose (74-105) mg/dL POC Glucose (70-105) mg/dl Lactic Acid (0.5-2.2) mmol/L Calcium (8.4-10.2) mg/dl Phosphorus (2.5-4.6) mg/dL Magnesium (1.8-2.5) mg/dL Total Bilirubin (0.2-1.0) mg/dL AST (10-42) IU/L ALT (10-60) IU/L Alkaline Phosphatase (42-121) IU/L Total Protein (6.7-8.2) g/dl Albumin (3.2-5.5) g/dl Globulin Albumin/Globulin Ratio Urine Color Yellow (YELLOW) Urine Appearance Cloudy (CLEAR) Urine pH 5.0 (5.0-9.0) Ur Specific [place] 1.025 (1.005-1.030) Urine Protein 100 H (NEGATIVE) Urine Glucose (UA) 500 H (NEGATIVE) Urine Ketones >=160 H (NEGATIVE) Urine Occult Blood Large H (NEGATIVE) Urine Nitrite Negative (NEGATIVE) Urine Bilirubin Negative (NEGATIVE) Urine Urobilinogen 0.2 (0.2-1.0) mg/dL Ur Leukocyte Esterase Negative (NEGATIVE) Urine RBC Semi-packed H /HPF Urine WBC 0-5 (0-5/HPF) /HPF Ur Epithelial Cells Moderate H /HPF Urine Bacteria Few (0-FEW/HPF) /HPF Urinalysis Comment Urine HCG, Qual Negative Urine Opiates Screen Negative (NEGATIVE) Ur Oxycodone Screen Negative (NEGATIVE) Urine Methadone Screen Negative (NEGATIVE) Ur Barbiturates Screen Negative (NEGATIVE) U Tricyclic Antidepress Negative (NEGATIVE) Ur Phencyclidine Scrn Negative (NEGATIVE) Ur Amphetamine Screen Negative (NEGATIVE) U Methamphetamines Scrn Negative (NEGATIVE) Urine MDMA Screen Negative (NEGATIVE) U Benzodiazepines Scrn Negative (NEGATIVE) Urine Cocaine Screen Negative (NEGATIVE) U Marijuana (THC) Screen Negative (NEGATIVE) Ethyl Alcohol mg/dL Ketones 12/04/18 12/04/18 12/04/18 Range/Units 01:56 03:03 04:03 WBC (5.0-10.0) 10^3/uL RBC (4.2-5.4) 10^6/uL Hgb (12.0-16.0) g/dL Hct (37.0-47.0) % MCV (80-100) fL MCH (27.0-34.0) pg MCHC (33.0-35.0) g/dL Plt Count (150-450) 10^3/uL Neut % (Auto) (42.2-75.2) % Lymph % (Auto) (20.5-50.1) % [place] % (Auto) (2-8) % Eos % (Auto) (1.0-3.0) % Baso % (Auto) (0.0-1.0) % Sodium (135-145) mmol/L Potassium (3.6-5.0) mmol/L Chloride (101-111) mmol/L Carbon Dioxide (21.0-31.0) mmol/L Anion Gap BUN (7-18) mg/dL Creatinine (0.6-1.3) mg/dL Est Cr Clr Drug Dosing mL/min Estimated GFR (MDRD) BUN/Creatinine Ratio Glucose (74-105) mg/dL POC Glucose 245 H 163 H 136 H (70-105) mg/dl Lactic Acid (0.5-2.2) mmol/L Calcium (8.4-10.2) mg/dl Phosphorus (2.5-4.6) mg/dL Magnesium (1.8-2.5) mg/dL Total Bilirubin (0.2-1.0) mg/dL AST (10-42) IU/L ALT (10-60) IU/L Alkaline Phosphatase (42-121) IU/L Total Protein (6.7-8.2) g/dl Albumin (3.2-5.5) g/dl Globulin Albumin/Globulin Ratio Urine Color (YELLOW) Urine Appearance (CLEAR) Urine pH (5.0-9.0) Ur Specific [place] (1.005-1.030) Urine Protein (NEGATIVE) Urine Glucose (UA) (NEGATIVE) Urine Ketones (NEGATIVE) Urine Occult Blood (NEGATIVE) Urine Nitrite (NEGATIVE) Urine Bilirubin (NEGATIVE) Urine Urobilinogen (0.2-1.0) mg/dL Ur Leukocyte Esterase (NEGATIVE) Urine RBC /HPF Urine WBC (0-5/HPF) /HPF Ur Epithelial Cells /HPF Urine Bacteria (0-FEW/HPF) /HPF Urinalysis Comment Urine HCG, Qual Urine Opiates Screen (NEGATIVE) Ur Oxycodone Screen (NEGATIVE) Urine Methadone Screen (NEGATIVE) Ur Barbiturates Screen (NEGATIVE) U Tricyclic Antidepress (NEGATIVE) Ur Phencyclidine Scrn (NEGATIVE) Ur Amphetamine Screen (NEGATIVE) U Methamphetamines Scrn (NEGATIVE) Urine MDMA Screen (NEGATIVE) U Benzodiazepines Scrn (NEGATIVE) Urine Cocaine Screen (NEGATIVE) U Marijuana (THC) Screen (NEGATIVE) Ethyl Alcohol mg/dL Ketones 12/04/18 12/04/18 12/04/18 Range/Units 05:01 05:48 06:03 WBC (5.0-10.0) 10^3/uL RBC (4.2-5.4) 10^6/uL Hgb (12.0-16.0) g/dL Hct (37.0-47.0) % MCV (80-100) fL MCH (27.0-34.0) pg MCHC (33.0-35.0) g/dL Plt Count (150-450) 10^3/uL Neut % (Auto) (42.2-75.2) % Lymph % (Auto) (20.5-50.1) % [place] % (Auto) (2-8) % Eos % (Auto) (1.0-3.0) % Baso % (Auto) (0.0-1.0) % Sodium 129 L (135-145) mmol/L Potassium 3.1 L (3.6-5.0) mmol/L Chloride 107 (101-111) mmol/L Carbon Dioxide 12.0 L (21.0-31.0) mmol/L Anion Gap 13.1 BUN 14 (7-18) mg/dL Creatinine 0.5 L (0.6-1.3) mg/dL Est Cr Clr Drug Dosing 162.27 mL/min Estimated GFR (MDRD) > 60 BUN/Creatinine Ratio Glucose 123 H (74-105) mg/dL POC Glucose 131 H 102 (70-105) mg/dl Lactic Acid (0.5-2.2) mmol/L Calcium 7.6 L (8.4-10.2) mg/dl Phosphorus 1.6 L (2.5-4.6) mg/dL Magnesium 1.5 L (1.8-2.5) mg/dL Total Bilirubin (0.2-1.0) mg/dL AST (10-42) IU/L ALT (10-60) IU/L Alkaline Phosphatase (42-121) IU/L Total Protein (6.7-8.2) g/dl Albumin (3.2-5.5) g/dl Globulin Albumin/Globulin Ratio Urine Color (YELLOW) Urine Appearance (CLEAR) Urine pH (5.0-9.0) Ur Specific [place] (1.005-1.030) Urine Protein (NEGATIVE) Urine Glucose (UA) (NEGATIVE) Urine Ketones (NEGATIVE) Urine Occult Blood (NEGATIVE) Urine Nitrite (NEGATIVE) Urine Bilirubin (NEGATIVE) Urine Urobilinogen (0.2-1.0) mg/dL Ur Leukocyte Esterase (NEGATIVE) Urine RBC /HPF Urine WBC (0-5/HPF) /HPF Ur Epithelial Cells /HPF Urine Bacteria (0-FEW/HPF) /HPF Urinalysis Comment Urine HCG, Qual Urine Opiates Screen (NEGATIVE) Ur Oxycodone Screen (NEGATIVE) Urine Methadone Screen (NEGATIVE) Ur Barbiturates Screen (NEGATIVE) U Tricyclic Antidepress (NEGATIVE) Ur Phencyclidine Scrn (NEGATIVE) Ur Amphetamine Screen (NEGATIVE) U Methamphetamines Scrn (NEGATIVE) Urine MDMA Screen (NEGATIVE) U Benzodiazepines Scrn (NEGATIVE) Urine Cocaine Screen (NEGATIVE) U Marijuana (THC) Screen (NEGATIVE) Ethyl Alcohol mg/dL Ketones 12/04/18 12/04/18 12/04/18 Range/Units 07:09 08:07 09:03 WBC (5.0-10.0) 10^3/uL RBC (4.2-5.4) 10^6/uL Hgb (12.0-16.0) g/dL Hct (37.0-47.0) % MCV (80-100) fL MCH (27.0-34.0) pg MCHC (33.0-35.0) g/dL Plt Count (150-450) 10^3/uL Neut % (Auto) (42.2-75.2) % Lymph % (Auto) (20.5-50.1) % [place] % (Auto) (2-8) % Eos % (Auto) (1.0-3.0) % Baso % (Auto) (0.0-1.0) % Sodium (135-145) mmol/L Potassium (3.6-5.0) mmol/L Chloride (101-111) mmol/L Carbon Dioxide (21.0-31.0) mmol/L Anion Gap BUN (7-18) mg/dL Creatinine (0.6-1.3) mg/dL Est Cr Clr Drug Dosing mL/min Estimated GFR (MDRD) BUN/Creatinine Ratio Glucose (74-105) mg/dL POC Glucose 80 93 211 H (70-105) mg/dl Lactic Acid (0.5-2.2) mmol/L Calcium (8.4-10.2) mg/dl Phosphorus (2.5-4.6) mg/dL Magnesium (1.8-2.5) mg/dL Total Bilirubin (0.2-1.0) mg/dL AST (10-42) IU/L ALT (10-60) IU/L Alkaline Phosphatase (42-121) IU/L Total Protein (6.7-8.2) g/dl Albumin (3.2-5.5) g/dl Globulin Albumin/Globulin Ratio Urine Color (YELLOW) Urine Appearance (CLEAR) Urine pH (5.0-9.0) Ur Specific [place] (1.005-1.030) Urine Protein (NEGATIVE) Urine Glucose (UA) (NEGATIVE) Urine Ketones (NEGATIVE) Urine Occult Blood (NEGATIVE) Urine Nitrite (NEGATIVE) Urine Bilirubin (NEGATIVE) Urine Urobilinogen (0.2-1.0) mg/dL Ur Leukocyte Esterase (NEGATIVE) Urine RBC /HPF Urine WBC (0-5/HPF) /HPF Ur Epithelial Cells /HPF Urine Bacteria (0-FEW/HPF) /HPF Urinalysis Comment Urine HCG, Qual Urine Opiates Screen (NEGATIVE) Ur Oxycodone Screen (NEGATIVE) Urine Methadone Screen (NEGATIVE) Ur Barbiturates Screen (NEGATIVE) U Tricyclic Antidepress (NEGATIVE) Ur Phencyclidine Scrn (NEGATIVE) Ur Amphetamine Screen (NEGATIVE) U Methamphetamines Scrn (NEGATIVE) Urine MDMA Screen (NEGATIVE) U Benzodiazepines Scrn (NEGATIVE) Urine Cocaine Screen (NEGATIVE) U Marijuana (THC) Screen (NEGATIVE) Ethyl Alcohol mg/dL Ketones Result Diagrams: 12/04/18 00:10 12/04/18 05:48 - Problem List (1) DKA, type 1 SNOMED Code(s): 687346230, 649023841 ICD Code: E10.10 - TYPE 1 DIABETES MELLITUS WITH KETOACIDOSIS WITHOUT COMA Status: Acute Current Visit: Yes Qualifiers: Diabetes mellitus complication detail: without coma Qualified Code(s): E10.10 - Type 1 diabetes mellitus with ketoacidosis without coma (2) Hyponatremia SNOMED Code(s): 56778208 ICD Code: E87.1 - HYPO-OSMOLALITY AND HYPONATREMIA Status: Acute Current Visit: No Problem List Initiated/Reviewed/Updated: Yes Orders Last 24hrs: Active Orders 24 hr Category Date Time Status Patient Status [ADT] Routine ADT 12/04/18 02:55 Active Blood Glucose Check, Bedside [RC] Q1H Care 12/04/18 00:01 Active Communication Order [RC] 05,06,07,08,09,10,11,12,13,14, Care 12/04/18 04:18 Active 15,16,17,18,19,20,21,22,23,00,01,02,03,04 Oxygen Therapy [RC] PRN Care 12/04/18 02:55 Active Up With Assistance [RC] ASDIRECTED Care 12/04/18 02:55 Active VTE/DVT Education [RC] PER UNIT ROUTINE Care 12/04/18 02:55 Active Vital Signs [RC] 04,08,12,16,20,00 Care 12/04/18 02:55 Active Consistent Carbohydrate Diet [DIET] Diet 12/04/18 Breakfast Active BASIC METABOLIC PANEL,BMP [CHEM] AM Lab 12/05/18 05:15 Ordered CBC WITH AUTO DIFF [HEME] AM Lab 12/05/18 05:15 Ordered CULTURE BLOOD [BC] Stat Lab 12/04/18 00:10 Received CULTURE BLOOD [BC] Stat Lab 12/04/18 00:17 Received MAGNESIUM [CHEM] AM Lab 12/05/18 05:11 Ordered PHOSPHORUS [CHEM] AM Lab 12/05/18 05:11 Ordered Acetaminophen [Tylenol] Med 12/04/18 02:55 Active 650 mg PO Q4H PRN Dextrose 5%-0.9% NaCl with KCl [D5 NS with 20 mEq KCl] Med 12/04/18 03:00 Active 1,000 ml IV ASDIRECTED Dextrose 50% in Water Med 12/04/18 04:33 Active 25 ml IVPUSH ONETIME PRN Heparin Sodium Med 12/04/18 06:00 Active 5,000 units SUBCUT Q8HR Ibuprofen [Motrin] Med 12/04/18 02:55 Active 400 mg PO Q6H PRN Insulin Regular, Human [HumuLIN R] 100 unit Med 12/04/18 01:30 Active Sodium Chloride 0.9% [Normal Saline] 99 ml IV TITRATE Magnesium Oxide Med 12/04/18 10:00 Ordered 250 mg PO BIDM Ondansetron [Zofran ODT] Med 12/04/18 02:55 Active 4 mg PO Q6H PRN Phosphorus #1 [Neutra-Phos] Med 12/04/18 10:00 Ordered 250 mg PO QID Sodium Chloride 0.9% [Saline Flush] Med 12/04/18 00:01 Active 10 ml FLUSH ASDIRECTED PRN Zolpidem [Ambien] Med 12/04/18 02:55 Active 5 mg PO BEDTIME PRN Blood Culture x2 Reflex Set [OM.PC] Stat Oth 12/04/18 00:05 Ordered Peripheral IV Insertion Adult [OM.PC] Stat Oth 12/04/18 00:01 Ordered Resuscitation Status Routine Resus Stat 12/04/18 02:55 Ordered Medication Orders Acetaminophen (Tylenol) 650 mg PO Q4H PRN PRN Reason: Pain (Mild 1-3)/fever Last Admin: 12/04/18 03:15 Dose: 650 mg Dextrose/Water (Dextrose 50% In Water) 25 ml IVPUSH ONETIME PRN PRN Reason: Blood Glucose Last Admin: 12/04/18 07:21 Dose: 25 ml Heparin Sodium (Porcine) (Heparin Sodium) 5,000 units SUBCUT Q8HR RUPINDER Last Admin: 12/04/18 06:14 Dose: Not Given Insulin Human Regular 100 unit (/ Sodium Chloride) 100 mls @ 5.94 mls/hr IV TITRATE RUPINDER; Protocol Last Infusion: 12/04/18 09:21 Dose: 0.06 units/kg/hr, 4 mls/hr Infusion: 12/04/18 08:29 Dose: 0.05 units/kg/hr, 3 mls/hr Infusion: 12/04/18 07:26 Dose: 0.06 units/kg/hr, 4 mls/hr Infusion: 12/04/18 06:05 Dose: 0.1 units/kg/hr, 6 mls/hr Infusion: 12/04/18 05:06 Dose: 0.1 units/kg/hr, 6 mls/hr Infusion: 12/04/18 04:22 Dose: 0.1 units/kg/hr, 6 mls/hr Infusion: 12/04/18 04:06 Dose: 0.11 units/kg/hr, 6.8 mls/hr Infusion: 12/04/18 03:09 Dose: 0.07 units/kg/hr, 4.5 mls/hr Infusion: 12/04/18 02:22 Dose: 0.1 units/kg/hr, 5.94 mls/hr Admin: 12/04/18 02:00 Dose: 0.1 units/kg/hr, 5.94 mls/hr Potassium Chloride/Dextrose/Sod Cl (D5 Ns With 20 Meq Kcl) 1,000 mls @ 150 mls/ hr IV ASDIRECTED [facility] Last Admin: 12/04/18 03:15 Dose: 150 mls/hr Ibuprofen (Motrin) 400 mg PO Q6H PRN PRN Reason: Pain (Mod 4-6) Magnesium Oxide (Magnesium Oxide) 250 mg PO BIDM [facility] Stop: 12/04/18 18:01 Ondansetron HCl (Zofran Odt) 4 mg PO Q6H PRN PRN Reason: nausea, able to take PO Sodium Chloride (Saline Flush) 10 ml FLUSH ASDIRECTED PRN PRN Reason: Keep Vein Open Last Admin: 12/04/18 00:20 Dose: 10 ml Sodium Phosphate (Neutra-Phos) 250 mg PO QID [facility] Stop: 12/04/18 21:01 Zolpidem Tartrate (Ambien) 5 mg PO BEDTIME PRN PRN Reason: Sleep Assessment/Plan Comment:: 23-year-old lady with a history of type 1 diabetes. The patient was running out of her Lantus and was cutting back for a few days and then subsequently completely ran out. She had no insulin for 24 hours prior to admission. Diabetic ketoacidosis Due to running out of insulin Start the patient on IV hydration Insulin drip Follow electrolytes and replace them as needed Replace hypokalemia, hypomagnesemia, hypophosphatemia Hyponatremia Secondary to elevated blood sugars Will treat with hydration DVT prophylaxis with subcutaneous heparin and mobilization
[2018-12-04] MEDS: Phosphorus #1 250 MG Tab PO SCH ×5 (12:10→22:37)
[2018-12-04 21:21] LABS: ANION GAP 11.7; CHLORIDE,CL 108 mmol/L (101-111); SODIUM,NA 136 mmol/L (135-145)
[2018-12-04] MEDS ORDERED: 50% Dextrose in Water 50 ML Syringe ONE (21:24)
[2018-12-05] MEDS: Acetaminophen 325 MG Tab PO PRN (04:41)
[2018-12-05] MEDS: Heparin Sodium 5,000 Units/ML Vial SUBCUT SCH ×2 (05:15→14:01)
[2018-12-05 07:07] LABS: CHLORIDE,CL 111 mmol/L (101-111); SODIUM,NA 141 mmol/L (135-145)
[2018-12-05] MEDS: Dextrose 5%-0.9% NaCl with KCl 1,000 ML IV SCH (07:09)
[2018-12-05] MEDS: Phosphorus #1 250 MG Tab PO SCH ×2 (08:48→13:20)
[2018-12-05] MEDS ORDERED: Potassium Chloride 10 MEQ in Premix Bag 1 BAG IV ONE (10:00)
--- NOTE | 2018-12-05 11:09 | PCM.PN ---
- General Info Date of Service: 12/05/18 Admission Dx/Problem (Free Text): Admission Diagnosis/Problem Admission Diagnosis/Problem Diabetic ketoacidosis Subjective Update: 23-year-old lady with a history of diabetes type 1. She has had multiple admissions for DKA. She ran out of insulin and was cutting back on Lantus use. When she completely ran out she presented to the emergency room c/o nausea. She was found to be in DKA and subsequently admitted. She was seen and examined today. No acute event over night. Labs reviewed. Anion Gap closed. She denies nausea, vomiting, abdominal pain. No fever or chills. Functional Status: Reports: Pain Controlled - Review of Systems General: Reports: No Symptoms HEENT: Reports: No Symptoms Pulmonary: Reports: No Symptoms Cardiovascular: Reports: No Symptoms Gastrointestinal: Reports: No Symptoms Genitourinary: Reports: No Symptoms Musculoskeletal: Reports: No Symptoms Skin: Reports: No Symptoms Neurological: Reports: No Symptoms Psychiatric: Reports: No Symptoms - Patient Data Vitals - Most Recent: Last Vital Signs Temp 97.2 F 12/05/18 08:00 Pulse 95 12/05/18 08:00 Resp 16 12/05/18 08:00 BP 107/61 12/05/18 08:00 Pulse Ox 97 12/05/18 08:00 Weight - Most Recent: 128 lb 6.4 oz I&O - Last 24 Hours: Intake & Output 12/04/18 12/05/18 12/05/18 22:59 06:59 14:59 Intake Total 2190 2009 Output Total 1000 Balance 1190 2009 Lab Results Last 24 Hours: Laboratory Results - last 24 hr 12/04/18 12/04/18 12/04/18 Range/Units 11:11 12:00 13:06 WBC (5.0-10.0) 10^3/uL RBC (4.2-5.4) 10^6/uL Hgb (12.0-16.0) g/dL Hct (37.0-47.0) % MCV (80-100) fL MCH (27.0-34.0) pg MCHC (33.0-35.0) g/dL Plt Count (150-450) 10^3/uL Neut % (Auto) (42.2-75.2) % Lymph % (Auto) (20.5-50.1) % [place] % (Auto) (2-8) % Eos % (Auto) (1.0-3.0) % Baso % (Auto) (0.0-1.0) % Add Manual Diff Neutrophils % (Manual) (42-75) % Lymphocytes % (Manual) (20-50) % Monocytes % (Manual) (2-8) % Eosinophils % (Manual) (1-3) % Polychromasia Sodium (135-145) mmol/L Potassium (3.6-5.0) mmol/L Chloride (101-111) mmol/L Carbon Dioxide (21.0-31.0) mmol/L Anion Gap BUN (7-18) mg/dL Creatinine (0.6-1.3) mg/dL Est Cr Clr Drug Dosing mL/min Estimated GFR (MDRD) Glucose (74-105) mg/dL POC Glucose 150 H 155 H 239 H (70-105) mg/dl Calcium (8.4-10.2) mg/dl Phosphorus (2.5-4.6) mg/dL Magnesium (1.8-2.5) mg/dL 12/04/18 12/04/18 12/04/18 Range/Units 14:11 15:07 16:04 WBC (5.0-10.0) 10^3/uL RBC (4.2-5.4) 10^6/uL Hgb (12.0-16.0) g/dL Hct (37.0-47.0) % MCV (80-100) fL MCH (27.0-34.0) pg MCHC (33.0-35.0) g/dL Plt Count (150-450) 10^3/uL Neut % (Auto) (42.2-75.2) % Lymph % (Auto) (20.5-50.1) % [place] % (Auto) (2-8) % Eos % (Auto) (1.0-3.0) % Baso % (Auto) (0.0-1.0) % Add Manual Diff Neutrophils % (Manual) (42-75) % Lymphocytes % (Manual) (20-50) % Monocytes % (Manual) (2-8) % Eosinophils % (Manual) (1-3) % Polychromasia Sodium (135-145) mmol/L Potassium (3.6-5.0) mmol/L Chloride (101-111) mmol/L Carbon Dioxide (21.0-31.0) mmol/L Anion Gap BUN (7-18) mg/dL Creatinine (0.6-1.3) mg/dL Est Cr Clr Drug Dosing mL/min Estimated GFR (MDRD) Glucose (74-105) mg/dL POC Glucose 278 H 273 H 222 H (70-105) mg/dl Calcium (8.4-10.2) mg/dl Phosphorus (2.5-4.6) mg/dL Magnesium (1.8-2.5) mg/dL 12/04/18 12/04/18 12/04/18 Range/Units 17:04 18:12 19:02 WBC (5.0-10.0) 10^3/uL RBC (4.2-5.4) 10^6/uL Hgb (12.0-16.0) g/dL Hct (37.0-47.0) % MCV (80-100) fL MCH (27.0-34.0) pg MCHC (33.0-35.0) g/dL Plt Count (150-450) 10^3/uL Neut % (Auto) (42.2-75.2) % Lymph % (Auto) (20.5-50.1) % [place] % (Auto) (2-8) % Eos % (Auto) (1.0-3.0) % Baso % (Auto) (0.0-1.0) % Add Manual Diff Neutrophils % (Manual) (42-75) % Lymphocytes % (Manual) (20-50) % Monocytes % (Manual) (2-8) % Eosinophils % (Manual) (1-3) % Polychromasia Sodium (135-145) mmol/L Potassium (3.6-5.0) mmol/L Chloride (101-111) mmol/L Carbon Dioxide (21.0-31.0) mmol/L Anion Gap BUN (7-18) mg/dL Creatinine (0.6-1.3) mg/dL Est Cr Clr Drug Dosing mL/min Estimated GFR (MDRD) Glucose (74-105) mg/dL POC Glucose 177 H 185 H 168 H (70-105) mg/dl Calcium (8.4-10.2) mg/dl Phosphorus (2.5-4.6) mg/dL Magnesium (1.8-2.5) mg/dL 12/04/18 12/04/18 12/04/18 Range/Units 20:10 20:55 21:12 WBC (5.0-10.0) 10^3/uL RBC (4.2-5.4) 10^6/uL Hgb (12.0-16.0) g/dL Hct (37.0-47.0) % MCV (80-100) fL MCH (27.0-34.0) pg MCHC (33.0-35.0) g/dL Plt Count (150-450) 10^3/uL Neut % (Auto) (42.2-75.2) % Lymph % (Auto) (20.5-50.1) % [place] % (Auto) (2-8) % Eos % (Auto) (1.0-3.0) % Baso % (Auto) (0.0-1.0) % Add Manual Diff Neutrophils % (Manual) (42-75) % Lymphocytes % (Manual) (20-50) % Monocytes % (Manual) (2-8) % Eosinophils % (Manual) (1-3) % Polychromasia Sodium 136 (135-145) mmol/L Potassium 3.7 (3.6-5.0) mmol/L Chloride 108 (101-111) mmol/L Carbon Dioxide 20.0 L (21.0-31.0) mmol/L Anion Gap 11.7 BUN 8 (7-18) mg/dL Creatinine 0.5 L (0.6-1.3) mg/dL Est Cr Clr Drug Dosing 162.27 mL/min Estimated GFR (MDRD) > 60 Glucose 88 (74-105) mg/dL POC Glucose 128 H 101 (70-105) mg/dl Calcium 7.8 L (8.4-10.2) mg/dl Phosphorus 1.9 L (2.5-4.6) mg/dL Magnesium 1.7 L (1.8-2.5) mg/dL 12/04/18 12/04/18 12/05/18 Range/Units 22:23 23:10 00:27 WBC (5.0-10.0) 10^3/uL RBC (4.2-5.4) 10^6/uL Hgb (12.0-16.0) g/dL Hct (37.0-47.0) % MCV (80-100) fL MCH (27.0-34.0) pg MCHC (33.0-35.0) g/dL Plt Count (150-450) 10^3/uL Neut % (Auto) (42.2-75.2) % Lymph % (Auto) (20.5-50.1) % [place] % (Auto) (2-8) % Eos % (Auto) (1.0-3.0) % Baso % (Auto) (0.0-1.0) % Add Manual Diff Neutrophils % (Manual) (42-75) % Lymphocytes % (Manual) (20-50) % Monocytes % (Manual) (2-8) % Eosinophils % (Manual) (1-3) % Polychromasia Sodium (135-145) mmol/L Potassium (3.6-5.0) mmol/L Chloride (101-111) mmol/L Carbon Dioxide (21.0-31.0) mmol/L Anion Gap BUN (7-18) mg/dL Creatinine (0.6-1.3) mg/dL Est Cr Clr Drug Dosing mL/min Estimated GFR (MDRD) Glucose (74-105) mg/dL POC Glucose 148 H 163 H 189 H (70-105) mg/dl Calcium (8.4-10.2) mg/dl Phosphorus (2.5-4.6) mg/dL Magnesium (1.8-2.5) mg/dL 12/05/18 12/05/18 12/05/18 Range/Units 01:19 02:31 03:41 WBC (5.0-10.0) 10^3/uL RBC (4.2-5.4) 10^6/uL Hgb (12.0-16.0) g/dL Hct (37.0-47.0) % MCV (80-100) fL MCH (27.0-34.0) pg MCHC (33.0-35.0) g/dL Plt Count (150-450) 10^3/uL Neut % (Auto) (42.2-75.2) % Lymph % (Auto) (20.5-50.1) % [place] % (Auto) (2-8) % Eos % (Auto) (1.0-3.0) % Baso % (Auto) (0.0-1.0) % Add Manual Diff Neutrophils % (Manual) (42-75) % Lymphocytes % (Manual) (20-50) % Monocytes % (Manual) (2-8) % Eosinophils % (Manual) (1-3) % Polychromasia Sodium (135-145) mmol/L Potassium (3.6-5.0) mmol/L Chloride (101-111) mmol/L Carbon Dioxide (21.0-31.0) mmol/L Anion Gap BUN (7-18) mg/dL Creatinine (0.6-1.3) mg/dL Est Cr Clr Drug Dosing mL/min Estimated GFR (MDRD) Glucose (74-105) mg/dL POC Glucose 197 H 157 H 134 H (70-105) mg/dl Calcium (8.4-10.2) mg/dl Phosphorus (2.5-4.6) mg/dL Magnesium (1.8-2.5) mg/dL 12/05/18 12/05/18 12/05/18 Range/Units 04:24 05:51 06:35 WBC (5.0-10.0) 10^3/uL RBC (4.2-5.4) 10^6/uL Hgb (12.0-16.0) g/dL Hct (37.0-47.0) % MCV (80-100) fL MCH (27.0-34.0) pg MCHC (33.0-35.0) g/dL Plt Count (150-450) 10^3/uL Neut % (Auto) (42.2-75.2) % Lymph % (Auto) (20.5-50.1) % [place] % (Auto) (2-8) % Eos % (Auto) (1.0-3.0) % Baso % (Auto) (0.0-1.0) % Add Manual Diff Neutrophils % (Manual) (42-75) % Lymphocytes % (Manual) (20-50) % Monocytes % (Manual) (2-8) % Eosinophils % (Manual) (1-3) % Polychromasia Sodium 141 (135-145) mmol/L Potassium 3.0 L (3.6-5.0) mmol/L Chloride 111 (101-111) mmol/L Carbon Dioxide 21.0 (21.0-31.0) mmol/L Anion Gap 12.0 BUN 3 L (7-18) mg/dL Creatinine 0.3 L (0.6-1.3) mg/dL Est Cr Clr Drug Dosing 270.44 mL/min Estimated GFR (MDRD) > 60 Glucose 110 H (74-105) mg/dL POC Glucose 125 H 88 (70-105) mg/dl Calcium 7.7 L (8.4-10.2) mg/dl Phosphorus 2.1 L (2.5-4.6) mg/dL Magnesium 1.6 L (1.8-2.5) mg/dL 12/05/18 12/05/18 12/05/18 Range/Units 06:35 06:54 08:09 WBC 5.9 (5.0-10.0) 10^3/uL RBC 4.01 L (4.2-5.4) 10^6/uL Hgb 11.0 L D (12.0-16.0) g/dL Hct 33.1 L (37.0-47.0) % MCV 82.5 (80-100) fL MCH 27.4 (27.0-34.0) pg MCHC 33.2 (33.0-35.0) g/dL Plt Count 289 D (150-450) 10^3/uL Neut % (Auto) 24.4 L (42.2-75.2) % Lymph % (Auto) 63.4 H (20.5-50.1) % [place] % (Auto) 11.1 H (2-8) % Eos % (Auto) 0.9 L (1.0-3.0) % Baso % (Auto) 0.2 (0.0-1.0) % Add Manual Diff Yes Neutrophils % (Manual) 29 L (42-75) % Lymphocytes % (Manual) 64 H (20-50) % Monocytes % (Manual) 6 (2-8) % Eosinophils % (Manual) 1 (1-3) % Polychromasia Sodium (135-145) mmol/L Potassium (3.6-5.0) mmol/L Chloride (101-111) mmol/L Carbon Dioxide (21.0-31.0) mmol/L Anion Gap BUN (7-18) mg/dL Creatinine (0.6-1.3) mg/dL Est Cr Clr Drug Dosing mL/min Estimated GFR (MDRD) Glucose (74-105) mg/dL POC Glucose 164 H 199 H (70-105) mg/dl Calcium (8.4-10.2) mg/dl Phosphorus (2.5-4.6) mg/dL Magnesium (1.8-2.5) mg/dL 12/05/18 12/05/18 Range/Units 09:10 10:17 WBC (5.0-10.0) 10^3/uL RBC (4.2-5.4) 10^6/uL Hgb (12.0-16.0) g/dL Hct (37.0-47.0) % MCV (80-100) fL MCH (27.0-34.0) pg MCHC (33.0-35.0) g/dL Plt Count (150-450) 10^3/uL Neut % (Auto) (42.2-75.2) % Lymph % (Auto) (20.5-50.1) % [place] % (Auto) (2-8) % Eos % (Auto) (1.0-3.0) % Baso % (Auto) (0.0-1.0) % Add Manual Diff Neutrophils % (Manual) (42-75) % Lymphocytes % (Manual) (20-50) % Monocytes % (Manual) (2-8) % Eosinophils % (Manual) (1-3) % Polychromasia Sodium (135-145) mmol/L Potassium (3.6-5.0) mmol/L Chloride (101-111) mmol/L Carbon Dioxide (21.0-31.0) mmol/L Anion Gap BUN (7-18) mg/dL Creatinine (0.6-1.3) mg/dL Est Cr Clr Drug Dosing mL/min Estimated GFR (MDRD) Glucose (74-105) mg/dL POC Glucose 376 H 385 H (70-105) mg/dl Calcium (8.4-10.2) mg/dl Phosphorus (2.5-4.6) mg/dL Magnesium (1.8-2.5) mg/dL Sarkis Results Last 24 Hours: Microbiology 12/04/18 00:17 Aerobic Blood Culture - Preliminary Blood - Venous - Lab Draw NO GROWTH AFTER 1 DAY Anaerobic Blood Culture - Preliminary NO GROWTH AFTER 1 DAY 12/04/18 00:10 Aerobic Blood Culture - Preliminary Blood - Venous NO GROWTH AFTER 1 DAY Anaerobic Blood Culture - Preliminary NO GROWTH AFTER 1 DAY Med Orders - Current: Current Medications Acetaminophen (Tylenol) 650 mg PO Q4H PRN PRN Reason: Pain (Mild 1-3)/fever Last Admin: 12/05/18 04:41 Dose: 650 mg Dextrose/Water (Dextrose 50% In Water) 25 ml IVPUSH ONETIME PRN PRN Reason: Blood Glucose Last Admin: 12/04/18 21:39 Dose: 25 ml Heparin Sodium (Porcine) (Heparin Sodium) 5,000 units SUBCUT Q8HR RUPINDER Last Admin: 12/05/18 05:15 Dose: Not Given Insulin Human Regular 100 unit (/ Sodium Chloride) 100 mls @ 5.94 mls/hr IV TITRATE RUPINDER; Protocol Last Infusion: 12/05/18 10:24 Dose: 0.08 units/kg/hr, 5 mls/hr Potassium Chloride/Dextrose/Sod Cl (D5 Ns With 20 Meq Kcl) 1,000 mls @ 150 mls/ hr IV ASDIRECTED RUPINDER Last Admin: 12/05/18 07:09 Dose: 150 mls/hr Magnesium Sulfate 2 gm/ Premix 50 mls @ 25 mls/hr IV ONETIME ONE Stop: 12/05/18 12:58 Ibuprofen (Motrin) 400 mg PO Q6H PRN PRN Reason: Pain (Mod 4-6) Insulin Glargine (Lantus) 40 unit SUBCUT NOW STA Stop: 12/05/18 10:57 Non-Formulary Medication (Insulin Detemir [Levemir]) 40 unit SUBCUT BID RUPINDER Ondansetron HCl (Zofran Odt) 4 mg PO Q6H PRN PRN Reason: nausea, able to take PO Potassium Chloride (Klor-Con 10) 40 meq PO BIDMEALS RUPINDER Sodium Chloride (Saline Flush) 10 ml FLUSH ASDIRECTED PRN PRN Reason: Keep Vein Open Last Admin: 12/04/18 00:20 Dose: 10 ml Sodium Phosphate (Neutra-Phos) 250 mg PO QID [facility] Stop: 12/05/18 13:01 Last Admin: 12/05/18 08:48 Dose: 250 mg Zolpidem Tartrate (Ambien) 5 mg PO BEDTIME PRN PRN Reason: Sleep Discontinued Medications Dextrose/Water (Dextrose 50% In Water) 25 ml IVPUSH ONETIME ONE Stop: 12/04/18 08:31 Last Admin: 12/04/18 08:28 Dose: 25 ml Dextrose/Water (Dextrose 50% In Water) Confirm Administered Dose 50 ml .ROUTE .STK-MED ONE Stop: 12/04/18 21:25 Last Admin: 12/04/18 21:33 Dose: Not Given Lactated Ringer's (Ringers, Lactated) 1,000 mls @ 999 mls/hr IV .BOLUS ONE Stop: 12/04/18 01:02 Last Admin: 12/04/18 00:25 Dose: 999 mls/hr Sodium Chloride (Normal Saline) 1,000 mls @ 999 mls/hr IV .BOLUS ONE Stop: 12/04/18 02:28 Last Admin: 12/04/18 01:49 Dose: 999 mls/hr Potassium Chloride 10 meq/ (Premix) 100 mls @ 100 mls/hr IV ONETIME ONE Stop: 12/05/18 10:59 Insulin Human Regular (Humulin R) 10 unit IV ONETIME ONE Stop: 12/04/18 01:04 Last Admin: 12/04/18 01:25 Dose: 10 units Magnesium Oxide (Magnesium Oxide) 250 mg PO BIDM [facility] Stop: 12/04/18 18:01 Last Admin: 12/04/18 17:59 Dose: 250 mg Magnesium Oxide (Magnesium Oxide) 250 mg PO BIDM [facility] Stop: 12/05/18 08:01 Last Admin: 12/05/18 08:50 Dose: 250 mg Ondansetron HCl (Zofran) 4 mg IV ONETIME ONE Stop: 12/04/18 00:03 Last Admin: 12/04/18 00:26 Dose: 4 mg Sodium Phosphate (Neutra-Phos) 250 mg PO QID [facility] Stop: 12/04/18 21:01 Last Admin: 12/04/18 22:36 Dose: 250 mg - Exam Quality Assessment: DVT Prophylaxis General: Alert, Oriented HEENT: Pupils Equal, Pupils Reactive, EOMI, Mucous Membr. Moist/[place] Neck: Supple Lungs: Clear to Auscultation, Normal Respiratory Effort Cardiovascular: Regular Rate, Regular Rhythm GI/Abdominal Exam: Normal Bowel Sounds, Soft, Non-Tender, No Organomegaly, No Distention, No Abnormal Bruit, No Mass, Pelvis Stable (Female) Exam: Normal External Exam, Normal Speculum Exam, Normal Bimanual Exam Back Exam: Normal Inspection, Full Range of Motion Extremities: Normal Inspection, Normal Range of Motion, Non-Tender, No Pedal Edema, Normal Capillary Refill Skin: Warm, Dry, Intact Wound/Incisions: Healing Well Neurological: No New Focal Deficit Psy/Mental Status: Alert, Normal Affect, Normal Mood - Problem List Review Problem List Initiated/Reviewed/Updated: Yes - My Orders Last 24 Hours: My Active Orders 12/05/18 10:56 Insulin Glarg,Human.Rec.Analog [LantUS] 40 unit SUBCUT NOW STA 12/05/18 10:59 Magnesium Sulfate/Water [Magnesium Sulfate 2 GM in Water 50 ML] 2 gm Premix Bag 1 bag IV ONETIME 12/05/18 18:00 Potassium Chloride [Klor-Con 10] 40 meq PO BIDMEALS 12/05/18 21:00 Insulin Detemir [Levemir] 40 unit SUBCUT BID - Plan Plan:: 23-year-old lady with a history of type 1 diabetes. The patient was running out of her Lantus and was cutting back for a few days and then subsequently completely ran out. She had no insulin for 24 hours prior to admission. Diabetic ketoacidosis due to non-compliance Anion gap closed will bridge with SQ Lantus Continue insulin drip and d/c 2 hrs after SQ Lantus is administered. Then switch to SSI and SQ Lantus Continue IVF Check electrolytes and replace them as needed POC glucose q1h Hypoglycemic protocol Hypokalemia IV replacement Hypomagnesemia Replace IV Hypophosphatemia PO replacement Hyponatremia Secondary to elevated blood sugars Now resolved Substance abuse Patient counselled on quitting DVT prophylaxis with subcutaneous heparin and mobilization Full code
[2018-12-05] MEDS ORDERED: Insulin Glarg,Human.Rec.Analog 100 UNIT/ML ML SUBCUT STA (11:37)
[2018-12-05] MEDS ORDERED: Magnesium Sulfate/Water 2 GM in Premix Bag 1 BAG IV ONE (12:00)
[2018-12-05] MEDS ORDERED: Ibuprofen 400 MG Tab PO PRN (14:45)
[2018-12-05] MEDS ORDERED: Acetaminophen 325 MG Tab PO PRN (14:45)
[2018-12-05] MEDS ORDERED: Ondansetron 4 MG Tab.DIS PO PRN (14:45)
[2018-12-05 15:48] VITALS: BP 105/55
[2018-12-05] MEDS ORDERED: Insulin Isophane NPH, Human 100 Units/ML 10 ML Vial SUBCUT SCH (17:00)
[2018-12-05] MEDS ORDERED: Potassium Chloride 10 MEQ Tab.ER PO SCH (18:00)
[2018-12-05] MEDS ORDERED: Insulin Glarg,Human.Rec.Analog 100 UNIT/ML ML SUBCUT SCH (21:00)
--- NOTE | 2018-12-06 11:24 | PCM.DCSUM1 ---
Discharge Summary - Hospital Course Free Text/Narrative:: 23-year-old lady with a history of diabetes type 1. She has had multiple admissions for DKA. She ran out of insulin and was cutting back on Lantus use. When she completely ran out she presented to the emergency room c/o nausea. She was found to be in DKA and subsequently admitted. Patient was doing well with treatment. DKA has resolved. However patient signed out AMA last night. - Discharge Data Discharge Date: 12/06/18 Discharge Disposition: Home, Self-Care 01 Condition: Stable - Discharge Plan *PRESCRIPTION DRUG MONITORING PROGRAM REVIEWED*: No *COPY OF PRESCRIPTION DRUG MONITORING REPORT IN PATIENT AMANDA: No Home Medications: Home Meds Insulin Detemir [Levemir] 40 unit SUBCUT BID 03/11/16 [History] Insulin Aspart [NovoLOG] 10 unit SUBCUT TIDMEALS #1 pen 11/01/17 [Rx] Forms: ED Department Discharge Referrals: PCP,Unobtain [Primary Care Provider] - - Discharge Summary/Plan Comment DC Time >30 min.: Yes - General Info Admission Dx/Problem (Free Text: Admission Diagnosis/Problem Admission Diagnosis/Problem Diabetic ketoacidosis Functional Status: Reports: Pain Controlled - Review of Systems General: Reports: No Symptoms HEENT: Reports: No Symptoms Pulmonary: Reports: No Symptoms Cardiovascular: Reports: No Symptoms Gastrointestinal: Reports: No Symptoms Genitourinary: Reports: No Symptoms Musculoskeletal: Reports: No Symptoms Skin: Reports: No Symptoms Neurological: Reports: No Symptoms Psychiatric: Reports: No Symptoms - Patient Data Vitals - Most Recent: Last Vital Signs Temp 98.8 F 12/05/18 15:48 Pulse 95 12/05/18 15:48 Resp 20 12/05/18 15:48 BP 105/55 L 12/05/18 15:48 Pulse Ox 99 12/05/18 15:48 Weight - Most Recent: 128 lb 6.4 oz I&O - Last 24 hours: Intake & Output 12/05/18 12/06/18 12/06/18 22:59 06:59 14:59 Intake Total 2785 Balance 2785 Lab Results - Last 24 hrs: Laboratory Results - last 24 hr 12/05/18 12/05/18 12/05/18 Range/Units 12:08 13:01 14:08 Potassium (3.6-5.0) mmol/L POC Glucose 177 H 204 H 169 H (70-105) mg/dl 12/05/18 12/05/18 Range/Units 16:44 16:54 Potassium 3.7 (3.6-5.0) mmol/L POC Glucose 314 H (70-105) mg/dl GREGORY Results - Last 24 hrs: Microbiology 12/04/18 00:17 Aerobic Blood Culture - Preliminary Blood - Venous - Lab Draw NO GROWTH AFTER 2 DAYS Anaerobic Blood Culture - Preliminary NO GROWTH AFTER 2 DAYS 12/04/18 00:10 Aerobic Blood Culture - Preliminary Blood - Venous NO GROWTH AFTER 2 DAYS Anaerobic Blood Culture - Preliminary NO GROWTH AFTER 2 DAYS Med Orders - Current: Current Medications Discontinued Medications Acetaminophen (Tylenol) 650 mg PO Q4H PRN PRN Reason: Pain (Mild 1-3)/fever Last Admin: 12/05/18 04:41 Dose: 650 mg Acetaminophen (Tylenol) 650 mg PO Q4HR PRN PRN Reason: Pain (Mild 1-3)/fever Dextrose/Water (Dextrose 50% In Water) 25 ml IVPUSH ONETIME PRN PRN Reason: Blood Glucose Last Admin: 12/04/18 21:39 Dose: 25 ml Dextrose/Water (Dextrose 50% In Water) 25 ml IVPUSH ONETIME ONE Stop: 12/04/18 08:31 Last Admin: 12/04/18 08:28 Dose: 25 ml Dextrose/Water (Dextrose 50% In Water) Confirm Administered Dose 50 ml .ROUTE .STK-MED ONE Stop: 12/04/18 21:25 Last Admin: 12/04/18 21:33 Dose: Not Given Heparin Sodium (Porcine) (Heparin Sodium) 5,000 units SUBCUT Q8HR RUPINDER Last Admin: 12/05/18 14:01 Dose: Not Given Lactated Ringer's (Ringers, Lactated) 1,000 mls @ 999 mls/hr IV .BOLUS ONE Stop: 12/04/18 01:02 Last Admin: 12/04/18 00:25 Dose: 999 mls/hr Insulin Human Regular 100 unit (/ Sodium Chloride) 100 mls @ 5.94 mls/hr IV TITRATE RUPINDER; Protocol Last Infusion: 12/05/18 14:17 Dose: 0 units/kg/hr, 0 mls/hr Sodium Chloride (Normal Saline) 1,000 mls @ 999 mls/hr IV .BOLUS ONE Stop: 12/04/18 02:28 Last Admin: 12/04/18 01:49 Dose: 999 mls/hr Potassium Chloride/Dextrose/Sod Cl (D5 Ns With 20 Meq Kcl) 1,000 mls @ 150 mls/ hr IV ASDIRECTED [facility] Last Admin: 12/05/18 07:09 Dose: 150 mls/hr Potassium Chloride 10 meq/ (Premix) 100 mls @ 100 mls/hr IV ONETIME ONE Stop: 12/05/18 10:59 Magnesium Sulfate 2 gm/ Premix 50 mls @ 25 mls/hr IV ONETIME ONE Stop: 12/05/18 13:59 Last Admin: 12/05/18 11:58 Dose: 25 mls/hr Ibuprofen (Motrin) 400 mg PO Q6H PRN PRN Reason: Pain (Mod 4-6) Ibuprofen (Motrin) 400 mg PO Q6HR PRN PRN Reason: Pain (Mod 4-6) Insulin Glargine (Lantus) 40 unit SUBCUT NOW STA Stop: 12/05/18 11:38 Last Admin: 12/05/18 11:59 Dose: 40 units Insulin Glargine (Lantus) 40 unit SUBCUT BID [facility] Insulin Human NPH (Novolin N) 0 unit SUBCUT BIDAC [facility]; Protocol Last Admin: 12/05/18 17:39 Dose: 8 units Insulin Human Regular (Humulin R) 10 unit IV ONETIME ONE Stop: 12/04/18 01:04 Last Admin: 12/04/18 01:25 Dose: 10 units Magnesium Oxide (Magnesium Oxide) 250 mg PO BIDM [facility] Stop: 12/04/18 18:01 Last Admin: 12/04/18 17:59 Dose: 250 mg Magnesium Oxide (Magnesium Oxide) 250 mg PO BIDM [facility] Stop: 12/05/18 08:01 Last Admin: 12/05/18 08:50 Dose: 250 mg Ondansetron HCl (Zofran) 4 mg IV ONETIME ONE Stop: 12/04/18 00:03 Last Admin: 12/04/18 00:26 Dose: 4 mg Ondansetron HCl (Zofran Odt) 4 mg PO Q6H PRN PRN Reason: nausea, able to take PO Ondansetron HCl (Zofran Odt) 4 mg PO Q6HR PRN PRN Reason: nausea, able to take PO Potassium Chloride (Klor-Con 10) 40 meq PO BIDMEALS [facility] Last Admin: 12/05/18 17:41 Dose: 40 meq Sodium Chloride (Saline Flush) 10 ml FLUSH ASDIRECTED PRN PRN Reason: Keep Vein Open Last Admin: 12/04/18 00:20 Dose: 10 ml Sodium Phosphate (Neutra-Phos) 250 mg PO QID [facility] Stop: 12/04/18 21:01 Last Admin: 12/04/18 22:36 Dose: 250 mg Sodium Phosphate (Neutra-Phos) 250 mg PO QID [facility] Stop: 12/05/18 13:01 Last Admin: 12/05/18 13:20 Dose: 250 mg Zolpidem Tartrate (Ambien) 5 mg PO BEDTIME PRN PRN Reason: Sleep - Exam General: Reports: Alert, Oriented HEENT: Reports: Pupils Equal, Pupils Reactive, EOMI, Mucous Membr. Moist/[place] Neck: Reports: Supple Lungs: Reports: Clear to Auscultation, Normal Respiratory Effort Cardiovascular: Reports: Regular Rate, Regular Rhythm GI/Abdominal Exam: Normal Bowel Sounds, Soft, Non-Tender, No Organomegaly, No Distention, No Abnormal Bruit, No Mass, Pelvis Stable (Female) Exam: Normal External Exam, Normal Speculum Exam, Normal Bimanual Exam Rectal (Female) Exam: Normal Exam, Normal Rectal Tone Back Exam: Reports: Normal Inspection, Full Range of Motion Extremities: Normal Inspection, Normal Range of Motion, Non-Tender, No Pedal Edema, Normal Capillary Refill Skin: Reports: Warm, Dry, Intact Wound/Incisions: Reports: Healing Well Neurological: Reports: No New Focal Deficit Psy/Mental Status: Reports: Alert, Normal Affect, Normal Mood
== END 2018-12-05 18:43 | disposition home or self-care (01) ==
LOC: DL.ED 23:56 → DL.MS 12-04 01:41 → UNDOADMOB 12-04 01:41 → DL.MS 12-04 02:55
PROVIDERS: ADMIT Internal Medicine; ATTEND Student in an Organized Health Care Education/Training Program
DX: E10.10 Type 1 diabetes mellitus with ketoacidosis without coma (principal); E87.1 Hypo-osmolality and hyponatremia; Z88.5 Allergy status to narcotic agent
CPT/HCPCS: 36415; 80048; 80053; 80305-QW; 81001; 81025; 82009; 82962; 83605; 83735; 84100; 84132; 85025; 87040; 96361; 96374; 96375; 96376; 99285-25; A9270-GY; G0480; J1644; J1815-GY; J2405; J3475; J3480; J7030; J7050; J7060; J7120

== ENCOUNTER 2019-01-12 04:47 | Emergency (ER) | payer MEDICAID ==
--- NOTE | 2019-01-12 05:00 | EDM.PDOCBH ---
ED HPI GENERAL MEDICAL PROBLEM - General Chief Complaint: Drug or Alcohol Abuse Stated Complaint: AMBULANCE-UNKNOWN Time Seen by Provider: 01/12/19 04:57 Source of Information: Reports: Patient History Limitations: Reports: No Limitations - History of Present Illness INITIAL COMMENTS - FREE TEXT/NARRATIVE: states been having CP palpitation since yesterday from doing meth yesterday. Generalized Pain Score (Numeric/FACES): 8 - Related Data Allergies Allergy/AdvReac Type Severity Reaction Status Date / Time hydromorphone HCl Allergy Itching Verified 01/12/19 05:13 [From Dilaudid] Home Meds: Home Meds Insulin Detemir [Levemir] 40 unit SUBCUT BID 03/11/16 [History] Insulin Aspart [NovoLOG] 10 unit SUBCUT TIDMEALS #1 pen 11/01/17 [Rx] Past Medical History HEENT History: Reports: Other (See Below) Other HEENT History: ear problems with draining, cheek broken in three different place Cardiovascular History: Reports: None Respiratory History: Reports: None Gastrointestinal History: Reports: GI Bleed, Hepatitis Other Gastrointestinal History: rectal bleeding per self report for past couple of months Genitourinary History: Reports: None [employer] History: Reports: Spontaneous Musculoskeletal History: Reports: Fracture Neurological History: Reports: None Psychiatric History: Reports: ADHD, Addiction, Depression, Emotional Problems, Suicide Attempt, Suicidal Ideation Endocrine/Metabolic History: Reports: Diabetes, Type I, IDDM Hematologic History: Reports: Other (See Below) Other Hematologic History: Hep + Immunologic History: Reports: None Oncologic (Cancer) History: Reports: None Dermatologic History: Reports: Other (See Below) Other Dermatologic History: cut [place] noted to forearms, acne vulgaris - Infectious Disease History Infectious Disease History: Reports: Hepatitis C, MRSA - Past Surgical History Head Surgeries/Procedures: Reports: None HEENT Surgical History: Reports: Adenoidectomy, Tonsillectomy GI Surgical History: Reports: None Endocrine Surgical History: Reports: None Social & Family History - Family History Family Medical History: Noncontributory Psychiatric: Reports: Depression Endocrine/Metabolic: Reports: Diabetes, type II - Caffeine Use Caffeine Use: Reports: None - Sexual History Sexual History: Reports: Sexually Active - Living Situation & Occupation Living situation: Reports: with Significant Other Occupation: Unemployed ED ROS GENERAL - Review of Systems Review Of Systems: ROS reveals no pertinent complaints other than HPI. ED EXAM, BEHAVIORAL HEALTH - Physical Exam Exam: See Below Exam Limited By: No Limitations General Appearance: Alert, WD/WN, Anxious, Moderate Distress, Other (crying) Eye Exam: Bilateral Eye: PERRL (pupils ER @ 5mm) Ears: Hearing Grossly Normal Throat/Mouth: Normal Voice, No Airway Compromise Head: Atraumatic Neck: Non-Tender, Full Range of Motion Respiratory/Chest: No Respiratory Distress Cardiovascular: Regular Rate, Rhythm, Tachycardia GI/Abdominal: Soft, Non-Tender Neurological: Alert, Normal Cognition, Normal Gait, No Motor/Sensory Deficits, Oriented x 3 Psychiatric: Alert, Tearful, Agitated Skin Exam: Warm, Dry, Normal color COURSE, BEHAVIORAL HEALTH COMP - Course Vital Signs: Last Vital Signs Temp 36.6 C 01/12/19 06:22 Pulse 142 H 01/12/19 06:22 Resp 26 H 01/12/19 06:22 BP 162/69 H 01/12/19 06:22 Pulse Ox 100 01/12/19 06:22 Orders, Labs, Meds: Active Orders 24 hr Category Date Time Status Chest 1V Frontal [CR] Urgent Exams 01/12/19 06:57 Ordered ABG [BLOOD GAS ARTERIAL] [BG] Stat Lab 01/12/19 06:28 Ordered LORazepam [Ativan] Med 01/12/19 07:00 Once 2 mg IVPUSH ONETIME ONE Sodium Chloride 0.9% [Normal Saline] 1,000 ml Med 01/12/19 06:24 Ordered IV .BOLUS Medication Orders Sodium Chloride (Normal Saline) 1,000 mls @ 999 mls/hr IV .BOLUS ONE Stop: 01/12/19 07:24 Last Admin: 01/12/19 06:32 Dose: 999 mls/hr Lorazepam (Ativan) 2 mg IVPUSH ONETIME ONE Stop: 01/12/19 07:01 Laboratory Tests 01/12/19 01/12/19 01/12/19 Range/Units 04:40 04:58 05:00 WBC 18.5 H (5.0-10.0) 10^3/uL RBC 5.45 H (4.2-5.4) 10^6/uL Hgb 14.0 D (12.0-16.0) g/dL Hct 46.4 (37.0-47.0) % MCV 85.1 (80-100) fL MCH 25.7 L (27.0-34.0) pg MCHC 30.2 L (33.0-35.0) g/dL Plt Count 580 H D (150-450) 10^3/uL Neut % (Auto) 66.4 (42.2-75.2) % Lymph % (Auto) 30.3 (20.5-50.1) % [place] % (Auto) 3.0 (2-8) % Eos % (Auto) 0.1 L (1.0-3.0) % Baso % (Auto) 0.2 (0.0-1.0) % Add Manual Diff Yes Neutrophils % (Manual) 67 (42-75) % Band Neutrophils % 4 % Lymphocytes % (Manual) 25 (20-50) % Atypical Lymphs % 0 % Monocytes % (Manual) 4 (2-8) % Eosinophils % (Manual) 0 L (1-3) % Basophils % (Manual) 0 Platelet Estimate Increased Sodium (135-145) mmol/L Potassium (3.6-5.0) mmol/L Chloride (101-111) mmol/L Carbon Dioxide (21.0-31.0) mmol/L Anion Gap BUN (7-18) mg/dL Creatinine (0.6-1.3) mg/dL Est Cr Clr Drug Dosing mL/min Estimated GFR (MDRD) BUN/Creatinine Ratio Glucose (74-105) mg/dL POC Glucose 459 H* (70-105) mg/dl Calcium (8.4-10.2) mg/dl Total Bilirubin (0.2-1.0) mg/dL AST (10-42) IU/L ALT (10-60) IU/L Alkaline Phosphatase (42-121) IU/L Troponin I (0.00-0.02) ng/ml Total Protein (6.7-8.2) g/dl Albumin (3.2-5.5) g/dl Globulin Albumin/Globulin Ratio Urine Color Yellow (YELLOW) Urine Appearance Slightly cloudy (CLEAR) Urine pH 5.0 (5.0-9.0) Ur Specific [place] >= 1.030 (1.005-1.030) Urine Protein 100 H (NEGATIVE) Urine Glucose (UA) 500 H (NEGATIVE) Urine Ketones >=160 H (NEGATIVE) Urine Occult Blood Trace-lysed H (NEGATIVE) Urine Nitrite Negative (NEGATIVE) Urine Bilirubin Negative (NEGATIVE) Urine Urobilinogen 0.2 (0.2-1.0) mg/dL Ur Leukocyte Esterase Negative (NEGATIVE) Urine RBC 0-5 /HPF Urine WBC 5-10 H (0-5/HPF) /HPF Ur Epithelial Cells Moderate H (NOT SEEN) /HPF Urine Bacteria Moderate H (0-FEW/HPF) /HPF Urine Yeast Many H (NOT SEEN) /HPF Urine HCG, Qual Urine Opiates Screen (NEGATIVE) Ur Oxycodone Screen (NEGATIVE) Urine Methadone Screen (NEGATIVE) Ur Barbiturates Screen (NEGATIVE) U Tricyclic Antidepress (NEGATIVE) Ur Phencyclidine Scrn (NEGATIVE) Ur Amphetamine Screen (NEGATIVE) U Methamphetamines Scrn (NEGATIVE) Urine MDMA Screen (NEGATIVE) U Benzodiazepines Scrn (NEGATIVE) Urine Cocaine Screen (NEGATIVE) U Marijuana (THC) Screen (NEGATIVE) Ethyl Alcohol mg/dL Ketones 01/12/19 01/12/19 01/12/19 Range/Units 05:00 05:00 05:40 WBC (5.0-10.0) 10^3/uL RBC (4.2-5.4) 10^6/uL Hgb (12.0-16.0) g/dL Hct (37.0-47.0) % MCV (80-100) fL MCH (27.0-34.0) pg MCHC (33.0-35.0) g/dL Plt Count (150-450) 10^3/uL Neut % (Auto) (42.2-75.2) % Lymph % (Auto) (20.5-50.1) % [place] % (Auto) (2-8) % Eos % (Auto) (1.0-3.0) % Baso % (Auto) (0.0-1.0) % Add Manual Diff Neutrophils % (Manual) (42-75) % Band Neutrophils % % Lymphocytes % (Manual) (20-50) % Atypical Lymphs % % Monocytes % (Manual) (2-8) % Eosinophils % (Manual) (1-3) % Basophils % (Manual) Platelet Estimate Sodium 134 L (135-145) mmol/L Potassium 4.7 (3.6-5.0) mmol/L Chloride 102 (101-111) mmol/L Carbon Dioxide < 5.0 L* D (21.0-31.0) mmol/L Anion Gap [id number] BUN 16 (7-18) mg/dL Creatinine 1.0 (0.6-1.3) mg/dL Est Cr Clr Drug Dosing 82.61 mL/min Estimated GFR (MDRD) > 60 BUN/Creatinine Ratio 16.00 Glucose 550 H* (74-105) mg/dL POC Glucose (70-105) mg/dl Calcium 8.8 (8.4-10.2) mg/dl Total Bilirubin 2.6 H (0.2-1.0) mg/dL AST 83 H (10-42) IU/L ALT 74 H (10-60) IU/L Alkaline Phosphatase 112 (42-121) IU/L Troponin I < 0.02 (0.00-0.02) ng/ml Total Protein 9.4 H (6.7-8.2) g/dl Albumin 4.5 (3.2-5.5) g/dl Globulin 4.9 Albumin/Globulin Ratio 0.92 Urine Color (YELLOW) Urine Appearance (CLEAR) Urine pH (5.0-9.0) Ur Specific [place] (1.005-1.030) Urine Protein (NEGATIVE) Urine Glucose (UA) (NEGATIVE) Urine Ketones (NEGATIVE) Urine Occult Blood (NEGATIVE) Urine Nitrite (NEGATIVE) Urine Bilirubin (NEGATIVE) Urine Urobilinogen (0.2-1.0) mg/dL Ur Leukocyte Esterase (NEGATIVE) Urine RBC /HPF Urine WBC (0-5/HPF) /HPF Ur Epithelial Cells (NOT SEEN) /HPF Urine Bacteria (0-FEW/HPF) /HPF Urine Yeast (NOT SEEN) /HPF Urine HCG, Qual Negative Urine Opiates Screen Negative (NEGATIVE) Ur Oxycodone Screen Negative (NEGATIVE) Urine Methadone Screen Negative (NEGATIVE) Ur Barbiturates Screen Negative (NEGATIVE) U Tricyclic Antidepress Negative (NEGATIVE) Ur Phencyclidine Scrn Negative (NEGATIVE) Ur Amphetamine Screen Negative (NEGATIVE) U Methamphetamines Scrn Positive H (NEGATIVE) Urine MDMA Screen Negative (NEGATIVE) U Benzodiazepines Scrn Negative (NEGATIVE) Urine Cocaine Screen Negative (NEGATIVE) U Marijuana (THC) Screen Negative (NEGATIVE) Ethyl Alcohol < 5 mg/dL Ketones Positive 01/12/19 Range/Units 06:12 WBC (5.0-10.0) 10^3/uL RBC (4.2-5.4) 10^6/uL Hgb (12.0-16.0) g/dL Hct (37.0-47.0) % MCV (80-100) fL MCH (27.0-34.0) pg MCHC (33.0-35.0) g/dL Plt Count (150-450) 10^3/uL Neut % (Auto) (42.2-75.2) % Lymph % (Auto) (20.5-50.1) % [place] % (Auto) (2-8) % Eos % (Auto) (1.0-3.0) % Baso % (Auto) (0.0-1.0) % Add Manual Diff Neutrophils % (Manual) (42-75) % Band Neutrophils % % Lymphocytes % (Manual) (20-50) % Atypical Lymphs % % Monocytes % (Manual) (2-8) % Eosinophils % (Manual) (1-3) % Basophils % (Manual) Platelet Estimate Sodium (135-145) mmol/L Potassium (3.6-5.0) mmol/L Chloride (101-111) mmol/L Carbon Dioxide (21.0-31.0) mmol/L Anion Gap BUN (7-18) mg/dL Creatinine (0.6-1.3) mg/dL Est Cr Clr Drug Dosing mL/min Estimated GFR (MDRD) BUN/Creatinine Ratio Glucose (74-105) mg/dL POC Glucose 385 H (70-105) mg/dl Calcium (8.4-10.2) mg/dl Total Bilirubin (0.2-1.0) mg/dL AST (10-42) IU/L ALT (10-60) IU/L Alkaline Phosphatase (42-121) IU/L Troponin I (0.00-0.02) ng/ml Total Protein (6.7-8.2) g/dl Albumin (3.2-5.5) g/dl Globulin Albumin/Globulin Ratio Urine Color (YELLOW) Urine Appearance (CLEAR) Urine pH (5.0-9.0) Ur Specific [place] (1.005-1.030) Urine Protein (NEGATIVE) Urine Glucose (UA) (NEGATIVE) Urine Ketones (NEGATIVE) Urine Occult Blood (NEGATIVE) Urine Nitrite (NEGATIVE) Urine Bilirubin (NEGATIVE) Urine Urobilinogen (0.2-1.0) mg/dL Ur Leukocyte Esterase (NEGATIVE) Urine RBC /HPF Urine WBC (0-5/HPF) /HPF Ur Epithelial Cells (NOT SEEN) /HPF Urine Bacteria (0-FEW/HPF) /HPF Urine Yeast (NOT SEEN) /HPF Urine HCG, Qual Urine Opiates Screen (NEGATIVE) Ur Oxycodone Screen (NEGATIVE) Urine Methadone Screen (NEGATIVE) Ur Barbiturates Screen (NEGATIVE) U Tricyclic Antidepress (NEGATIVE) Ur Phencyclidine Scrn (NEGATIVE) Ur Amphetamine Screen (NEGATIVE) U Methamphetamines Scrn (NEGATIVE) Urine MDMA Screen (NEGATIVE) U Benzodiazepines Scrn (NEGATIVE) Urine Cocaine Screen (NEGATIVE) U Marijuana (THC) Screen (NEGATIVE) Ethyl Alcohol mg/dL Ketones Medications Generic Name Dose Route Start Last Admin Trade Name Freq PRN Reason Stop Dose Admin Sodium Chloride 1,000 mls @ 999 mls/hr 01/12/19 06:24 01/12/19 06:32 Normal Saline IV 01/12/19 07:24 999 mls/hr .BOLUS ONE Administration Lorazepam 2 mg 01/12/19 07:00 Ativan IVPUSH 01/12/19 07:01 ONETIME ONE Discontinued Medications Generic Name Dose Route Start Last Admin Trade Name Freq PRN Reason Stop Dose Admin Diltiazem HCl 20 mg 01/12/19 06:01 01/12/19 06:09 Diltiazem IVPUSH 01/12/19 06:02 20 mg ONETIME ONE Administration Sodium Chloride 1,000 mls @ 999 mls/hr 01/12/19 04:55 01/12/19 05:02 Normal Saline IV 01/12/19 05:55 999 mls/hr .BOLUS ONE Administration Insulin Human Regular 10 unit 01/12/19 04:58 01/12/19 05:06 Humulin R IV 01/12/19 04:59 10 units ONETIME ONE Administration Lorazepam 2 mg 01/12/19 05:08 01/12/19 05:35 Ativan IM 01/12/19 05:09 Not Given ONETIME ONE Lorazepam 2 mg 01/12/19 05:29 01/12/19 05:49 Ativan IVPUSH 01/12/19 05:30 2 mg ONETIME ONE Administration Lorazepam Confirm 01/12/19 06:56 Ativan Administered 01/12/19 06:57 Dose 2 mg .ROUTE .STK-MED ONE Ondansetron HCl 4 mg 01/12/19 04:55 01/12/19 05:03 Zofran IV 01/12/19 04:56 4 mg ONETIME ONE Administration Sodium Bicarbonate 50 meq 01/12/19 06:42 01/12/19 06:47 Sodium Bicarbonate 8.4% IVPUSH 01/12/19 06:43 50 meq ONETIME ONE Administration Re-Assessment/Re-Exam: case discussed with Dr Mcmahon @ [facility] who kindly accepted pt. Departure - Departure Time of Disposition: 07:03 Disposition: DC/Tfer to Acute Hospital 02 Condition: Fair Clinical Impression: Methamphetamine abuse DKA (diabetic ketoacidoses) Qualifiers: Diabetes mellitus type: type 1 Diabetes mellitus complication detail: without coma Qualified Code(s): E10.10 - Type 1 diabetes mellitus with ketoacidosis without coma - Discharge Information Forms: Interfacility Transfer EMTALA - My Orders Last 24 Hours: My Active Orders 01/12/19 06:24 Sodium Chloride 0.9% [Normal Saline] 1,000 ml IV .BOLUS 01/12/19 06:28 ABG [BLOOD GAS ARTERIAL] [BG] Stat 01/12/19 06:57 Chest 1V Frontal [CR] Urgent 01/12/19 07:00 LORazepam [Ativan] 2 mg IVPUSH ONETIME ONE - Assessment/Plan Last 24 Hours: My Active Orders 01/12/19 06:24 Sodium Chloride 0.9% [Normal Saline] 1,000 ml IV .BOLUS 01/12/19 06:28 ABG [BLOOD GAS ARTERIAL] [BG] Stat 01/12/19 06:57 Chest 1V Frontal [CR] Urgent 01/12/19 07:00 LORazepam [Ativan] 2 mg IVPUSH ONETIME ONE
[2019-01-12] MEDS: Sodium Chloride 0.9% 1,000 ML IV ONE ×2 (05:02→06:32)
[2019-01-12] MEDS: Ondansetron 4 MG/2 ML SDV IV ONE (05:03)
[2019-01-12] MEDS: Insulin Regular, Human 100 Units/ML 3 ML Vial IV ONE (05:06)
[2019-01-12] MEDS: LORazepam 2 MG/ML Syringe IM ONE (05:35)
[2019-01-12] MEDS: LORazepam 2 MG/ML Syringe IVPUSH ONE ×2 (05:49→07:00)
[2019-01-12] MEDS: Diltiazem 25 MG/5 ML SDV IVPUSH ONE (06:09)
[2019-01-12 06:15] LABS: CHLORIDE,CL 102 mmol/L (101-111); SODIUM,NA 134 mmol/L (135-145)
[2019-01-12 06:22] VITALS: BP 162/69
[2019-01-12 06:22] LABS: ANION GAP 31.70001
[2019-01-12 06:40] LABS: BASE EXCESS ARTERIAL -30 mmol/L ((-2)-(+3)); BICARBONATE,ARTERIAL 2.2 mmol/L (22-26); O2 DELIVERY DEVICE ROOM AIR; O2 SATURATION ARTERIAL 97 % (95-100); PO2 ARTERIAL 124 mmHg (70-100)
[2019-01-12] MEDS: Sodium Bicarbonate 8.4% 50 MEQ/50 ML Syringe IVPUSH ONE (06:47)
[2019-01-12] MEDS: LORazepam 2 MG/ML Syringe ONE (07:05)
[2019-01-12 08:42] LABS: PCO2 ARTERIAL 9 mmHg (35-45)
== END 2019-01-12 08:33 ==
LOC: DL.ED 04:47
DX: E10.10 Type 1 diabetes mellitus with ketoacidosis without coma (principal); F15.10 Other stimulant abuse, uncomplicated; Z98.890 Other specified postprocedural states; Z88.8 Allergy status to other drugs, medicaments and biological substances
CPT/HCPCS: 31500; 36415; 36600; 36680; 51702; 71045; 80053; 80305; 81001; 81025; 82009; 82803; 82962; 84484; 85025; 96361; 96374; 96375; 96376; 99285; G0480; J1815; J2060; J2405; J3490; J7030

== ENCOUNTER 2021-02-27 09:19 | Emergency (ER) | payer MEDICAID ==
[2021-02-27] MEDS ORDERED: Sodium Chloride 0.9% 1,000 ML IV ONE (09:23)
[2021-02-27] MEDS ORDERED: Haloperidol Lactate 5 MG/ML SDV IVPUSH ONE (09:25)
--- NOTE | 2021-02-27 09:28 | EDM.PDOC ---
ED HPI GENERAL MEDICAL PROBLEM - General Chief Complaint: Abdominal Pain Stated Complaint: TYPE 1 DIABETIC Time Seen by Provider: 02/27/21 09:23 Source of Information: Reports: Patient History Limitations: Reports: No Limitations - History of Present Illness INITIAL COMMENTS - FREE TEXT/NARRATIVE: Patient is an unfortunate 25-year-old female who presents emerged part today with complaint of vomiting. The patient is panicking and screaming, she denies any abdominal pain at this time, she reports she did smoke marijuana last night, she reports that she is a type I diabetic she did check her blood sugar this morning and reports it was 326 at home, she did take a hot shower which she reports did improve her symptoms mildly when they did not resolve she presented to the emergency department for further evaluation. The patient reports that she has had no fever no chills no diarrhea no hematemesis no hematochezia no melena - Related Data Allergies Allergy/AdvReac Type Severity Reaction Status Date / Time hydromorphone HCl Allergy Itching Verified 02/27/21 09:28 [From Dilaudid] Home Meds: Home Meds Insulin Detemir [Levemir] 15 unit SUBCUT BID 03/11/16 [History] Insulin Aspart [NovoLOG] 10 unit SUBCUT TIDMEALS #1 pen 11/01/17 [Rx] Past Medical History HEENT History: Reports: Other (See Below) Other HEENT History: ear problems with draining, cheek broken in three different place Cardiovascular History: Reports: None Respiratory History: Reports: None Gastrointestinal History: Reports: GI Bleed, Hepatitis Other Gastrointestinal History: rectal bleeding per self report for past couple of months Genitourinary History: Reports: None [employer] History: Reports: Spontaneous Musculoskeletal History: Reports: Fracture Neurological History: Reports: None Psychiatric History: Reports: ADHD, Addiction, Depression, Emotional Problems, Suicide Attempt, Suicidal Ideation Endocrine/Metabolic History: Reports: Diabetes, Type I, IDDM Hematologic History: Reports: Other (See Below) Other Hematologic History: Hep + Immunologic History: Reports: None Oncologic (Cancer) History: Reports: None Dermatologic History: Reports: Other (See Below) Other Dermatologic History: cut [place] noted to forearms, acne vulgaris - Infectious Disease History Infectious Disease History: Reports: Hepatitis C, MRSA - Past Surgical History Head Surgeries/Procedures: Reports: None HEENT Surgical History: Reports: Adenoidectomy, Tonsillectomy GI Surgical History: Reports: None Endocrine Surgical History: Reports: None Social & Family History - Family History Family Medical History: No Pertinent Family History Psychiatric: Reports: Depression Endocrine/Metabolic: Reports: Diabetes, type II - Caffeine Use Caffeine Use: Reports: None - Sexual History Sexual History: Reports: Sexually Active - Living Situation & Occupation Living situation: Reports: with Significant Other Occupation: Unemployed ED ROS GENERAL - Review of Systems Review Of Systems: See Below Constitutional: Denies: Fever, Chills GI/Abdominal: Reports: Nausea, Vomiting. Denies: Abdominal Pain, Anorexia, Hematemesis, Hematochezia ED EXAM, GI/ABD - Physical Exam Exam: See Below Exam Limited By: No Limitations General Appearance: Alert, WD/WN, Moderate Distress Neck: Normal Inspection, Supple, Non-Tender, Full Range of Motion Respiratory/Chest: No Respiratory Distress, Lungs Clear, Normal Breath Sounds, No Accessory Muscle Use, Chest Non-Tender Cardiovascular: Normal Peripheral Pulses, Regular Rate, Rhythm, No Edema, No Gallop, No JVD, No Murmur, No Rub GI/Abdominal Exam: Normal Bowel Sounds, Soft, Non-Tender, No Organomegaly, No Distention, No Abnormal Bruit, No Mass, Pelvis Stable Back Exam: Normal Inspection, Full Range of Motion, NT Extremities: Normal Inspection, Normal Range of Motion, Non-Tender, Normal Capillary Refill, No Pedal Edema Neurological: Alert, Oriented, CN II-XII Intact, Normal Cognition, Normal Gait, Normal Reflexes, No Motor/Sensory Deficits Skin Exam: Warm, Dry, Intact, Normal Color, No Rash Course - Vital Signs Text/Narrative:: Patient's work-up shows mild DKA, was given insulin Haldol, Zofran, IV fluids, repeat Accu-Chek was 192, gap was 22, pH 7.32, patient was feeling better has had no further episodes of vomiting, we discussed the case with Dr. Holder graciously after the patient into observation, ever, the patient refuses admission or observation at this time and wishes to sign out AGAINST MEDICAL ADVICE, the patient is of sound mind at this time she is alert and oriented x3 we have discussed the repercussions of signing out medical advice the patient still continues and wishes to sign out AGAINST MEDICAL ADVICE the patient will be signed out AGAINST MEDICAL ADVICE at this time Last Recorded V/S: Last Vital Signs Temp 96.0 F L 02/27/21 09:29 Pulse 115 H 02/27/21 09:29 Resp 18 02/27/21 09:29 BP 143/89 H 02/27/21 09:29 Pulse Ox 100 02/27/21 09:29 - Orders/Labs/Meds Orders: Active Orders 24 hr Category Date Time Status Blood Glucose Check, Bedside [RC] ONETIME Care 02/27/21 10:03 Active Blood Glucose Check, Bedside [RC] ONETIME Care 02/27/21 10:36 Active Labs: Laboratory Tests 02/27/21 02/27/21 02/27/21 Range/Units 09:23 09:40 09:40 WBC 13.0 H (5.0-10.0) 10^3/uL RBC 5.41 H (4.2-5.4) 10^6/uL Hgb 14.8 (12.0-16.0) g/dL Hct 45.5 (37.0-47.0) % MCV 84.1 (80-100) fL MCH 27.4 (27.0-34.0) pg MCHC 32.5 L (33.0-35.0) g/dL Plt Count 369 D (150-450) 10^3/uL Neut % (Auto) 62.6 (42.2-75.2) % Lymph % (Auto) 31.5 (20.5-50.1) % Ford % (Auto) 5.0 (2-8) % Eos % (Auto) 0.6 L (1.0-3.0) % Baso % (Auto) 0.3 (0.0-1.0) % ABG pH 7.32 L (7.35-7.45) ABG pCO2 36 (35-45) mmHg ABG pO2 90 (70-100) mmHg ABG HCO3 17.7 L (22-26) mmol/L ABG O2 Saturation 95 (95-100) % ABG Base Excess -7 L ((-2)-(+3)) mmol/L Sean Test Positive O2 Delivery Device Room air Sodium 134 L (136-145) mmol/L Potassium 4.4 (3.5-5.1) mmol/L Chloride 95 L (98-107) mmol/L Carbon Dioxide 21 (21-32) mmol/L Anion Gap 22.4 H (7-13) mEq/L BUN 11 (7-18) mg/dL Creatinine 0.75 (0.55-1.02) mg/dL Est Cr Clr Drug Dosing 106.01 mL/min Estimated GFR (MDRD) > 60 BUN/Creatinine Ratio 14.7 (No establ ref range) Glucose 382 H (70-99) mg/dL POC Glucose (70-99) mg/dL Calcium 9.8 (8.5-10.1) mg/dL Total Bilirubin 0.7 (0.2-1.0) mg/dL AST 74 H (15-37) U/L ALT 130 H (14-59) U/L Alkaline Phosphatase 94 (46-116) U/L Total Protein 9.2 H (6.4-8.2) g/dL Albumin 4.9 (3.4-5.0) g/dL Globulin 4.3 Albumin/Globulin Ratio 1.1 Lipase 91 (73-393) U/L HCG, Qual Negative Urine Color (YELLOW) Urine Appearance (CLEAR) Urine pH (5.0-9.0) Ur Specific Crowley (1.005-1.030) Urine Protein (NEGATIVE) Urine Glucose (UA) (NEGATIVE) Urine Ketones (NEGATIVE) Urine Occult Blood (NEGATIVE) Urine Nitrite (NEGATIVE) Urine Bilirubin (NEGATIVE) Urine Urobilinogen (0.2-1.0) mg/dL Ur Leukocyte Esterase (NEGATIVE) Urine RBC /HPF Urine WBC (0-5/HPF) /HPF Ur Epithelial Cells (NOT SEEN) /HPF Urine Bacteria (0-FEW/HPF) /HPF Urine Mucus (NOT SEEN) /LPF Urine Opiates Screen (NEGATIVE) Ur Oxycodone Screen (NEGATIVE) Urine Methadone Screen (NEGATIVE) Acetaminophen 0 L (10-30 (Therapeutic)) ug/mL Ur Barbiturates Screen (NEGATIVE) U Tricyclic Antidepress (NEGATIVE) Ur Phencyclidine Scrn (NEGATIVE) Ur Amphetamine Screen (NEGATIVE) U Methamphetamines Scrn (NEGATIVE) Urine MDMA Screen (NEGATIVE) U Benzodiazepines Scrn (NEGATIVE) Urine Cocaine Screen (NEGATIVE) U Marijuana (THC) Screen (NEGATIVE) Ketones Small-20 mg/dl 02/27/21 02/27/21 02/27/21 Range/Units 09:59 10:21 10:21 WBC (5.0-10.0) 10^3/uL RBC (4.2-5.4) 10^6/uL Hgb (12.0-16.0) g/dL Hct (37.0-47.0) % MCV (80-100) fL MCH (27.0-34.0) pg MCHC (33.0-35.0) g/dL Plt Count (150-450) 10^3/uL Neut % (Auto) (42.2-75.2) % Lymph % (Auto) (20.5-50.1) % Ford % (Auto) (2-8) % Eos % (Auto) (1.0-3.0) % Baso % (Auto) (0.0-1.0) % ABG pH (7.35-7.45) ABG pCO2 (35-45) mmHg ABG pO2 (70-100) mmHg ABG HCO3 (22-26) mmol/L ABG O2 Saturation (95-100) % ABG Base Excess ((-2)-(+3)) mmol/L Sean Test O2 Delivery Device Sodium (136-145) mmol/L Potassium (3.5-5.1) mmol/L Chloride (98-107) mmol/L Carbon Dioxide (21-32) mmol/L Anion Gap (7-13) mEq/L BUN (7-18) mg/dL Creatinine (0.55-1.02) mg/dL Est Cr Clr Drug Dosing mL/min Estimated GFR (MDRD) BUN/Creatinine Ratio (No establ ref range) Glucose (70-99) mg/dL POC Glucose 375 H (70-99) mg/dL Calcium (8.5-10.1) mg/dL Total Bilirubin (0.2-1.0) mg/dL AST (15-37) U/L ALT (14-59) U/L Alkaline Phosphatase (46-116) U/L Total Protein (6.4-8.2) g/dL Albumin (3.4-5.0) g/dL Globulin Albumin/Globulin Ratio Lipase (73-393) U/L HCG, Qual Urine Color Yellow (YELLOW) Urine Appearance Clear (CLEAR) Urine pH 5.5 (5.0-9.0) Ur Specific Crowley 1.015 (1.005-1.030) Urine Protein 30 H (NEGATIVE) Urine Glucose (UA) 500 H (NEGATIVE) Urine Ketones >=160 H (NEGATIVE) Urine Occult Blood Trace-intact H (NEGATIVE) Urine Nitrite Negative (NEGATIVE) Urine Bilirubin Negative (NEGATIVE) Urine Urobilinogen 0.2 (0.2-1.0) mg/dL Ur Leukocyte Esterase Negative (NEGATIVE) Urine RBC 0-5 /HPF Urine WBC 0-5 (0-5/HPF) /HPF Ur Epithelial Cells Few (NOT SEEN) /HPF Urine Bacteria Rare (0-FEW/HPF) /HPF Urine Mucus Not seen (NOT SEEN) /LPF Urine Opiates Screen Negative (NEGATIVE) Ur Oxycodone Screen Negative (NEGATIVE) Urine Methadone Screen Negative (NEGATIVE) Acetaminophen (10-30 (Therapeutic)) ug/mL Ur Barbiturates Screen Negative (NEGATIVE) U Tricyclic Antidepress Negative (NEGATIVE) Ur Phencyclidine Scrn Negative (NEGATIVE) Ur Amphetamine Screen Negative (NEGATIVE) U Methamphetamines Scrn Negative (NEGATIVE) Urine MDMA Screen Negative (NEGATIVE) U Benzodiazepines Scrn Negative (NEGATIVE) Urine Cocaine Screen Negative (NEGATIVE) U Marijuana (THC) Screen Positive H (NEGATIVE) Ketones 02/27/21 02/27/21 Range/Units 11:04 11:58 WBC (5.0-10.0) 10^3/uL RBC (4.2-5.4) 10^6/uL Hgb (12.0-16.0) g/dL Hct (37.0-47.0) % MCV (80-100) fL MCH (27.0-34.0) pg MCHC (33.0-35.0) g/dL Plt Count (150-450) 10^3/uL Neut % (Auto) (42.2-75.2) % Lymph % (Auto) (20.5-50.1) % Ford % (Auto) (2-8) % Eos % (Auto) (1.0-3.0) % Baso % (Auto) (0.0-1.0) % ABG pH (7.35-7.45) ABG pCO2 (35-45) mmHg ABG pO2 (70-100) mmHg ABG HCO3 (22-26) mmol/L ABG O2 Saturation (95-100) % ABG Base Excess ((-2)-(+3)) mmol/L Sean Test O2 Delivery Device Sodium (136-145) mmol/L Potassium (3.5-5.1) mmol/L Chloride (98-107) mmol/L Carbon Dioxide (21-32) mmol/L Anion Gap (7-13) mEq/L BUN (7-18) mg/dL Creatinine (0.55-1.02) mg/dL Est Cr Clr Drug Dosing mL/min Estimated GFR (MDRD) BUN/Creatinine Ratio (No establ ref range) Glucose (70-99) mg/dL POC Glucose 333 H 193 H (70-99) mg/dL Calcium (8.5-10.1) mg/dL Total Bilirubin (0.2-1.0) mg/dL AST (15-37) U/L ALT (14-59) U/L Alkaline Phosphatase (46-116) U/L Total Protein (6.4-8.2) g/dL Albumin (3.4-5.0) g/dL Globulin Albumin/Globulin Ratio Lipase (73-393) U/L HCG, Qual Urine Color (YELLOW) Urine Appearance (CLEAR) Urine pH (5.0-9.0) Ur Specific Crowley (1.005-1.030) Urine Protein (NEGATIVE) Urine Glucose (UA) (NEGATIVE) Urine Ketones (NEGATIVE) Urine Occult Blood (NEGATIVE) Urine Nitrite (NEGATIVE) Urine Bilirubin (NEGATIVE) Urine Urobilinogen (0.2-1.0) mg/dL Ur Leukocyte Esterase (NEGATIVE) Urine RBC /HPF Urine WBC (0-5/HPF) /HPF Ur Epithelial Cells (NOT SEEN) /HPF Urine Bacteria (0-FEW/HPF) /HPF Urine Mucus (NOT SEEN) /LPF Urine Opiates Screen (NEGATIVE) Ur Oxycodone Screen (NEGATIVE) Urine Methadone Screen (NEGATIVE) Acetaminophen (10-30 (Therapeutic)) ug/mL Ur Barbiturates Screen (NEGATIVE) U Tricyclic Antidepress (NEGATIVE) Ur Phencyclidine Scrn (NEGATIVE) Ur Amphetamine Screen (NEGATIVE) U Methamphetamines Scrn (NEGATIVE) Urine MDMA Screen (NEGATIVE) U Benzodiazepines Scrn (NEGATIVE) Urine Cocaine Screen (NEGATIVE) U Marijuana (THC) Screen (NEGATIVE) Ketones Meds: Medications Discontinued Medications Generic Name Dose Route Start Last Admin Trade Name Freq PRN Reason Stop Dose Admin Haloperidol Lactate 5 mg 07/04/21 09:25 02/27/21 10:16 Haloperidol Lactate 5 Mg/Ml Sdv IVPUSH 02/27/21 09:26 5 mg ONETIME ONE Administration Sodium Chloride 1,000 mls @ 999 mls/hr 02/27/21 09:23 02/27/21 10:16 Normal Saline IV 02/27/21 10:23 999 mls/hr .BOLUS ONE Administration Insulin Human Regular 10 unit 02/27/21 10:36 02/27/21 10:46 Insulin Regular, Human 100 Units/Ml 3 Ml Vial IV 02/27/21 10:37 10 unit ONETIME ONE Administration Ondansetron HCl 4 mg 02/27/21 09:48 02/27/21 10:01 Ondansetron 4 Mg Tab.Dis PO 02/27/21 09:49 4 mg ONETIME ONE Administration Departure - Departure Time of Disposition: 12:17 Disposition: Against Medical Advice 07 Condition: Serious Clinical Impression: Hyperemesis Diabetic ketoacidosis Qualifiers: Diabetes mellitus type: type 1 Diabetes mellitus complication detail: without coma Qualified Code(s): E10.10 - Type 1 diabetes mellitus with ketoacidosis without coma - Discharge Information *PRESCRIPTION DRUG MONITORING PROGRAM REVIEWED*: No *COPY OF PRESCRIPTION DRUG MONITORING REPORT IN PATIENT AMANDA: No Forms: ED Department Discharge Sepsis Event Note (ED) - Focused Exam Vital Signs: Vital Signs Temp Pulse Resp BP Pulse Ox 02/27/21 09:29 96.0 F L 115 H 18 143/89 H 100 - My Orders Last 24 Hours: My Active Orders 02/27/21 10:03 Blood Glucose Check, Bedside [RC] ONETIME 02/27/21 10:36 Blood Glucose Check, Bedside [RC] ONETIME - Assessment/Plan Last 24 Hours: My Active Orders 02/27/21 10:03 Blood Glucose Check, Bedside [RC] ONETIME 02/27/21 10:36 Blood Glucose Check, Bedside [RC] ONETIME
[2021-02-27 09:36] VITALS: BP 143/89; PULSE 115
[2021-02-27] MEDS ORDERED: Ondansetron 4 MG Tab.DIS PO ONE (09:48)
[2021-02-27 10:05] LABS: ACETAMINOPHEN 0 ug/mL (10-30 (Therapeutic)); ANION GAP 22.4 mEq/L (7-13); CHLORIDE,CL 95 mmol/L (98-107); SODIUM,NA 134 mmol/L (136-145)
[2021-02-27] MEDS ORDERED: Insulin Regular, Human 100 Units/ML 3 ML Vial IV ONE (10:36)
[2021-02-27 10:37] LABS: O2 DELIVERY DEVICE ROOM AIR; PCO2 ARTERIAL 36 mmHg (35-45)
[2021-02-27 10:38] LABS: ALLEN TEST POSITIVE; BASE EXCESS ARTERIAL -7 mmol/L ((-2)-(+3)); BICARBONATE,ARTERIAL 17.7 mmol/L (22-26); O2 SATURATION ARTERIAL 95 % (95-100); PO2 ARTERIAL 90 mmHg (70-100)
== END 2021-02-27 12:20 | disposition left against medical advice (07) ==
LOC: DL.ED 09:19
DX: K92.0 Hematemesis (principal); E10.10 Type 1 diabetes mellitus with ketoacidosis without coma; Z88.5 Allergy status to narcotic agent
CPT/HCPCS: 36415; 36600; 80053; 80143; 80305; 81001; 82009; 82803; 82947; 83690; 84703; 85025; 96374; 99284; A9270; J1630; J1815; J7030